=== PATIENT | female | born 1930 | race Caucasian/White ===

== ENCOUNTER 2021-01-17 09:01 | Inpatient (IN) | payer BC, OTHER ==
[2021-01-17] MEDS ORDERED: METHYLPREDNISOLONE 125 MG INJ ONE (09:34)
[2021-01-17] MEDS ORDERED: ALBUTEROL 2.5 MG/3 ML NEB SOL ONE ×3 (09:35→21:40)
[2021-01-17] MEDS ORDERED: IPRATROPIUM BROM 0.5MG/2.5ML ONE ×3 (09:35→21:40)
[2021-01-17] MEDS ORDERED: FUROSEMIDE 20 MG/ 2ML VIAL ONE ×2 (09:35→18:31)
[2021-01-17 09:49] LABS: Absolute Lymphocytes (CBC) 1.9 K/uL (0.7-4.9); Basophils % 2.6 % (0-1.3); Hematocrit 30.6 % (36.0-45.0); Lymphocytes % 24.7 % (15.3-44.8); MPV 8.8 fL (7.6-11.3); RBC Red Blood Cell Count 3.51 M/uL (3.86-4.86)
--- NOTE | 2021-01-17 10:07 | RAD REPORT ---
EXAM DESCRIPTION: RAD - Chest Single View - 01/17/2021 9:57 am CLINICAL HISTORY: CONGESTION Chest pain. COMPARISON: Chest Single View dated 08/20/2015; CHEST SINGLE VIEW dated 07/07/2012; CHEST SINGLE VIEW d ated 07/06/2012; CHEST SINGLE VIEW dated 10/19/2010 FINDINGS: Portable technique limits examination quality. Moderate bilateral pulmonary opacities are present which may represent pulmonary infection/viral infe ction or moderate pulmonary edema. The heart is moderately enlarged. Sternotomy wires are present. IMPRESSION: Moderate CHF versus viral infection pattern.
[2021-01-17 10:09] LABS: Albumin 3.5 g/dL (3.4-5.0); Bilirubin Direct 0.2 mg/dL (0-0.2); Bilirubin Total 0.6 mg/dL (0.2-1.0); CKMB Creatine Kinase MB 1.5 ng/mL (1.0-3.6); Magnesium 1.9 mg/dL (1.8-2.4); Potassium 4.2 mmol/L (3.5-5.1); Protein, Total 6.8 g/dL (6.4-8.2); Thyroid Stimulating Hormone 0.052 uIU/mL (0.360-3.740); Troponin (Emerg Dept Use Only) 0.16 ng/mL (0.0-0.045)
[2021-01-17] MEDS ORDERED: Levofloxacin 750mg IV 750 MG/150 ML BAG IV ONE (10:11)
--- NOTE | 2021-01-17 11:13 | ER ---
Nurse's Notes [facility] Name: Leelee Forrest Age: 89 yrs Sex: Female : 1930 Arrival Date: 01/17/2021 Time: 09:04 Bed 4 Private MD: Diagnosis: Hypoxemia;COPD/ Chronic obstructive pulmonary disease with acute lower respiratory infection;Other pneumonia, unspecified organism;Acute pulmonary edema;Acute on chronic systolic (congestive) heart failure;Subsequent non-ST elevation (NSTEMI) myocardial infarction Presentation: 01/17 09:06 Chief complaint: EMS states: SOB x 3 days. RA 95%, placed on O2 \T\ 2L per NC. Pt was sv hyperventilating on scene. Coronavirus screen: At this time, the client does not indicate any symptoms associated with coronavirus-19. Ebola Screen: No symptoms or risks identified at this time. Initial Sepsis Screen: Does the patient meet any 2 criteria? No. Patient's initial sepsis screen is negative. Does the patient have a suspected source of infection? No. Patient's initial sepsis screen is negative. Risk Assessment: Do you want to hurt yourself or someone else? Patient reports no desire to harm self or others. Onset of symptoms was January 15, 2021. 09:06 Method Of Arrival: EMS: [facility] sv 09:06 Acuity: BECKI 2 sv Triage Assessment: 09:08 General: Appears in no apparent distress. comfortable, well developed, Behavior is sv cooperative, anxious. Pain: Denies pain. Neuro: Level of Consciousness is awake, alert, obeys commands, Oriented to person, place, time, situation, Speech is normal. Respiratory: Airway is patent Respiratory effort is even, unlabored, Respiratory pattern is regular, symmetrical, Breath sounds with wheezes bilaterally. Derm: Skin is normal. Historical: - Allergies: 09:05 Axid; sv 09:05 Codeine; sv 09:05 Keflex; sv 09:05 PENICILLINS; sv 09:05 Talwin; sv 09:05 Vicodin; sv 09:05 Xanax; sv 09:05 Sulfa (Sulfonamide Antibiotics); sv 09:05 Bactrim; sv - PMHx: 09:05 Anxiety; Hypertension; Hypothyroidism; sv - Immunization history:: Adult Immunizations up to date. - Social history:: Smoking status: Patient denies any tobacco usage or history of. - Family history:: not pertinent. Screenin:08 Abuse screen: Denies threats or abuse. Denies injuries from another. Nutritional sv screening: No deficits noted. Tuberculosis screening: No symptoms or risk factors identified. Fall Risk None identified. Assessment: 09:41 Reassessment: Patient appears in no apparent distress at this time. Patient and/or sv family updated on plan of care and expected duration. Pain level reassessed. Patient is alert, oriented x 3, equal unlabored respirations, skin warm/dry/pink. 10:07 Reassessment: Patient appears in no apparent distress at this time. Patient and/or sv family updated on plan of care and expected duration. Pain level reassessed. Patient is alert, oriented x 3, equal unlabored respirations, skin warm/dry/pink. Respiratory: Respiratory pattern is hyperventilation Pt given verbal reassurance to slow her breathing and concentrate on breathing in through her nose and out her mouth. Pt able to perform. 10:38 Reassessment: Vito DC at the bedside. sv 11:33 Reassessment: Patient appears in no apparent distress at this time. Patient and/or sv family updated on plan of care and expected duration. Pain level reassessed. Patient is alert, oriented x 3, equal unlabored respirations, skin warm/dry/pink. 21:40 Reassessment: Patient and/or family updated on plan of care and expected duration. Pain ea level reassessed. Patient is alert, oriented x 3, equal unlabored respirations, skin warm/dry/pink. Pt admitted to second floor, report called to receiving nurse on second. Pt left ED via stretcher tolerating well. Vital Signs: 09:06 BP 144 / 77; Pulse 83; Resp 18; Temp 97; Pulse Ox 99% on R/A; Weight 65.77 kg; Height 5 sv ft. 0 in. (152.40 cm); Pain 0/10; 09:15 BP 127 / 88; Pulse 96; Resp 30; Pulse Ox 97% on 2 lpm NC; sv 11:00 BP 130 / 95; Pulse 89; Resp 25; Pulse Ox 95% on 2 lpm NC; sv 21:24 BP 100 / 60; Pulse 87; Resp 19; Pulse Ox 100% on 2 lpm NC; ea 09:06 Body Mass Index 28.32 (65.77 kg, 152.40 cm) sv ED Course: 08:30 Second set of blood cultures drawn by me. sv 09:04 Patient arrived in ED. iw 09:05 Jessica Salcedo, FAUSTINO is Primary Nurse. sv 09:06 Amarilis Brizuela MD is Attending Physician. ma2 09:06 Arm band placed on. sv 09:07 Triage completed. sv 09:08 Patient has correct armband on for positive identification. Bed in low position. Call sv light in reach. Side rails up X2. superintendent pipelines on. Pulse ox on. NIBP on. Door closed. Head of bed elevated. 09:12 EKG done, by ED staff, reviewed by Amarilis Brizuela MD. em1 09:20 First set of blood cultures drawn by me. sv 09:30 Inserted saline lock: 20 gauge in right forearm, using aseptic technique. Blood sv collected. Flushed right forearm with 5 ml normal saline. 09:38 CBC with Diff Sent. sv 09:38 BMP Sent. sv 09:38 Blood Culture Adult (2) Sent. sv 09:57 XRAY CXR (1 view) In Process Unspecified. EDMS 11:11 Jensen Alberto MD is Hospitalizing Provider. ma2 11:31 Arteaga cath inserted, using sterile technique, 16 Fr., by me, balloon inflated, to sv gravity drainage, returned clear yellow urine. Patient tolerated poorly. 11:54 No provider procedures requiring assistance completed. Patient admitted, IV remains in sv place. intact. Administered Medications: 09:38 Drug: SOLU-Medrol (methylPrednisoLONE) 125 mg Route: IVP; Site: right forearm; sv 10:06 Follow up: Response: No adverse reaction sv 09:39 Drug: Albuterol 2.5 mg Route: Inhalation; sv 09:39 Drug: Albuterol 2.5 mg Route: Inhalation; sv 09:39 Drug: Albuterol 2.5 mg Route: Inhalation; sv 09:39 CANCELLED (Physician Discretion): AtroVENT (ipratropium) Aerosol 0.5 mg Inhalation sv once; Every 20 min for a total of 3 treatments x3 09:39 Drug: Lasix (furosemide) 20 mg Route: IVP; Site: right forearm; sv 10:06 Follow up: Response: No adverse reaction sv 09:39 Drug: AtroVENT (ipratropium) Aerosol 0.5 mg Route: Inhalation; sv 10:06 Drug: LevaQUIN (levofloxacin) 750 mg Volume: 150 ml; Route: IVPB; Infused Over: 90 sv mins; Site: right forearm; 11:33 Follow up: Response: No adverse reaction; IV Status: Completed infusion; IV Intake: sv 150ml 11:32 Drug: Aspirin Chewable Tablet 324 mg Route: PO; sv 11:43 Follow up: Response: No adverse reaction sv 11:32 Drug: Lovenox (enoxaparin) 70 mg Route: Sub-Q; Site: right lower abdomen; sv 11:43 Follow up: Response: No adverse reaction sv 11:32 Drug: Lasix (furosemide) 40 mg Route: IVP; Site: right forearm; sv 11:43 Follow up: Response: No adverse reaction sv Intake: 11:33 IV: 150ml; Total: 150ml. sv Outcome: 11:12 Decision to Hospitalize by Provider. ma2 11:55 Admitted to ER Hold. Please see [facility] for further documentation. sv 11:55 Condition: stable 11:55 Instructed on the need for admit. 21:46 Patient left the ED. tt3 Signatures: Dispatcher [employer] Jessica Garcia RN RN sv Williams, Irene, RN RN iw Martinez, Eric em1 Leydi Griffin RN RN ea Alzahri, Mohammad, MD MD ma2 Trim, Tyler tt3 Corrections: (The following items were deleted from the chart) 10:08 09:47 CORONAVIRUS+MR.LAB.BRANDEE drawn and sent. em1 EDMS 21:25 21:24 BP 100 / 60; Pulse 87bpm; Resp 19bpm; Pulse Ox 100%; ea ea
--- NOTE | 2021-01-17 11:13 | EDPHYS ---
Physician Documentation [facility] Name: Leelee Forrest Age: 89 yrs Sex: Female : 1930 Arrival Date: 01/17/2021 Time: 09:04 Bed 4 Private MD: ED Physician Amarilis Brizuela HPI: 01/17 09:55 This 89 yrs old Female presents to ER via EMS with complaints of Shortness Of ma2 Breath. 09:55 The patient has shortness of breath at rest. Onset: The symptoms/episode began/occurred ma2 gradually, 2 day(s) ago. Associated signs and symptoms: Pertinent negatives: diaphoresis, loss of consciousness, nausea. Severity of symptoms: At their worst the symptoms were severe in the emergency department the symptoms are unchanged. The patient has experienced similar episodes in the past, and the symptoms today are exactly the same, copd. Historical: - Allergies: 09:05 Axid; sv 09:05 Codeine; sv 09:05 Keflex; sv 09:05 PENICILLINS; sv 09:05 Talwin; sv 09:05 Vicodin; sv 09:05 Xanax; sv 09:05 Sulfa (Sulfonamide Antibiotics); sv 09:05 Bactrim; sv - PMHx: 09:05 Anxiety; Hypertension; Hypothyroidism; sv - Immunization history:: Adult Immunizations up to date. - Social history:: Smoking status: Patient denies any tobacco usage or history of. - Family history:: not pertinent. ROS: 09:55 Constitutional: Negative for fever, chills, and weight loss. ma2 09:55 All other systems are negative. Exam: 09:55 Constitutional: This is a well developed, well nourished patient who is awake, alert, ma2 and in no acute distress. Head/Face: Normocephalic, atraumatic. Eyes: Pupils equal round and reactive to light, extra-ocular motions intact. Lids and lashes normal. Conjunctiva and sclera are non-icteric and not injected. Cornea within normal limits. Periorbital areas with no swelling, redness, or edema. ENT: Nares patent. No nasal discharge, no septal abnormalities noted. Tympanic membranes are normal and external auditory canals are clear. Oropharynx with no redness, swelling, or masses, exudates, or evidence of obstruction, uvula midline. Mucous membranes moist. Neck: Trachea midline, no thyromegaly or masses palpated, and no cervical lymphadenopathy. Supple, full range of motion without nuchal rigidity, or vertebral point tenderness. No Meningismus. Chest/axilla: Normal chest wall appearance and motion. Nontender with no deformity. No lesions are appreciated. Cardiovascular: Regular rate and rhythm with a normal S1 and S2. No gallops, murmurs, or rubs. Normal PMI, no JVD. No pulse deficits. Abdomen/GI: Soft, non-tender, with normal bowel sounds. No distension or tympany. No guarding or rebound. No evidence of tenderness throughout. 09:55 Back: No spinal tenderness. No costovertebral tenderness. Full range of motion. MS/ Extremity: Pulses equal, no cyanosis. Neurovascular intact. Full, normal range of motion. Neuro: Awake and alert, GCS 15, oriented to person, place, time, and situation. Cranial nerves II-XII grossly intact. Motor strength 5/5 in all extremities. Sensory grossly intact. Cerebellar exam normal. Normal gait. Psych: Awake, alert, with orientation to person, place and time. Behavior, mood, and affect are within normal limits. 09:55 Respiratory: moderate respiratory distress is noted, Respirations: labored breathing, Breath sounds: rales, that are mild, are heard diffusely, wheezing: Respiratory rate: 30 Vital Signs: 09:06 BP 144 / 77; Pulse 83; Resp 18; Temp 97; Pulse Ox 99% on R/A; Weight 65.77 kg; Height 5 sv ft. 0 in. (152.40 cm); Pain 0/10; 09:15 BP 127 / 88; Pulse 96; Resp 30; Pulse Ox 97% on 2 lpm NC; sv 11:00 BP 130 / 95; Pulse 89; Resp 25; Pulse Ox 95% on 2 lpm NC; sv 21:24 BP 100 / 60; Pulse 87; Resp 19; Pulse Ox 100% on 2 lpm NC; ea 09:06 Body Mass Index 28.32 (65.77 kg, 152.40 cm) sv MDM: 09:06 Patient medically screened. ma2 09:55 Differential diagnosis: asthma, Chronic Obstructive Pulmonary Disease pneumonia, ma2 Pneumothorax reactive airway disease. Data reviewed: vital signs, nurses notes. 11:10 Counseling: I had a detailed discussion with the patient and/or guardian regarding: the vt2 historical points, exam findings, and any diagnostic results supporting the discharge/admit diagnosis, the presence of at least one elevated blood pressure reading (>120/80) during this emergency department visit, the need for further work-up and treatment in the hospital. Response to treatment: the patient's symptoms have markedly improved after treatment. 01/17 09:08 Order name: BMP ma2 01/17 09:08 Order name: Blood Culture Adult (2) ma2 01/17 09:08 Order name: CBC with Diff vt2 01/17 09:08 Order name: CPK; Complete Time: 10:24 vt2 01/17 09:08 Order name: Ckmb; Complete Time: 10:24 vt2 01/17 09:08 Order name: Hepatic Function; Complete Time: 10:24 vt2 01/17 09:08 Order name: Lipase; Complete Time: 10:24 vt2 01/17 09:08 Order name: Magnesium; Complete Time: 10:24 vt2 01/17 09:08 Order name: NT PRO-BNP; Complete Time: 10:24 ma2 01/17 09:08 Order name: PT-INR; Complete Time: 09:57 ma2 01/17 09:08 Order name: Ptt, Activated; Complete Time: 09:57 ma2 01/17 09:08 Order name: Troponin (emerg Dept Use Only); Complete Time: 10:24 vt2 01/17 09:09 Order name: TSH; Complete Time: 10:24 vt2 01/17 09:08 Order name: XRAY CXR (1 view); Complete Time: 10:24 vt2 01/17 09:09 Order name: T4 Free; Complete Time: 10:24 ma2 01/17 09:09 Order name: Basic Metabolic Panel; Complete Time: 10:24 EDMS 01/17 09:09 Order name: Blood Culture EDKS 01/17 09:09 Order name: CBC with Automated Diff; Complete Time: 09:57 EDMS 01/17 11:06 Order name: SARS-COV-2 RT PCR EDMS 01/17 13:44 Order name: Troponin I EDKS 01/17 20:33 Order name: Troponin I EDKS 01/17 09:08 Order name: EKG; Complete Time: 09:09 ma2 01/17 09:08 Order name: Cardiac monitoring; Complete Time: 09:09 2 01/17 09:08 Order name: EKG - Nurse/Tech; Complete Time: 09:11 01/17 09:08 Order name: IV Saline Lock; Complete Time: 09:39 01/17 09:08 Order name: Labs collected and sent; Complete Time: 09:39 vt2 01/17 09:08 Order name: O2 Per Protocol; Complete Time: 09:01/17 09:08 Order name: O2 Sat Monitoring; Complete Time: 09: vt Administered Medications: 09:38 Drug: SOLU-Medrol (methylPrednisoLONE) 125 mg Route: IVP; Site: right forearm; sv 10:06 Follow up: Response: No adverse reaction sv 09:39 Drug: Albuterol 2.5 mg Route: Inhalation; sv 09:39 Drug: Albuterol 2.5 mg Route: Inhalation; sv 09:39 Drug: Albuterol 2.5 mg Route: Inhalation; sv 09:39 CANCELLED (Physician Discretion): AtroVENT (ipratropium) Aerosol 0.5 mg Inhalation sv once; Every 20 min for a total of 3 treatments x3 09:39 Drug: Lasix (furosemide) 20 mg Route: IVP; Site: right forearm; sv 10:06 Follow up: Response: No adverse reaction sv 09:39 Drug: AtroVENT (ipratropium) Aerosol 0.5 mg Route: Inhalation; sv 10:06 Drug: LevaQUIN (levofloxacin) 750 mg Volume: 150 ml; Route: IVPB; Infused Over: 90 sv mins; Site: right forearm; 11:33 Follow up: Response: No adverse reaction; IV Status: Completed infusion; IV Intake: sv 150ml 11:32 Drug: Aspirin Chewable Tablet 324 mg Route: PO; sv 11:43 Follow up: Response: No adverse reaction sv 11:32 Drug: Lovenox (enoxaparin) 70 mg Route: Sub-Q; Site: right lower abdomen; sv 11:43 Follow up: Response: No adverse reaction sv 11:32 Drug: Lasix (furosemide) 40 mg Route: IVP; Site: right forearm; sv 11:43 Follow up: Response: No adverse reaction sv Disposition: 09:56 Critical Care:. ma2 11:10 Critical Care:. ma2 Disposition Summary: 01/17/21 11:12 Hospitalization Ordered Hospitalization Status: Inpatient Admission ma2 Provider: Jensen Alberto Condition: Stable ma2 Problem: new ma2 Symptoms: are unchanged ma2 Bed/Room Type: Standard ma2 Location: Telemetry/MedSurg (Inpatient)(01/17/21 21:02) cg Room Assignment: [facility](01/17/21 21:02) cg Diagnosis - Hypoxemia ma2 - COPD/ Chronic obstructive pulmonary disease with acute lower respiratory infection ma2 - Other pneumonia, unspecified organism ma2 - Acute pulmonary edema ma2 - Acute on chronic systolic (congestive) heart failure ma2 - Subsequent non-ST elevation (NSTEMI) myocardial infarction ma2 Forms: - Medication Reconciliation Form ma2 - SBAR form ma2 Critical care time excluding procedures: 09:56 Critical care time: Bedside Care: 30 minutes, Consultation: 10 minutes, Family ma2 Intervention: 5 minutes. Total time: 45 minutes 11:10 Critical care time: Bedside Care: 30 minutes, Consultation: 10 minutes, Family ma2 Intervention: 5 minutes. Total time: 45 minutes Signatures: Dispatcher [employer] Jessica Garcia RN RN sv Garcia, Cindy, RN RN Amarilis Brizuela MD MD vt2 Corrections: (The following items were deleted from the chart) 09:39 09:08 AtroVENT (ipratropium) Aerosol 0.5 mg Inhalation once; Every 20 min for a total sv of 3 treatments x3 ordered. ma2 10:08 09:09 CORONAVIRUS+MR.LAB.BRZ ordered. EDKS EDMS 11:42 11:12 Telemetry/MedSurg (Inpatient) ma2 sv 11:42 11:12 ma2 sv 21:02 11:42 [facility] ER HOLD sv cg 21:02 11:42 ERHOLD- sv cg
[2021-01-17] MEDS ORDERED: ASPIRIN 81 MG CHEWABLE TABLET ONE (11:26)
[2021-01-17] MEDS ORDERED: ENOXAPARIN 80 MG/0.8 ML SQ ONE (11:27)
[2021-01-17] MEDS ORDERED: FUROSEMIDE 40 MG/4 ML VIAL ONE (11:27)
[2021-01-17] MEDS ORDERED: ONDANSETRON 4 MG/2 ML VIAL IV PRN (11:41)
[2021-01-17] MEDS ORDERED: ACETAMINOPHEN 500 MG TAB PO PRN (11:41)
[2021-01-17 11:52] VITALS: BMI 28.3
[2021-01-17] MEDS: ALBUTEROL 2.5 MG/3 ML NEB SOL NEB PRN ×2 (16:15→21:20)
[2021-01-17] MEDS: IPRATROPIUM BROM 0.5MG/2.5ML NEB PRN ×2 (16:15→21:20)
[2021-01-17] MEDS ORDERED: LORazepam 2 MG/ML VIAL IV ONE (16:57)
[2021-01-17] MEDS ORDERED: FUROSEMIDE 20 MG/ 2ML VIAL IV SCH (17:00)
--- NOTE | 2021-01-17 17:12 | P.HP ---
Certification for Inpatient Patient admitted to: Inpatient With expected LOS: >2 Midnights Patient will require the following post-hospital care: None Practitioner: I am a practitioner with admitting privileges, knowledge of patient current condition, hospital course, and medical plan of care. Services: Services provided to patient in accordance with Admission requirements found in Title 42 Section 412.3 of the Code of Federal Regulations Patient History Date of Service: 01/17/21 Primary Care Provider: Nicolasa Reason for admission: Acute CHF, Atrial fib, NSTEMI History of Present Illness: Is a 89-year-old female patient with a history of anxiety, hypertension, hypothyroidism, COPD that presented to the emergency room with shortness of breath for the past few days. Progressively gotten worse and was brought in by EMS today. Patient stated that her legs have become more swollen and she is getting not only short of breath with exertion but short of breath at rest and with lying supine. Patient was worked up in the emergency room and found to have a sodium of 133, potassium 4.2, chloride 103, bicarb 22, BUN of 22, cr eatinine 0.79, glucose 117. Patient had a white cell count of 7.5, hemoglobin 10.2, hematocrit 30.6, platelet 244. Patient's troponin elevated at 0.16, BNP 28,126. Patient's chest x-ray showed volume overload congestive heart failure. Medicine was consult at that time for further evaluation and admission Allergies famotidine [From Pepcid] Allergy (Mild, Verified 07/07/12 11:50) Itching/Hives/Rash acetaminophen [From Tylox] Allergy (Unknown, Verified 01/17/21 16:58) UNKNOWN cephalexin monohydrate [From Keflex] Allergy (Unknown, Verified 01/17/21 16:58) UNKNOWN codeine [Codeine] Allergy (Unknown, Verified 01/17/21 16:58) UNKNOWN hydrocodone bitartrate [From Vicodin] Allergy (Unknown, Verified 01/17/21 16:58) UNKNOWN oxycodone HCl [From Tylox] Allergy (Unknown, Verified 01/17/21 16:58) UNKNOWN Penicillins Allergy (Unknown, Verified 01/17/21 16:58) UNKNOWN pentazocine lactate [From Talwin] Allergy (Unknown, Verified 01/17/21 16:58) UNKNOWN ranitidine HCl [From Zantac] Allergy (Unknown, Verified 01/17/21 16:58) UNKNOWN Sulfa (Sulfonamide Antibiotics) Allergy (Unknown, Verified 01/17/21 16:58) UNKNOWN alprazolam [From Xanax] Allergy (Verified 01/17/21 16:58) Unknown nizatidine [From Axid] Allergy (Verified 01/17/21 16:58) Unknown Home medications list reviewed: Yes Home Medications: Aspirin [Aspirin EC 81 MG] 81 mg PO DAILY 07/07/12 Diphenox/Atropine [Lomotil*] 1 tab PO Q6H PRN #0 tab 07/07/12 Efanol-Efalex 1 tab PO DAILY 07/07/12 Iron,Carbonyl [Feosol] 65 mg PO DAILY 07/07/12 Levofloxacin [Levaquin] 500 mg PO DAILY #7 tablet 07/07/12 Levothyroxine [Synthroid*] 0.125 mg PO DAILY 07/07/12 Melatonin 5 mg PO BEDTIME 07/07/12 Metoprolol Succinate [Toprol Xl*] 50 mg PO BID 07/07/12 Niacinamide 500 mg PO DAILY 07/07/12 Probiotic BID 07/07/12 Promethazine HCl [Phenergan] 25 mg PO Q6H PRN #30 tablet 07/07/12 Raloxifene HCl [Evista*] 60 mg PO DAILY 07/07/12 Ramipril 10 mg PO DAILY 07/07/12 Rosuvastatin [Crestor*] 10 mg PO DAILY 07/07/12 Santil 200 mg PO 07/07/12 Tiotropium [place] [Spiriva] 18 mcg IH DAILY 07/07/12 Tolterodine Tartrate [Detrol] 2 mg PO BID 07/07/12 Ubidecarenone [Coenzyme Q10] 100 mg PO DAILY 07/07/12 Vit B Complex 100 Combo No.2 [B-100 Complex] 50 mg PO DAILY 07/07/12 Zeal Multivitamin BID 07/07/12 diphenhydrAMINE HCl [Benadryl] 50 mg PO BEDTIME 07/07/12 - Past Medical/Surgical History Diabetic: No -: Anxiety -: HTN -: Hypothyroidism -: CHF -: COPD -: NSTEMI -: Bypass - Family History Family History: Reviewed- Non-Contributory - Social History Smoking Status: Never smoker Smoking therapy provided: No Alcohol use: No CD- Drugs: No Caffeine use: Yes Place of Residence: Home Review of Systems General: As per HPI Eyes: Unremarkable Respiratory: As per HPI Cardiovascular: Orthopnea, Edema Gastrointestinal: Unremarkable Musculoskeletal: Unremarkable Integumentary: Unremarkable Neurological: Unremarkable Lymphatics: Unremarkable Physical Examination - Vital Signs Temperature: 97 F Blood Pressure: 143/49 Pulse: 80 Respirations: 19 Pulse Ox (%): 99 - Physical Exam General: Alert, In no apparent distress, Oriented x3, Cooperative HEENT: Normocephalic, PERRLA, Mucous membr. moist/pink, EOMI Neck: Supple, 2+ carotid pulse no bruit, JVD not distended, No Thyromegaly Respiratory: Crackles/rales (Bibasilar crackles present) Cardiovascular: Regular rate/rhythm, Normal S1 S2, Edema (2+ pitting edema lower extremities present), Systolic murmur (4-6 systolic murmur over the aortic region present) Capillary refill: <2 Seconds Gastrointestinal: Normal bowel sounds, Non-distended, No ascites, No tenderness, No masses, No rebound Musculoskeletal: No clubbing, No swelling, No contractures, No erythema, No tenderness, No warmth Integumentary: No rashes, No breakdown, No significant lesion, No tenderness/swelling, No erythema, No warmth, No cyanosis Neurological: Normal speech, Normal strength at 5/5 x4 extr, Normal tone, Sensation intact, Cranial nerves 3-12 intact Lymphatics: No axilla or inguinal lymphadenopathy - Studies Laboratory Data (last 24 hrs) 01/17/21 09:30: PT 11.5, INR 1.00, APTT 27.1 01/17/21 09:30: WBC 7.50, Hgb 10.2 L, Hct 30.6 L, Plt Count 244 01/17/21 09:30: Sodium 133 L, Potassium 4.2, BUN 22 H, Creatinine 0.79, Glucose 112 H, Magnesium 1.9, Total Bilirubin 0.6, AST 26, ALT 23, Alkaline Phosphatase 70, Lipase 109 Assessment and Plan - Problems (Diagnosis) (1) Acute congestive heart failure Current Visit: Yes Status: Acute Qualifiers: Heart failure type: unspecified Qualified Code(s): I50.9 - Heart failure, unspecified (2) Atrial fibrillation Current Visit: Yes Status: Acute Qualifiers: Atrial fibrillation type: persistent (not longstanding) Qualified Code(s): I48.19 - Other persistent atrial fibrillation; I48.1 - Persistent atrial fibrillation (3) NSTEMI (non-ST elevated myocardial infarction) Current Visit: Yes Status: Acute (4) Hypertension Current Visit: Yes Status: Chronic Qualifiers: Hypertension type: primary hypertension Qualified Code(s): I10 - Essential (primary) hypertension (5) COPD (chronic obstructive pulmonary disease) Current Visit: Yes Status: Chronic Qualifiers: COPD type: chronic bronchitis Chronic bronchitis type: simple Qualified Code(s): J41.0 - Simple chronic bronchitis (6) Hypothyroidism Current Visit: Yes Status: Chronic Qualifiers: Hypothyroidism type: unspecified Qualified Code(s): E03.9 - Hypothyroidism, unspecified - Plan 1. Patient will be admitted to the telemetry unit for further evaluation of her congestive heart failure, A. fib, NSTEMI 2. Cardiology has been consulted and patient will have an echo completed. Patient will be put on metoprolol twice daily, Lasix, Lovenox. Will adjust medications as needed 3. We will continue to rate control of her atrial fibrillation and put her on anticoagulation 4. We will trend her troponins and EKGs as necessary 5. We will continue to monitor other blood work daily including her chemistries and CBC 6. Breathing treatments as necessary for chronic obstructive pulmonary disease Discharge Plan: Home Plan to discharge in: Greater than 2 days - Advance Directives Does patient have a Living Will: Yes Does patient have a Durable POA for Healthcare: Yes - Code Status/Comfort Care Code Status Assessed: Yes Code Status: Full Code Critical Care: No Time Spent Managing Pts Care (In Minutes): 80
[2021-01-17] MEDS ORDERED: LORazepam 2 MG/ML VIAL ONE (17:14)
[2021-01-17] MEDS: ENOXAPARIN 80 MG/0.8 ML SQ SCH (21:00)
[2021-01-17] MEDS: METOPROLOL TAR 50 MG TAB PO SCH (22:23)
[2021-01-17] MEDS: BENZONATATE 100 MG CAP PO PRN (23:25)
[2021-01-17] MEDS: MELATONIN 5 MG TABLET PO PRN (23:25)
[2021-01-18 05:54] LABS: Basophils % 0.2 % (0-1.3); Hematocrit 26.9 % (36.0-45.0); Lymphocytes % 12.1 % (15.3-44.8); MPV 9.1 fL (7.6-11.3); RBC Red Blood Cell Count 3.14 M/uL (3.86-4.86)
--- NOTE | 2021-01-18 05:56 | P.PN ---
Subjective Date of Service: 01/18/21 Primary Care Provider: Nicolasa Chief Complaint: Acute CHF, Atrial fib, NSTEMI Subjective: Improving (feeling better, breathing more comfortably, still on 2L NC. legs improving) Review of Systems 10-point ROS is otherwise unremarkable Physical Examination - Vital Signs Temperature: 97.7 F Blood Pressure: 137/80 Pulse: 92 Respirations: 20 Pulse Ox (%): 98 - Studies Laboratory Data (last 24 hrs) 01/17/21 09:30: PT 11.5, INR 1.00, APTT 27.1 01/17/21 09:30: WBC 7.50, Hgb 10.2 L, Hct 30.6 L, Plt Count 244 01/17/21 09:30: Sodium 133 L, Potassium 4.2, BUN 22 H, Creatinine 0.79, Glucose 112 H, Magnesium 1.9, Total Bilirubin 0.6, AST 26, ALT 23, Alkaline Phosphatase 70, Lipase 109 Assessment & Plan Discharge Plan: (4:00 or any) Physician Review Additional Text: Physical exam GEN: Alert, oriented, NAD, +dementia HEENT: Normal conjunctiva, sclera anicteric CV: Irregular rhythm, 1+ edema Pulm: Nonlabored respiration on 2L NC ABD: Soft, nontender, nondistended Integumentary: No rashes Neuro: Normal speech, normal affect Problem list Acute hypoxemic respiratory failure secondary to acute on chronic congestive heart failure Paroxysmal atrial fibrillation NSTEMI Hypertension Chronic COPD Hypothyroidism Continue telemetry Continue IV Lasix for diuresis. Arteaga catheter placed in the ED for strict I's and O's Continue beta-edmundo for rate control for atrial fibrillation Discussed with cardiology, can transition from Lovenox to Plavix Troponin trending flat Continue monitoring blood work No evidence of infection at this time TSH low, hold Synthroid Code: full Dispo: anticipate dc home in ~1-2 days Time Spent Managing Pts Care (In Minutes): 35
[2021-01-18 06:34] LABS: Potassium 4.3 mmol/L (3.5-5.1)
[2021-01-18] MEDS ORDERED: LEVOTHYROXINE SOD 0.125 MG TAB PO SCH (07:30)
--- NOTE | 2021-01-18 07:54 | RAD REPORT ---
EXAM DESCRIPTION: Rebeca Single View01/18/2021 7:32 am CLINICAL HISTORY: Shortness breath COMPARISON: January 17, 2021 FINDINGS: Minimal improvement in the bilateral pulmonary opacities. Small pleural effusions suspected. Heart remains enlarged Postsurgical changes involve chest IMPRESSION: Minimal improvement in CHF
[2021-01-18] MEDS: hydroCHLOROthiazide 25 MG TAB PO SCH (08:30)
[2021-01-18] MEDS: METOPROLOL TAR 50 MG TAB PO SCH (08:30)
[2021-01-18] MEDS: ASPIRIN 81 MG CHEWABLE TABLET PO SCH (08:30)
[2021-01-18] MEDS: MONTELUKAST 10 MG TAB PO SCH (08:30)
[2021-01-18] MEDS: LOSARTAN POTASSIUM 50 MG TABLET PO SCH (08:30)
[2021-01-18] MEDS: BENZONATATE 100 MG CAP PO PRN ×2 (08:30→17:22)
[2021-01-18] MEDS: FUROSEMIDE 40 MG/4 ML VIAL IV SCH ×2 (08:31→17:13)
[2021-01-18] MEDS: ENOXAPARIN 80 MG/0.8 ML SQ SCH (08:37)
[2021-01-18] MEDS ORDERED: NEBIVOLOL HCL 5 MG TAB PO SCH (09:00)
[2021-01-18] MEDS ORDERED: HOME MED 1 EA UNK (Tolterodine Tartrate [Tolterodine Tartrate] 2 MG Tablet) PO SCH (09:00)
[2021-01-18] MEDS: ALBUTEROL 2.5 MG/3 ML NEB SOL NEB PRN ×2 (09:41→17:37)
[2021-01-18] MEDS: IPRATROPIUM BROM 0.5MG/2.5ML NEB PRN ×2 (09:41→17:37)
[2021-01-18] MEDS: TOLTERODINE LA 4 MG CAP PO SCH (13:03)
--- NOTE | 2021-01-18 15:15 | EKG ---
Test Date: 2021-01-17 Test Time: 09:09:15 Cytogenetics Technologist: MEASUREMENT RESULTS: Intervals: Rate: 83 MS: 204 QRSD: 156 QT: 438 QTc: 514 [place]: P: 0 MS: 204 QRS: 219 T: 90 INTERPRETIVE STATEMENTS: Sinus rhythm with marked sinus arrhythmia Nonspecific intraventricular block Possible Lateral infarct, age undetermined Inferior infarct, age undetermined Abnormal ECG Compared to ECG 08/20/2015 14:15:30 Ventricular premature complex(es) no longer present Right superior axis no longer present Myocardial infarct finding still present Electronically Signed On 01-18-21 15:11:06 CDT by Manuel Chavez
--- NOTE | 2021-01-18 17:22 | CON ---
Date of Consultation: 01/17/2021 Reason For Consultation: Congestive heart failure. History Of Present Illness: Ms. Alonzo is an 89-year-old woman. I have seen her in the office the l ast time in April 2019. She came in with pedal edema, PND, orthopnea, and shortness of breath. H er BNP was elevated at 44,836. Her TSH was 0.052. Her hemoglobin was 9.2. Her troponin was 0.16. She denied chest pain. Denied nausea, vomiting, diaphoresis. She denied any palpitation or syncope. Denied any fever or chills. Past Medical History: Extensive and she has a history of CAD, status post CABG. She has moderate-to -severe mitral stenosis and aortic stenosis. She has hypertension and asthma. Allergies: INCLUDE PEPCID, TYLENOL, CODEINE, PENICILLIN, AND HYDROCODONE. Medications: At home include hydrochlorothiazide, Singulair, Bystolic, Cozaar, and Synthroid. Of no te is that she was recently on Norvasc and was taken off because of edema and placed on Cozaar. Her primary care physician is Dr. Baldwin. Review of Systems: Negative. Social History: Negative. Family History: Noncontributory. Physical Examination: General: She was alert and oriented x3. Vital Signs: Stable, afebrile, sinus rhythm. HEENT: Negative. Neck: Supple with no bruit. Chest: Clear. Cardiac: Revealed aortic stenosis murmur, mitral stenosis murmur, and positive S4 gallops. No rubs. Abdomen: Obese. Extremities: Revealed 3+ edema to above the knees. Skin: Dry and intact. Neurologic: She was nonfocal. Pulses were present in the femoral artery, dorsalis pedis and posteri or tibial bilaterally. Diagnostic Data: As stated earlier. EKG showed left ventricular hypertrophy. Chest x-ray was negat francine. Impression And Plan: 1.Probable diastolic congestive heart failure that is acute secondary to aortic stenosis and mitral stenosis. I agree with Glenn. I think she needs to be on Lasix. Continue Cozaar. I will stop h er thyroid medicine since her TSH is so low. Continue Singulair for her asthma. 2.History of coronary artery disease, status post coronary artery bypass graft. 3.Hypertension, well controlled. 4.Asthma. 5.Anemia. 6.Elevated troponin secondary to demand ischemia. 7.Elevated BNP secondary to acute congestive heart failure. This is a long weekend and hoping to ge t an echocardiogram on her sometime today, but if that is not possible, we can probably do that as an outpatient. I will continue to follow her along. OLIVERIO Voice ID: [id number] Report ID: [id number]
--- NOTE | 2021-01-18 17:50 | PN ---
Date of Progress Note: 01/18/2021 Ms. Alonzo has acute diastolic congestive heart failure secondary to aortic stenosis, mitral stenosis . She has a history of CAD and CABG, came in with mild anemia, elevated troponin, low thyroid level. Her thyroid has been stopped. She is on Bystolic, Cozaar, Lasix and Singulair. She has improved a nd diuresed well and is having no complaint today. O2 saturation is adequate. She wants to stay in the hospital one more day and I agree with that. She has an appointment in my office next week in ab out 3 days. She did not have an echocardiogram because of the holiday. I will do that as an outpati ent and decide on further therapy such as mitral valve clipping or repair and also a TAVR. The famil y will discuss that among themselves to see how aggressive they want to be. IVANA/BENJY Voice ID: [id number] Report ID: [id number]
--- NOTE | 2021-01-18 20:20 | P.PN ---
Date of Service: 01/18/21 public health technologist: Nursing staff to inform them that patient had an episode of third-degree heart block with ventricular escape rhythm at 1937 this evening, persisted for a couple of minutes and then reverted back to sinus rhythm. Rhythm strip reviewed, sent to cardiology. Beta-edmundo has been stopped. At this time patient vital signs stable heart rate sinus rhythm around 90 blood pressure 113/78, patient was asymptomatic during this episode. Pacer pads have been placed on patient's chest and monitor is at bedside in case this happens again and patient requires further intervention. Also have reached out to cardiology and hospitalist attending for further input.
[2021-01-18] MEDS: MELATONIN 5 MG TABLET PO PRN (22:15)
[2021-01-19] MEDS: BENZONATATE 100 MG CAP PO PRN ×3 (01:08→15:38)
[2021-01-19] MEDS: GUAIFENESIN 600 MG SA TAB PO PRN ×2 (02:23→15:38)
[2021-01-19] MEDS: IPRATROPIUM BROM 0.5MG/2.5ML NEB PRN ×2 (04:59→16:44)
[2021-01-19 06:17] LABS: Hematocrit 29.9 % (36.0-45.0); MPV 8.9 fL (7.6-11.3); RBC Red Blood Cell Count 3.48 M/uL (3.86-4.86)
--- NOTE | 2021-01-19 06:27 | P.PN ---
Subjective Date of Service: 01/19/21 Primary Care Provider: Nicolasa Chief Complaint: Acute CHF, Atrial fib, NSTEMI Subjective: Improving (Patient reports slight improvement today, she had a rough night, had bradycardia at times, did not feel well. Feels better with oxygen. Feels very weak. Legs improved, Arteaga remains. Episodes of third-degree block overnight. Did not require pacing) Review of Systems 10-point ROS is otherwise unremarkable Physical Examination - Vital Signs Temperature: 97.4 F Blood Pressure: 158/85 Pulse: 84 Respirations: 18 Pulse Ox (%): 99 Assessment & Plan Physician Review Additional Text: Physical exam GEN: Alert, oriented, NAD, +dementia HEENT: Normal conjunctiva, sclera anicteric CV: Irregular rhythm, 1+ edema Pulm: Nonlabored respiration on 2L NC ABD: Soft, nontender, nondistended Integumentary: No rashes Neuro: Normal speech, normal affect Problem list Acute hypoxemic respiratory failure secondary to acute on chronic congestive heart failure Paroxysmal atrial fibrillation NSTEMI Hypertension Chronic COPD Hypothyroidism Continue telemetry Continue IV Lasix for diuresis. Arteaga catheter placed in the ED for strict I's and O's Discontinued beta-edmundo secondary to runs of third-degree block Cardiology consulted, echocardiogram ordered, dc HCTZ, continue Lasix Troponin trending flat No evidence of infection at this time TSH low, holding Synthroid Slight worsening renal function with some mild hyponatremia, patient remains net positivedrink a lot of tea and fluid yesterday. 2 L fluid restriction ordered. Nephrology consulted Physical therapy consulted Code: full Dispo: anticipate dc home in ~1-2 days Son is concerned about patient ability to go home. Time Spent Managing Pts Care (In Minutes): 35
[2021-01-19 06:51] LABS: Magnesium 1.6 mg/dL (1.8-2.4); Potassium 3.6 mmol/L (3.5-5.1)
[2021-01-19] MEDS: FUROSEMIDE 40 MG/4 ML VIAL IV SCH ×2 (08:37→17:47)
[2021-01-19] MEDS: TOLTERODINE LA 4 MG CAP PO SCH (08:37)
[2021-01-19] MEDS: LOSARTAN POTASSIUM 50 MG TABLET PO SCH (08:37)
[2021-01-19] MEDS: ASPIRIN 81 MG CHEWABLE TABLET PO SCH (08:37)
[2021-01-19] MEDS: hydroCHLOROthiazide 25 MG TAB PO SCH (08:38)
[2021-01-19] MEDS: MONTELUKAST 10 MG TAB PO SCH (08:38)
[2021-01-19] MEDS: CLOPIDOGREL 75 MG TABLET PO SCH (08:38)
[2021-01-19] MEDS ORDERED: ENOXAPARIN 80 MG/0.8 ML SQ SCH (09:00)
--- NOTE | 2021-01-19 11:22 | PN ---
Date of Progress Note: 01/19/2021 Ms. Alonzo has aortic stenosis, mitral stenosis, congestive heart failure, intolerant to beta-edmundo . Yesterday, she went into a third-degree AV block that has resolved. Beta-edmundo has been discont inued. She needs to be on her present regimen now including aspirin, Lasix, Plavix, and losartan. I would discontinue her hydrochlorothiazide in her home and I will see her in the office next week. S he has improved from a CHF standpoint. She is in normal rhythm today. IVANA/BENJY Voice ID: [id number] Report ID: [id number]
--- NOTE | 2021-01-19 16:17 | RAD REPORT ---
EXAM DESCRIPTION: RAD - Chest Single View - 01/19/2021 9:10 am CLINICAL HISTORY: f/u chf COMPARISON: <Comparisons> FINDINGS: Lines: None. Lungs: Diffuse prominence of the pulmonary interstitium. Pleural: Difficult to exclude small bilateral effusions. Cardiac: Cardiomegaly. Sternotomy. Bones: No acute fractures. Other: IMPRESSION: Congestive heart failure with mild improvement compared with 01/18/2021.
[2021-01-19] MEDS: ALBUTEROL 2.5 MG/3 ML NEB SOL NEB PRN (16:44)
[2021-01-20 05:56] LABS: MPV 8.4 fL (7.6-11.3); RBC Red Blood Cell Count 3.41 M/uL (3.86-4.86)
[2021-01-20] MEDS: GUAIFENESIN 600 MG SA TAB PO PRN (06:05)
--- NOTE | 2021-01-20 06:06 | P.PN ---
Subjective Date of Service: 01/20/21 Primary Care Provider: Nicolasa Chief Complaint: Acute CHF, Atrial fib, NSTEMI Subjective: Improving (Breathing more comfortably, swelling improved. Still with occasional cough. Dyspnea on exertion. Worked with physical therapy, very weak and unstable, requiring moderate assistance to stand) Review of Systems 10-point ROS is otherwise unremarkable Physical Examination - Vital Signs Temperature: 97.9 F Blood Pressure: 147/56 Pulse: 53 Respirations: 18 Pulse Ox (%): 97 Assessment & Plan Physician Review Additional Text: Physical exam GEN: Alert, oriented, NAD, +dementia HEENT: Normal conjunctiva, sclera anicteric CV: Irregular rhythm, 1+ edema Pulm: Nonlabored respiration on room air ABD: Soft, nontender, nondistended Integumentary: No rashes Neuro: Normal speech, normal affect, generalized weakness, nonfocal Problem list Acute hypoxemic respiratory failure secondary to acute on chronic congestive heart failure Paroxysmal atrial fibrillation NSTEMI Second-degree type II AV block, intermittent third-degree AV block Hypertension Chronic COPD Hypothyroidism Continue telemetry Continue IV Lasix for diuresis. Ar[place]aga catheter placed in the ED for strict I's and O's Throughout hospitalization, patient has had 23 episodes of short intermittent third-degree AV block, and episodes of second-degree type II AV block. Cardiology consulted Discontinued beta-edmundo secondary to runs of third-degree block on 01/18 echocardiogram ordered, dc'd HCTZ, continue Lasix Troponin trended flat No evidence of infection at this time TSH low, holding Synthroid Slight worsening renal function with some mild hyponatremia, patient remained net positive initially 2 L fluid restriction ordered. Nephrology consulted Physical therapy consulted - recommend SNF Code: full Dispo: anticipate dc to SNF in ~1-2 days Son is concerned about patient ability to go home as well Time Spent Managing Pts Care (In Minutes): 35
[2021-01-20 06:15] LABS: Magnesium 1.8 mg/dL (1.8-2.4); Potassium 3.1 mmol/L (3.5-5.1)
[2021-01-20] MEDS: ASPIRIN 81 MG CHEWABLE TABLET PO SCH (10:22)
[2021-01-20] MEDS: FUROSEMIDE 40 MG/4 ML VIAL IV SCH ×2 (10:22→16:00)
[2021-01-20] MEDS: LOSARTAN POTASSIUM 50 MG TABLET PO SCH (10:22)
[2021-01-20] MEDS: CLOPIDOGREL 75 MG TABLET PO SCH (10:22)
[2021-01-20] MEDS: TOLTERODINE LA 4 MG CAP PO SCH (10:22)
[2021-01-20] MEDS: MONTELUKAST 10 MG TAB PO SCH (10:22)
[2021-01-20] MEDS ORDERED: POTASSIUM 25 MEQ EFFERV TAB PO ONE (13:00)
[2021-01-20] MEDS: PANTOPRAZOLE 40MG TABLET PO SCH (14:54)
[2021-01-20 16:44] LABS: Urine Appearance CLEAR (Clear); Urine Bilirubin NEGATIVE (Negative); Urine Blood 3+ (Negative); Urine Color YELLOW (Yellow); Urine Glucose NEGATIVE (Negative); Urine Protein NEGATIVE (Negative); Urine Specific Gravity <=1.005 (1.005-1.030); Urine Urobilinogen 0.2 mg/dL (0.2-1.0); Urine pH 5.5 (5.0-7.0)
--- NOTE | 2021-01-20 16:58 | EKG ---
Test Date: 2021-01-18 Test Time: 21:12:52 Horticulture Supervisor: RT Booth MEASUREMENT RESULTS: Intervals: Rate: 100 UT: 184 QRSD: 156 QT: 404 QTc: 521 [place]: P: -27 UT: 184 QRS: 199 T: 72 INTERPRETIVE STATEMENTS: Sinus rhythm with premature atrial complexes Nonspecific intraventricular block Possible Lateral infarct, age undetermined Inferior infarct, age undetermined Abnormal ECG Compared to ECG 01/17/2021 09:09:15 Atrial premature complex(es) now present Sinus arrhythmia no longer present Myocardial infarct finding still present Electronically Signed On 01-20-21 16:56:07 CDT by Manuel Chavez
--- NOTE | 2021-01-20 17:02 | EKG ---
Test Date: 2021-01-18 Test Time: 05:55:06 Commercial Field Inspector: MARISSA MEASUREMENT RESULTS: Intervals: Rate: 83 AL: 168 QRSD: 168 QT: 454 QTc: 533 [place]: P: 50 AL: 168 QRS: 203 T: -18 INTERPRETIVE STATEMENTS: Sinus rhythm with 2nd degree AV block (Mobitz II) Right bundle branch block Anterolateral infarct, age undetermined Abnormal ECG Compared to ECG 01/17/2021 09:09:15 Right bundle-branch block now present Sinus arrhythmia no longer present Myocardial infarct finding still present Electronically Signed On 01-20-21 16:57:21 CDT by Manuel Chavez
[2021-01-20 17:15] LABS: Urine Bacteria 20-50 /HPF (<20); Urine RBC >50 /HPF (NONE SEEN)
[2021-01-21] MEDS: GUAIFENESIN 600 MG SA TAB PO PRN ×2 (06:07→21:13)
[2021-01-21 06:44] LABS: Hematocrit 31.2 % (36.0-45.0); MPV 8.7 fL (7.6-11.3); RBC Red Blood Cell Count 3.63 M/uL (3.86-4.86)
[2021-01-21 07:09] LABS: Magnesium 1.9 mg/dL (1.8-2.4); Potassium 3.1 mmol/L (3.5-5.1)
[2021-01-21] MEDS ORDERED: POTASSIUM 25 MEQ EFFERV TAB PO ONE (08:06)
[2021-01-21] MEDS: MAGNESIUM OXIDE 400 MG TAB PO SCH ×2 (09:00→21:00)
[2021-01-21] MEDS: FUROSEMIDE 40 MG/4 ML VIAL IV SCH ×3 (09:00→16:11)
[2021-01-21] MEDS: LOSARTAN POTASSIUM 50 MG TABLET PO SCH (09:31)
[2021-01-21] MEDS: ASPIRIN 81 MG CHEWABLE TABLET PO SCH (09:31)
[2021-01-21] MEDS: PANTOPRAZOLE 40MG TABLET PO SCH (09:31)
[2021-01-21] MEDS: TOLTERODINE LA 4 MG CAP PO SCH (09:31)
[2021-01-21] MEDS: CLOPIDOGREL 75 MG TABLET PO SCH (09:32)
[2021-01-21] MEDS: MONTELUKAST 10 MG TAB PO SCH (10:35)
--- NOTE | 2021-01-21 11:00 | EKG ---
Test Date: 2021-01-19 Test Time: 16:19:15 Instruments Sales Representative: MG MEASUREMENT RESULTS: Intervals: Rate: 42 ID: [id number] QRSD: 146 QT: 500 QTc: 417 [place]: P: 23 ID: [id number] QRS: 215 T: 141 INTERPRETIVE STATEMENTS: Sinus rhythm with 2nd degree AV block with 2:1 AV conduction Nonspecific intraventricular block Lateral infarct, age undetermined Inferior infarct, age undetermined Abnormal ECG Compared to ECG 01/19/2021 00:10:02 Atrial premature complex(es) no longer present Myocardial infarct finding still present Electronically Signed On 01-21-21 10:54:34 CDT by Manuel Chavez
--- NOTE | 2021-01-21 11:00 | EKG ---
Test Date: 2021-01-19 Test Time: 16:20:11 Tube Cleaner: MG MEASUREMENT RESULTS: Intervals: Rate: 59 ME: QRSD: 146 QT: 486 QTc: 481 [place]: P: 10 ME: QRS: 221 T: 132 INTERPRETIVE STATEMENTS: Sinus rhythm with 2nd degree AV block (Mobitz I) Nonspecific intraventricular block Lateral infarct, age undetermined Inferior infarct, age undetermined Abnormal ECG Compared to ECG 01/19/2021 16:19:15 No significant changes Electronically Signed On 01-21-21 10:54:33 CDT by Manuel Chavez
--- NOTE | 2021-01-21 11:02 | EKG ---
Test Date: 2021-01-19 Test Time: 00:10:02 Inspector Plug Seam: CHRISTOPHER MEASUREMENT RESULTS: Intervals: Rate: 82 AK: 204 QRSD: 168 QT: 458 QTc: 535 [place]: P: 31 AK: 204 QRS: 229 T: 92 INTERPRETIVE STATEMENTS: Sinus rhythm with premature atrial complexes Possible Left atrial enlargement Nonspecific intraventricular block Possible Lateral infarct, age undetermined Inferior infarct, age undetermined Abnormal ECG Compared to ECG 01/18/2021 21:12:52 No significant changes Electronically Signed On 01-21-21 10:54:42 CDT by Manuel Chavez
[2021-01-21] MEDS: Levofloxacin 750mg IV 750 MG/150 ML BAG IV SCH (11:51)
[2021-01-21] MEDS ORDERED: MAGNESIUM SULFATE 1 gm IVPB 1 GM/100 ML BAG IV ONE (12:55)
--- NOTE | 2021-01-21 14:10 | PN ---
Date of Progress Note: 01/21/2021 Subjective: The patient was admitted with acute kidney injury. The patient's on arrival to the hospital creatinine of 0.7, kidney function gradually deteriorated. The patient had over volume. The patient also has hyponatremia, sodium gradually declined. The patient started having increased leg swelling. The patient admits that she has coronary artery disease with CABG back in 2016. Physical Examination: Vital Signs: When I saw the patient; blood pressure 131/70, pulse of 77, T-max 100.7. Chest: Crackles bilateral. Heart: S1, S2. Systolic murmur. Abdomen: Soft, nontender. Extremities: +3 edema. Too sensitive to touch with any touch. The patient screaming from pain, erythema bilateral. Neuro: Alert. No focality. Laboratory Data: Sodium 129, potassium 3.1, bicarb 31, BUN 51, creatinine 1.3, GFR of 36, calcium 8.1, magnesium 1.9. WBC 11.5, H and H 10.7/31. Urinalysis; specific gravity of 1.005, WBC of 10, RBC more than 50. Chest x-ray; cardiomegaly with congestion. Echocardiogram not done yet. Assessment And Plan: 1. Acute kidney injury secondary to cardiorenal, over volume, superimposed with ARB. I agree with diuresis. Hold Lasix. We will follow up renal ultrasound. We will monitor the patient closely. 2. Hypertension with the presence of acute kidney injury. Continue diuresis. We will follow up blood pressure, discontinue losartan. 3. Anasarca with the presence of hematuria. I am going to go ahead and repeat UA. If continued to have hematuria, we will follow up serology. We will quantify the proteinuria. I am going to optimize the diuresis for the patient. Hypothyroidism has been ruled out. 4. Hyponatremia secondary to dilutional. We will optimize diuresis with Lasix. 5. Hypomagnesemia. We will supplement. 6. Congestive heart failure with exacerbation as above. We will optimize diuresing the patient. Time spent examining the patient [id number] placing order discussing with the patient reviewing data discussing the case with all of our subspecialty including hospitalist 45 minutes DEMETRIO Voice ID: [id number] Report ID: [id number] [facility]
--- NOTE | 2021-01-21 15:23 | P.PN ---
Subjective Date of Service: 01/21/21 Primary Care Provider: Nicolasa Chief Complaint: Acute CHF, Atrial fib, NSTEMI Patient is emotionally labile. Serum creatinine trending up slowly. UA suggest UTI. Physical Examination - Vital Signs Temperature: 99.0 F Blood Pressure: 131/70 Pulse: 79 Respirations: 19 Pulse Ox (%): 95 - Physical Exam General: In no apparent distress, Other (Awake) HEENT: Mucous membr. moist/pink Neck: JVD not distended Respiratory: Clear to auscultation bilaterally, Normal air movement Cardiovascular: Normal S1 S2, Edema (Bilateral lower extremities), Irregular heart rate/rhythm Gastrointestinal: Soft and benign, Non-distended, No tenderness Musculoskeletal: No swelling Integumentary: No rashes Neurological: Other (No focal motor deficit) Assessment And Plan Physician Review Additional Text: Problem list Acute hypoxemic respiratory failure secondary to acute on chronic congestive heart failure Paroxysmal atrial fibrillation NSTEMI Second-degree type II AV block, intermittent third-degree AV block Hypertension Chronic COPD Hypothyroidism Continue telemetry Continue IV Lasix for diuresis. Nephrology is assisting with fluid management. Patient has intermittent third-degree AV block and second-degree AV block Patient seen by Dr. Chavez. Beta-edmundo on hold. echocardiogram is pending. Troponin trended flat. No ACS. UA suggest UTI. Patient started on oral Levaquin TSH low, Synthroid on hold. 2 L fluid restriction Physical therapy recommend SNF Code: full Dispo: foundry worker apprentice assisting with arrangement for SNF placement.
[2021-01-21 18:29] LABS: Urine Appearance CLEAR (Clear); Urine Bilirubin NEGATIVE (Negative); Urine Blood NEGATIVE (Negative); Urine Color YELLOW (Yellow); Urine Glucose NEGATIVE (Negative); Urine Protein NEGATIVE (Negative); Urine Specific Gravity <=1.005 (1.005-1.030)
[2021-01-21 18:30] LABS: Urine Microscopic Reflex ORDER UMIC
--- NOTE | 2021-01-21 18:30 | EKG ---
Test Date: 2021-01-20 Test Time: 19:39:24 Theatre Manager: SREG MEASUREMENT RESULTS: Intervals: Rate: 47 AL: 222 QRSD: 140 QT: 534 QTc: 472 [place]: P: 29 AL: 222 QRS: 219 T: 144 INTERPRETIVE STATEMENTS: Marked sinus bradycardia with 1st degree AV block with fusion complexes with ventricular escape complexes Nonspecific intraventricular block Inferior infarct, age undetermined Anterolateral infarct, age undetermined Abnormal ECG Compared to ECG 01/19/2021 16:20:11 Fusion complex(es) now present Ventricular escape complex(es) now present First degree AV block now present Sinus rhythm no longer present Myocardial infarct finding still present Electronically Signed On 01-21-21 18:29:38 CDT by Manuel Chavez
[2021-01-21 18:37] LABS: Urine Bacteria <20 /HPF (<20); Urine Mucus 1+ /HPF (NONE SEEN); Urine RBC <5 /HPF (NONE SEEN)
[2021-01-21] MEDS: BENZONATATE 100 MG CAP PO PRN (23:42)
[2021-01-22] MEDS: MELATONIN 5 MG TABLET PO PRN (00:24)
[2021-01-22 04:27] LABS: UR PROTEIN 9.2 mg/dL (<11.9); Urine Protein/Creatinine Ratio 0.16 ratio (<0.15)
[2021-01-22 06:58] LABS: RBC Red Blood Cell Count 3.26 M/uL (3.86-4.86)
[2021-01-22 07:40] LABS: Albumin 2.7 g/dL (3.4-5.0); BUN Blood Urea Nitrogen 52 mg/dL (7-18); Bicarbonate 32 mmol/L (21-32); Creatine Phosphokinase 88 U/L (26-192); Ferritin 134.8 ng/mL (8-388); Folic Acid, (Folate) > 20.0 ng/mL (3.1-17.5); Glucose Level 105 mg/dL (74-106); Phosphorus 3.1 mg/dL (2.5-4.9); Potassium 3.5 mmol/L (3.5-5.1); Sodium Level 130 mmol/L (136-145); Transferrin 177 mg/dL (200-360)
[2021-01-22] MEDS ORDERED: POTASSIUM CL SA 10 MEQ TAB PO ONE (08:28)
[2021-01-22 08:32] LABS: Rheumatoid Factor NEG (NEG)
[2021-01-22] MEDS: MAGNESIUM OXIDE 400 MG TAB PO SCH ×2 (09:00→20:29)
[2021-01-22] MEDS: FUROSEMIDE 40 MG/4 ML VIAL IV SCH ×2 (09:00→16:18)
[2021-01-22] MEDS: ASPIRIN 81 MG CHEWABLE TABLET PO SCH (09:55)
[2021-01-22] MEDS: TOLTERODINE LA 4 MG CAP PO SCH (09:55)
[2021-01-22] MEDS: CLOPIDOGREL 75 MG TABLET PO SCH (09:55)
[2021-01-22] MEDS: MONTELUKAST 10 MG TAB PO SCH (09:55)
--- NOTE | 2021-01-22 09:55 | CON ---
Date of Consultation: 01/20/2021 Chief Complaint: Electrolytes abnormalities, acute kidney injury. Cardiorenal syndrome, acute on chronic kidney injury, acute congestive heart failure with atrial fibrillation and non-ST elevation myocardial infarction. The patient was found to have hyponatremia and prerenal azotemia. The patient has history of acute congestive heart failure, atrial fibrillation, and zer-KZ-htqvppljh myocardial infarction. She was admitted for shortness of breath and acute on chronic congestive heart failure with arrhythmia and mtj-XY-gffbuqjzj myocardial infarction. The patient is an 89-year-old woman with history of anxiety, hypertension, hypothyroidism, and COPD. She presented primarily to the hospital few days ago and subsequently when shortness of breath was worse, she was again brought to the hospital by EMS on January 17. On arrival to the hospital, BUN was 22, creatinine 0.79, glucose 117, sodium 133, potassium 4.2, bicarbonate 22. White count 7.5 and hemoglobin 10.2. Sodium level has declined over the last several days and the patient was found to have legs edema, worsening of the shortness of breath. She denies chest pain. Nephrology consultation was requested for hyponatremia, fluid overload, management of cardiorenal syndrome. The patient has prerenal azotemia. BUN was 22, creatinine 0.79, sodium 132-133 and BNP was severely elevated. The patient had chest x-ray done, which show volume overload, congestive heart failure. Cardiology consultation was also requested for management of coronary artery disease and non-ST elevation myocardial infarction. The patient has atrial fibrillation and this was treated as well. The patient has history of hypertension, she was taking ramipril and for hyperlipidemia she was taking rosuvastatin. Review of Systems: General: The patient has shortness of breath with activities as well as at rest. Eyes: The patient denies vision changes. Ears, Nose, Mouth, and Throat: Denies sore throat or earache. Respiratory: The patient has shortness of breath. Denies wheezing. GI: Denies nausea or vomiting. : Denies dysuria or hematuria. Musculoskeletal: Denies gout. All other systems reviewed and all are negative. Past Medical History: Anxiety, hypertension, hypothyroidism, congestive heart failure, coronary artery disease, jwe-QO-qyhflrnhe myocardial infarction, and COPD. Family History: Hypertension and coronary artery disease. Social History: Denies tobacco, alcohol, or illicit drugs. Physical Examination: General: The patient is alert, follows commands. Eyes: Anicteric sclerae. EOMI. Ears, Nose, Mouth, and Throat: Oral mucosa is moist. No pallor. Neck: Supple. No bruits. Lungs: Crackles bilaterally at bases. Heart: S1, S2. Abdomen: Soft, benign. Extremities: Edema present in both legs. Some bruises. Laboratory Data: Sodium 133, potassium 4.2, BUN 22, creatinine 0.79, glucose 112. lipase 109, total bilirubin 0.6. Blood work today show sodium 129, potassium 3.6, chloride 92, CO2 of 33, magnesium 1.6, calcium 8.7. Impression And Plan: 1. Acute kidney injury due to cardiorenal syndrome. The patient has severe fluid overload, decompensated congestive heart failure complicated by atrial fibrillation. Hyponatremia is due to congestive heart failure. Continue p.o. fluid restriction and diuretics. 2. Hypertension. Continue blood pressure medication. 3. Non-ST elevation myocardial infarction complicating congestive heart failure. Workup and management per filling layer up. The patient may need a cardiac catheterization and she will need Mucomyst to premedicate for IV contrast exposure. Cardiac echo was pending to assess ejection fraction. 4. Edema, fluid overload. Planning to check work-up for proteinuria, to evaluate for possible nephrotic syndrome. The patient will continue potassium supplementation when she is on diuretic. The patient has hypoalbuminemia and she needs to rule out of monoclonal gammopathy of unknown significance. 5. Plan is to check intact PTH to rule out hyperparathyroidism and to screen for vitamin D deficiency. 6. In view of hyponatremia planning to check TSH and a.m. cortisol level. Monitor electrolytes and urine output, fluid balance and daily weight to adjust diuretic therapy. 7. Reviewed lab work obtained to rule out any evidence of nephritis. Hyponatremia, prerenal azotemia, cardiorenal syndrome. Sodium level is declining. The patient has borderline hypokalemia and hypomagnesemia. The patient has fluid overload and she will continue Lasix. Plan is to monitor her electrolytes, magnesium and potassium replacement. Renal ultrasound was ordered and is pending. The patient has congestive heart failure, acute on chronic with accelerated dyspnea. The patient was taking hydrochlorothiazide at home. I recommend to hold HCTZ in this particular patient and loop diuretic will be advanced for cardiorenal syndrome, volume control and congestive heart failure management. The patient developed prerenal azotemia, remains nonoliguric, and the patient tolerates Lasix. Urinalysis showed red blood cells and white blood cells, protein is negative, blood is 3+. The patient may need evaluation for possible vasculitis. Patient was found to have microscopic hematuria and renal ultrasound will be done to evaluate. The patient although may require CT scan per stone protocol. SEDRICK/BENJY Voice ID: [id number] Report ID: [id number] ABELARDO
[2021-01-22] MEDS: PANTOPRAZOLE 40MG TABLET PO SCH (09:56)
[2021-01-22] MEDS ORDERED: FUROSEMIDE 40 MG/4 ML VIAL IV SCH (10:00)
[2021-01-22] MEDS: BENZONATATE 100 MG CAP PO PRN (10:03)
[2021-01-22] MEDS ORDERED: SOD FERRIC GLUC COMPLX/SUCROSE 250 MG in NA CHLORIDE 0.9% 250 ML IV SCH (13:00)
--- NOTE | 2021-01-22 14:08 | CON ---
Date of Consultation: 01/20/2021 Consult already dictated ( this was duplicate ) SEDRICK/BENJY Voice ID: [id number] Report ID: [id number] MTDD
--- NOTE | 2021-01-22 14:12 | RAD REPORT ---
EXAM DESCRIPTION: RAD - Chest Single View - 01/22/2021 1:45 pm CLINICAL HISTORY: COPD COMPARISON: Chest Single View dated 01/19/2021; Chest Single View dated 01/18/2021; Chest Single View da jerrell 01/17/2021; Chest Single View dated 08/20/2015 FINDINGS: Lines: None. Lungs: Continued improvement edema with only mild residual. Pleural: No significant pleural effusions or pneumothorax. Cardiac: Cardiomegaly. Sternotomy. Bones: No acute fractures. Other: IMPRESSION: Continued improvement in edema which is now mild.
--- NOTE | 2021-01-22 14:18 | P.PN ---
Subjective Date of Service: 01/22/21 Primary Care Provider: Nicolasa Chief Complaint: Acute CHF, Atrial fib, NSTEMI Patient states her shortness of breath is much better today. She is currently at baseline. Physical Examination - Vital Signs Temperature: 98.6 F Blood Pressure: 152/64 Pulse: 38 Respirations: 20 Pulse Ox (%): 94 - Physical Exam General: Oriented x2, Other (Awake) Neck: JVD not distended Respiratory: Clear to auscultation bilaterally, Normal air movement Cardiovascular: Regular rate/rhythm, Normal S1 S2, Systolic murmur Gastrointestinal: Normal bowel sounds, Soft and benign, Non-distended Musculoskeletal: No swelling, No erythema Integumentary: No rashes Neurological: Other (No focal motor deficit.) - Studies Microbiology Data (last 24 hrs): 01/17/21 09:30 Blood - Blood Aerobic Blood Culture - Final No growth in 5 days. 01/17/21 09:30 Blood - Blood Anaerobic Blood Culture - Final No growth in 5 days. 01/17/21 09:20 Blood - Blood Aerobic Blood Culture - Final No growth in 5 days. 01/17/21 09:20 Blood - Blood Anaerobic Blood Culture - Final No growth in 5 days. Assessment And Plan Physician Review Additional Text: Problem list Acute hypoxemic respiratory failure secondary to acute on chronic congestive heart failure Paroxysmal atrial fibrillation NSTEMI Second-degree type II AV block, intermittent third-degree AV block Hypertension Chronic COPD Hypothyroidism Continue telemetry Continue IV Lasix for diuresis per nephrology. Patient not needing oxygen Nephrology is assisting with fluid management. Patient has intermittent third-degree AV block and second-degree AV block Patient seen by Dr. Chavez. Beta-edmundo on hold. echocardiogram: Pending Troponin trended flat. No ACS. Urine culture no growth: Discontinue antibiotics TSH low, Synthroid on hold. 2 L fluid restriction Physical therapy recommending SNF. Patient overall has clinically improved. Code: full Dispo: Awaiting SNF placement.
--- NOTE | 2021-01-22 14:47 | PN ---
Date of Progress Note: 01/22/2021 Subjective: The patient was admitted with acute kidney injury, anasarca. Yesterday, we resumed her diuresis, sodium started trending up. The patient had good urine output. Physical Examination: Vital Signs: Blood pressure 136/67, pulse of 40, afebrile. The patient had good urine output of 145 0, negative of 500. Chest: Decreased entry bilateral base. Heart: S1, S2. Systolic murmur. Abdomen: Soft, nontender. Extremities: +2 edema. Neurologic: Alert. No focality. Laboratory Data: WBC 11.5, H and H 10.7/31.2. Chest x-ray; cardiomegaly with congestion. Sodium 13 0, potassium 3.5, bicarb 32, BUN 52, creatinine 1.4, GFR of 35, uric acid 12, calcium of 8, phosphoru s 3.1, iron saturation 7.7, ferritin 134, albumin 2.7. Corrected calcium is 8.8. PTH 138, cortisol of 21. Current Medications: The patient on include; 1.Aspirin. 2.Levaquin 750 every 48 hours. 3.Plavix. 4.Lasix 40 b.i.d. 5.Pantoprazole. 6.Magnesium oxide. 7.KCl. Assessment And Plan: 1.Acute kidney injury secondary to cardiorenal. The patient is still over volume. I am going to in crease her Lasix to 80 mg every 8 hours to establish better volume control and we will monitor the pa tient closely. 2.Hypertension. We will utilize blood pressure for more diuresis. 3.Iron deficiency anemia. We will start the patient on IV iron. 4.Anasarca secondary to renal failure. We will try to establish better volume control. 5.Hematuria. Repeated UA negative. No significant proteinuria. 6.Congestive heart failure with exacerbation. We will try to establish better volume control with t he diuresis. We will follow up. DEMETRIO Voice ID: [id number] Report ID: [id number]
[2021-01-23] MEDS: FUROSEMIDE 40 MG/4 ML VIAL IV SCH ×2 (00:52→08:57)
[2021-01-23 04:43] LABS: Albumin 2.6 g/dL (3.4-5.0); Phosphorus 3.4 mg/dL (2.5-4.9); Potassium 4.1 mmol/L (3.5-5.1)
[2021-01-23] MEDS: ASPIRIN 81 MG CHEWABLE TABLET PO SCH (08:56)
[2021-01-23] MEDS: TOLTERODINE LA 4 MG CAP PO SCH (08:56)
[2021-01-23] MEDS: PANTOPRAZOLE 40MG TABLET PO SCH (08:56)
[2021-01-23] MEDS: MONTELUKAST 10 MG TAB PO SCH (08:56)
[2021-01-23] MEDS: CLOPIDOGREL 75 MG TABLET PO SCH (08:57)
[2021-01-23] MEDS: MAGNESIUM OXIDE 400 MG TAB PO SCH ×2 (08:57→20:53)
[2021-01-23] MEDS: Levofloxacin 750mg IV 750 MG/150 ML BAG IV SCH (12:45)
--- NOTE | 2021-01-23 13:09 | PN ---
Date of Progress Note: 01/23/2021 Subjective: The patient was admitted with anasarca, over volume on chronic kidney disease. The odalys ent was diuresed aggressively. The patient is responding very well to current Lasix regimen. Physical Examination: Vital Signs: Blood pressure 130/58, pulse of 51, afebrile. The patient had good urine output of 145 0, negative of 500. As weight, there is no change in the weight, in fact on the weight that it is ba d weight, the patient gaining weight. Chest: Clear to auscultation. Heart: S1, S2. Systolic murmur. Abdomen: Soft, nontender. Extremities: +1 edema. Neurologic: Alert. No focality. The patient on room air. Laboratory Data: Chest x-ray; marginal cardiomegaly, no congestion. Hemoglobin 10.7. Sodium 131, p otassium 4.1, bicarb 31, BUN 56, creatinine 1.4, calcium 8.3, phosphorus 3.4, albumin 2.7. Iron satu ration 7.7, ferritin 134. Assessment And Plan: 1.Anasarca secondary to cardiorenal. Still the patient to me currently on the normal volume side. The patient on room air. Chest x-ray did not show significant infiltration or interstitial. I am go ing to go ahead and switch her Lasix to oral and we will monitor the patient. 2.Hyponatremia, dilutional. Continue diuresis. Has been improved significantly. 3.Hypertension, controlled, optimal. We will utilize blood pressure for more diuresis. I am going to add spironolactone to the patient's regimen. 4.Deconditioning. Continue PT/OT. 5.Hypokalemia, resolved, status post supplement. MA/MODL Voice ID: [id number] Report ID: [id number]
--- NOTE | 2021-01-23 14:46 | P.PN ---
Subjective Date of Service: 01/23/21 Primary Care Provider: Nicolasa Chief Complaint: Acute CHF, Atrial fib, NSTEMI Patient has no new complain. She denies shortness of breath. She is currently at baseline. Physical Examination - Vital Signs Temperature: 96.5 F Blood Pressure: 123/56 Pulse: 60 Respirations: 18 Pulse Ox (%): 95 - Physical Exam General: Alert, In no apparent distress HEENT: Mucous membr. moist/pink Neck: JVD not distended Respiratory: Clear to auscultation bilaterally, Normal air movement Cardiovascular: No edema, Regular rate/rhythm, Normal S1 S2 Gastrointestinal: Soft and benign, Non-distended Musculoskeletal: No swelling Integumentary: No rashes Neurological: Other (No focal motor deficit) Assessment And Plan Physician Review Additional Text: Problem list Acute hypoxemic respiratory failure secondary to acute on chronic congestive heart failure Paroxysmal atrial fibrillation NSTEMI Second-degree type II AV block, intermittent third-degree AV block Hypertension Chronic COPD Hypothyroidism Continue telemetry IV Lasix transition to oral Lasix. Nephrology is assisting with fluid management. Patient has intermittent third-degree AV block and second-degree AV block Patient seen by Dr. Chavez. Beta-edmundo on hold. Heart rate has been stable since stopping beta-edmundo. Echocardiogram: Pending Troponin trended flat. No ACS. Urine culture: no growth. Off antibiotic TSH low, Synthroid on hold. 2 L fluid restriction Physical therapy recommending SNF. Code: full Dispo: Awaiting SNF placement.
[2021-01-23] MEDS ORDERED: ALBUTEROL 2.5 MG/3 ML NEB SOL NEB PRN (16:00)
[2021-01-23] MEDS ORDERED: IPRATROPIUM BROM 0.5MG/2.5ML NEB PRN (16:00)
[2021-01-23] MEDS: FUROSEMIDE 40 MG TABLET PO SCH (18:51)
[2021-01-23] MEDS: GUAIFENESIN 600 MG SA TAB PO PRN (20:52)
[2021-01-24 06:09] LABS: Phosphorus 3.3 mg/dL (2.5-4.9); Potassium 3.7 mmol/L (3.5-5.1)
--- NOTE | 2021-01-24 08:35 | P.PN ---
Subjective Date of Service: 01/24/21 Primary Care Provider: Nicolasa Chief Complaint: Acute CHF, Atrial fib, NSTEMI Subjective: Other (She had episodes of bradycardia overnight.) Physical Examination - Vital Signs Temperature: 96.9 F Blood Pressure: 142/42 Pulse: 48 Respirations: 16 Pulse Ox (%): 97 - Physical Exam General: Other (appears as her stated age) HEENT: Atraumatic, Normocephalic Neck: Supple, JVD not distended Respiratory: Other (symmetric chest expansion) Cardiovascular: No rubs, No murmurs Gastrointestinal: Soft and benign Musculoskeletal: No clubbing Integumentary: Other (normal temperature) Neurological: Normal speech, Normal tone Urinary: Other (no bladder distention) External genitalia: Deferred Rectal: Deferred Assessment And Plan - Plan # GREGORY 2/2 CRS1 baseline SCr 0.8 (GFR 69) as of 01/17/2021 SCr increased to 1.6, has episodes of relative hypotension related to bradycardic episodes with heart rate as low as 37 bpm overnight no overt proteinuria, random UPCR 0.2 g Bradycardia mngt per Cardiology Do not restrict fluid intake Monitor renal panel, I/O # Bradycardia 2/2 AV block; Acute decompensated HF; PAfib; NSTEMI TTE in 2012 showed dilated left atrium, with moderate aortic stenosis, mild elevation in right-sided pressures with RVSP 35 mmHg HR as low as 37 bpm overnight, w/ telemonitor showing Wenckebach type 1 & some type 2 troponin 0 0.15, BNP significantly elevated at 45,000 Beta-edmundo on hold continue Lasix 120 mg by mouth twice a day Discussed w/ Cardiology May need to be transferred for pacemaker placement # Hyponatremia Mild, monitor # Secondary hyperparathyroidism Serum intact PTH 139, monitor
[2021-01-24] MEDS: MAGNESIUM OXIDE 400 MG TAB PO SCH ×2 (09:00→20:50)
[2021-01-24] MEDS ORDERED: POTASSIUM CL SA 10 MEQ TAB PO ONE (09:00)
[2021-01-24] MEDS: ASPIRIN 81 MG CHEWABLE TABLET PO SCH (09:28)
[2021-01-24] MEDS: FUROSEMIDE 40 MG TABLET PO SCH ×2 (09:28→16:35)
[2021-01-24] MEDS: TOLTERODINE LA 4 MG CAP PO SCH (09:28)
[2021-01-24] MEDS: PANTOPRAZOLE 40MG TABLET PO SCH (09:28)
[2021-01-24] MEDS: CLOPIDOGREL 75 MG TABLET PO SCH (09:29)
[2021-01-24] MEDS: MONTELUKAST 10 MG TAB PO SCH (09:29)
[2021-01-24 12:03] LABS: HIV AG/AB 4TH GEN Non-reactive (Non-reactive)
--- NOTE | 2021-01-24 15:28 | P.PN ---
Subjective Date of Service: 01/24/21 Primary Care Provider: Nicolasa Chief Complaint: Acute CHF, Atrial fib, NSTEMI Patient has no new complain. She denies shortness of breath. She has good oral intake. Physical Examination - Vital Signs Temperature: 98.4 F Blood Pressure: 115/56 Pulse: 62 Respirations: 18 Pulse Ox (%): 95 - Physical Exam General: Alert, In no apparent distress HEENT: Mucous membr. moist/pink Neck: JVD not distended Respiratory: Clear to auscultation bilaterally, Normal air movement Cardiovascular: Regular rate/rhythm, Normal S1 S2 Gastrointestinal: Soft and benign, Non-distended Musculoskeletal: No swelling Integumentary: No rashes, No erythema Neurological: Other (No focal motor deficit.) Assessment And Plan Physician Review Additional Text: Problem list Acute hypoxemic respiratory failure secondary to acute on chronic congestive heart failure Paroxysmal atrial fibrillation NSTEMI Second-degree type II AV block, intermittent third-degree AV block Hypertension Chronic COPD Hypothyroidism Continue telemetry Continue oral Lasix. Nephrology is assisting with fluid management. Patient has intermittent third-degree AV block and second-degree AV block. Dr. Earl is of the view that patient has intermittent Mobitz II and that is contributing to the cardiorenal syndrome and for that matter patient will need a pacemaker. Case discussed with Dr. Pitts. Patient may need to be transferred for a pacemaker. Beta-edmundo is on hold. Echocardiogram: Pending Troponin trended flat. No ACS. Urine culture: no growth. Off antibiotic TSH low, Synthroid on hold. 2 L fluid restriction Physical therapy recommending SNF. Code: full Dispo: Awaiting SNF placement.
[2021-01-24] MEDS: GUAIFENESIN 600 MG SA TAB PO PRN (20:55)
[2021-01-24] MEDS: MELATONIN 5 MG TABLET PO PRN (20:55)
[2021-01-25 02:57] LABS: Albumin, (SPE) 2.8 g/dL (3.8-4.8); Alpha-1-Globulins 0.5 g/dL (0.2-0.3); Alpha-2-Globulins 0.9 g/dL (0.5-0.9); Gamma Globulins 0.6 g/dL (0.8-1.7); INTERPRETATION REPORT
--- NOTE | 2021-01-25 04:22 | P.PN ---
Subjective Date of Service: 01/25/21 Primary Care Provider: Nicolasa Chief Complaint: Acute CHF, Atrial fib, NSTEMI Subjective: No new changes Physical Examination - Vital Signs Temperature: 97.6 F Blood Pressure: 119/57 Pulse: 75 Respirations: 18 Pulse Ox (%): 94 - Physical Exam General: Other (appears as her stated age) HEENT: Normocephalic Neck: Supple Respiratory: Other (symmetric chest expansion) Cardiovascular: No rubs, No murmurs Gastrointestinal: Non-distended Musculoskeletal: No clubbing Integumentary: No warmth Neurological: Normal speech, Normal tone Lymphatics: No axilla or inguinal lymphadenopathy Urinary: Other (no bladder distention) External genitalia: Deferred Rectal: Deferred Assessment And Plan - Plan # GREGORY 2/2 CRS1 Baseline SCr 0.8 (GFR 69) as of 01/17/2021 SCr plateaued at 1.6, has episodes of relative hypotension related to bradycardic episodes with heart rate as low as 37 bpm No overt proteinuria, random UPCR 0.2 g Bradycardia mngt per Cardiology Do not restrict fluid intake Monitor renal panel, I/O # Bradycardia 2/2 AV block; Acute decompensated HF; PAfib; NSTEMI TTE in 2012 showed dilated left atrium, with moderate aortic stenosis, mild elevation in right-sided pressures with RVSP 35 mmHg HR as low as 37 bpm overnight, w/ telemonitor showing Wenckebach type 1 & some type 2 Troponin 0 0.15, BNP significantly elevated at 45,000 Beta-edmundo on hold Continue Lasix IV Discussed w/ Cardiology Transferred to [facility] for possible pacemaker placement # Hyponatremia Mild, monitor # Secondary hyperparathyroidism Serum intact PTH 139, monitor
[2021-01-25 05:52] LABS: Potassium 3.9 mmol/L (3.5-5.1)
[2021-01-25] MEDS ORDERED: POTASSIUM CL SA 10 MEQ TAB PO ONE (09:00)
[2021-01-25] MEDS: MAGNESIUM OXIDE 400 MG TAB PO SCH (09:00)
[2021-01-25] MEDS: CLOPIDOGREL 75 MG TABLET PO SCH (09:34)
[2021-01-25] MEDS: TOLTERODINE LA 4 MG CAP PO SCH (09:34)
[2021-01-25] MEDS: PANTOPRAZOLE 40MG TABLET PO SCH (09:34)
[2021-01-25] MEDS: MONTELUKAST 10 MG TAB PO SCH (09:34)
[2021-01-25] MEDS: ASPIRIN 81 MG CHEWABLE TABLET PO SCH (09:34)
[2021-01-25] MEDS: FUROSEMIDE 40 MG TABLET PO SCH (09:35)
[2021-01-25 10:31] VITALS: O2SAT 96
--- NOTE | 2021-01-25 11:46 | P.DS ---
Admission Date: 01/17/21 Discharge Date: 01/25/21 Primary Care Provider: Nicolasa Disposition: TRANSFER TO [facility] Discharge Condition: FAIR Reason for Admission: Acute CHF, Atrial fib, NSTEMI Consultations: Cardiology Nephrology Brief History of Present Illness: 89-year-old female patient with a history of anxiety, hypertension, hypothyroidism, COPD that presented to the emergency room with shortness of breath. Other symptoms included increased lower extremity swelling. PIn the ED, sodium of 133, potassium 4.2, chloride 103, bicarb 22, BUN of 22, creatinine 0.79, glucose 117. Patient had a white cell count of 7.5, hemoglobin 10.2, hematocrit 30.6, platelet 244. Patient's troponin elevated at 0.16, BNP 28,126. Patient's chest x-ray showed volume overload congestive heart failure. She was admitted for further management. Hospital Course: Diagnosis Acute hypoxemic respiratory failure secondary to acute on chronic congestive heart failure Paroxysmal atrial fibrillation NSTEMI Second-degree type II AV block, intermittent third-degree AV block Hypertension Chronic COPD Hypothyroidism Patient started on IV Lasix for CHF exacerbation. Troponin trended flat. No ACS Patient seen by cardiology. Telemetry showed first-degree AV block, intermittent type 2 AVB-Mobitz type 2, trigeminies. Patient seen by nephrology. Dr. Earl is of the view that patient's intermittent Mobitz II is contributing to the cardiorenal syndrome and for that matter patient will need a pacemaker. Case discussed with Dr. Pitts who agreed with transfer for pacemaker placement. Patient is on Nebivolol which was held during the hospital stay. Troponin trended flat. No ACS. Urine culture: no growth. Treated briefly with antibiotics. TSH low, Synthroid was held She was placed on 2 L fluid restriction. Patient has been accepted for transfer for evaluation for pacemaker insertion. She is clinically stable for transfer. Vital Signs/Physical Exam: Temp Pulse Resp BP Pulse Ox 97.7 F 67 18 106/59 L 96 01/25/21 08:00 01/25/21 09:35 01/25/21 08:00 01/25/21 09:35 01/25/21 08:00 General: Alert, In no apparent distress HEENT: Mucous membr. moist/pink Neck: JVD not distended Respiratory: Clear to auscultation bilaterally, Normal air movement Cardiovascular: No edema, Normal S1 S2, Irregular heart rate/rhythm Gastrointestinal: Soft and benign, Non-distended Musculoskeletal: No swelling Integumentary: No rashes Neurological: Normal strength at 5/5 x4 extr Laboratory Data at Discharge: WBC 11.50 K/uL (4.3-10.9) H D 01/21/21 06:07 Hgb 10.7 g/dL (12.0-15.0) L 01/21/21 06:07 Hct 31.2 % (36.0-45.0) L 01/21/21 06:07 Plt Count 234 K/uL (152-406) 01/21/21 06:07 PT 11.5 SECONDS (9.5-12.5) 01/17/21 09:30 INR 1.00 01/17/21 09:30 APTT 27.1 SECONDS (24.3-36.9) 01/17/21 09:30 Sodium 134 mmol/L (136-145) L 01/25/21 05:14 Potassium 3.9 mmol/L (3.5-5.1) 01/25/21 05:14 BUN 60 mg/dL (7-18) H 01/25/21 05:14 Creatinine 1.64 mg/dL (0.55-1.3) H 01/25/21 05:14 Glucose 109 mg/dL (74-106) H 01/25/21 05:14 Uric Acid 12.0 mg/dL (2.6-6.0) H 01/22/21 06:23 Phosphorus 4.0 mg/dL (2.5-4.9) 01/25/21 05:14 Magnesium 1.9 mg/dL (1.8-2.4) 01/21/21 06:07 Total Bilirubin 0.6 mg/dL (0.2-1.0) 01/17/21 09:30 AST 26 U/L (15-37) 01/17/21 09:30 ALT 23 U/L (12-78) 01/17/21 09:30 Alkaline Phosphatase 70 U/L (45-117) 01/17/21 09:30 Troponin I 0.15 ng/mL (0.0-0.045) H 01/17/21 18:03 Lipase 109 U/L (73-393) 01/17/21 09:30 Home Medications: Montelukast [Singulair*] 1 tab PO DAILY 01/17/21 Tolterodine Tartrate 1 tab PO BID 01/17/21 Albuterol Neb [Proventil 0.083% Neb Soln] 2.5 mg NEB [id number] PRN amp 01/25/21 Benzonatate [Tessalon Perle*] 100 mg PO TID PRN cap 01/25/21 Clopidogrel Bisulfate [Plavix*] 75 mg PO DAILY tablet 01/25/21 Furosemide [Lasix*] 120 mg PO BIDL tab 01/25/21 Ipratropium Neb [Atrovent*] 0.5 mg NEB [id number] PRN amp 01/25/21 Levothyroxine Sodium [Levothyroxine] 75 mcg PO DAILY #30 capsule 01/25/21 Melatonin 10 mg PO BEDTIME PRN PRN tablet 01/25/21 Pantoprazole [Protonix Tab*] 40 mg PO ACB tab 01/25/21 New Medications: Levothyroxine Sodium [Levothyroxine] 75 mcg PO DAILY #30 capsule Followup: NONE,NONE [Primary Care Provider] - Time spent managing pt's care (in minutes): 38
[2021-01-25 12:47] LABS: Vitamin D 1,25-Dihydroxy Total 35 pg/mL (18-72); Vitamin D,1,25-OH2, D2 <8 pg/mL
[2021-01-25 16:11] LABS: Hepatitis C Virus RNA (PCR)log <1.18 log IU/mL
[2021-01-26 00:02] VITALS: BP 119/57; TEMP 97.6
[2021-01-26 18:26] LABS: HBsAG Nonreactive (Nonreactive)
== END 2021-01-25 14:01 | disposition short-term general hospital (02) | DRG 280 ==
LOC: ER 09:01 → ERHOLD 10:52 → 2ND 21:07
PROVIDERS: ADMIT Hospitalist; ATTEND Hospitalist
DX: I11.0 Hypertensive heart disease with heart failure (principal); I21.4 Non-ST elevation (NSTEMI) myocardial infarction; J96.01 Acute respiratory failure with hypoxia; I44.2 Atrioventricular block, complete; E87.1 Hypo-osmolality and hyponatremia; N17.9 Acute kidney failure, unspecified; N25.81 Secondary hyperparathyroidism of renal origin; I50.33 Acute on chronic diastolic (congestive) heart failure; I48.0 Paroxysmal atrial fibrillation; I44.1 Atrioventricular block, second degree; J44.9 Chronic obstructive pulmonary disease, unspecified; E03.9 Hypothyroidism, unspecified; E83.42 Hypomagnesemia; D50.9 Iron deficiency anemia, unspecified; R31.9 Hematuria, unspecified; E87.6 Hypokalemia; F41.9 Anxiety disorder, unspecified; Z95.1 Presence of aortocoronary bypass graft; Z20.822 Contact with and (suspected) exposure to COVID-19
CPT/HCPCS: 36415; 51702; 71045; 80048; 80069; 80076; 81001; 81003; 81015; 82533; 82550; 82553; 82570; 82607; 82652; 82728; 82746; 83520; 83540; 83690; 83735; 83880; 83930; 83935; 83970; 84132; 84156; 84165; 84300; 84439; 84443; 84466; 84484; 84550; 85025; 85027; 85044; 85302; 85610; 85730; 86021; 86038; 86160; 86225; 86317; 86430; 86704; 86706; 87040; 87086; 87088; 87340; 87389; 87522; 93005; 94640; 96365; 96372; 96375; 97110; 97116; 97161; 97530; 99285; J1940; J2916; J2930; J3475; J7050; U0003

== ENCOUNTER 2021-04-19 11:06 | Inpatient (IN) | payer BC, OTHER ==
--- OUTSIDE RECORDS SUMMARY | 2021-04-19 11:09 | XMS REPORT | Continuity of Care Document ---
:1930 Author Organization [facility] t Address [address] [place] [address] Care Team Providers Name Role Phone AIMEE Attending Clinician Unavailable AIMEE Admitting Clinician Unavailable FLORIDALMA Admitting Clinician Unavailable Payers Payer Name Policy Type Policy Number Effective Date Expiration Date Ines bradshaw MEDICARE PART A [id number] 1997 00:00:00 BCBS PPO POS EPO [id number] 2019 CHOICE 00:00:00 Problems Condition Condition Condition Status Onset Resolution Last Treating Co mments Source Name Details Category Date Date Treatment Clinician Date Amnesia Problem Active 2019-08-18 Miquel julisa (finding) 23:16:21 l Amnesia Jeyson (finding) Active Problem 08/18/2019 [facility] 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:16:21 l disorder, 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, systemic arterial (disorder) Active Problem 08/18/2019 [facility] Hypothyroi Problem Active 2019-08-18 M emoria dism 23:16:21 l (disorder) Fabian n Hypothyroi dism (disorder) Active Problem 08/18/2019 [facility] Simple Problem Active 2019-08-18 Memor ia obesity 23:16:21 l (disorder) Simple Herm lisette obesity (disorder) Active Problem 08/18/2019 [facility] Allergies, Adverse Reactions, Alerts Allergy Allergy Status Severity Reaction(s) Onset Inactive Treating Comm ents Source Name Type Date Date Clinician Vicodin Vicodin Active Memoria l Jeyson sulfa sulfa Active Memoria drugs drugs l [place] penicill penicill Active Memori a in in l [place] Keflex Keflex Active Memoria l Jeyson Xanax Xanax Active Memoria l Jyeson Zantac Zantac Active Memoria l Jeyson Talwin Talwin Active Memoria l Jeyson Axid Axid Active Memoria l Jeyson NO KNOWN Allergy Active [facility] ALLERGIE S Social History Social Habit Start Date Stop Date Quantity Comments Source Social History 2019-07-05 2019-07-05 [facility] 22:01:59 22:01:59 Medications Ordered Filled Start Stop Current Ordering Indication Dosage Frequency Signature Comments Components Source Medication Medication Date Date Medication? Clinician (SIG) Name Name Hydrochloro 2019-0 Yes 25 mg, PO, Memoria thiazide 2-19 Daily, 0 l 21:30: Refill(s) Amlodipine 2019-0 Yes 5 mg, PO, Me moria 2-19 Daily, 0 l 21:30: Refill(s) [place] 00 Thyroxine 2020-0 Yes Daily, 0 Miquel julisa 2-19 Refill(s) l 21:30: Jeyson Losartan 2019-0 Yes 50 mg, PO, Mem oria 2-19 Daily, 0 l 21:30: Refill(s) montelukast 2020-0 Yes 10 mg, PO, Memoria 2-19 Daily, 0 l 21:30: Refill(s) Vital Signs Vital Name Observation Time Observation Value Comments Source WEIGHT 2021-01-30 07:46:00 72.1 kg WEIGHT 2021-01-29 08:00:00 71.7 kg WEIGHT 2021-01-30 07:46:00 72.1 kg WEIGHT 2021-01-29 08:00:00 71.7 kg Systolic (mm Hg) 2019-07-05 21:09:00 Miquel rial Jeyson Diastolic (mm Hg) 2019-07-05 21:09:00 Mem ortizal Jeyson Heart Rate 2019-07-05 21:09:00 Stacey [place] Respitory Rate 2019-07-05 21:09:00 Get Sheldon Height 2019-07-05 21:09:00 144.78 cm [facility] Weight 2019-07-05 21:09:00 [facility] BMI Calculated 2019-07-05 21:09:00 Get Sheldon Procedures Procedure Date / Time Performed Performing Clinician Sour e [facility] Encounters Start End Encounter Admission Attending Care Care Encounter Source Date/Time Date/Time Type Type Clinicians Facility Department ID 2021-02-23 Inpatient UR AIMEE, [facility] Cardiology [id number] [facility] 12:06:27 DINORAH 2021-01-25 2021-01-25 Outpatient [place]CM [place] [id number] [facility] 00:00:00 23:59:00 Ubaldog kalyn of Medicin e 2019-08-16 2019-08-17 Outpatient nullFlavo MNA [id number] Memoria 20:15:00 04:59:59 r Neurology 02 l Meigsmakenna Benítez 2019-07-05 2019-07-06 Outpatient nullFlavo MNA [id number] Memoria 21:15:00 05:59:59 r Neurology 01 l Nina Benítez Results Test Description Test Time Test Comments Results Result Comments Source BASIC METABOLIC PANEL 2021-01-31 05:13:26 Test Item Value Reference Range Interpretation Comme nts SODIUM (BEAKER) (test code 134 meq/L 136-145 L = 381) POTASSIUM (BEAKER) (test 4.3 meq/L 3.5-5.1 code = 379) CHLORIDE (BEAKER) (test 96 meq/L 98-107 L code = 382) CO2 (BEAKER) (test code = 26 meq/L 22-29 355) BLOOD UREA NITROGEN 50 mg/dL 7-21 H (BEAKER) (test code = 354) CREATININE (BEAKER) (test 1.22 mg/dL 0.57-1.25 code = 358) GLUCOSE RANDOM (BEAKER) 90 mg/dL 70-105 (test code = 652) CALCIUM (BEAKER) (test code 9.3 mg/dL 8.4-10.2 = 697) EGFR (BEAKER) (test code = 42 mL/min/1.73 sq m ESTIMATED GFR IS NOT 1092) ACCURATE CRE ATININE CLEARANCE IN ND EDICTING GLOMERULAR FILT RATION RATE. ESTIMATED GFR IS NOT APPLICABLE FOR DIALYSIS PATIENTS. Groundhand ID - MILENA GSARS-COV2/RT-PCR ([facility])2021-01-30 23:26:53 Test Item Value Reference Range Interpretation Comments SARS-COV2/RT-PCR (test code = Negative Negative [id number]) Negative result for this test determines that SARS-CoV-2 RNA was not present in the specimen above the Limit of Detection (LOD). However, Negative results do not preclude SARS-CoV-2 infection and should not be used as the sole basis for treatment or patient management decisions. Negative results must be combined with clinical observations, patient history, and epidemiological information. A false negative result may occur if a specimen is improperly collected, transported, or handled. A false negative result should be considered if patient's recent exposures or clinical presentation indicate that COVID-19 (SARS-CoV-2) is likely and diagnostic tests for other causes of illness are negative. Re-testing should be considered in cases of suspected false negatives.The limit of detection for this assay is 100 copies/mL.This SARS-CoV-2 test is a real-time RT_PCR test intended for the qualitative detection of nucleic acid from SARS-CoV-2 in a nasopharyngeal swab specimen collected from individuals suspected of COVID-19 by their healthcare provider.This test has not been Food and Drug Administration (FDA) cleared or approved. This is a modified version of an approved Emergency Use Authorization (EUA) and is in the process of review by the FDA. Once authorized by the FDA, the issued EUA will be e ffective until the declaration that circumstances exist justifying the authorization of the emergency use of in vitro diagnostic tests for detection and/or diagnosis of COVID-19 is terminated under Section 564(b)(2) of the Act or the EUA is revoked under Section 564(g) of the Act.Testing was performedusing the Moss SARS-CoV-2 assay.Fact Sheet for Healthcare Providers:https://www.molecular.moss/desmond/RT SARS-CoV-2 HCP Fact Sheet 51- 634795.pdfFact Sheet for Healthcare Patients:https://www.molecular.moss/desmond/RT SARS-CoV-2 Patient Fact Sheet EN 51-310363L5.pdf(CELLAVISION MANUAL DIFF) 2021-01-30 13:10:24 Test Item Value Reference Range Interpretation Comments NEUTROPHILS - REL 34 % (CELLAVISION)(BEAKER) (test code = 2816) LYMPHOCYTES - REL 16 % (CELLAVISION)(BEAKER) (test code = 2817) MONOCYTES - REL 12 % (CELLAVISION)(BEAKER) (test code = 2818) EOSINOPHILS - REL 11 % (CELLAVISION)(BEAKER) (test code = 2819) BASOPHILS - REL 5 % (CELLAVISION)(BEAKER) (test code = 2820) METAMYELOCYTES - REL 3 % 0-0 H (CELLAVISION)(BEAKER) (test code = 2821) MYELOCYTES - REL 6 % 0-0 H (CELLAVISION)(BEAKER) (test code = 2822) BANDS - REL (CELLAVISION)(BEAKER) 13 % 0-10 H (test code = 2826) NEUTROPHILS - ABS 3.16 K/ul 1.56-6.13 (CELLAVISION)(BEAKER) (test code = 2830) LYMPHOCYTES - ABS 1.49 K/ul 1.18-3.74 (CELLAVISION)(BEAKER) (test code = 2831) MONOCYTES - ABS 1.12 K/uL 0.24-0.36 H (CELLAVISION)(BEAKER) (test code = 2832) EOSINOPHILS - ABS 1.02 K/uL 0.04-0.36 H (CELLAVISION)(BEAKER) (test code = 2834) BASOPHILS - ABS 0.47 K/uL 0.01-0.08 H (CELLAVISION)(BEAKER) (test code = 2835) METAMYELOCYTES - ABS 0.28 K/uL 0.00-0.00 H (CELLAVISION)(BEAKER) (test code = 2836) MYELOCYTES-ABS 0.56 K/uL 0.00-0.00 H (CELLAVISION)(BEAKER) (test code = 2837) BANDS - ABS (CELLAVISION)(BEAKER) 1.21 K/uL 0.00-0.80 H (test code = 2840) TOTAL COUNTED (BEAKER) (test code = 100 1351) PLT MORPHOLOGY (BEAKER) (test code Normal = 486) SMUDGE CELLS (BEAKER) (test code = Present 1371) POIKILOCYTES (BEAKER) (test code = 1+ few 966) SCHISTOCYTES (BEAKER) (test code = 1+ few 765) ELLIPTOCYTES (BEAKER) (test code = 1+ few 962) OVALOCYTES (BEAKER) (test code = 1+ few 477) HELMET CELLS (CELLAVISION)(BEAKER) 1+ few (test code = 3434) PLATELET CONCENTRATION Adequate (CELLAVISION)(BEAKER) (test code = 3434) CBC W/PLT COUNT & AUTO [id number] 13:10:23 Test Item Value Reference Range Interpretation Comments WHITE BLOOD CELL COUNT (BEAKER) 9.3 K/ L 3.5-10.5 (test code = 775) RED BLOOD CELL COUNT (BEAKER) 3.83 M/ L 3.93-5.22 L (test code = 761) HEMOGLOBIN (BEAKER) (test code = 11.0 GM/DL 11.2-15.7 L 410) HEMATOCRIT (BEAKER) (test code = 38.3 % 34.1-44.9 411) MEAN CORPUSCULAR VOLUME (BEAKER) 100.0 fL 79.4-94.8 H (test code = 753) MEAN CORPUSCULAR HEMOGLOBIN 28.7 pg 25.6-32.2 (BEAKER) (test code = 751) MEAN CORPUSCULAR HEMOGLOBIN CONC 28.7 GM/DL 32.2-35.5 L (BEAKER) (test code = 752) RED CELL DISTRIBUTION WIDTH 15.1 % 11.7-14.4 H (BEAKER) (test code = 412) PLATELET COUNT (BEAKER) (test 275 K/CU MM 150-450 code = 756) MEAN PLATELET VOLUME (BEAKER) 10.1 fL 9.4-12.3 (test code = 754) NUCLEATED RED BLOOD CELLS 0 /100 WBC 0-0 (BEAKER) (test code = 413) BASIC METABOLIC [id number] 07:09:48 Test Item Value Reference Range Interpretation Comments SODIUM (BEAKER) 131 meq/L 136-145 L (test code = 381) POTASSIUM (BEAKER) 3.7 meq/L 3.5-5.1 (test code = 379) CHLORIDE (BEAKER) 93 meq/L 98-107 L (test code = 382) CO2 (BEAKER) (test 27 meq/L 22-29 code = 355) BLOOD UREA NITROGEN 54 mg/dL 7-21 H (BEAKER) (test code = 354) CREATININE (BEAKER) 1.25 mg/dL 0.57-1.25 (test code = 358) GLUCOSE RANDOM 93 mg/dL 70-105 (BEAKER) (test code = 652) CALCIUM (BEAKER) 9.1 mg/dL 8.4-10.2 (test code = 697) EGFR (BEAKER) (test 40 mL/min/1.73 ESTIMA JUAN GFR IS code = 1092) sq m NOT ACCURATE CREATININE CLEARANCE IN PREDICTING GLOMERULAR FILTRATION RATE . ESTIMATED GFR I S NOT APPLICABLE FOR DIALYSIS PATIEN TS. Groundhand ID - GLADYS MCBC W/PLT COUNT & AUTO [id number] 06:45:31 Test Item Value Reference Range Interpretation Comments WHITE BLOOD CELL COUNT (BEAKER) 9.1 K/ L 3.5-10.5 (test code = 775) RED BLOOD CELL COUNT (BEAKER) 4.06 M/ L 3.93-5.22 (test code = 761) HEMOGLOBIN (BEAKER) (test code = 11.5 GM/DL 11.2-15.7 410) HEMATOCRIT (BEAKER) (test code = 35.7 % 34.1-44.9 411) MEAN CORPUSCULAR VOLUME (BEAKER) 87.9 fL 79.4-94.8 (test code = 753) MEAN CORPUSCULAR HEMOGLOBIN 28.3 pg 25.6-32.2 (BEAKER) (test code = 751) MEAN CORPUSCULAR HEMOGLOBIN CONC 32.2 GM/DL 32.2-35.5 (BEAKER) (test code = 752) RED CELL DISTRIBUTION WIDTH 14.0 % 11.7-14.4 (BEAKER) (test code = 412) PLATELET COUNT (BEAKER) (test 287 K/CU MM 150-450 code = 756) MEAN PLATELET VOLUME (BEAKER) 10.2 fL 9.4-12.3 (test code = 754) NUCLEATED RED BLOOD CELLS 0 /100 WBC 0-0 (BEAKER) (test code = 413) NEUTROPHILS RELATIVE PERCENT 46 % (BEAKER) (test code = 429) LYMPHOCYTES RELATIVE PERCENT 31 % (BEAKER) (test code = 430) MONOCYTES RELATIVE PERCENT 12 % (BEAKER) (test code = 431) EOSINOPHILS RELATIVE PERCENT 9 % (BEAKER) (test code = 432) BASOPHILS RELATIVE PERCENT 1 % (BEAKER) (test code = 437) NEUTROPHILS ABSOLUTE COUNT 4.23 K/ L 1.56-6.13 (BEAKER) (test code = 670) LYMPHOCYTES ABSOLUTE COUNT 2.82 K/ L 1.18-3.74 (BEAKER) (test code = 414) MONOCYTES ABSOLUTE COUNT (BEAKER) 1.11 K/ L 0.24-0.36 H (test code = 415) EOSINOPHILS ABSOLUTE COUNT 0.83 K/ L 0.04-0.36 H (BEAKER) (test code = 416) BASOPHILS ABSOLUTE COUNT (BEAKER) 0.10 K/ L 0.01-0.08 H (test code = 417) IMMATURE GRANULOCYTES-RELATIVE 0 % 0-1 PERCENT (BEAKER) (test code = 2801) BASIC METABOLIC [id number] 06:18:04 Test Item Value Reference Range Interpretation Comments SODIUM (BEAKER) 134 meq/L 136-145 L (test code = 381) POTASSIUM (BEAKER) 4.0 meq/L 3.5-5.1 (test code = 379) CHLORIDE (BEAKER) 96 meq/L 98-107 L (test code = 382) CO2 (BEAKER) (test 27 meq/L 22-29 code = 355) BLOOD UREA NITROGEN 54 mg/dL 7-21 H (BEAKER) (test code = 354) CREATININE (BEAKER) 1.32 mg/dL 0.57-1.25 H (test code = 358) GLUCOSE RANDOM 114 mg/dL 70-105 H (BEAKER) (test code = 652) CALCIUM (BEAKER) 8.3 mg/dL 8.4-10.2 L (test code = 697) EGFR (BEAKER) (test 38 mL/min/1.73 ESTIMA JUAN GFR IS code = 1092) sq m NOT ACCURATE CREATININE CLEARANCE IN PREDICTING GLOMERULAR FILTRATION RATE . ESTIMATED GFR I S NOT APPLICABLE FOR DIALYSIS PATIEN TS. Groundhand ID - PIAYA LCBC W/PLT COUNT & AUTO [id number] 05:03:03 Test Item Value Reference Range Interpretation Comments WHITE BLOOD CELL COUNT (BEAKER) 8.6 K/ L 3.5-10.5 (test code = 775) RED BLOOD CELL COUNT (BEAKER) 4.04 M/ L 3.93-5.22 (test code = 761) HEMOGLOBIN (BEAKER) (test code = 11.5 GM/DL 11.2-15.7 410) HEMATOCRIT (BEAKER) (test code = 35.1 % 34.1-44.9 411) MEAN CORPUSCULAR VOLUME (BEAKER) 86.9 fL 79.4-94.8 (test code = 753) MEAN CORPUSCULAR HEMOGLOBIN 28.5 pg 25.6-32.2 (BEAKER) (test code = 751) MEAN CORPUSCULAR HEMOGLOBIN CONC 32.8 GM/DL 32.2-35.5 (BEAKER) (test code = 752) RED CELL DISTRIBUTION WIDTH 14.1 % 11.7-14.4 (BEAKER) (test code = 412) PLATELET COUNT (BEAKER) (test 272 K/CU MM 150-450 code = 756) MEAN PLATELET VOLUME (BEAKER) 10.2 fL 9.4-12.3 (test code = 754) NUCLEATED RED BLOOD CELLS 0 /100 WBC 0-0 (BEAKER) (test code = 413) NEUTROPHILS RELATIVE PERCENT 66 % (BEAKER) (test code = 429) LYMPHOCYTES RELATIVE PERCENT 19 % (BEAKER) (test code = 430) MONOCYTES RELATIVE PERCENT 11 % (BEAKER) (test code = 431) EOSINOPHILS RELATIVE PERCENT 3 % (BEAKER) (test code = 432) BASOPHILS RELATIVE PERCENT 1 % (BEAKER) (test code = 437) NEUTROPHILS ABSOLUTE COUNT 5.71 K/ L 1.56-6.13 (BEAKER) (test code = 670) LYMPHOCYTES ABSOLUTE COUNT 1.61 K/ L 1.18-3.74 (BEAKER) (test code = 414) MONOCYTES ABSOLUTE COUNT (BEAKER) 0.90 K/ L 0.24-0.36 H (test code = 415) EOSINOPHILS ABSOLUTE COUNT 0.25 K/ L 0.04-0.36 (BEAKER) (test code = 416) BASOPHILS ABSOLUTE COUNT (BEAKER) 0.07 K/ L 0.01-0.08 (test code = 417) IMMATURE GRANULOCYTES-RELATIVE 1 % 0-1 PERCENT (BEAKER) (test code = 2801) HEMOGLOBIN [id number] 08:51:20 Test Item Value Reference Range Interpretation Comments HEMOGLOBIN A1C (BEAKER) (test code = 5.5 % 4.3-6.1 368) RAD, CHEST, 1 VIEW, NON [id number] 07:27:00Reason for exam:->chfShould this be performed at the bedside?->Yes [facility] 1930 Sex: FFINAL REPORT INDICATION: chf COMPARISON: None TECHNIQUE: Single frontal view of the chest. FINDINGS: Lungs and pleura: Mild left retrocardiac atelectasis. Small left effusionis suspected.Heart and mediastinum: Normal heart size. Unremarkable mediastinal contours.Osseous structures: No acute abnormality.Other: None. Signed: Zaid Martinez MDReport Verified Date/Time: 01/26/2021 07:27:42 [id number] 06:15:44 Test Item Value Reference Range Interpretation Comments PHOSPHORUS (BEAKER) (test code = 4.2 mg/dL 2.3-4.7 604) Groundhand ID - GLADYS EPATIC FUNCTION [id number] 06:15:44 Test Item Value Reference Range Interpretation Comments TOTAL PROTEIN (BEAKER) (test code = 6.9 gm/dL 6.0-8.3 770) ALBUMIN (BEAKER) (test code = 1145) 3.6 g/dL 3.5-5.0 BILIRUBIN TOTAL (BEAKER) (test code 0.7 mg/dL 0.2-1.2 = 377) BILIRUBIN DIRECT (BEAKER) (test 0.3 mg/dL 0.1-0.5 code = 706) ALKALINE PHOSPHATASE (BEAKER) (test 63 U/L 40-150 code = 346) AST (SGOT) (BEAKER) (test code = 18 U/L 5-34 353) ALT (SGPT) (BEAKER) (test code = 13 U/L 6-55 347) [employer]hand ID - GLADYS MBASIC METABOLIC [id number] 06:15:43 Test Item Value Reference Range Interpretation Comments SODIUM (BEAKER) 133 meq/L 136-145 L (test code = 381) POTASSIUM (BEAKER) 4.1 meq/L 3.5-5.1 (test code = 379) CHLORIDE (BEAKER) 91 meq/L 98-107 L (test code = 382) CO2 (BEAKER) (test 26 meq/L 22-29 code = 355) BLOOD UREA NITROGEN 59 mg/dL 7-21 H (BEAKER) (test code = 354) CREATININE (BEAKER) 1.56 mg/dL 0.57-1.25 H (test code = 358) GLUCOSE RANDOM 112 mg/dL 70-105 H (BEAKER) (test code = 652) CALCIUM (BEAKER) 9.1 mg/dL 8.4-10.2 (test code = 697) EGFR (BEAKER) (test 31 mL/min/1.73 ESTIMA JUAN GFR IS code = 1092) sq m NOT ACCURATE CREATININE CLEARANCE IN PREDICTING GLOMERULAR FILTRATION RATE . ESTIMATED GFR I S NOT APPLICABLE FOR DIALYSIS PATIEN TS. [employer] ID - GLADYS [id number] 06:15:43 Test Item Value Reference Range Interpretation Comments MAGNESIUM (BEAKER) (test code = 2.5 mg/dL 1.6-2.6 627) Ground[employer] ID - GLADYS MTSH/FREE T4 IF [id number] 06:06:15 Test Item Value Reference Range Interpretation Comments THYROID STIMULATING HORMONE 0.659 uIU/mL 0.350-4.940 (BEAKER) (test code = 772) Groundhand ID - GLADYS MB-TYPE NATRIURETIC FACTOR (BNP)2021-01-26 05:31:01 Test Item Value Reference Range Interpretation Comments B-TYPE NATRIURETIC PEPTIDE (BEAKER) 697 pg/mL 0-100 H (test code = 700) Groundhand ID - GLADYS MPROTHROMBIN [id number] 05:23:10 Test Item Value Reference Range Interpretation Comments PROTIME (BEAKER) 15.1 seconds 11.9-14.2 H (test code = 759) INR (BEAKER) (test 1.21 See_Comment [Automat ed message] code = 370) The system [email or web address] generated this result transmitted ref erence range: <=5.90. The reference range was not used to int erpret this result as normal/abnormal . RECOMMENDED COUMADIN/WARFARIN INR THERAPY RANGESSTANDARD DOSE: 2.0 - 3.0 Includes: PROPHYLAXIS forvenous thrombosis, systemic embolization; TREATMENT for venous thrombosis and/or pulmonary embolus.HIGH RISK: Target INR is 2.5-3.5 for patients with mechanical heart valves.CBC W/PLT COUNT & AUTO DIFFERENTIAL 2021-01-26 05:16:15 Test Item Value Reference Range Interpretation Comments WHITE BLOOD CELL COUNT (BEAKER) 9.7 K/ L 3.5-10.5 (test code = 775) RED BLOOD CELL COUNT (BEAKER) 4.06 M/ L 3.93-5.22 (test code = 761) HEMOGLOBIN (BEAKER) (test code = 11.7 GM/DL 11.2-15.7 410) HEMATOCRIT (BEAKER) (test code = 35.2 % 34.1-44.9 411) MEAN CORPUSCULAR VOLUME (BEAKER) 86.7 fL 79.4-94.8 (test code = 753) MEAN CORPUSCULAR HEMOGLOBIN 28.8 pg 25.6-32.2 (BEAKER) (test code = 751) MEAN CORPUSCULAR HEMOGLOBIN CONC 33.2 GM/DL 32.2-35.5 (BEAKER) (test code = 752) RED CELL DISTRIBUTION WIDTH 14.3 % 11.7-14.4 (BEAKER) (test code = 412) PLATELET COUNT (BEAKER) (test 299 K/CU MM 150-450 code = 756) MEAN PLATELET VOLUME (BEAKER) 10.2 fL 9.4-12.3 (test code = 754) NUCLEATED RED BLOOD CELLS 0 /100 WBC 0-0 (BEAKER) (test code = 413) NEUTROPHILS RELATIVE PERCENT 48 % (BEAKER) (test code = 429) LYMPHOCYTES RELATIVE PERCENT 26 % (BEAKER) (test code = 430) MONOCYTES RELATIVE PERCENT 13 % (BEAKER) (test code = 431) EOSINOPHILS RELATIVE PERCENT 11 % (BEAKER) (test code = 432) BASOPHILS RELATIVE PERCENT 1 % (BEAKER) (test code = 437) NEUTROPHILS ABSOLUTE COUNT 4.66 K/ L 1.56-6.13 (BEAKER) (test code = 670) LYMPHOCYTES ABSOLUTE COUNT 2.47 K/ L 1.18-3.74 (BEAKER) (test code = 414) MONOCYTES ABSOLUTE COUNT (BEAKER) 1.29 K/ L 0.24-0.36 H (test code = 415) EOSINOPHILS ABSOLUTE COUNT 1.10 K/ L 0.04-0.36 H (BEAKER) (test code = 416) BASOPHILS ABSOLUTE COUNT (BEAKER) 0.08 K/ L 0.01-0.08 (test code = 417) IMMATURE GRANULOCYTES-RELATIVE 1 % 0-1 PERCENT (BEAKER) (test code = 2801) U/S, RENAL, [id number] 01:22:00Reason for exam:->derrick [facility] : 1930 Sex: FFINAL REPORT Ultrasound of the Kidneys Clinical History: derrick Comparison:None. Discussion: Sonographic evaluation of the kidneys was performed. The study is limited due to patient's inability to tolerate the exam. Right kidney: 8.3 x 3.7 x 4.7 cm, with cortical thickness of 0.9 cm. Normal cortical echogenicity. No mass. No shadowing calculus. No hydronephrosis. Left kidney: 8.4 x 4.4 x 3.6 cm, with cortical thickness of 1.0 cm. Normal cortical echogenicity. No mass. No shadowing calculus. No hydronephrosis. Limited doppler evaluation of right main renal artery and vein demonstrate patency. The left main renal artery and vein was not visualized. Bladder: Mild distended despite Arteaga catheter placement. Impression:Limited examNo hydronephrosis.Mild distended urinary bladder despite Arteaga catheter placement. Correlate clinically. Signed: Juwan Pelaez MDReport Verified Date/Time: 01/26/2021 01:22:44 SODIUM, RANDOM [id number] 20:15:33 Test Item Value Reference Range Interpretation Comments SODIUM URINE (BEAKER) (test code = 59 meq/L 243) Reference Range: No NormalsOperator ID - DBCREATININE, RANDOM [id number] 20:15:32 Test Item Value Reference Range Interpretation Comments CREATININE URINE (BEAKER) (test 27.1 mg/dL code = 375) Reference Range: No NormalsOperator ID - DBPOTASSIUM, RANDOM [id number] 20:15:32 Test Item Value Reference Range Interpretation Comments POTASSIUM URINE (BEAKER) (test 43.4 meq/L code = 195) Reference Range: No NormalsOperator ID - DBCHLORIDE, RANDOM [id number] 20:15:31 Test Item Value Reference Range Interpretation Comments CHLORIDE URINE (BEAKER) (test code = 60 meq/L 682) Reference Range: No NormalsOperator ID - DBURINALYSIS W/ [id number] 20:01:17 Test Item Value Reference Range Interpretation Comments COLOR (BEAKER) (test code = 470) Light Yellow CLARITY (BEAKER) (test code = Clear 469) SPECIFIC GRAVITY UA (BEAKER) 1.010 1.001-1.035 (test code = 468) PH UA (BEAKER) (test code = 467) 8.5 5.0-8.0 H PROTEIN UA (BEAKER) (test code = Negative Negative 464) GLUCOSE UA (BEAKER) (test code = Negative Negative 365) KETONES UA (BEAKER) (test code = Negative Negative 371) BILIRUBIN UA (BEAKER) (test code Negative Negative = 462) BLOOD UA (BEAKER) (test code = Negative Negative 461) NITRITE UA (BEAKER) (test code = Negative Negative 465) LEUKOCYTE ESTERASE UA (BEAKER) Negative Negative (test code = 466) UROBILINOGEN UA (BEAKER) (test 0.2 mg/dL 0.2-1.0 code = 463) RBC UA (BEAKER) (test code = 0 /HPF 519) WBC UA (BEAKER) (test code = 0 /HPF 520) BACTERIA (BEAKER) (test code = Rare 517) CRYSTALS, URINE (BEAKER) (test None Seen code = 1521) TRIPLE PHOSPHATE CRYSTALS Few (BEAKER) (test code = 1582) SOURCE(BEAKER) (test code = 2795) Groundhand ID - [auto]Groundhand ID - tech
[2021-04-19] MEDS ORDERED: METHYLPREDNISOLONE 125 MG INJ ONE (11:44)
[2021-04-19] MEDS ORDERED: LEVALBUTEROL 1.25 MG/3 ML NEB ONE (11:44)
[2021-04-19 11:48] LABS: Absolute Lymphocytes (CBC) 1.2 K/uL (0.7-4.9); Basophils % 0.9 % (0-1.3); Hematocrit 33.4 % (36.0-45.0); Lymphocytes % 18.3 % (15.3-44.8); RBC Red Blood Cell Count 3.85 M/uL (3.86-4.86)
[2021-04-19 11:53] LABS: Protime INR 0.99
[2021-04-19 12:07] LABS: Potassium 3.7 mmol/L (3.5-5.1); Troponin (Emerg Dept Use Only) 0.38 ng/mL (0.0-0.045)
[2021-04-19] MEDS ORDERED: FUROSEMIDE 40 MG/4 ML VIAL ONE (12:30)
--- NOTE | 2021-04-19 12:41 | RAD REPORT ---
EXAM DESCRIPTION: Jesúst Single View04/19/2021 12:17 pm CLINICAL HISTORY: sob COMPARISON: January 2021 FINDINGS: Heart is mildly to moderately enlarged. Postsurgical changes involve the chest Mild bilateral pulmonary opacities IMPRESSION: These findings probably indicate mild CHF
--- NOTE | 2021-04-19 12:42 | ER ---
Nurse's Notes [facility] Name: Leelee Forrest Age: 89 yrs Sex: Female : 1930 Arrival Date: 04/19/2021 Time: 11:06 Bed 6 Private MD: Diagnosis: Unspecified combined systolic (congestive) and diastolic (congestive) heart failure;COPD/ Chronic obstructive pulmonary disease, unspecified;Dyspnea, unspecified Presentation: 04/19 11:23 Chief complaint: EMS states: "pt called 911 after feeling short of breath when walking al4 to her chair. she had a RR of 40 at 1000, lung sounds were clear, and pt was in sinus tachycardia.". Coronavirus screen: difficulty breathing, shortness of breath, Client presents with at least one sign or symptom that may indicate coronavirus-19. Standard/surgical mask placed on the client. Ebola Screen: No symptoms or risks identified at this time. Initial Sepsis Screen: Does the patient meet any 2 criteria? No. Patient's initial sepsis screen is negative. Does the patient have a suspected source of infection? No. Patient's initial sepsis screen is negative. Risk Assessment: Do you want to hurt yourself or someone else? Patient reports no desire to harm self or others. Onset of symptoms. Onset of symptoms was April 19, 2021. 11:23 Method Of Arrival: EMS: [facility] al4 11:23 Acuity: BECKI 3 al4 Triage Assessment: 11:23 General: Appears uncomfortable, Behavior is appropriate for age, agitated. Pain: Denies al4 pain. EENT: No signs and/or symptoms were reported regarding the EENT system. Neuro: Level of Consciousness is awake, alert, obeys commands, Oriented to person, place, time, situation, Appropriate for age. Cardiovascular: Heart tones present. Cardiovascular: Capillary refill < 3 seconds Clubbing of nail beds is absent Patient's skin is warm and dry. Respiratory: Reports shortness of breath at rest on exertion Airway is patent Respiratory effort is even, unlabored, Respiratory pattern is regular, symmetrical, Onset: The symptoms/episode began/occurred this morning, the patient has moderate shortness of breath. Respiratory: Breath sounds are clear bilaterally. GI: No signs and/or symptoms were reported involving the gastrointestinal system. : No signs and/or symptoms were reported regarding the genitourinary system. Derm: Skin is intact, Skin is dry, Skin is normal, Skin temperature is warm. Musculoskeletal: No signs and/or symptoms reported regarding the musculoskeletal system. Historical: - Allergies: 15:17 Axid; jd3 15:17 Bactrim; jd3 15:17 Codeine; jd3 15:17 Keflex; jd3 15:17 PENICILLINS; jd3 15:17 Sulfa (Sulfonamide Antibiotics); jd3 15:17 Talwin; jd3 15:17 Vicodin; jd3 15:17 Xanax; jd3 - PMHx: 15:17 Anxiety; Hypertension; Hypothyroidism; jd3 - Immunization history:: Adult Immunizations up to date, Client reports receiving the 2nd dose of the Covid vaccine, Flu vaccine is up to date. - Social history:: Smoking status: Patient denies any tobacco usage or history of. - Family history:: not pertinent. - Hospitalizations: : No recent hospitalization is reported. Screenin:57 Abuse screen: Denies threats or abuse. Nutritional screening: No deficits noted. jd3 Tuberculosis screening: No symptoms or risk factors identified. Fall Risk Ambulatory Aid- None/Bed Rest/Nurse Assist (0 pts). Gait- Normal/Bed Rest/Wheelchair (0 pts) Mental Status- Oriented to own ability (0 pts). Total Coello Fall Scale indicates No Risk (0-24 pts). Assessment: 14:19 General: Appears in no apparent distress. Behavior is calm, cooperative. Pain: Denies jd3 pain. Neuro: Level of Consciousness is awake, alert, obeys commands, Oriented to person, place, time, situation. Cardiovascular: Capillary refill < 3 seconds Patient's skin is warm and dry. Respiratory: Reports shortness of breath at rest Airway is patent Respiratory effort is even, unlabored, Respiratory pattern is regular, symmetrical, Breath sounds are clear bilaterally. 15:34 Reassessment: No changes from previously documented assessment. Patient and/or family al4 updated on plan of care and expected duration. Pain level reassessed. Vital Signs: 11:23 BP 154 / 115; Pulse 112; Temp 97.6; Pulse Ox 97% ; Weight 72.57 kg (R); Height 5 ft. 0 al4 in. (152.40 cm) (R); 12:27 BP 137 / 77; Pulse 105; Resp 25 S; Pulse Ox 96% on R/A; jd3 14:18 BP 125 / 80; Pulse 100; Resp 24 S; Pulse Ox 96% on R/A; jd3 15:31 BP 126 / 71; Pulse 103; Resp 25 S; Pulse Ox 96% on R/A; al4 11:23 Body Mass Index 31.25 (72.57 kg, 152.40 cm) al4 ED Course: 11:06 Patient arrived in ED. ds1 11:09 Elvis Alberto MD is Attending Physician. rn 11:21 Albaro Aden, FAUSTINO is Primary Nurse. jd3 11:38 Triage completed. al4 11:50 Inserted saline lock: 20 gauge in right antecubital area, using aseptic technique. jd3 Blood collected. 12:10 Arm band placed on. al4 12:16 XRAY CXR (1 view) In Process Unspecified. EDMS 12:41 Amarilis Richmond MD is Hospitalizing Provider. rn 12:51 SARS-COV-2 RT PCR (Document "Date of Onset" if Symptomatic) Sent. al4 12:56 IV is swollen, with fluids not infusing freely, without good blood return, IV jd3 discontinued, intact, bleeding controlled, No redness/swelling at site. Pressure dressing applied. 12:57 Patient has correct armband on for positive identification. Placed in gown. Bed in low jd3 position. Call light in reach. Side rails up X2. decontaminator on. Pulse ox on. NIBP on. 13:00 Inserted saline lock: 22 gauge in right forearm, using aseptic technique. ss 15:19 No provider procedures requiring assistance completed. Patient admitted, IV remains in jd3 place. 15:23 Assisted with bedpan. Cleaned of incontinence. pt refused linen change after being al4 notified of soiled linens. Administered Medications: 11:50 Drug: SOLU-Medrol (methylPrednisoLONE) 125 mg Route: IVP; Site: right antecubital; jd3 12:50 Follow up: Response: No adverse reaction al4 11:50 Drug: Xopenex (levalbuterol) (3) 1.25 mg Route: Inhalation; jd3 12:50 Follow up: Response: No adverse reaction al4 13:07 Drug: Lasix (furosemide) 40 mg Route: IVP; Site: right forearm; jd3 14:07 Follow up: Response: No adverse reaction al4 Outcome: 12:41 Decision to Hospitalize by Provider. rn 15:19 Admitted to Med/surg accompanied by tech, via stretcher, room 403, with chart, Report jd3 called to Rosendo HARMON 15:19 Condition: stable 15:19 Instructed on the need for admit, Demonstrated understanding of instructions. 15:35 Patient left the ED. al4 Signatures: Dispatcher [employer] EDNV Judith Flores ds1 Elvis Alberto MD MD rn Smirch, Shelby, RN RN ss Davies, Jonathon, RN RN Maicol Connell al4 Corrections: (The following items were deleted from the chart) 15:34 12:15 Response: No adverse reaction al4 al4
--- NOTE | 2021-04-19 12:43 | EDPHYS ---
Physician Documentation [facility] Name: Leelee Forrest Age: 89 yrs Sex: Female : 1930 Arrival Date: 04/19/2021 Time: 11:06 Bed 6 Private MD: ED Physician Elvis Alberto HPI: 04/19 12:38 This 89 yrs old Female presents to ER via EMS with complaints of Breathing rn Difficulty. 12:38 The patient has shortness of breath at rest, with light activity. Onset: The rn symptoms/episode began/occurred this morning. Duration: The symptoms are continuous. The patient's shortness of breath is aggravated by exertion, light activity, supine position, talking, walking, is alleviated by rest, application of supplemental oxygen. Associated signs and symptoms: Pertinent negatives: chest pain, non-productive cough, productive cough, fever, hemoptysis. Severity of symptoms: At their worst the symptoms were moderate in the emergency department the symptoms have improved. It is unknown whether or not the patient has had similar symptoms in the past. The patient has not recently seen a physician. Historical: - Allergies: 15:17 Axid; jd3 15:17 Bactrim; jd3 15:17 Codeine; jd3 15:17 Keflex; jd3 15:17 PENICILLINS; jd3 15:17 Sulfa (Sulfonamide Antibiotics); jd3 15:17 Talwin; jd3 15:17 Vicodin; jd3 15:17 Xanax; jd3 - PMHx: 15:17 Anxiety; Hypertension; Hypothyroidism; jd3 - Immunization history:: Adult Immunizations up to date, Client reports receiving the 2nd dose of the Covid vaccine, Flu vaccine is up to date. - Social history:: Smoking status: Patient denies any tobacco usage or history of. - Family history:: not pertinent. - Hospitalizations: : No recent hospitalization is reported. ROS: 12:38 Constitutional: Negative for fever, chills, and weight loss, Eyes: Negative for injury, rn pain, redness, and discharge, Neck: Negative for injury, pain, and swelling, Cardiovascular: Negative for chest pain, palpitations, and edema, Respiratory: Positive for shortness of breath Abdomen/GI: Negative for abdominal pain, nausea, vomiting, diarrhea, and constipation, Back: Negative for injury and pain, : Negative for injury, bleeding, discharge, and swelling, MS/Extremity: Negative for injury and deformity, Skin: Negative for injury, rash, and discoloration, Neuro: Negative for headache, weakness, numbness, tingling, and seizure. Exam: 12:38 Constitutional: This is a well developed, well nourished patient who is awake, alert, rn mild to moderate tachypnea Head/Face: Normocephalic, atraumatic. Eyes: Periorbital areas with no swelling, redness, or edema. Cardiovascular: Tachycardic, irregular. Respiratory: Moderate tachypnea, crackles at bases Abdomen/GI: Soft, non-tender Skin: Warm, dry MS/ Extremity: Pulses equal, no cyanosis, 2+ pitting edema bilateral lower extremities, equal circumference Neuro: Awake and alert, GCS 15 Vital Signs: 11:23 BP 154 / 115; Pulse 112; Temp 97.6; Pulse Ox 97% ; Weight 72.57 kg (R); Height 5 ft. 0 al4 in. (152.40 cm) (R); 12:27 BP 137 / 77; Pulse 105; Resp 25 S; Pulse Ox 96% on R/A; jd3 14:18 BP 125 / 80; Pulse 100; Resp 24 S; Pulse Ox 96% on R/A; jd3 15:31 BP 126 / 71; Pulse 103; Resp 25 S; Pulse Ox 96% on R/A; al4 11:23 Body Mass Index 31.25 (72.57 kg, 152.40 cm) al4 MDM: 11:09 Patient medically screened. rn 12:38 Differential diagnosis: CHF exacerbation, Chronic Obstructive Pulmonary Disease rn Myocardial Infarction Pneumothorax pulmonary edema. Data reviewed: vital signs, nurses notes, lab test result(s), EKG, radiologic studies, plain films, and as a result, I will admit patient. Counseling: I had a detailed discussion with the patient and/or guardian regarding: the historical points, exam findings, and any diagnostic results supporting the discharge/admit diagnosis, lab results, radiology results, the need for further work-up and treatment in the hospital. Response to treatment: the patient's symptoms have mildly improved after treatment, and as a result, I will admit patient. Admission orders: after a detailed discussion of the patient's condition and case, the admit orders are written by me. 04/19 11:15 Order name: BMP; Complete Time: 12:13 rn 04/19 11:15 Order name: Blood Culture Adult (2) rn 04/19 11:15 Order name: CBC with Diff; Complete Time: 12:13 rn 04 11:15 Order name: NT PRO-BNP; Complete Time: 12:13 rn 04 11:15 Order name: PT-INR; Complete Time: 12:13 rn 04/19 11:15 Order name: Ptt, Activated; Complete Time: 12:13 rn 04/19 11:15 Order name: Troponin (emerg Dept Use Only); Complete Time: 12:13 rn 04/19 11:15 Order name: XRAY CXR (1 view); Complete Time: 12:42 rn 04/19 12:14 Order name: SARS-COV-2 RT PCR (Document "Date of Onset" if Symptomatic) 04/19 13:42 Order name: Comprehensive Metabolic Panel EDOR 04/19 13:42 Order name: Echo with Doppler EDOR 04/19 11:15 Order name: EKG; Complete Time: 11:16 rn 04/19 11:15 Order name: Cardiac monitoring; Complete Time: 11:22 rn 04/19 11:15 Order name: EKG - Nurse/Tech; Complete Time: 11:22 rn 04/19 11:15 Order name: IV Saline Lock; Complete Time: 11:42 rn 04 11:15 Order name: Labs collected and sent; Complete Time: 11:42 rn 04/19 11:15 Order name: O2 Per Protocol; Complete Time: 11:22 rn 04/19 11:15 Order name: O2 Sat Monitoring; Complete Time: 11:22 rn 04 13:42 Order name: CONS Physician Consult EDOR 04/19 13:42 Order name: Heart Healthy EDOR Administered Medications: 11:50 Drug: SOLU-Medrol (methylPrednisoLONE) 125 mg Route: IVP; Site: right antecubital; jd3 12:50 Follow up: Response: No adverse reaction al4 11:50 Drug: Xopenex (levalbuterol) (3) 1.25 mg Route: Inhalation; jd3 12:50 Follow up: Response: No adverse reaction al4 13:07 Drug: Lasix (furosemide) 40 mg Route: IVP; Site: right forearm; jd3 14:07 Follow up: Response: No adverse reaction al4 Disposition Summary: 04/19/21 12:41 Hospitalization Ordered Hospitalization Status: Inpatient Admission rn Provider: Amarilis Richmond rn Location: Telemetry/MedSurg (Inpatient) rn Condition: Stable rn Problem: new rn Symptoms: have improved rn Bed/Room Type: Standard rn Room Assignment: 403(04/19/21 14:19) eb Diagnosis - Unspecified combined systolic (congestive) and diastolic (congestive) heart failure rn - COPD/ Chronic obstructive pulmonary disease, unspecified rn - Dyspnea, unspecified rn Forms: - Medication Reconciliation Form rn - SBAR form rn Signatures: Dispatcher [employer] EDElvis Douglass MD MD rn Davies, Jonathon, RN RN Heidy Delaney Alexis al4 Corrections: (The following items were deleted from the chart) 14:19 12:41 rn eb
[2021-04-19] MEDS ORDERED: ONDANSETRON 4 MG/2 ML VIAL IV PRN (13:36)
[2021-04-19] MEDS ORDERED: ACETAMINOPHEN 500 MG TAB PO PRN (13:36)
[2021-04-19 16:16] VITALS: BMI 31.2
[2021-04-19] MEDS: FUROSEMIDE 40 MG/4 ML VIAL IV SCH (19:03)
[2021-04-19 21:55] LABS: Urine Appearance CLEAR (Clear); Urine Bilirubin NEGATIVE (Negative); Urine Blood NEGATIVE (Negative); Urine Color YELLOW (Yellow); Urine Glucose NEGATIVE (Negative); Urine Protein NEGATIVE (Negative); Urine Urobilinogen 0.2 mg/dL (0.2-1.0)
[2021-04-19 21:58] LABS: Urine Microscopic Reflex NO UMIC
[2021-04-20 06:04] LABS: Absolute Lymphocytes (CBC) 0.9 K/uL (0.7-4.9); Basophils % 0.2 % (0-1.3); Hematocrit 30.5 % (36.0-45.0); Lymphocytes % 11.5 % (15.3-44.8); MPV 9.8 fL (7.6-11.3); RBC Red Blood Cell Count 3.54 M/uL (3.86-4.86)
[2021-04-20 06:45] LABS: Albumin 3.1 g/dL (3.4-5.0); Bilirubin Total 0.6 mg/dL (0.2-1.0); Magnesium 1.8 mg/dL (1.8-2.4); Phosphorus 3.1 mg/dL (2.5-4.9); Potassium 3.7 mmol/L (3.5-5.1); Protein, Total 6.6 g/dL (6.4-8.2)
[2021-04-20 06:53] LABS: Troponin I 1.21 ng/mL (0.0-0.045)
[2021-04-20] MEDS: ENOXAPARIN 30 MG/0.3 ML SQ SCH (09:00)
[2021-04-20] MEDS: FUROSEMIDE 40 MG/4 ML VIAL IV SCH ×2 (09:59→17:27)
[2021-04-20] MEDS: CLOPIDOGREL 75 MG TABLET PO SCH (09:59)
[2021-04-20] MEDS: lisinopriL 10 MG TAB PO SCH (09:59)
[2021-04-20] MEDS: ASPIRIN EC 81 MG TAB PO SCH (09:59)
[2021-04-20] MEDS ORDERED: INFLUENZA VACCINE (for 6+ mo) 0.5 ML DOSE IMVAC ONE (12:00)
--- NOTE | 2021-04-20 14:32 | P.HP ---
Certification for Inpatient Patient admitted to: Inpatient With expected LOS: >2 Midnights Patient will require the following post-hospital care: None Practitioner: I am a practitioner with admitting privileges, knowledge of patient current condition, hospital course, and medical plan of care. Services: Services provided to patient in accordance with Admission requirements found in Title 42 Section 412.3 of the Code of Federal Regulations Patient History Date of Service: 04/19/21 Reason for admission: Shortness of breath History of Present Illness: Patient is a 89 year old female who has history of heart failure who presents to the ER with shortness of breath. Patient had congestive heart failure. Chest x-ray shows pulmonary edema. Patient was started on diuretics. Patient has some chronic pain and neuropathy in her lower extremity as well. She screamed at the slightest touch. Patient will be admitted to the hospital for further evaluat ion. Allergies famotidine [From Pepcid] Allergy (Mild, Verified 07/07/12 11:50) Itching/Hives/Rash acetaminophen [From Tylox] Allergy (Unknown, Verified 01/17/21 16:58) UNKNOWN cephalexin monohydrate [From Keflex] Allergy (Unknown, Verified 01/17/21 16:58) UNKNOWN codeine [Codeine] Allergy (Unknown, Verified 01/17/21 16:58) UNKNOWN hydrocodone bitartrate [From Vicodin] Allergy (Unknown, Verified 01/17/21 16:58) UNKNOWN oxycodone HCl [From Tylox] Allergy (Unknown, Verified 01/17/21 16:58) UNKNOWN Penicillins Allergy (Unknown, Verified 01/17/21 16:58) UNKNOWN pentazocine lactate [From Talwin] Allergy (Unknown, Verified 01/17/21 16:58) UNKNOWN ranitidine HCl [From Zantac] Allergy (Unknown, Verified 01/17/21 16:58) UNKNOWN Sulfa (Sulfonamide Antibiotics) Allergy (Unknown, Verified 01/17/21 16:58) UNKNOWN alprazolam [From Xanax] Allergy (Verified 01/17/21 16:58) Unknown nizatidine [From Axid] Allergy (Verified 01/17/21 16:58) Unknown - Past Medical/Surgical History Has patient received pneumonia vaccine in the past: Yes Diabetic: No -: Anxiety -: HTN -: Hypothyroidism -: CHF -: COPD -: NSTEMI -: Coronary artery bypass grafting - Family History Father Family History: Reviewed- Non-Contributory - Social History Smoking Status: Never smoker Alcohol use: No CD- Drugs: No Caffeine use: Yes Place of Residence: Home Review of Systems 10-point ROS is otherwise unremarkable Physical Examination - Vital Signs Temperature: 98.1 F Blood Pressure: 118/87 Pulse: 85 Respirations: 20 Pulse Ox (%): 98 - Physical Exam General: Alert, In no apparent distress, Oriented x3 HEENT: Atraumatic, PERRLA, Mucous membr. moist/pink, EOMI, Sclerae nonicteric Neck: Supple, 2+ carotid pulse no bruit, No LAD, Without JVD or thyroid abnormality Respiratory: Diminished, Crackles/rales Cardiovascular: Regular rate/rhythm, Normal S1 S2, No murmurs Gastrointestinal: Normal bowel sounds, Soft and benign, Non-distended, No tenderness Musculoskeletal: No clubbing, No swelling, No tenderness Integumentary: No rashes Neurological: Normal speech, Normal tone, Sensation intact, Cranial nerves 3-12 intact, Normal affect, Abnormal gait, Abnormal strength Lymphatics: No axilla or inguinal lymphadenopathy Assessment & Plan - Problems (Diagnosis) (1) Acute congestive heart failure Current Visit: No Status: Acute Qualifiers: (2) Atrial fibrillation Current Visit: No Status: Acute Qualifiers: (3) NSTEMI (non-ST elevated myocardial infarction) Current Visit: No Status: Acute (4) COPD (chronic obstructive pulmonary disease) Current Visit: No Status: Chronic Qualifiers: (5) Hypertension Current Visit: No Status: Chronic Qualifiers: (6) Hypothyroidism Current Visit: No Status: Chronic Qualifiers: - Plan 1. Echocardiogram in a.m. 2. Continue with cardiac meds 3. Plan to place Arteaga catheter 4. Cardiology consultation 5. Aggressive diuresis 6. Strict I's and O's 7. Repeat CXR 8. Daily weights 9. Out of bed and ambulate 10. Education regarding diet and treatment of congestive heart failure Discharge Plan: Home Plan to discharge in: Greater than 2 days - Advance Directives Does patient have a Living Will: Yes Does patient have a Durable POA for Healthcare: Yes - Code Status/Comfort Care Code Status Assessed: Yes Code Status: Full Code Critical Care: No Time Spent Managing PTS Care (In Minutes): 45
--- NOTE | 2021-04-20 14:37 | P.PN ---
Subjective Date of Service: 04/20/21 Patient states she is breathing better. Feeling much better and may be able to go home in a.m.. Will Dc Arteaga catheter and ambulate and anticipate discharge tomorrow. Troponins are elevated. I spoke with Cardiology. Echocardiogram in the morning. Patient will continue with outpatient follow-up. Review of Systems 10-point ROS is otherwise unremarkable Physical Examination - Vital Signs Temperature: 98.1 F Blood Pressure: 118/87 Pulse: 85 Respirations: 20 Pulse Ox (%): 98 - Physical Exam General: Alert, In no apparent distress, Oriented x3 HEENT: Atraumatic, PERRLA, EOMI Neck: Supple, JVD not distended Respiratory: Diminished, Crackles/rales Cardiovascular: Regular rate/rhythm, Normal S1 S2, No murmurs Gastrointestinal: Normal bowel sounds, Soft and benign, Non-distended, No tenderness Musculoskeletal: No clubbing, No swelling, No tenderness Integumentary: No rashes Neurological: Normal tone, Cranial nerves 3-12 intact, Abnormal strength, Abnormal sensation - Studies Medications List Reviewed: Yes Assessment & Plan - Problems (Diagnosis) (1) Acute congestive heart failure Current Visit: No Status: Acute Qualifiers: (2) Atrial fibrillation Current Visit: No Status: Acute Qualifiers: (3) NSTEMI (non-ST elevated myocardial infarction) Current Visit: No Status: Acute (4) COPD (chronic obstructive pulmonary disease) Current Visit: No Status: Chronic Qualifiers: (5) Hypertension Current Visit: No Status: Chronic Qualifiers: (6) Hypothyroidism Current Visit: No Status: Chronic Qualifiers: - Plan 1. Plan to do Echocardiogram in a.m. 2. Continue with cardiac meds 3. Dc Arteaga catheter in a.m. 4. Cardiology consultation appreciated; further outpatient workup. No further cardiac intervention at this time 5. Aggressive diuresis; change to oral Lasix 6. Continue with strict I's and O's 7. Repeat CXR in the morning 8. Daily weights 9. Out of bed and ambulate; nurses advised to get patient out of bed into a chair in anticipation for discharge tomorrow 10. Education regarding diet and treatment of congestive heart failure Discharge Plan: Home Plan to discharge in: Greater than 2 days - Advance Directives Does patient have a Living Will: Yes Does patient have a Durable POA for Healthcare: Yes - Code Status/Comfort Care Code Status: Full Code Critical Care: No Time Spent Managing PTS Care (In Minutes): 35
[2021-04-21 04:02] LABS: Absolute Lymphocytes (CBC) 2.3 K/uL (0.7-4.9); Basophils % 1.1 % (0-1.3); Hematocrit 30.9 % (36.0-45.0); Lymphocytes % 23.5 % (15.3-44.8); MPV 9.5 fL (7.6-11.3); RBC Red Blood Cell Count 3.58 M/uL (3.86-4.86)
[2021-04-21 04:29] LABS: Magnesium 1.6 mg/dL (1.8-2.4); Phosphorus 2.5 mg/dL (2.5-4.9); Potassium 3.4 mmol/L (3.5-5.1)
[2021-04-21 05:23] VITALS: O2SAT 95
[2021-04-21] MEDS: FUROSEMIDE 40 MG/4 ML VIAL IV SCH ×3 (09:00→18:56)
[2021-04-21] MEDS: MAGNESIUM SULFATE 1 gm IVPB 1 GM/100 ML BAG IV ONE ×3 (09:00→18:59)
[2021-04-21] MEDS ORDERED: POTASSIUM CL SA 10 MEQ TAB PO ONE (09:00)
[2021-04-21] MEDS: ENOXAPARIN 30 MG/0.3 ML SQ SCH (09:00)
--- NOTE | 2021-04-21 09:10 | RAD REPORT ---
EXAM DESCRIPTION: RAD - Chest Single View - 04/21/2021 5:41 am CLINICAL HISTORY: pneumonia Chest pain. COMPARISON: Chest Single View dated 04/19/2021; Chest Single View dated 01/22/2021; Chest Single View d ated 01/19/2021; Chest Single View dated 01/18/2021 FINDINGS: Portable technique limits examination quality. Mild to moderate bilateral pulmonary opacities are present, unchanged. These may represent pulmonary edema or pneumonia. The heart is significantly enlarged. Sternotomy wires are present. IMPRESSION: Stable moderate CHF findings since comparative study.
--- NOTE | 2021-04-21 09:19 | P.DS ---
Admission Date: 04/19/21 Discharge Date: 04/21/21 Primary Care Provider: Dr. Baldwin; Cardiology-Dr. Chavez Disposition: ROUTINE DISCHARGE Discharge Condition: GOOD Reason for Admission: Shortness of breath Consultations: Cardiology-Dr. Chavez Procedures: COVID: Negative CXR: COMPARISON: January 2021 FINDINGS: Heart is mildly to moderately enlarged. Postsurgical changes involve the chest Mild bilateral pulmonary opacities IMPRESSION: These findings probably indicate mild CHF ECHO: History of CHF and aortic stenosis Obtained Medical problem list: Dyspnea secondary to acute on chronic diastolic CHF with history of aortic stenosis Elevated troponin likely ischemic demand with NSTEMI Hypertension Atrial fibrillation not on chronic anticoagulation therapy Urinary incontinence GERD Hypothyroidism Brief History of Present Illness: Old female with history of CHF, hypertension. Patient presented with increasing shortness of breath secondary to acute CHF. Patient was admitted for treatment. Hospital Course: Patient presented with shortness of breath secondary to acute on chronic diastolic CHF with history of aortic stenosis. Patient was admitted for treatment. Patient received IV diuretic therapy. Her condition has improved. Patient had elevated troponin likely ischemic demand with NSTEMI. Patient with history of atrial fibrillation not on chronic anticoagulation therapy. Patient remains in normal sinus rhythm. Cardiology was consulted. Echocardiogram was obtained. Patient has improved. Cardiology recommended no further intervention at this time. New medication includes carvedilol. At discharge patient will continue with a 1500 cc/day fluid restriction and low-salt diet. At discharge patient will continue with aspirin 81 mg daily, Plavix 25 mg daily, carvedilol 6.25 mg 1 pill twice daily, losartan 50 mg daily, Lasix 40 mg daily and potassium supplementation Klor-Con 20 mEq 1 pill daily. At discharge patient will follow up with cardiology 1 to 2 weeks to follow-up his hospitalization. Arrangements for home oxygen to be arranged prior to discharge. Patient currently on 2 L per nasal cannula. Recommend to maintain oxygen saturations above 93%. Recommend follow-up with PCP in 1 week to follow-up his hospitalization. Patient with hypertension. Blood pressures were elevated. Medications adjusted. At discharge patient will continue with losartan 50 mg daily and carvedilol 6.25 mg 1 pill twice daily. Recommend to maintain blood pressure less than 130/80. Further adjustment can be done by her PCP. Patient with hypothyroidism. At discharge patient will continue with levothyroxine 75 mcg daily. Patient with GERD. At discharge patient will continue with Protonix 40 mg daily. Patient with allergic rhinitis. At discharge she will continue with Singulair 10 mg at bedtime. Patient with urinary incontinence. At discharge patient will continue with tolterodine 2 mg 1 pill twice daily. Vital Signs/Physical Exam: Temp Pulse Resp BP Pulse Ox 97 F 81 18 141/68 H 95 04/21/21 04:00 04/21/21 04:00 04/21/21 04:00 04/21/21 04:00 04/21/21 04:00 General: Alert, In no apparent distress, Oriented x3, Cooperative HEENT: Atraumatic Neck: Supple Respiratory: Clear to auscultation bilaterally, Normal air movement Cardiovascular: Normal pulses, Regular rate/rhythm Gastrointestinal: Normal bowel sounds Musculoskeletal: No erythema, No tenderness, No warmth Neurological: Normal speech, Normal strength at 5/5 x4 extr, Normal tone Laboratory Data at Discharge: WBC 9.80 K/uL (4.3-10.9) D 04/21/21 03:26 Hgb 10.3 g/dL (12.0-15.0) L 04/21/21 03:26 Hct 30.9 % (36.0-45.0) L 04/21/21 03:26 Plt Count 190 K/uL (152-406) 04/21/21 03:26 PT 11.4 SECONDS (9.5-12.5) 04/19/21 11:38 INR 0.99 04/19/21 11:38 APTT 28.4 SECONDS (24.3-36.9) 04/19/21 11:38 Sodium 143 mmol/L (136-145) 04/21/21 03:26 Potassium 3.4 mmol/L (3.5-5.1) L 04/21/21 03:26 BUN 34 mg/dL (7-18) H 04/21/21 03:26 Creatinine 1.03 mg/dL (0.55-1.3) 04/21/21 03:26 Glucose 99 mg/dL (74-106) 04/21/21 03:26 Phosphorus 2.5 mg/dL (2.5-4.9) 04/21/21 03:26 Magnesium 1.6 mg/dL (1.8-2.4) L 04/21/21 03:26 Total Bilirubin 0.6 mg/dL (0.2-1.0) 04/20/21 05:20 AST 26 U/L (15-37) 04/20/21 05:20 ALT 12 U/L (12-78) 04/20/21 05:20 Alkaline Phosphatase 57 U/L (45-117) 04/20/21 05:20 Troponin I 1.55 ng/mL (0.0-0.045) H* 04/21/21 03:26 Home Medications: Furosemide 40 mg PO DAILY 04/20/21 Levothyroxine [Synthroid*] 75 mcg PO [id number] 04/20/21 Losartan Potassium 50 mg PO DAILY 04/20/21 Montelukast [Singulair*] 10 mg PO BEDTIME 04/20/21 Pantoprazole [Protonix Tab*] 40 mg PO DAILY 04/20/21 Potassium Chloride [Klor-Con] 20 meq PO DAILY 04/20/21 Tolterodine Tartrate 2 mg PO BID 04/20/21 Aspirin [Aspirin EC 81 MG] 81 mg PO DAILY #90 tablet. 04/21/21 Clopidogrel Bisulfate [Plavix*] 75 mg PO DAILY #30 tablet 04/21/21 carvediloL [Carvedilol] 6.25 mg PO BID #60 tablet 04/21/21 New Medications: Aspirin [Aspirin EC 81 MG] 81 mg PO DAILY #90 tablet. carvediloL [Carvedilol] 6.25 mg PO BID #60 tablet Clopidogrel Bisulfate [Plavix*] 75 mg PO DAILY #30 tablet Physician Discharge Instructions: OK TO DC IV AND DC HOME FOLLOW-UP WITH PRIMARY CARE PROVIDER IN 1-2 WEEKS FOLLOW-UP WITH CARDIOLOGY IN 1-2 WEEKS RETURN TO THE ER IF symptoms worsen CALL or TEXT DR. NAVA AT [phone] IF ANY QUESTIONS REGARDING HOSPITAL STAY. PLEASE CALL THE FLOOR AT [phone] IF ANY MEDICATION OR NURSING QUESTIONS. Patient presented with shortness of breath secondary to acute on chronic diastolic CHF with history of aortic stenosis. Patient was admitted for treatment. Patient received IV diuretic therapy. Her condition has improved. Patient had elevated troponin likely ischemic demand with NSTEMI. Patient with history of atrial fibrillation not on chronic anticoagulation therapy. Patient remains in normal sinus rhythm. Cardiology was consulted. Echocardiogram was obtained. Patient has improved. Cardiology recommended no further intervention at this time. New medication includes carvedilol. At discharge patient will continue with a 1500 cc/day fluid restriction and low-salt diet. At discharge patient will continue with aspirin 81 mg daily, Plavix 25 mg daily, carvedilol 6.25 mg 1 pill twice daily, losartan 50 mg daily, Lasix 40 mg daily and potassium supplementation Klor-Con 20 mEq 1 pill daily. At discharge patient will follow up with cardiology 1 to 2 weeks to follow-up his hospitalization. Arrangements for home oxygen to be arranged prior to discharge. Patient currently on 2 L per nasal cannula. Recommend to maintain oxygen saturations above 93%. Recommend follow-up with PCP in 1 week to follow-up his hospitalization. Patient with hypertension. Blood pressures were elevated. Medications adjusted. At discharge patient will continue with losartan 50 mg daily and carvedilol 6.25 mg 1 pill twice daily. Recommend to maintain blood pressure less than 130/80. Further adjustment can be done by her PCP. Patient with hypothyroidism. At discharge patient will continue with levothyroxine 75 mcg daily. Patient with GERD. At discharge patient will continue with Protonix 40 mg daily. Patient with allergic rhinitis. At discharge she will continue with Singulair 10 mg at bedtime. Patient with urinary incontinence. At discharge patient will continue with tolterodine 2 mg 1 pill twice daily. Diet: AHA Activity: Fall precautions Followup: LINN ESTEVES [Primary Care Provider] - Time spent managing pt's care (in minutes): 55
[2021-04-21] MEDS: CLOPIDOGREL 75 MG TABLET PO SCH (09:44)
[2021-04-21] MEDS: ASPIRIN EC 81 MG TAB PO SCH (09:44)
[2021-04-21] MEDS: lisinopriL 10 MG TAB PO SCH (09:44)
[2021-04-22 03:57] VITALS: TEMP 97.9
--- NOTE | 2021-04-22 06:17 | P.DS ---
Admission Date: 04/19/21 Discharge Date: 04/22/21 Primary Care Provider: Dr. Baldwin; Cardiology-Dr. Chavez Disposition: ROUTINE DISCHARGE Discharge Condition: GOOD Reason for Admission: Shortness of breath Consultations: Cardiology-Dr. Chavez Procedures: COVID: Negative CXR: COMPARISON: January 2021 FINDINGS: Heart is mildly to moderately enlarged. Postsurgical changes involve the chest Mild bilateral pulmonary opacities IMPRESSION: These findings probably indicate mild CHF ECHO: EF of 19% Medical problem list: Dyspnea secondary to acute on chronic systolic CHF with history of aortic stenosis Elevated troponin likely ischemic demand with NSTEMI Hypertension Atrial fibrillation not on chronic anticoagulation therapy Urinary incontinence GERD Hypothyroidism Brief History of Present Illness: Old female with history of CHF, hypertension. Patient presented with increasing shortness of breath secondary to acute CHF. Patient was admitted for treatment. Hospital Course: Patient presented with shortness of breath secondary to acute on chronic systolic CHF with history of aortic stenosis. Patient was admitted for treatment. Patient received IV diuretic therapy. Her condition has improved. Patient had elevated troponin likely ischemic demand with NSTEMI. Patient with history of atrial fibrillation not on chronic anticoagulation therapy. Patient remains in normal sinus rhythm. Cardiology was consulted. Echocardiogram was obtained and reviewed with cardiology. Ejection fraction around 19%. Patient improved with diuresis. Medications adjusted during the course of her stay. Patient did work with physical therapy. Cardiology recommended no further intervention at this time. Occasions have been adjusted. New medication includes carvedilol. Losartan was decreased. At discharge patient will continue with a 1500 cc/day fluid restriction and low-salt diet. Recommend to monitor her weight daily. If her weight increases by more than 5 pounds further adjustment in medication may be required. At discharge patient will continue with aspirin 81 mg daily, Plavix 25 mg daily, carvedilol 6.25 mg 1 pill twice daily, losartan 25 mg daily, Lasix 40 mg 1 pill twice daily and potassium supplementation Klor-Con 20 mEq 1 pill daily. Patient has follow-up with cardiology early next week. Patient to have carotid ultrasound done later this week with cardiology. Cardiology recommended to increase Lasix to 40 mg 1 pill twice daily. This may need to be decreased if her weight and shortness of breath is well controlled. At discharge patient will follow up with cardiology 1 to 2 weeks to follow-up his hospitalization. Recommend follow-up with PCP in 1 week to follow-up his hospitalization. Home health and physical therapy as an outpatient will be arranged prior to discharge. Patient with hypertension. Blood pressure medication was adjusted in the course of her stay. New medication includes carvedilol due to her CHF. At discharge patient will continue with losartan 25 mg daily and carvedilol 6.25 mg 1 pill twice daily. Recommend to maintain blood pressure less than 130/80. Hold medication if blood pressure systolic less than 110. Further adjustment can be done by her PCP or cardiology. Patient with hypothyroidism. At discharge patient will continue with levothyroxine 75 mcg daily. Patient with GERD. At discharge patient will continue with Protonix 40 mg daily. Patient with allergic rhinitis. At discharge she will continue with Singulair 10 mg at bedtime. Patient with urinary incontinence. At discharge patient will continue with tolterodine 2 mg 1 pill twice daily. Vital Signs/Physical Exam: Temp Pulse Resp BP Pulse Ox 97.9 F 60 19 140/63 94 04/22/21 03:55 04/22/21 03:55 04/22/21 03:55 04/22/21 03:55 04/22/21 03:55 General: Alert, In no apparent distress, Oriented x3, Cooperative HEENT: Atraumatic Neck: Supple Respiratory: Clear to auscultation bilaterally, Normal air movement Cardiovascular: Normal pulses, Regular rate/rhythm Gastrointestinal: Normal bowel sounds, No tenderness, No masses, No rebound, No guarding Musculoskeletal: No erythema, No tenderness, No warmth Integumentary: No tenderness/swelling Neurological: Normal speech, Normal strength at 5/5 x4 extr, Normal tone, Normal affect Laboratory Data at Discharge: WBC 9.80 K/uL (4.3-10.9) D 04/21/21 03:26 Hgb 10.3 g/dL (12.0-15.0) L 04/21/21 03:26 Hct 30.9 % (36.0-45.0) L 04/21/21 03:26 Plt Count 190 K/uL (152-406) 04/21/21 03:26 PT 11.4 SECONDS (9.5-12.5) 04/19/21 11:38 INR 0.99 04/19/21 11:38 APTT 28.4 SECONDS (24.3-36.9) 04/19/21 11:38 Sodium 143 mmol/L (136-145) 04/21/21 03:26 Potassium 3.4 mmol/L (3.5-5.1) L 04/21/21 03:26 BUN 34 mg/dL (7-18) H 04/21/21 03:26 Creatinine 1.03 mg/dL (0.55-1.3) 04/21/21 03:26 Glucose 99 mg/dL (74-106) 04/21/21 03:26 Phosphorus 2.5 mg/dL (2.5-4.9) 04/21/21 03:26 Magnesium 1.6 mg/dL (1.8-2.4) L 04/21/21 03:26 Total Bilirubin 0.6 mg/dL (0.2-1.0) 04/20/21 05:20 AST 26 U/L (15-37) 04/20/21 05:20 ALT 12 U/L (12-78) 04/20/21 05:20 Alkaline Phosphatase 57 U/L (45-117) 04/20/21 05:20 Troponin I 1.55 ng/mL (0.0-0.045) H* 04/21/21 03:26 Home Medications: Levothyroxine [Synthroid*] 75 mcg PO [id number] 04/20/21 Montelukast [Singulair*] 10 mg PO BEDTIME 04/20/21 Pantoprazole [Protonix Tab*] 40 mg PO DAILY 04/20/21 Potassium Chloride [Klor-Con] 20 meq PO DAILY 04/20/21 Tolterodine Tartrate 2 mg PO BID 04/20/21 Aspirin [Aspirin EC 81 MG] 81 mg PO DAILY #90 tablet. 04/21/21 Clopidogrel Bisulfate [Plavix*] 75 mg PO DAILY #30 tablet 04/21/21 carvediloL [Carvedilol] 6.25 mg PO BID #60 tablet 04/21/21 Furosemide 40 mg PO BID #60 04/22/21 Losartan Potassium [Cozaar*] 25 mg PO DAILY #30 tablet 04/22/21 New Medications: Aspirin [Aspirin EC 81 MG] 81 mg PO DAILY #90 tablet. carvediloL [Carvedilol] 6.25 mg PO BID #60 tablet Losartan Potassium [Cozaar*] 25 mg PO DAILY #30 tablet Furosemide 40 mg PO BID #60 Clopidogrel Bisulfate [Plavix*] 75 mg PO DAILY #30 tablet Physician Discharge Instructions: OK TO DC IV AND DC HOME FOLLOW-UP WITH PRIMARY CARE PROVIDER IN 1-2 WEEKS FOLLOW-UP WITH CARDIOLOGY IN 1-2 WEEKS RETURN TO THE ER IF symptoms worsen CALL or TEXT DR. NAVA AT [phone] IF ANY QUESTIONS REGARDING HOSPITAL STAY. PLEASE CALL THE FLOOR AT [phone] IF ANY MEDICATION OR NURSING QUESTIONS. Patient presented with shortness of breath secondary to acute on chronic systolic CHF with history of aortic stenosis. Patient was admitted for treatment. Patient received IV diuretic therapy. Her condition has improved. Patient had elevated troponin likely ischemic demand with NSTEMI. Patient with history of atrial fibrillation not on chronic anticoagulation therapy. Patient remains in normal sinus rhythm. Cardiology was consulted. Echocardiogram was obtained and reviewed with cardiology. Ejection fraction around 19%. Patient improved with diuresis. Medications adjusted during the course of her stay. Patient did work with physical therapy. Cardiology recommended no further intervention at this time. Occasions have been adjusted. New medication includes carvedilol. Losartan was decreased. At discharge patient will continue with a 1500 cc/day fluid restriction and low-salt diet. Recommend to monitor her weight daily. If her weight increases by more than 5 pounds further adjustment in medication may be required. At discharge patient will continue with aspirin 81 mg daily, Plavix 25 mg daily, carvedilol 6.25 mg 1 pill twice daily, losartan 25 mg daily, Lasix 40 mg 1 pill twice daily and potassium supplementation Klor-Con 20 mEq 1 pill daily. Patient has follow-up with cardiology early next week. Patient to have carotid ultrasound done later this week with cardiology. Cardiology recommended to increase Lasix to 40 mg 1 pill twice daily. This may need to be decreased if her weight and shortness of breath is well controlled in the next several weeks. At discharge patient will follow up with cardiology 1 to 2 weeks to follow-up his hospitalization. Recommend follow-up with PCP in 1 week to follow-up his hospitalization. Home health and physical therapy as an outpatient will be arranged prior to discharge. Patient with hypertension. Blood pressure medication was adjusted in the course of her stay. New medication includes carvedilol due to her CHF. At discharge patient will continue with losartan 25 mg daily and carvedilol 6.25 mg 1 pill twice daily. Recommend to maintain blood pressure less than 130/80. Hold medication if blood pressure systolic less than 110. Further adjustment can be done by her PCP or cardiology. Patient with hypothyroidism. At discharge patient will continue with levothyroxine 75 mcg daily. Patient with GERD. At discharge patient will continue with Protonix 40 mg daily. Patient with allergic rhinitis. At discharge she will continue with Singulair 10 mg at bedtime. Patient with urinary incontinence. At discharge patient will continue with tolterodine 2 mg 1 pill twice daily. Diet: AHA Activity: Fall precautions Followup: LINN ESTEVES [Primary Care Provider] - Time spent managing pt's care (in minutes): 55
[2021-04-22] MEDS: ASPIRIN EC 81 MG TAB PO SCH (08:41)
[2021-04-22] MEDS: CLOPIDOGREL 75 MG TABLET PO SCH (08:41)
[2021-04-22] MEDS: ENOXAPARIN 30 MG/0.3 ML SQ SCH (08:41)
[2021-04-22] MEDS: FUROSEMIDE 40 MG/4 ML VIAL IV SCH (09:00)
[2021-04-22] MEDS: lisinopriL 10 MG TAB PO SCH (09:00)
[2021-04-22] MEDS: NA CHLORIDE 0.9% 250 ML IV ONE ×2 (09:08→10:49)
--- NOTE | 2021-04-22 09:16 | P.PN ---
Subjective Date of Service: 04/22/21 Primary Care Provider: Dr. Baldwin; Cardiology-Dr. Chavez Chief Complaint: Shortness of breath Subjective: Other (Patient reports improvement. Blood pressure has been fluctuating.) Physical Examination - Vital Signs Temperature: 97.9 F Blood Pressure: 98/61 Pulse: 95 Respirations: 18 Pulse Ox (%): 94 - Studies Medications List Reviewed: Yes Assessment & Plan Discharge Plan: Home Plan to discharge in: 24 Hours Physician Review Additional Text: COVID: Negative CXR: COMPARISON: January 2021 FINDINGS: Heart is mildly to moderately enlarged. Postsurgical changes involve the chest Mild bilateral pulmonary opacities IMPRESSION: These findings probably indicate mild CHF ECHO: History of CHF and aortic stenosis Obtained Physical Exam: GENERAL: The patient is a well-developed, well-nourished, in no apparent distress. Alert and oriented x3. VITAL SIGNS: Reviewed HEENT: Neck supple blood pressure low this morning. LUNGS: Clear to auscultation. No crackles or wheezes are heard. HEART: Regular rate and rhythm, no appreciable gallops, rubs, murmurs or extra heart sounds ABDOMEN: Soft, nontender, and nondistended. Positive bowel sounds. No hepatosplenomegaly was noted. EXTREMITIES: Without any cyanosis, clubbing, rash, lesions or peripheral edema. NEUROLOGIC: The patient is oriented to person, place and time. Strength and sensation are grossly intact. Face is symmetric. SKIN: Normal color, turgor and temperature. No ulcerations or rashes noted. Impression: Dyspnea secondary to acute on chronic diastolic CHF with history of aortic stenosis Elevated troponin likely ischemic demand with NSTEMI Hypertension Atrial fibrillation not on chronic anticoagulation therapy Urinary incontinence GERD Hypothyroidism Plan: Dyspnea secondary to acute on chronic diastolic CHF with history of aortic stenosis: Patient appears to be over diuresed. We will hold Lasix today. Blood pressure was low. Will give IV fluid bolus. Recheck blood pressures and monitor closely. Blood pressure has been fluctuating. Will adjust medication currently. Hold blood pressure medication if systolic less than 110. Physical therapy assess ambulation. Patient desires to go home. She does not want to go to a skilled facility. This was addressed in detail with patient and son yesterday. We will continue monitor closely. Possible discharge as early as today if improved. Elevated troponin likely ischemic demand with NSTEMI: Cardiology does not recommend intervention at this time. Continue with medication. Continue aspirin, Plavix. Hypertension: Blood pressure has been fluctuating. Low blood pressure this morning. Hold blood pressure medication if blood pressure systolic less than 110. Patient to be given fluid bolus. Physical therapy assess ambulation. Patient previously on losartan. Patient on lisinopril at this time. Discontinue lisinopril and use lower dose of losartan. Atrial fibrillation not on chronic anticoagulation therapy: Continue aspirin and Plavix Urinary incontinence: Continue tolterodine GERD: Continue Protonix Hypothyroidism: Continue levothyroxine 75 mcg daily. Allergic rhinitis: Continue Singulair Code Status: Full Code DVT prophylaxis: Lovenox Advanced Care Planning-30 minutes: Home at discharge Time Spent Managing Pts Care (In Minutes): 55
[2021-04-22] MEDS ORDERED: LEVOTHYROXINE SOD 0.075 MG TAB PO SCH (10:00)
[2021-04-22] MEDS ORDERED: LOSARTAN POTASSIUM 50 MG TABLET PO SCH (10:00)
[2021-04-22] MEDS ORDERED: PANTOPRAZOLE 40MG TABLET PO SCH (10:00)
[2021-04-22 10:54] VITALS: BP 114/55
--- NOTE | 2021-04-22 13:51 | ECHO ---
HEIGHT: 5 ft 0 in WEIGHT: 159 lb 15.831 oz DATE OF STUDY: 04/22/[address]: Amarilis Richmond MD 2-DIMENSIONAL: YES M.MODE: YES DOPPLER: YES COLOR FLOW: YES TDS: NO PORTABLE: NO DEFINITY: NO BUBBLE STUDY: NO DIAGNOSIS: ACUTE CONGESTIVE HEART FAILURE EXACERBATION CARDIAC HISTORY: CATHERIZATION: NO SURGERY: YES PROSTHETIC VALVE: NO PACEMAKER: NO MEASUREMENTS (cm) DIASTOLIC (NORMALS) SYSTOLIC (NORMALS) IVSd 1.1 (0.6-1.2) LA Diam 3.0 (1.9-4.0) LVEF 19% LVIDd 5.1 (3.5-5.7) LVIDs 4.6 (2.0-3.5) %FS 9% LVPWd 1.1 (0.6-1.2) Ao Diam 2.8 (2.0-3.7) 2 DIMENSIONAL ASSESSMENT: RIGHT ATRIUM: NORMAL LEFT ATRIUM: NORMLA RIGHT VENTRICLE: NORMAL LEFT VENTRICLE: NORMAL SIZE TRICUSPID VALVE: NORMAL MITRAL VALVE: MILD AORTIC SCLEROSIS. MILD TRICUSPID REGURGITATION PULMONIC VALVE: NORMAL AORTIC VALVE: SCLEROSIS PERICARDIAL EFFUSION: NONE AORTIC ROOT: NORMAL LEFT VENTRICULAR WALL MOTION: SEVERE GLOBAL HYPOKINESIS. DOPPLER/COLOR FLOW: MILD AORTIC SCLEROSIS. MILD TRICUSPID REGURGITATION. COMMENTS: MILD AORTIC SCLEROSIS. MILD TRICUSPID REGURGITATION. MILD AORTIC SCLEROSIS. MILD TRICUSPID REGURGITATION. AORTIC SCLEROSIS WITH NO STENOSIS. SEVERE GLOBAL HYPOKINESIS. TECHNOLOGIST: Radha CAR
--- NOTE | 2021-04-22 19:49 | CON ---
Date of Consultation: 04/20/2021 Reason For Consultation: Congestive heart failure. History Of Present Illness: Ms. Alonzo is an 89-year-old woman with known congestive heart failure, anxiety, hypertension, hypothyroidism, came in with shortness of breath, PND, orthopnea, pedal edema. No palpitation. No syncope. She denied any fever or chills. Came in very hypertensive at 154/115 with a pulse of 112. Her O2 saturation was 97%. Past Medical History: As stated above. Allergies: INCLUDE EXJADE, BACTRIM, CODEINE, KEFLEX, PENICILLIN, SULFA, TOLVIN, VICODIN, AND XANAX. Review of Systems: Negative. Social History: Negative. Family History: Noncontributory. Medications: At home include aspirin, Plavix, Lasix, levothyroxine, losartan, Singulair, pantoprazol e, potassium, and carvedilol. Physical Examination: Vital Signs: Stable. Afebrile. Sinus rhythm. HEENT: Negative. Neck: Supple. No bruit. Chest: Revealed rales, both bases. Cardiac: Revealed a regular rhythm and rate with S3 gallops and aortic sclerosis murmur. Abdomen: Benign. Extremities: Revealed no clubbing, cyanosis, or edema. Her legs were very tender to touch, but ther e were no erythema or edema. Diagnostic Data: Her troponin is 1.55. BNP was 25,194. Hemoglobin was 10.3. Creatinine was 1.03. Chest x-ray shows congestive heart failure. EKG was nonspecific. Impression And Plan: 1.Acute on chronic systolic congestive heart failure. 2.History of coronary artery disease. 3.Hypothyroidism. 4.Hypertension. 5.Asthma. 6.Gastroesophageal reflux disease. I think we need to double her carvedilol up to 12.5 b.i.d. I think we need to continue IV Lasix for now. When she goes home, she should be on a higher Lasix dose than she wants. Continue her angioten sin receptor edmundo of losartan 25 mg daily. Obtain another 2D echocardiogram to see what her EF is now. IVANA/MODL Voice ID: [id number] Report ID: [id number]
[2021-04-22] MEDS ORDERED: TOLTERODINE TARTRATE 2 MG PO SCH (21:00)
[2021-04-22] MEDS ORDERED: MONTELUKAST 10 MG TAB PO SCH (21:00)
--- NOTE | 2021-04-22 22:18 | PN ---
Date of Progress Note: 04/21/2021 Subjective: Ms. Alonzo came in with acute on chronic systolic congestive heart failure, has a histor y of hypertension and hypothyroidism and coronary artery disease. She has been treated with IV Lasix and has diuresed very well. Echocardiogram that was done showed severe global hypokinesis with an e jection fraction of 19%. She had some aortic sclerosis but no stenosis. I think we need to continue her Lasix. Go up on the carvedilol dose of 12.5 b.i.d. When she goes home she should be on Lasix a t least 40 b.i.d. and take an extra one as needed. Continue losartan. She can go home whenever it i s okay with admitting physician and I will see her in the office in the very near future. No plan fo r intervention on Ms. Alonzo as she is years old. IVANA/BENJY Voice ID: [id number] Report ID: [id number]
== END 2021-04-22 17:28 | disposition home or self-care (01) | DRG 280 ==
LOC: ER 11:06 → ERHOLD 14:00 → 4TH 15:21
PROVIDERS: ADMIT Hospitalist; ATTEND Family Medicine
DX: I11.0 Hypertensive heart disease with heart failure (principal); I21.4 Non-ST elevation (NSTEMI) myocardial infarction; I50.23 Acute on chronic systolic (congestive) heart failure; E03.9 Hypothyroidism, unspecified; I48.91 Unspecified atrial fibrillation; J30.9 Allergic rhinitis, unspecified; K21.9 Gastro-esophageal reflux disease without esophagitis; J44.9 Chronic obstructive pulmonary disease, unspecified; R32 Unspecified urinary incontinence; Z88.5 Allergy status to narcotic agent; Z88.1 Allergy status to other antibiotic agents; Z88.8 Allergy status to other drugs, medicaments and biological substances; Z79.890 Hormone replacement therapy; Z79.82 Long term (current) use of aspirin; Z79.02 Long term (current) use of antithrombotics/antiplatelets; Z79.899 Other long term (current) drug therapy; Z20.822 Contact with and (suspected) exposure to COVID-19
CPT/HCPCS: 36415; 71045; 80048; 80053; 81003; 83735; 83880; 84100; 84484; 85025; 85610; 85730; 87040; 93005; 93306; 97116; 97161; 97530; 99285; J1650; J1940; J2930; J3475; J7050; U0003

== ENCOUNTER 2021-06-22 13:49 | Inpatient (IN) | payer OTHER ==
--- OUTSIDE RECORDS SUMMARY | 2021-06-22 13:53 | XMS REPORT | Continuity of Care Document ---
:1930 Author Organization [facility] t Address [address] [place] [address] Care Team Providers Name Role Phone AIMEE Attending Clinician Unavailable AIMEE Admitting Clinician Unavailable FLORIDALMA Admitting Clinician Unavailable Payers Payer Name Policy Type Policy Number Effective Date Expiration Date S leeann MEDICARE PART A [id number] 1997 00:00:00 BCBS PPO POS EPO [id number] 2019 CHOICE 00:00:00 Problems Condition Condition Condition [...] ents Source Name Type Date Date Clinician Zantnaya Zantac Active Memoria l Jeyson Pena Active Memoria l Jeyson Axid Axid Active Memoria l Jeyson NO KNOWN Allergy Active [facility]GIE S Vicodin Vicodin Active Memoria l [place] sulfa sulfa Active [facility] drugs drugs l [place] penicill penicill Active Memori a in in l Jeyson Keflex Keflex Active Memoria l Jeyson Xanax Xanax Active Memoria l Jeyson Social History Social Habit Start Date Stop Date Quantity Comments Source Social History 2019-07-05 2019-07-05 [facility] 22:01:59 22:01:59 Medications Ordered Filled Start Stop Current Ordering Indication Dosage Frequency Signature Comments Components Source Medication Medication Date Date Medication? Clinician (SIG) Name Name Hydrochloro 2019-0 Yes 25 mg, PO, Memoria thiazide 2-19 Daily, 0 l 21:30: Refill(s) Amlodipine 2019-0 Yes 5 mg, PO, Me moria 2-19 Daily, 0 l 21:30: Refill(s) Thyroxine 2020-0 Yes Daily, 0 Miquel julisa [...] Jeyson Diastolic (mm Hg) 2019-07-05 21:09:00 Mem orial Jeyson Heart Rate 2019-07-05 21:09:00 [facility] Respitory Rate 2019-07-05 21:09:00 [facility] Height 2019-07-05 21:09:00 144.78 cm [facility] Weight 2019-07-05 21:09:00 [facility] BMI Calculated 2019-07-05 21:09:00 [facility] Procedures Procedure Date / Time Performed Performing Clinician Sourc e Bypass [facility] Encounters Start End Encounter Admission Attending Care Care Encounter Source Date/Time Date/Time Type Type Clinicians Facility Department ID 2021-02-23 Inpatient UR AIMEE, [facility] Cardiology [id number] [facility] 12:06:27 DINORAH 2021-01-25 2021-01-25 Outpatient [place]CM [place] [id number] [facility] 00:00:00 23:59:00 Ubaldog kalyn of Medicin e 2019-08-16 2019-08-17 Outpatient nullFlavo MNA [id number] Memoria 20:15:00 04:59:59 r Neurology 02 l Tippahmakenna Benítez 2019-07-05 2019-07-06 Outpatient nullFlavo MNA [id number] Memoria 21:15:00 05:59:59 r Neurology 01 l [...] NOT 1092) ACCURATE CRE ATININE CLEARANCE IN WI EDICTING GLOMERULAR FILT RATION RATE. ESTIMATED GFR IS NOT APPLICABLE FOR DIALYSIS PATIENTS. Catheter Finisher And Inspector ID - MILENA GSARS-COV2/RT-PCR ([facility])2021-01-30 23:26:53 Test Item Value Reference Range Interpretation Comments SARS-COV2/RT-PCR (test code = Negative Negative [id number]) Negative result for this test determines that [...] Healthcare Providers:https://www.molecular.moss/desmond/RT SARS-CoV-2 HCP Fact Sheet 51- 924567.pdfFact Sheet for Healthcare Patients:https://www.molecular.moss/desmond/RT SARS-CoV-2 Patient Fact Sheet EN [id number].pdf(CELLAVISION MANUAL DIFF) 2021-01-30 13:10:24 Test Item Value [...] = 3434) CBC W/PLT COUNT & AUTO [id number] 13:10:23 Test Item Value Reference Range Interpretation [...] (BEAKER) (test code = 413) BASIC METABOLIC [id number] 07:09:48 Test Item Value Reference Range Interpretation [...] S NOT APPLICABLE FOR DIALYSIS PATIEN TS. Catheter Finisher And Inspector ID - GLADYS MCBC W/PLT COUNT & AUTO [id number] 06:45:31 Test Item Value Reference Range Interpretation [...] (BEAKER) (test code = 2801) BASIC METABOLIC [id number] 06:18:04 Test Item Value Reference Range Interpretation [...] S NOT APPLICABLE FOR DIALYSIS PATIEN TS. Catheter Finisher And Inspector ID - PIAYA LCBC W/PLT COUNT & AUTO [id number] 05:03:03 Test Item Value Reference Range Interpretation [...] PERCENT (BEAKER) (test code = 2801) HEMOGLOBIN [id number] 08:51:20 Test Item Value Reference Range Interpretation Comments HEMOGLOBIN A1C (BEAKER) (test code = 5.5 % 4.3-6.1 368) RAD, CHEST, 1 VIEW, NON [id number] 07:27:00Reason for exam:->chfShould this be performed at the bedside?->Yes [facility] : 1930 Sex: FFINAL REPORT INDICATION: chf COMPARISON: None TECHNIQUE: Single frontal view of the chest. FINDINGS: Lungs and pleura: Mild left retrocardiac atelectasis. Small left effusionis suspected.Heart and mediastinum: Normal heart size. Unremarkable mediastinal contours.Osseous structures: No acute abnormality.Other: None. Signed: Zaid Martinez MDReport Verified Date/Time: 01/26/2021 07:27:42 [id number] 06:15:44 Test Item Value Reference Range Interpretation Comments PHOSPHORUS (BEAKER) (test code = 4.2 mg/dL 2.3-4.7 604) Catheter Finisher And Inspector ID - GLADYS EPATIC FUNCTION [id number] 06:15:44 Test Item Value Reference Range Interpretation [...] (test code = 13 U/L 6-55 347) Catheter Finisher And Inspector ID - GLADYS MBASIC METABOLIC [id number] 06:15:43 Test Item Value Reference Range Interpretation [...] S NOT APPLICABLE FOR DIALYSIS PATIEN TS. Catheter Finisher And Inspector ID - GLADYS [id number] 06:15:43 Test Item Value Reference Range Interpretation Comments MAGNESIUM (BEAKER) (test code = 2.5 mg/dL 1.6-2.6 627) Catheter Finisher And Inspector ID - GLADYS MTSH/FREE T4 IF [id number] 06:06:15 Test Item Value Reference Range Interpretation Comments THYROID STIMULATING HORMONE 0.659 uIU/mL 0.350-4.940 (BEAKER) (test code = 772) Catheter Finisher And Inspector ID - GLADYS MB-TYPE NATRIURETIC FACTOR (BNP)2021-01-26 05:31:01 Test Item Value Reference Range Interpretation Comments B-TYPE NATRIURETIC PEPTIDE (BEAKER) 697 pg/mL 0-100 H (test code = 700) Catheter Finisher And Inspector ID - GLADYS MPROTHROMBIN [id number] 05:23:10 Test Item Value Reference Range Interpretation Comments PROTIME (BEAKER) 15.1 seconds 11.9-14.2 H (test code = 759) INR (BEAKER) (test 1.21 See_Comment [Automat ed message] code = 370) The system Ondango generated this result transmitted ref erence range: [...] (BEAKER) (test code = 2801) U/S, RENAL, [id number] 01:22:00Reason for exam:->der[facility] : 1930 Sex: FFINAL REPORT [...] MDReport Verified Date/Time: 01/26/2021 01:22:44 SODIUM, RANDOM [id number] 20:15:33 Test Item Value Reference Range Interpretation Comments SODIUM URINE (BEAKER) (test code = 59 meq/L 243) Reference Range: No NormalsOperator ID - DBCREATININE, RANDOM [id number] 20:15:32 Test Item Value Reference Range Interpretation Comments CREATININE URINE (BEAKER) (test 27.1 mg/dL code = 375) Reference Range: No NormalsOperator ID - DBPOTASSIUM, RANDOM [id number] 20:15:32 Test Item Value Reference Range Interpretation Comments POTASSIUM URINE (BEAKER) (test 43.4 meq/L code = 195) Reference Range: No NormalsOperator ID - DBCHLORIDE, RANDOM [id number] 20:15:31 Test Item Value Reference Range Interpretation Comments CHLORIDE URINE (BEAKER) (test code = 60 meq/L 682) Reference Range: No NormalsOperator ID - DBURINALYSIS W/ [id number] 20:01:17 Test Item Value Reference Range Interpretation [...] = 1582) SOURCE(BEAKER) (test code = 2795) Catheter Finisher And Inspector ID - [auto]Catheter Finisher And Inspector ID - tech
[2021-06-22] MEDS ORDERED: LEVALBUTEROL 1.25 MG/3 ML NEB ONE (14:16)
[2021-06-22] MEDS ORDERED: METHYLPREDNISOLONE 125 MG INJ ONE (14:16)
--- NOTE | 2021-06-22 15:05 | RAD REPORT ---
EXAM DESCRIPTION: RAD - Chest Single View - 06/22/2021 2:54 pm CLINICAL HISTORY: Cough;COPD;Dyspnea Chest pain. COMPARISON: Chest Single View dated 04/21/2021; Chest Single View dated 04/19/2021; Chest Single View dated 01/22/2021; Chest Single View dated 01/19/2021 FINDINGS: Portable technique limits examination quality. Mild pulmonary edema is seen. The heart is moderately enlarged in size. Sternotomy wires present. IMPRESSION: Mild CHF versus volume overload pattern.
[2021-06-22] MEDS ORDERED: FUROSEMIDE 40 MG/4 ML VIAL ONE (15:19)
[2021-06-22 15:21] LABS: Absolute Lymphocytes (CBC) 1.2 K/uL (0.7-4.9); Hematocrit 33.3 % (36.0-45.0); RBC Red Blood Cell Count 3.75 M/uL (3.86-4.86)
[2021-06-22 15:35] LABS: Albumin 3.2 g/dL (3.4-5.0); Bilirubin Direct 0.3 mg/dL (0-0.2); Bilirubin Total 0.8 mg/dL (0.2-1.0); Potassium 4.2 mmol/L (3.5-5.1); Protein, Total 6.6 g/dL (6.4-8.2)
[2021-06-22 15:43] LABS: Troponin High Sensitivity 1628.7 pg/mL (<58.9)
[2021-06-22 16:12] LABS: Protime INR 1.08
--- NOTE | 2021-06-22 16:15 | ER ---
Nurse's Notes [facility] Name: Leelee Forrest Age: 89 yrs Sex: Female : 1930 Arrival Date: 06/22/2021 Time: 13:53 Bed 6 Private MD: Diagnosis: Unspecified combined systolic (congestive) and diastolic (congestive) heart failure;Dyspnea, unspecified Presentation: 06/22 14:03 Chief complaint: EMS states: "pt called reporting shortness of breath. she was here jd3 recently here with the same thing. reported waking up and having a feeling of not being able to breath. she has a history of COPD and CHF.". Coronavirus screen: At this time, the client does not indicate any symptoms associated with coronavirus-19. Ebola Screen: No symptoms or risks identified at this time. Initial Sepsis Screen: Does the patient meet any 2 criteria? No. Patient's initial sepsis screen is negative. Does the patient have a suspected source of infection? No. Patient's initial sepsis screen is negative. Risk Assessment: Do you want to hurt yourself or someone else? Patient reports no desire to harm self or others. Onset of symptoms was June 22, 2021. 14:03 Method Of Arrival: EMS: [facility] jd3 14:03 Acuity: BECKI 3 jd3 Historical: - Allergies: 14:07 Axid; jd3 14:07 Bactrim; jd3 14:07 Codeine; jd3 14:07 Keflex; jd3 14:07 PENICILLINS; jd3 14:07 Sulfa (Sulfonamide Antibiotics); jd3 14:07 Talwin; jd3 14:07 Vicodin; jd3 14:07 Xanax; jd3 - PMHx: 14:07 Hypertension; Hypothyroidism; Hypertensive disorder; Congestive heart failure; jd3 - Immunization history:: Adult Immunizations up to date, Client reports receiving the 2nd dose of the Covid vaccine. - Social history:: Smoking status: Patient denies any tobacco usage or history of. - Family history:: not pertinent. - Hospitalizations: : No recent hospitalization is reported. Screenin:10 Abuse screen: Denies threats or abuse. Nutritional screening: No deficits noted. jd3 Tuberculosis screening: No symptoms or risk factors identified. Fall Risk Ambulatory Aid- None/Bed Rest/Nurse Assist (0 pts). Gait- Normal/Bed Rest/Wheelchair (0 pts) Mental Status- Oriented to own ability (0 pts). Total Coello Fall Scale indicates No Risk (0-24 pts). Assessment: 14:09 General: Appears in no apparent distress. comfortable, Behavior is calm, cooperative, jd3 appropriate for age. Pain: Denies pain. Neuro: Level of Consciousness is awake, alert, obeys commands, Oriented to person, place, time, situation. Cardiovascular: Denies chest pain, Capillary refill < 3 seconds Patient's skin is warm and dry. Rhythm is regular. Respiratory: Reports shortness of breath at rest Airway is patent Respiratory effort is even, unlabored, Respiratory pattern is regular, symmetrical. GI: No signs and/or symptoms were reported involving the gastrointestinal system. : No signs and/or symptoms were reported regarding the genitourinary system. EENT: No signs and/or symptoms were reported regarding the EENT system. Derm: Skin is intact, Skin is dry, Skin is normal, Skin temperature is warm. Musculoskeletal: Circulation, motion, and sensation intact. Range of motion: intact in all extremities. 14:58 Reassessment: Patient appears in no apparent distress at this time. Patient and/or jd3 family updated on plan of care and expected duration. Pain level reassessed. Patient is alert, oriented x 3, equal unlabored respirations, skin warm/dry/pink. Patient states feeling better. Patient states symptoms have improved. 15:58 Reassessment: Patient appears in no apparent distress at this time. Patient and/or jd3 family updated on plan of care and expected duration. Pain level reassessed. Patient is alert, oriented x 3, equal unlabored respirations, skin warm/dry/pink. Patient states feeling better. 17:57 Reassessment: Patient appears in no apparent distress at this time. Patient and/or jd3 family updated on plan of care and expected duration. Pain level reassessed. Patient is alert, oriented x 3, equal unlabored respirations, skin warm/dry/pink. Vital Signs: 14:08 BP 134 / 90; Pulse 81; Resp 15 S; Temp 98.1(TE); Pulse Ox 100% on R/A; Weight 63.5 kg jd3 (R); Height 5 ft. 2 in. (157.48 cm) (R); Pain 0/10; 14:58 Pulse 85; Resp 18 S; Pulse Ox 100% on R/A; jd3 15:59 BP 130 / 95; Pulse 98; Resp 18 S; Pulse Ox 96% on R/A; jd3 17:26 BP 110 / 61; Pulse 52; Resp 18 S; Pulse Ox 97% on R/A; jd3 14:08 Body Mass Index 25.61 (63.50 kg, 157.48 cm) jd3 ED Course: 13:53 Patient arrived in ED. ss 13:53 Elvis Alberto MD is Attending Physician. rn 14:01 Roshan Malhotra, RN is Primary Nurse. bp 14:07 Triage completed. jd3 14:09 Arm band placed on. jd3 14:10 Patient has correct armband on for positive identification. Placed in gown. Bed in low jd3 position. Call light in reach. Side rails up X2. Adult w/ patient. manager monitoring on. Pulse ox on. NIBP on. 14:30 Inserted saline lock: 22 gauge in right wrist, using aseptic technique. Blood collected.jd3 14:32 Primary Nurse role handed off by Roshan Malhotra, RN jd3 14:32 Albaro Aden, FAUSTINO is Primary Nurse. jd3 14:54 XRAY CXR (1 view) In Process Unspecified. EDMS 16:14 Prince Looney MD is Hospitalizing Provider. rn 17:57 No provider procedures requiring assistance completed. Patient admitted, IV remains in jd3 place. Administered Medications: 14:45 Drug: Xopenex (levalbuterol) (3) 1.25 mg Route: Inhalation; jd3 14:55 Drug: SOLU-Medrol (methylPrednisoLONE) 125 mg Route: IVP; Site: right wrist; jd3 15:50 Follow up: Response: No adverse reaction jd3 15:24 Drug: Lasix (furosemide) 40 mg Route: IVP; Site: right wrist; jd3 16:20 Follow up: Response: No adverse reaction jd3 Outcome: 16:15 Decision to Hospitalize by Provider. rn 17:58 Admitted to Med/surg accompanied by mariam, via stretcher, room 209, with chart, Report jd3 called to Dereck HARMON 17:58 Condition: stable 17:58 Instructed on the need for admit. 17:59 Patient left the ED. jd3 Signatures: Dispatcher [employer] EDMS Elvis Alberto MD MD rn Smirch, Shelby, RN RN ss Davies, Jonathon, RN RN jd3 Peltier, Brian, RN RN bp Corrections: (The following items were deleted from the chart) 14:08 14:07 PMHx: Anxiety; jd3 jsepideh 15:59 14:58 Pulse 55bpm; Resp 18bpm; Spontaneous; Pulse Ox 100% RA; jd3 jd3
--- NOTE | 2021-06-22 16:15 | EDPHYS ---
Physician Documentation [facility] Name: Leelee Forrest Age: 89 yrs Sex: Female : 1930 Arrival Date: 06/22/2021 Time: 13:53 Bed 6 Private MD: ED Physician Elvis Alberto HPI: 06/22 14:10 This 89 yrs old Female presents to ER via EMS with complaints of Shortness Of Breath. rn 14:10 The patient has shortness of breath at rest. Onset: The symptoms/episode began/occurred rn this morning. Duration: The symptoms are continuous. The patient's shortness of breath is aggravated by nothing, is alleviated by application of supplemental oxygen. Associated signs and symptoms: Pertinent negatives: chest pain, non-productive cough, productive cough, diaphoresis, dizziness, fever, hemoptysis, loss of consciousness. Severity of symptoms: At their worst the symptoms were moderate in the emergency department the symptoms have improved. The patient has experienced similar episodes in the past. The patient has not recently seen a physician. Reports woke up with trouble breathing, states tends to do this sometimes. Denies recent illness or trauma. Denies cough. Told EMS that she just felt like she was not getting enough oxygen. Historical: - Allergies: 14:07 Axid; jd3 14:07 Bactrim; jd3 14:07 Codeine; jd3 14:07 Keflex; jd3 14:07 PENICILLINS; jd3 14:07 Sulfa (Sulfonamide Antibiotics); jd3 14:07 Talwin; jd3 14:07 Vicodin; jd3 14:07 Xanax; jd3 - PMHx: 14:07 Hypertension; Hypothyroidism; Hypertensive disorder; Congestive heart failure; jd3 - Immunization history:: Adult Immunizations up to date, Client reports receiving the 2nd dose of the Covid vaccine. - Social history:: Smoking status: Patient denies any tobacco usage or history of. - Family history:: not pertinent. - Hospitalizations: : No recent hospitalization is reported. ROS: 14:10 Constitutional: Negative for fever, chills, and weight loss, Eyes: Negative for injury, rn pain, redness, and discharge, Neck: Negative for injury, pain, and swelling, Cardiovascular: Negative for chest pain, palpitations Respiratory: Positive for shortness of breath Abdomen/GI: Negative for abdominal pain, nausea, vomiting, diarrhea, and constipation, Back: Negative for injury and pain, : Negative for injury, bleeding, discharge, and swelling, MS/Extremity: Negative for injury and deformity, Skin: Negative for injury, rash, and discoloration, Neuro: Negative for headache, numbness, tingling, and seizure. Exam: 14:10 Constitutional: This is a well developed, well nourished patient who is awake, alert, rn appears anxious Head/Face: Normocephalic, atraumatic. Eyes: Periorbital areas with no swelling, redness, or edema. Cardiovascular: Regular rate, irregular rhythm Respiratory: No increased work of breathing, no retractions or nasal flaring. Abdomen/GI: Soft, non-tender Skin: Warm, dry MS/ Extremity: Pulses equal, no cyanosis. Neurovascular intact. + lower ext edema with tenderness to touch Neuro: Awake and alert, GCS 15 next Vital Signs: 14:08 BP 134 / 90; Pulse 81; Resp 15 S; Temp 98.1(TE); Pulse Ox 100% on R/A; Weight 63.5 kg jd3 (R); Height 5 ft. 2 in. (157.48 cm) (R); Pain 0/10; 14:58 Pulse 85; Resp 18 S; Pulse Ox 100% on R/A; jd3 15:59 BP 130 / 95; Pulse 98; Resp 18 S; Pulse Ox 96% on R/A; jd3 17:26 BP 110 / 61; Pulse 52; Resp 18 S; Pulse Ox 97% on R/A; jd3 14:08 Body Mass Index 25.61 (63.50 kg, 157.48 cm) jd3 MDM: 13:53 Patient medically screened. rn 16:13 Differential diagnosis: Anxiety Reaction CHF exacerbation, Chronic Obstructive rn Pulmonary Disease Myocardial Infarction pneumonia, pulmonary edema. Data reviewed: vital signs, nurses notes, lab test result(s), EKG, radiologic studies, plain films, and as a result, I will admit patient. Counseling: I had a detailed discussion with the patient and/or guardian regarding: the historical points, exam findings, and any diagnostic results supporting the discharge/admit diagnosis, lab results, radiology results, the need for further work-up and treatment in the hospital. Response to treatment: the patient's symptoms have mildly improved after treatment, and as a result, I will admit patient. Admission orders: after a detailed discussion of the patient's condition and case, the admit orders are written by me. 06/22 13:54 Order name: BMP rn 06/22 13:54 Order name: Blood Culture Adult (2) rn 06/22 13:54 Order name: CBC with Diff; Complete Time: 15:30 rn 06/22 13:54 Order name: Hepatic Function rn 06/22 13:54 Order name: NT PRO-BNP rn 06/22 13:54 Order name: PT-INR rn 06/22 13:54 Order name: Ptt, Activated rn 06/22 13:54 Order name: XRAY CXR (1 view); Complete Time: 15:07 rn 06/22 13:57 Order name: SARS-COV-2 RT PCR (Document "Date of Onset" if Symptomatic); Complete Time: rn 16:09 06/22 15:19 Order name: Troponin High Sensitivity EDMS 06/22 13:54 Order name: EKG; Complete Time: 13:55 rn 06/22 13:54 Order name: Cardiac monitoring; Complete Time: 14:10 rn 06/22 13:54 Order name: EKG - Nurse/Tech; Complete Time: 14:45 rn 06/22 13:54 Order name: IV Saline Lock; Complete Time: 14:45 rn 06/22 13:54 Order name: Labs collected and sent; Complete Time: 15:37 rn 06/22 13:54 Order name: O2 Per Protocol; Complete Time: 14:10 rn 06/22 13:54 Order name: O2 Sat Monitoring; Complete Time: 14:10 rn Administered Medications: 14:45 Drug: Xopenex (levalbuterol) (3) 1.25 mg Route: Inhalation; jd3 14:55 Drug: SOLU-Medrol (methylPrednisoLONE) 125 mg Route: IVP; Site: right wrist; jd3 15:50 Follow up: Response: No adverse reaction jd3 15:24 Drug: Lasix (furosemide) 40 mg Route: IVP; Site: right wrist; jd3 16:20 Follow up: Response: No adverse reaction jd3 Disposition Summary: 06/22/21 16:15 Hospitalization Ordered Hospitalization Status: Inpatient Admission rn Provider: Prince Aayush rn Location: Telemetry/MedSurg (Inpatient) rn Condition: Stable rn Problem: an acute exacerbation rn Symptoms: have improved rn Bed/Room Type: Standard rn Room Assignment: 209(06/22/21 17:57) jd3 Diagnosis - Unspecified combined systolic (congestive) and diastolic (congestive) heart failure rn - Dyspnea, unspecified rn Forms: - Medication Reconciliation Form rn - SBAR form rn Signatures: Dispatcher [employer] EDSD Elvis Alberto MD MD rn Smirch, Shelby, RN RN ss Davies, Jonathon, RN RN jd3 Corrections: (The following items were deleted from the chart) 14:08 14:07 PMHx: Anxiety; jd3 j 14:55 14:10 Constitutional: This is a well developed, well nourished patient who is awake, rn alert, appears anxious Head/Face: Normocephalic, atraumatic. Eyes: Periorbital areas with no swelling, redness, or edema. Cardiovascular: Regular rate, irregular rhythm Respiratory: No increased work of breathing, no retractions or nasal flaring. Abdomen/GI: Soft, non-tender Skin: Warm, dry MS/ Extremity: Pulses equal, no cyanosis. Neurovascular intact. Neuro: Awake and alert, GCS 15 next rn 15:19 14:17 Troponin High Sensitivity+C.LAB.BRZ ordered. EDSD EDSD 17:26 16:15 rn 17:57 17:26 216 j
--- NOTE | 2021-06-22 17:16 | P.HP ---
Certification for Inpatient Patient admitted to: Inpatient With expected LOS: <2 Midnights Patient will require the following post-hospital care: None Practitioner: I am a practitioner with admitting privileges, knowledge of patient current condition, hospital course, and medical plan of care. Services: Services provided to patient in accordance with Admission requirements found in Title 42 Section 412.3 of the Code of Federal Regulations Patient History Date of Service: 06/22/21 Reason for admission: CHF exacerbation History of Present Illness: Ms. Forrest is an 89 yo F with CHF (EF 19% in 04/2021), HTN, hypothyroidism, COPD, CAD who presents with 3 days of worsening shortness of breath and dyspnea on exertion. This morning at 10 am, she could not catch her breath after walking from her bedroom to the den. Her son says that he could hear the fluid in her lungs. She reports PND and orthopnea. Denies edema. Last CHF exacerbation requiring hospitalization in April 2021. Troponin 1628.7, BUN 27, GFR 41, EKG without acute changes. BNP pending. Received IV lasix and breathing treatments in the ED. CXR IMPRESSION: Mild CHF versus volume overload pattern. Allergies famotidine [From Pepcid] Allergy (Mild, Verified 07/07/12 11:50) Itching/Hives/Rash acetaminophen [From Tylox] Allergy (Unknown, Verified 01/17/21 16:58) UNKNOWN cephalexin monohydrate [From Keflex] Allergy (Unknown, Verified 01/17/21 16:58) UNKNOWN codeine [Codeine] Allergy (Unknown, Verified 01/17/21 16:58) UNKNOWN hydrocodone bitartrate [From Vicodin] Allergy (Unknown, Verified 01/17/21 16:58) UNKNOWN oxycodone HCl [From Tylox] Allergy (Unknown, Verified 01/17/21 16:58) UNKNOWN Penicillins Allergy (Unknown, Verified 01/17/21 16:58) UNKNOWN pentazocine lactate [From Talwin] Allergy (Unknown, Verified 01/17/21 16:58) UNKNOWN ranitidine HCl [From Zantac] Allergy (Unknown, Verified 01/17/21 16:58) UNKNOWN Sulfa (Sulfonamide Antibiotics) Allergy (Unknown, Verified 01/17/21 16:58) UNKNOWN alprazolam [From Xanax] Allergy (Verified 01/17/21 16:58) Unknown nizatidine [From Axid] Allergy (Verified 01/17/21 16:58) Unknown Home Medications: Levothyroxine [Synthroid*] 75 mcg PO [id number] 04/20/21 Montelukast [Singulair*] 10 mg PO BEDTIME 04/20/21 Pantoprazole [Protonix Tab*] 40 mg PO DAILY 04/20/21 Potassium Chloride [Klor-Con] 20 meq PO DAILY 04/20/21 Tolterodine Tartrate 2 mg PO BID 04/20/21 Aspirin [Aspirin EC 81 MG] 81 mg PO DAILY #90 tablet. 04/21/21 Clopidogrel Bisulfate [Plavix*] 75 mg PO DAILY #30 tablet 04/21/21 carvediloL [Carvedilol] 6.25 mg PO BID #60 tablet 04/21/21 Furosemide 40 mg PO BID #60 tablet 04/22/21 Losartan Potassium [Cozaar*] 25 mg PO DAILY #30 tablet 04/22/21 - Past Medical/Surgical History Diabetic: No -: Anxiety -: HTN -: Hypothyroidism -: CHF -: COPD -: NSTEMI -: Coronary artery bypass grafting - Family History Family History: Reviewed- Non-Contributory - Social History Smoking Status: Unknown if ever smoked Alcohol use: No CD- Drugs: No Caffeine use: Yes Place of Residence: Home Review of Systems 10-point ROS is otherwise unremarkable General: Unremarkable Eyes: Unremarkable ENT: Unremarkable Respiratory: Shortness of Breath, SOB with Excertion, Wheezing, As per HPI Cardiovascular: Orthopnea, Paroxysmal Noc. Dyspnea, Edema, As per HPI Gastrointestinal: Unremarkable Genitourinary: Unremarkable Musculoskeletal: Unremarkable Integumentary: Unremarkable Neurological: Unremarkable Lymphatics: Unremarkable Physical Examination - Physical Exam General: Alert, In no apparent distress HEENT: Atraumatic, PERRLA, Mucous membr. moist/pink, EOMI, Sclerae nonicteric Neck: Supple, 2+ carotid pulse no bruit, No LAD, Without JVD or thyroid abnormality Respiratory: Diminished, Crackles/rales Cardiovascular: Regular rate/rhythm, Normal S1 S2, Edema Gastrointestinal: Normal bowel sounds, No tenderness Musculoskeletal: No tenderness Integumentary: No rashes Neurological: Normal speech, Normal strength at 5/5 x4 extr, Normal tone, Normal affect Lymphatics: No axilla or inguinal lymphadenopathy - Studies Laboratory Data (last 24 hrs) 06/22/21 15:37: PT 12.4, INR 1.08, APTT 28.6 06/22/21 14:43: WBC 6.40, Hgb 10.8 L, Hct 33.3 L, Plt Count 192 06/22/21 14:43: Sodium 141, Potassium 4.2, BUN 27 H, Creatinine 1.23, Glucose 114 H, Total Bilirubin 0.8, AST 41 H, ALT 31, Alkaline Phosphatase 60 Assessment and Plan - Problems (Diagnosis) (1) CAD (coronary artery disease) Current Visit: Yes Status: Chronic Qualifiers: Coronary Disease-Associated Artery/Lesion type: unspecified vessel or lesion type [place] vs. transplanted heart: [place] heart Associated angina: without angina Qualified Code(s): I25.10 - Atherosclerotic heart disease of [place] coronary artery without angina pectoris (2) Acute congestive heart failure Current Visit: No Status: Acute Qualifiers: (3) COPD (chronic obstructive pulmonary disease) Current Visit: No Status: Chronic Qualifiers: (4) Hypertension Current Visit: No Status: Chronic Qualifiers: (5) Hypothyroidism Current Visit: No Status: Chronic Qualifiers: - Plan cardiology consulted trend troponins, repeat EKG, on telemetry continue IV lasix, fluid restriction, low sodium diet, daily weights O2 as needed, breathing treatments as needed reconcile and continue home medications hydralazine PRN for BP spikes DVT ppx Discharge Plan: Home Plan to discharge in: 24 Hours - Advance Directives Does patient have a Living Will: Yes Does patient have a Durable POA for Healthcare: Yes - Code Status/Comfort Care Code Status Assessed: Yes (full code ) Critical Care: No Time Spent Managing Pts Care (In Minutes): 70
[2021-06-22] MEDS ORDERED: ALBUTEROL 2.5 MG/3 ML NEB SOL NEB PRN (18:15)
[2021-06-22] MEDS ORDERED: IPRATROPIUM BROM 0.5MG/2.5ML NEB PRN (18:15)
[2021-06-22] MEDS ORDERED: HYDRALAZINE HCL 20 MG/ML VIAL IV PRN (18:15)
[2021-06-22] MEDS ORDERED: ONDANSETRON 4 MG/2 ML VIAL IV PRN (18:15)
[2021-06-22] MEDS ORDERED: ACETAMINOPHEN 500 MG TAB PO PRN (18:15)
[2021-06-22] MEDS ORDERED: MELATONIN 5 MG TABLET PO PRN (23:12)
[2021-06-22 23:53] VITALS: BMI 29.5
[2021-06-23] MEDS: HEPARIN 5000 UNIT/ML 1 ML VIAL SQ SCH ×4 (01:05→16:57)
[2021-06-23 01:23] LABS: Urine Appearance CLEAR (Clear); Urine Bilirubin NEGATIVE (Negative); Urine Blood NEGATIVE (Negative); Urine Color YELLOW (Yellow); Urine Glucose NEGATIVE (Negative); Urine Protein NEGATIVE (Negative); Urine Specific Gravity 1.015 (1.005-1.030); Urine Urobilinogen 0.2 mg/dL (0.2-1.0); Urine pH 5.5 (5.0-7.0)
[2021-06-23 02:02] LABS: Urine Microscopic Reflex NO UMIC
[2021-06-23] MEDS: BENZONATATE 100 MG CAP PO PRN ×2 (02:31→11:09)
[2021-06-23] MEDS ORDERED: GUAIFENESIN 600 MG SA TAB PO ONE (04:34)
[2021-06-23 06:00] LABS: Absolute Lymphocytes (CBC) 1.1 K/uL (0.7-4.9); Hematocrit 31.4 % (36.0-45.0); Lymphocytes % 23.2 % (15.3-44.8); MPV 9.3 fL (7.6-11.3); RBC Red Blood Cell Count 3.55 M/uL (3.86-4.86)
--- NOTE | 2021-06-23 06:12 | P.PN ---
Date of Service: 06/23/21 Subjective: slightly more dyspenic overnight, placed on 4L NC feels slightly better this morning compared to last night ROS: 10 point ROS as noted above, otherwise negative Physical exam GEN: Alert, oriented, NAD HEENT: Normal conjunctiva, sclera anicteric CV: Regular rate and rhythm, no edema Pulm: Nonlabored respiration on 4L NC, b/l crackles ABD: Soft, nontender, nondistended Neuro: Normal speech, normal affect Problem List Acute hypoxemic respiratory failure secondary to acute on chronic systolic congestive heart failure CAD COPD Hypertension Hypothyroidism diurese with IV lasix trend trop telemetry cardiology consulted last EF: ~19% 04/2021 confirm / restart home meds likely needs to increase coreg and lasix add aldactone Code: full Dispo: anticipate dc home in 24-48hrs Time Spent Managing Pts Care (In Minutes): 35
[2021-06-23 06:26] LABS: Bilirubin Total 0.6 mg/dL (0.2-1.0); Phosphorus 3.9 mg/dL (2.5-4.9); Potassium 4.6 mmol/L (3.5-5.1); Protein, Total 6.4 g/dL (6.4-8.2); Thyroid Stimulating Hormone 0.077 uIU/mL (0.360-3.740)
[2021-06-23] MEDS: FUROSEMIDE 40 MG/4 ML VIAL IV SCH ×2 (08:26→16:42)
--- NOTE | 2021-06-23 11:32 | EKG ---
Test Date: 2021-06-22 Test Time: 14:14:35 Herbarium Curator: AMANDA MEASUREMENT RESULTS: Intervals: Rate: 64 KS: QRSD: 166 QT: 520 QTc: 536 [place]: P: 5 KS: QRS: 244 T: 5 INTERPRETIVE STATEMENTS: Sinus rhythm with 2nd degree AV block (Mobitz I) Nonspecific intraventricular block Possible Lateral infarct, age undetermined Inferior infarct, age undetermined Abnormal ECG Compared to ECG 04/20/2021 00:55:30 Atrial premature complex(es) no longer present Myocardial infarct finding still present Electronically Signed On 06-23-21 11:30:31 BUSINESS DIVISION CHAIR by Manuel Chavez
--- NOTE | 2021-06-23 11:32 | EKG ---
Test Date: 2021-06-22 Test Time: 14:45:37 Water Treatment Plant Repairer: SB MEASUREMENT RESULTS: Intervals: Rate: 59 MS: QRSD: 166 QT: 522 QTc: 516 [place]: P: -7 MS: QRS: 256 T: 90 INTERPRETIVE STATEMENTS: Sinus rhythm with 2nd degree AV block (Mobitz I) Nonspecific intraventricular block Possible Lateral infarct, age undetermined Inferior infarct, age undetermined Abnormal ECG Compared to ECG 06/22/2021 14:14:35 No significant changes Electronically Signed On 06-23-21 11:30:30 INDUSTRIAL GAS SERVICER SUPERVISOR by Manuel Chavez
--- NOTE | 2021-06-23 13:16 | CON ---
Date of Consultation: 06/23/2021 Reason For Consultation: Congestive heart failure. History Of Present Illness: Ms. Alonzo is 89. She is a patient of mine in the clinic. Has a histor y of known chronic systolic congestive heart failure with an ejection fraction of 19%. Had a creatin ine of 1.38 with troponin 1602. Came in with shortness of breath, PND, orthopnea, pedal edema. No p alpitation. No syncope. No chest pain. Denied any fever or chills. She has already improved on di uresis. Past Medical History: Include congestive heart failure, hypothyroidism, hypertension, gastroesophage al reflux, and asthma. Allergies: INCLUDE PENICILLIN, HYDROCODONE, PEPCID. Medications: At home include Protonix, potassium, Coreg, aspirin, Plavix, Lasix, Thyroid, and Singul air. Physical Examination: General: She was in no acute distress. Vital Signs: Stable, sinus rhythm. HEENT: Negative. Neck: Supple with no bruit, adenopathy, JVD, or thyromegaly. Chest: Revealed crackles both bases. Cardiac: Revealed a regular rhythm and rate with S3 gallops. Abdomen: Benign. Extremities: Revealed no clubbing, cyanosis. She has 2+ edema to the knee. Skin: Dry and intact. Neurologic: She was nonfocal. Pulses were present distally bilaterally. Diagnostic Data: As stated earlier. Also include a TSH that was 0.077. Chest x-ray showed CHF. EK G with nonspecific changes. Impression And Plan: 1.Acute on chronic systolic congestive heart failure, ejection fraction 19%. She is on carvedilol a nd Lasix. We need to add Aldactone and EFRAIN inhibitor. 2.Hyperthyroidism. I am going to stop her thyroid medicine and watch her TSH level. 3.Renal insufficiency. 4.Elevated troponin secondary to demand ischemia. 5.Hypertension, well controlled. 6.Gastroesophageal reflux, well controlled. Again, she is on Coreg. She is on Lasix. We will add Aldactone, add an EFRAIN inhibitor. Consider biventricular pacemaker, defibrillator down the road. If her ejection fraction remains low, consider Entresto as well. She can go home probably tomorrow. IVANA/BENJY Voice ID: [id number] Report ID: [id number]
[2021-06-23 14:16] LABS: Magnesium 1.8
[2021-06-23] MEDS: MONTELUKAST 10 MG TAB PO SCH (21:00)
[2021-06-23] MEDS: MELATONIN 5 MG TABLET PO SCH (21:07)
[2021-06-23] MEDS: carvediloL 6.25 MG TAB PO SCH (21:08)
[2021-06-24] MEDS: HEPARIN 5000 UNIT/ML 1 ML VIAL SQ SCH ×4 (00:11→23:43)
[2021-06-24] MEDS ORDERED: DIPHENHYDRAMINE 25 MG TAB/CAP PO ONE (00:56)
[2021-06-24 07:21] LABS: Absolute Lymphocytes (CBC) 1.7 K/uL (0.7-4.9); Hematocrit 32.5 % (36.0-45.0); Lymphocytes % 12.4 % (15.3-44.8); MPV 9.6 fL (7.6-11.3); RBC Red Blood Cell Count 3.68 M/uL (3.86-4.86)
[2021-06-24 07:38] LABS: Albumin 3.3 g/dL (3.4-5.0); Bilirubin Total 0.7 mg/dL (0.2-1.0); Potassium 3.8 mmol/L (3.5-5.1); Protein, Total 6.8 g/dL (6.4-8.2)
[2021-06-24] MEDS: FUROSEMIDE 40 MG/4 ML VIAL IV SCH ×2 (08:12→17:45)
[2021-06-24] MEDS: ASPIRIN EC 81 MG TAB PO SCH (08:13)
[2021-06-24] MEDS: CLOPIDOGREL 75 MG TABLET PO SCH (08:13)
[2021-06-24] MEDS: carvediloL 6.25 MG TAB PO SCH ×2 (08:13→20:31)
[2021-06-24] MEDS: PANTOPRAZOLE 40MG TABLET PO SCH (08:14)
--- NOTE | 2021-06-24 11:40 | PN ---
The patient admitted for congestive heart failure. Ejection fraction is known to be very low at 19%. Overnight, sinus rhythm. No change in her blood pressure. Her vital signs are stable. She is afe brile. She has improved. As far as her symptoms are concerned, we need to add EFRAIN inhibitor and car vedilol to her regimen. She also should be on Aldactone and Lasix. She can go home. I will see her in the office in the very near future. OLIVERIO Voice ID: [id number] Report ID: [id number]
--- NOTE | 2021-06-24 16:12 | P.PN ---
Subjective Date of Service: 06/24/21 Chief Complaint: CHF exacerbation Patient reports feeling better. She is currently on 1 L oxygen by nasal cannula. Wean down from 3 L this morning. Physical Examination - Vital Signs Temperature: 96.8 F Blood Pressure: 117/76 Pulse: 75 Respirations: 20 Pulse Ox (%): 96 Assessment And Plan - Plan Physical Exam GEN: Alert, oriented, NAD HEENT: Normal conjunctiva, sclera anicteric CV: Regular rate and rhythm, no edema Pulm: b/l crackles, diminished breath sounds. ABD: Soft, nontender, nondistended Neuro: Normal speech, normal affect Problem List Acute hypoxemic respiratory failure secondary to acute on chronic systolic congestive heart failure CAD COPD Hypertension Hypothyroidism Plan Continue IV lasix Troponin elevated but trended flat Cardiology-Dr. Chavez's input appreciated. last EF: ~19% 04/2021 Continue Coreg and plavix Started Aldactone. Continue other home meds.
[2021-06-24] MEDS: MELATONIN 5 MG TABLET PO SCH (20:31)
[2021-06-24] MEDS: MONTELUKAST 10 MG TAB PO SCH (20:32)
[2021-06-24] MEDS: HOME MED 1 EA UNK (Tolterodine Tartrate [Tolterodine Tartrate] 2 MG Tablet) PO SCH (21:00)
[2021-06-24] MEDS ORDERED: HOME MED 1 EA UNK (Ubidecarenone/Vit E Acet [Co Q-10 100 Mg Softgel] Capsule) PO SCH (21:00)
[2021-06-24] MEDS ORDERED: COENZYME Q10- 200 MG CAP PO SCH (21:00)
[2021-06-25 06:20] LABS: Albumin 2.7 g/dL (3.4-5.0); Bilirubin Total 0.6 mg/dL (0.2-1.0); Potassium 3.2 mmol/L (3.5-5.1); Protein, Total 5.8 g/dL (6.4-8.2)
[2021-06-25] MEDS ORDERED: POTASSIUM 25 MEQ EFFERV TAB PO ONE (07:30)
--- NOTE | 2021-06-25 08:58 | P.DS ---
Admission Date: 06/22/21 Discharge Date: 06/25/21 Disposition: DC HOME/HOME HEALTH CARE Discharge Condition: FAIR Reason for Admission: CHF exacerbation Brief History of Present Illness: Ms. Forrest is an 89 yo F with CHF (EF 19% in 04/2021), HTN, hypothyroidism, COPD, CAD who presents with 3 days of worsening shortness of breath and dyspnea on exertion. This morning at 10 am, she could not catch her breath after walking from her bedroom to the den. Her son says that he could hear the fluid in her lungs. She reports PND and orthopnea. Denies edema. Last CHF exacerbation requiring hospitalization in April 2021. Troponin 1628.7, BUN 27, GFR 41, EKG without acute changes. BNP pending. Received IV lasix and breathing treatments in the ED. CXR IMPRESSION: Mild CHF versus volume overload pattern. Hospital Course: Problem List Acute hypoxemic respiratory failure secondary to acute on chronic systolic congestive heart failure CAD COPD Hypertension Hypothyroidism Hospital course Patient admitted to the medical floor and treated for CHF exacerbation with IV Lasix Her troponin was elevated but trended flat. Patient seen in consultation by cardiology-Dr. Chavez, elevated troponin deemed secondary to demand ischemia. last echocardiogram with EF: ~19% 04/2021 Continued Coreg and plavix. Added Aldactone per cardiology recommendation. Continued other home meds. She was initially requiring oxygen. Patient was weaned off oxygen to room air. She has clinically improved to baseline and deemed stable for discharge. Home health resumed on discharge. Vital Signs/Physical Exam: Temp Pulse Resp BP Pulse Ox 97.3 F 54 16 113/62 96 06/25/21 08:00 06/25/21 08:00 06/25/21 08:00 06/25/21 08:00 06/25/21 08:00 General: Alert, In no apparent distress, Oriented x3 HEENT: Mucous membr. moist/pink Neck: Supple, JVD not distended Respiratory: Clear to auscultation bilaterally, Normal air movement Cardiovascular: No edema, Regular rate/rhythm, Normal S1 S2 Gastrointestinal: Soft and benign, Non-distended Musculoskeletal: Tenderness (Bilateral legs, worse on the right-this is chronic) Integumentary: No rashes, No cyanosis Neurological: Normal speech, Normal strength at 5/5 x4 extr Laboratory Data at Discharge: WBC 14.10 K/uL (4.3-10.9) H D 06/24/21 07:15 Hgb 10.7 g/dL (12.0-15.0) L 06/24/21 07:15 Hct 32.5 % (36.0-45.0) L 06/24/21 07:15 Plt Count 222 K/uL (152-406) D 06/24/21 07:15 PT 12.4 SECONDS (9.5-12.5) 06/22/21 15:37 INR 1.08 06/22/21 15:37 APTT 28.6 SECONDS (24.3-36.9) 06/22/21 15:37 Sodium 140 mmol/L (136-145) 06/25/21 05:20 Potassium 3.2 mmol/L (3.5-5.1) L 06/25/21 05:20 BUN 43 mg/dL (7-18) H 06/25/21 05:20 Creatinine 1.31 mg/dL (0.55-1.3) H 06/25/21 05:20 Glucose 112 mg/dL (74-106) H 06/25/21 05:20 Phosphorus 3.9 mg/dL (2.5-4.9) 06/23/21 05:35 Magnesium 1.8 06/23/21 05:35 Total Bilirubin 0.6 mg/dL (0.2-1.0) 06/25/21 05:20 AST 40 U/L (15-37) H 06/25/21 05:20 ALT 59 U/L (12-78) 06/25/21 05:20 Alkaline Phosphatase 59 U/L (45-117) 06/25/21 05:20 Triglycerides 64 mg/dL (<150) 06/23/21 05:35 Cholesterol 198 mg/dL (<200) 06/23/21 05:35 HDL Cholesterol 66 mg/dL (40-60) H 06/23/21 05:35 Cholesterol/HDL Ratio 3.00 06/23/21 05:35 Home Medications: Levothyroxine [Synthroid*] 125 mcg PO [id number] 04/20/21 Montelukast [Singulair*] 10 mg PO BEDTIME 04/20/21 Pantoprazole [Protonix Tab*] 40 mg PO DAILY 04/20/21 Tolterodine Tartrate 2 mg PO BID 04/20/21 Aspirin [Aspirin EC 81 MG] 81 mg PO DAILY #90 tablet. 04/21/21 Clopidogrel Bisulfate [Plavix*] 75 mg PO DAILY #30 tablet 04/21/21 carvediloL [Carvedilol] 6.25 mg PO BID #60 tablet 04/21/21 Furosemide 40 mg PO DAILY 06/23/21 Melatonin 10 mg PO BEDTIME 06/23/21 Multivit with Calcium,Iron,Min [One Daily Women's] 1 tab PO DAILY 06/23/21 Ubidecarenone/Vit E Acet [Co Q-10 100 mg Softgel] 200 mg PO BEDTIME 06/23/21 Spironolactone [Aldactone*] 25 mg PO DAILY #30 tab 06/25/21 New Medications: Spironolactone [Aldactone*] 25 mg PO DAILY #30 tab Diet: AHA Activity: Fall precautions Followup: Manuel Chavez MD [ACTIVE - CAN ADMIT] - 1-2 Weeks (Call to schedule appointment) NONE,NONE [Primary Care Provider] - 1 Week Time spent managing pt's care (in minutes): 36
[2021-06-25] MEDS: HOME MED 1 EA UNK (Tolterodine Tartrate [Tolterodine Tartrate] 2 MG Tablet) PO SCH (09:00)
[2021-06-25] MEDS ORDERED: POTASSIUM CL SA 10 MEQ TAB PO SCH (09:00)
[2021-06-25] MEDS ORDERED: HOME MED 1 EA UNK (Potassium Chloride [Klor-Con] 20 MEQ Packet) PO SCH (09:00)
[2021-06-25] MEDS ORDERED: SPIRONOLACTONE 25 MG TABLET PO SCH (09:00)
[2021-06-25 09:10] LABS: Absolute Lymphocytes (CBC) 1.9 K/uL (0.7-4.9); Hematocrit 29.5 % (36.0-45.0); Lymphocytes % 27.4 % (15.3-44.8); MPV 10.6 fL (7.6-11.3); RBC Red Blood Cell Count 3.37 M/uL (3.86-4.86)
[2021-06-25 09:13] VITALS: O2SAT 95
[2021-06-25] MEDS: ASPIRIN EC 81 MG TAB PO SCH (09:48)
[2021-06-25] MEDS: carvediloL 6.25 MG TAB PO SCH (09:51)
[2021-06-25] MEDS: PANTOPRAZOLE 40MG TABLET PO SCH (09:51)
[2021-06-25] MEDS: CLOPIDOGREL 75 MG TABLET PO SCH (09:52)
[2021-06-25] MEDS: FUROSEMIDE 40 MG/4 ML VIAL IV SCH (09:52)
[2021-06-25] MEDS: HEPARIN 5000 UNIT/ML 1 ML VIAL SQ SCH (09:53)
[2021-06-25 12:27] VITALS: BP 98/72; TEMP 98.1
== END 2021-06-25 14:31 | disposition home or self-care (01) | DRG 291 ==
LOC: ER 13:49 → ERHOLD 16:22 → 2ND 17:52
PROVIDERS: ADMIT Hospitalist; ATTEND Internal Medicine
DX: I11.0 Hypertensive heart disease with heart failure (principal); I50.23 Acute on chronic systolic (congestive) heart failure; J96.01 Acute respiratory failure with hypoxia; I24.8 Other forms of acute ischemic heart disease; J44.9 Chronic obstructive pulmonary disease, unspecified; E03.9 Hypothyroidism, unspecified; K21.9 Gastro-esophageal reflux disease without esophagitis; N28.9 Disorder of kidney and ureter, unspecified; I25.10 Atherosclerotic heart disease of native coronary artery without angina pectoris; I25.2 Old myocardial infarction; R77.8 Other specified abnormalities of plasma proteins; Z88.5 Allergy status to narcotic agent; Z88.1 Allergy status to other antibiotic agents; Z88.0 Allergy status to penicillin; Z88.8 Allergy status to other drugs, medicaments and biological substances; Z79.890 Hormone replacement therapy; Z79.82 Long term (current) use of aspirin; Z79.02 Long term (current) use of antithrombotics/antiplatelets; Z79.899 Other long term (current) drug therapy; Z95.1 Presence of aortocoronary bypass graft; Z20.822 Contact with and (suspected) exposure to COVID-19
CPT/HCPCS: 36415; 71045; 80048; 80053; 80061; 80076; 81003; 83735; 83880; 84100; 84439; 84443; 84484; 85025; 85610; 85730; 87040; 93005; 94640; 94760; 96374; 96375; 97161; 97530; 99285; J1644; J1940; J2930; U0003

== ENCOUNTER 2021-07-28 17:26 | Inpatient (IN) | payer OTHER ==
--- OUTSIDE RECORDS SUMMARY | 2021-07-28 17:32 | XMS REPORT | Continuity of Care Document ---
:1930 Author Organization [facility] t Address [address] [place] [address] Care Team Providers Name Role Phone AIMEE Attending Clinician Unavailable AIMEE Admitting Clinician Unavailable FLORIDALMA Admitting Clinician Unavailable Payers Payer Name Policy Type Policy Number Effective Date Expiration Date S leeann MEDICARE PART A [id number] 1997 00:00:00 BCBS PPO POS EPO [id number] 2019 CHOICE 00:00:00 Problems Condition Condition Condition Status Onset Resolution Last Treating Co mments Source Name Details Category Date Date Treatment Clinician Date Amnesia Problem Active 2019-08-18 Miquel julisa (finding) 23:16:21 l Amnesia [place] (finding) Active Problem 08/18/2019 [facility] Neuro 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:16:21 l disorder, [place] systemic Hypertensi arterial ve (disorder) disorder, systemic [...] sulfa sulfa Active Memoria drugs drugs l [place] penicill penicill Active Memori a in in l [place] Keflex Keflex Active Memoria l [place] Xanax Xanax Active Memoria l [place] Zantac Zantac Active Memoria l [place] Talwin Talwin Active Memoria l [place] Axid Axid Active Memoria l Jeyson NO KNOWN Allergy Active [facility] ALLERGIE S Social History Social Habit Start Date Stop Date Quantity Comments Source Social History 2019-07-05 2019-07-05 [facility] 22:01:59 22:01:59 Medications Ordered Filled Start Stop Current Ordering Indication Dosage Frequency Signature Comments Components Source Medication Medication Date Date Medication? Clinician (SIG) Name Name Hydrochloro 2019-0 Yes 25 mg, PO, Memoria thiazide 2-19 Daily, 0 l 21:30: Refill(s) Amlodipine 2019-0 Yes 5 mg, PO, Me moria 2-19 Daily, 0 l 21:30: Refill(s) [place] 00 Thyroxine 2020-0 Yes Daily, 0 Miquel [...] Systolic (mm Hg) 2019-07-05 21:09:00 Miquel rial [place] Diastolic (mm Hg) 2019-07-05 21:09:00 Mem ortizal [place] Heart Rate 2019-07-05 21:09:00 Stacey [place] Respitory Rate 2019-07-05 21:09:00 Get [facility] Height 2019-07-05 21:09:00 144.78 cm [facility] Weight 2019-07-05 21:09:00 [facility] BMI Calculated 2019-07-05 21:09:00 Get [place]on Procedures Procedure Date / Time Performed Performing Clinician Sour e [facility] Encounters Start End Encounter Admission Attending Care Care Encounter Source Date/Time Date/Time Type Type Clinicians Facility Department ID 2021-02-23 Inpatient UR AIMEE, [facility] Cardiology [id number] [facility] 12:06:27 DINORAH 2021-01-25 2021-01-25 Outpatient [facility] BC [id number] [facility] [place] 00:00:00 23:59:00 Ubaldog kalyn of Medicin e 2019-08-16 2019-08-17 Outpatient nullFlavo MNA [id number] Memoria 20:15:00 04:59:59 r [place]rology 02 [place] 2019-07-05 2019-07-06 Outpatient nullFlavo MNA [id number] Memoria 21:15:00 05:59:59 r Neurology 01 l [...] NOT 1092) ACCURATE CRE ATININE CLEARANCE IN MI EDICTING GLOMERULAR FILT RATION RATE. ESTIMATED GFR IS NOT APPLICABLE FOR DIALYSIS PATIENTS. Crimping Machine Operator ID - MILENA GSARS-COV2/RT-PCR ([facility])2021-01-30 23:26:53 Test Item Value Reference Range Interpretation Comments SARS-COV2/RT-PCR (test code = Negative Negative [id number]) Negative result for this test determines that [...] Healthcare Providers:https://www.molecular.moss/[place]mond/RT SARS-CoV-2 HCP Fact Sheet 51- [id number].pdfFact Sheet for Healthcare Patients:[email or web address]://www.molecular.moss/[place]/RT SARS-CoV-2 Patient Fact Sheet EN [id number].pdf(CELLAVISION MANUAL DIFF) 2021-01-30 13:10:24 Test Item Value [...] = 3434) CBC W/PLT COUNT & AUTO [id number] 13:10:23 Test Item Value Reference Range Interpretation [...] (BEAKER) (test code = 413) BASIC METABOLIC [id number] 07:09:48 Test Item Value Reference Range Interpretation [...] S NOT APPLICABLE FOR DIALYSIS PATIEN TS. Crimping Machine Operator ID - GLADYS MCBC W/PLT COUNT & AUTO [id number] 06:45:31 Test Item Value Reference Range Interpretation [...] (BEAKER) (test code = 2801) BASIC METABOLIC [id number] 06:18:04 Test Item Value Reference Range Interpretation [...] S NOT APPLICABLE FOR DIALYSIS PATIEN TS. Crimping Machine Operator ID - PIAYA LCBC W/PLT COUNT & AUTO [id number] 05:03:03 Test Item Value Reference Range Interpretation [...] PERCENT (BEAKER) (test code = 2801) HEMOGLOBIN [id number] 08:51:20 Test Item Value Reference Range Interpretation Comments HEMOGLOBIN A1C (BEAKER) (test code = 5.5 % 4.3-6.1 368) RAD, CHEST, 1 VIEW, NON [id number] 07:27:00Reason for exam:->chfShould this be performed at the bedside?->Yes [facility] : 1930 Sex: FFINAL REPORT INDICATION: chf COMPARISON: None TECHNIQUE: Single frontal view of the chest. FINDINGS: Lungs and pleura: Mild left retrocardiac atelectasis. Small left effusionis suspected.Heart and mediastinum: Normal heart size. Unremarkable mediastinal contours.Osseous structures: No acute abnormality.Other: None. Signed: Zaid Martinez MDReport Verified Date/Time: 01/26/2021 07:27:42 [id number] 06:15:44 Test Item Value Reference Range Interpretation Comments PHOSPHORUS (BEAKER) (test code = 4.2 mg/dL 2.3-4.7 604) Crimping Machine Operator ID - GLADYS EPATIC FUNCTION [id number] 06:15:44 Test Item Value Reference Range Interpretation [...] (test code = 13 U/L 6-55 347) Crimping Machine Operator ID - GLADYS MBASIC METABOLIC [id number] 06:15:43 Test Item Value Reference Range Interpretation [...] S NOT APPLICABLE FOR DIALYSIS PATIEN TS. Crimping Machine Operator ID - GLADYS [id number] 06:15:43 Test Item Value Reference Range Interpretation Comments MAGNESIUM (BEAKER) (test code = 2.5 mg/dL 1.6-2.6 627) Crimping Machine Operator ID - GLADYS MTSH/FREE T4 IF [id number] 06:06:15 Test Item Value Reference Range Interpretation Comments THYROID STIMULATING HORMONE 0.659 uIU/mL 0.350-4.940 (BEAKER) (test code = 772) Crimping Machine Operator ID - GLADYS MB-TYPE NATRIURETIC FACTOR (BNP)2021-01-26 05:31:01 Test Item Value Reference Range Interpretation Comments B-TYPE NATRIURETIC PEPTIDE (BEAKER) 697 pg/mL 0-100 H (test code = 700) Crimping Machine Operator ID - GLADYS MPROTHROMBIN [id number] 05:23:10 Test Item Value Reference Range Interpretation Comments PROTIME (BEAKER) 15.1 seconds 11.9-14.2 H (test code = 759) INR (BEAKER) (test 1.21 See_Comment [Automat ed message] code = 370) The system [employer] generated this result transmitted ref erence range: [...] (BEAKER) (test code = 2801) U/S, RENAL, [id number] 01:22:00Reason for exam:->derrick [facility] : 1930 Sex: [...] MDReport Verified Date/Time: 01/26/2021 01:22:44 SODIUM, RANDOM [id number] 20:15:33 Test Item Value Reference Range Interpretation Comments SODIUM URINE (BEAKER) (test code = 59 meq/L 243) Reference Range: No NormalsOperator ID - DBCREATININE, RANDOM [id number] 20:15:32 Test Item Value Reference Range Interpretation Comments CREATININE URINE (BEAKER) (test 27.1 mg/dL code = 375) Reference Range: No NormalsOperator ID - DBPOTASSIUM, RANDOM [id number] 20:15:32 Test Item Value Reference Range Interpretation Comments POTASSIUM URINE (BEAKER) (test 43.4 meq/L code = 195) Reference Range: No NormalsOperator ID - DBCHLORIDE, RANDOM [id number] 20:15:31 Test Item Value Reference Range Interpretation Comments CHLORIDE URINE (BEAKER) (test code = 60 meq/L 682) Reference Range: No NormalsOperator ID - DBURINALYSIS W/ [id number] 20:01:17 Test Item Value Reference Range Interpretation [...] = 1582) SOURCE(BEAKER) (test code = 2795) Crimping Machine Operator ID - [auto]Crimping Machine Operator ID - tech
[2021-07-28] MEDS ORDERED: NA CHLORIDE 0.9% 2,000 ML ONE (18:05)
[2021-07-28 18:24] LABS: Hematocrit 39.7 % (36.0-45.0); MPV 9.5 fL (7.6-11.3); RBC Red Blood Cell Count 4.54 M/uL (3.86-4.86)
[2021-07-28 18:28] LABS: Protime INR 0.99
[2021-07-28 18:39] LABS: Albumin 3.8 g/dL (3.4-5.0); Bilirubin Total 0.6 mg/dL (0.2-1.0); Potassium 3.9 mmol/L (3.5-5.1); Protein, Total 7.6 g/dL (6.4-8.2)
--- NOTE | 2021-07-28 18:50 | RAD REPORT ---
EXAM DESCRIPTION: CT - Head C Spine Mpr Wo Con - 07/28/2021 6:34 pm CLINICAL HISTORY: Head and neck injury status post fall. Head and neck pain COMPARISON: None. TECHNIQUE: Computed axial tomography of the head and cervical spine was obtained. Sagittal and coronal reconstruction was performed. All CT scans are performed using dose optimization technique as appropriate and may include automated exposure control or mA/KV adjustment according to patient size. FINDINGS: An intracranial bleed is not seen. Mild to moderate low-density areas within periventricular, deep and subcortical white matter probably ischemic changes secondary to small vessel disease The ventricles are normal in caliber. An extra-axial fluid collection is not noted.Fluid within the v isualized sinuses and mastoids is not seen A cervical fracture is not visualized. No dislocation is noted. Spondylosis involves the cervical spine IMPRESSION: No acute intracranial abnormality is seen. A cervical fracture is not visualized. If the patient continues to have symptoms to suggest intracra nial /spinal cord pathology then MRI would be recommended
--- NOTE | 2021-07-28 18:53 | RAD REPORT ---
EXAM DESCRIPTION: Rebeca Single View07/28/2021 6:31 pm CLINICAL HISTORY: Chest pain COMPARISON: June 2021 FINDINGS: The lungs appear clear of acute infiltrate. The heart is moderately enlarged. Postsurgical changes involve the chest. The aorta is tortuous/ectatic IMPRESSION: No acute abnormalities displayed
[2021-07-28 18:54] LABS: Urine Blood Negative (Negative); Urine Glucose Negative (Negative); Urine Protein Negative (Negative); Urine Specific Gravity 1.025 (1.005-1.030); Urine pH 5.5 (5.0-7.0)
[2021-07-28 19:13] LABS: Urine Bacteria >50 /HPF (<20); Urine RBC <5 /HPF (NONE SEEN)
[2021-07-28 19:14] LABS: Urine Mucus 2+ /HPF (NONE SEEN)
[2021-07-28] MEDS ORDERED: Levofloxacin500mg IV 500 MG/100 ML BAG IV ONE (19:39)
--- NOTE | 2021-07-28 19:48 | ER ---
Nurse's Notes [facility] Name: Leelee Forrest Age: 89 yrs Sex: Female : 1930 Arrival Date: 07/28/2021 Time: 17:31 Bed 6 Private MD: Diagnosis: Altered mental status, unspecified;UTI/ Urinary tract infection, site not specified;Acute Kidney Injury;Bradycardia, unspecified Presentation: 07/28 17:31 Chief complaint: EMS states: Toned out for altered mental status from Maicol Antunez who jl7 reported pt had an unwitnessed fall yesterday and since has been more forgetful forgetting to eat forgot how to use the recliner chair. Pt's son thinks she might have a UTI. Coronavirus screen: At this time, the client does not indicate any symptoms associated with coronavirus-19. Ebola Screen: No symptoms or risks identified at this time. Initial Sepsis Screen: Does the patient meet any 2 criteria? No. Patient's initial sepsis screen is negative. Does the patient have a suspected source of infection? No. Patient's initial sepsis screen is negative. Risk Assessment: Do you want to hurt yourself or someone else? Patient reports no desire to harm self or others. Onset of symptoms was July 27, 2021. Care prior to arrival: Glucose check: 222. 17:31 Method Of Arrival: EMS: [facility] 7 17:31 Acuity: BECKI 3 jl7 Triage Assessment: 18:00 General: Appears in no apparent distress. Behavior is fussy, Smells of. jg9 Historical: - Allergies: 17:37 Axid; jl7 17:37 Bactrim; jl7 17:37 Codeine; jl7 17:37 Keflex; jl7 17:37 PENICILLINS; jl7 17:37 Sulfa (Sulfonamide Antibiotics); jl7 17:37 Talwin; jl7 17:37 Vicodin; jl7 17:37 Xanax; jl7 - Home Meds: 17:37 carvedilol 12.5 mg oral tab [Active]; Spironolactone Oral [Active]; montelukast 10 mg jl7 oral tab [Active]; aspirin 81 mg oral tab [Active]; Lasix 40 mg Oral tab [Active]; 23:09 clopidogrel 75 mg oral tab once daily [Active]; 5 - PMHx: 17:37 Congestive heart failure; Hypertension; Hypertensive disorder; Hypothyroidism; jl7 - Immunization history:: Adult Immunizations unknown. - Social history:: Smoking status: unknown. Screenin:07 Abuse screen: Denies threats or abuse. Denies injuries from another. Nutritional jg9 screening: No deficits noted. Tuberculosis screening: No symptoms or risk factors identified. Fall Risk Fall in past 12 months (25 points). IV access (20 points). Mental Status- Overestimates/Forgets Limitations (15 pts.). Assessment: 19:08 Reassessment: No changes from previously documented assessment. Pain: Complains of pain jg9 in right leg and left leg. Neuro: Level of Consciousness is awake, Oriented to person. 23:19 Reassessment: attempted to call report to the floor, nurse unavailable. [facility] Vital Signs: 17:31 BP 105 / 60; Pulse 46; Resp 17; Temp 97.5; Pulse Ox 96% ; Weight 65.77 kg; Height 5 ft. 7 2 in. (157.48 cm); 17:45 BP 126 / 90; Pulse 74; Resp 20 S; Pulse Ox 99% on R/A; jg9 18:00 BP 102 / 88; Pulse 47; Resp 14 S; Pulse Ox 96% on R/A; jg9 18:15 BP 111 / 90; Pulse 47; Resp 15 S; Pulse Ox 97% on R/A; jg9 20:00 BP 105 / 79; Pulse 85; Resp 17; Pulse Ox 98% on R/A; 5 21:00 BP 91 / 78; Pulse 89; Resp 18; Pulse Ox 96% on R/A; sm5 22:00 BP 96 / 61; Pulse 70; Resp 18; Pulse Ox 97% on R/A; 5 17:31 Body Mass Index 26.52 (65.77 kg, 157.48 cm) [facility] ED Course: 17:31 Patient arrived in ED. jl7 17:37 Triage completed. jl7 17:37 Arm band placed on right wrist. jl7 17:53 González Joseph MD is Attending Physician. kdr 17:58 Melissa Jones RN is Primary Nurse. jg9 18:10 Inserted saline lock: 20 gauge in left antecubital area, using aseptic technique. Blood ab2 collected. 18:20 Blood Culture Adult (2) Sent. ab2 18:20 CBC with Diff Sent. ab2 18:20 CMP Sent. ab2 18:20 Lactate Sent. ab2 18:20 Protime (+inr) Sent. ab2 18:20 Ptt, Activated Sent. ab2 18:30 Chest Single View XRAY In Process Unspecified. EDMS 18:34 CT Head C Spine In Process Unspecified. EDMS 19:08 Patient has correct armband on for positive identification. Bed in low position. Call jg9 light in reach. 19:08 Urine Culture Sent. sm5 19:08 Urine Culture Sent. [facility] 19:10 Attending Physician role handed off by González Joseph MD [facility] 19:10 Haja Moore MD is Attending Physician. [facility] 19:46 Prince Looney MD is Hospitalizing Provider. [facility] 20:02 Troponin High Sensitivity Sent. [facility] 20:13 Notified ED physician of a critical lab result(s). troponin 82.0. [facility] 07/29 00:34 No provider procedures requiring assistance completed. Patient admitted, IV remains in [facility] place. Administered Medications: 07/28 18:20 Drug: NS 0.9% (30 ml/kg) 30 ml/kg Route: IV; Rate: bolus; Site: right antecubital; ab2 19:44 Drug: LevaQUIN (levofloxacin) 500 mg Volume: 100 ml; Route: IVPB; Infused Over: 60 ke1 mins; Site: right antecubital; Outcome: 19:47 Decision to Hospitalize by Provider. [facility] 07/29 00:34 Admitted to Med/surg accompanied by tech, via stretcher, with chart. [facility] Condition: stable Instructed on the need for admit. 00:35 Patient left the ED. [facility] Signatures: Dispatcher [employer] EDMS González Joseph MD MD kdr Leal, Jahala RN RN 7 Haja Moore MD MD Danielle English 5 Niru Agustin RN RN 5 Melissa Jones RN RN jg9 Maicol Cardoza ab2 Champ Rolon RN RN ke1 Corrections: (The following items were deleted from the chart) 07/28 18:21 18:20 UA MICROSCOPIC+U.LAB.BRZ drawn and sent. ab2 EDMS
--- NOTE | 2021-07-28 19:48 | EDPHYS ---
Physician Documentation [facility] Name: Leelee Forrest Age: 89 yrs Sex: Female : 1930 Arrival Date: 07/28/2021 Time: 17:31 Bed 6 Private MD: ED Physician Haja Moore HPI: 07/28 18:23 This 89 yrs old Female presents to ER via EMS with complaints of Altered Mental Status. kdr 18:23 The patient presents with agitation, confusion. Onset: The symptoms/episode kdr began/occurred today. Possible causes: CVA or TIA, seizure, sepsis, unknown. Associated signs and symptoms: The patient has no apparent associated signs or symptoms. Current symptoms: In the emergency department the patient's symptoms have improved, mildly. Patient's baseline: Neuro: alert but confused, Motor: Lateral lower extremity edema chronic. It is unknown whether or not the patient has had similar symptoms in the past. It is unknown whether or not the patient has recently seen a physician. Patient was [facility] for possible [facility]. The son states that she is baseline altered but today seems to be worse. Patient herself has no focal complaint is able to identify where she is out and how she got here and is nontoxic-appearing. Historical: - Allergies: 17:37 Axid; jl7 17:37 Bactrim; jl7 17:37 Codeine; jl7 17:37 Keflex; jl7 17:37 PENICILLINS; jl7 17:37 Sulfa (Sulfonamide Antibiotics); jl7 17:37 Talwin; jl7 17:37 Vicodin; jl7 17:37 Xanax; jl7 - Home Meds: 17:37 carvedilol 12.5 mg oral tab [Active]; Spironolactone Oral [Active]; montelukast 10 mg jl7 oral tab [Active]; aspirin 81 mg oral tab [Active]; Lasix 40 mg Oral tab [Active]; 23:09 clopidogrel 75 mg oral tab once daily [Active]; sm5 - PMHx: 17:37 Congestive heart failure; Hypertension; Hypertensive disorder; Hypothyroidism; jl7 - Immunization history:: Adult Immunizations unknown. - Social history:: Smoking status: unknown. ROS: 18:23 Constitutional: Negative for fever, chills, and weight loss, Eyes: Negative for injury, kdr pain, redness, and discharge, ENT: Negative for injury, pain, and discharge, Neck: Negative for injury, pain, and swelling, Cardiovascular: Negative for chest pain, palpitations, and edema, Respiratory: Negative for shortness of breath, cough, wheezing, and pleuritic chest pain, Abdomen/GI: Negative for abdominal pain, nausea, vomiting, diarrhea, and constipation, Back: Negative for injury and pain, : Negative for injury, bleeding, discharge, and swelling, MS/Extremity: Negative for injury and deformity, Skin: Negative for injury, rash, and discoloration, Psych: Negative for depression, anxiety, suicide ideation, homicidal ideation, and hallucinations, Allergy/Immunology: Negative for hives, rash, and allergies, Endocrine: Negative for neck swelling, polydipsia, polyuria, polyphagia, and marked weight changes, Hematologic/Lymphatic: Negative for swollen nodes, abnormal bleeding, and unusual bruising. 18:23 Neuro: Positive for altered mental status, weakness, Negative for loss of consciousness, numbness, seizure activity, speech changes, syncope, near syncope, tingling, tremor, visual changes. Exam: 18:23 Constitutional: This is a well developed, well nourished patient who is awake, alert, kdr and in no acute distress. Head/Face: Normocephalic, atraumatic. Eyes: Pupils equal round and reactive to light, extra-ocular motions intact. Lids and lashes normal. Conjunctiva and sclera are non-icteric and not injected. Cornea within normal limits. Periorbital areas with no swelling, redness, or edema. ENT: Nares patent. No nasal discharge, no septal abnormalities noted. Tympanic membranes are normal and external auditory canals are clear. Oropharynx with no redness, swelling, or masses, exudates, or evidence of obstruction, uvula midline. Mucous membranes moist. Neck: Trachea midline, no thyromegaly or masses palpated, and no cervical lymphadenopathy. Supple, full range of motion without nuchal rigidity, or vertebral point tenderness. No Meningismus. Chest/axilla: Normal chest wall appearance and motion. Nontender with no deformity. No lesions are appreciated. Cardiovascular: Regular rate and rhythm with a normal S1 and S2. No gallops, murmurs, or rubs. Normal PMI, no JVD. No pulse deficits. Respiratory: Lungs have equal breath sounds bilaterally, clear to auscultation and percussion. No rales, rhonchi or wheezes noted. No increased work of breathing, no retractions or nasal flaring. Abdomen/GI: Soft, non-tender, with normal bowel sounds. No distension or tympany. No guarding or rebound. No evidence of tenderness throughout. Back: No spinal tenderness. No costovertebral tenderness. Full range of motion. Skin: Warm, dry with normal turgor. Normal color with no rashes, no lesions, and no evidence of cellulitis. Psych: Awake, alert, with orientation to person, place and time. Behavior, mood, and affect are within normal limits. 18:23 Musculoskeletal/extremity: Patient has a large ecchymotic area significant for a bruise to her left elbow.. Vital Signs: 17:31 BP 105 / 60; Pulse 46; Resp 17; Temp 97.5; Pulse Ox 96% ; Weight 65.77 kg; Height 5 ft. jl7 2 in. (157.48 cm); 17:45 BP 126 / 90; Pulse 74; Resp 20 S; Pulse Ox 99% on R/A; jg9 18:00 BP 102 / 88; Pulse 47; Resp 14 S; Pulse Ox 96% on R/A; jg9 18:15 BP 111 / 90; Pulse 47; Resp 15 S; Pulse Ox 97% on R/A; jg9 20:00 BP 105 / 79; Pulse 85; Resp 17; Pulse Ox 98% on R/A; sm5 21:00 BP 91 / 78; Pulse 89; Resp 18; Pulse Ox 96% on R/A; sm5 22:00 BP 96 / 61; Pulse 70; Resp 18; Pulse Ox 97% on R/A; sm5 17:31 Body Mass Index 26.52 (65.77 kg, 157.48 cm) jl7 MDM: 18:23 Data reviewed: vital signs, nurses notes, lab test result(s), radiologic studies. kdr Counseling: I had a detailed discussion with the patient and/or guardian regarding: the historical points, exam findings, and any diagnostic results supporting the discharge/admit diagnosis, lab results, radiology results. 19:46 Differential Diagnosis: CVA, electrolyte abnormality, hypoglycemia, intracranial bleed, mh7 pneumonia, UTI, volume depletion. Data interpreted: Pulse oximetry: on room air is 97 %. Interpretation: normal. Response to treatment: the patient's symptoms have mildly improved after treatment. 19:47 Patient medically screened. [facility] 07/28 17:55 Order name: Blood Culture Adult (2) [facility] 07/28 17:55 Order name: CBC with Diff; Complete Time: 19:05 [facility] 07/28 17:55 Order name: CMP; Complete Time: 19:13 [facility] 07/28 17:55 Order name: Lactate; Complete Time: 19:13 [facility] 07/28 17:55 Order name: Protime (+inr); Complete Time: 19:13 [facility] 07/28 17:55 Order name: Ptt, Activated; Complete Time: 19:13 [facility] 07/28 17:55 Order name: Urine Microscopic Only; Complete Time: 19:16 [facility] 07/28 17:55 Order name: Chest Single View XRAY; Complete Time: 19:13 [facility] 07/28 18:13 Order name: Urine Culture [facility] 07/28 18:14 Order name: Urine Culture [facility] 07/28 18:53 Order name: Urine Dipstick-Ancillary; Complete Time: 19:13 [facility] 07/28 19:32 Order name: Troponin High Sensitivity; Complete Time: 20:21 [facility] 07/28 19:53 Order name: COVID-19 SARS RT PCR (Document "Date of Onset" if Symptomatic); Complete la1 Time: 23:34 07/28 21:37 Order name: Lactate Sepsis 2 HR Follow-up; Complete Time: 23:34 [facility] 07/28 17:55 Order name: Accucheck; Complete Time: 19:07 [facility] 07/28 17:55 Order name: Cardiac monitoring; Complete Time: 18:19 [facility] 07/28 17:55 Order name: EKG - Nurse/Tech; Complete Time: 18:19 [facility] 07/28 17:55 Order name: IV Saline Lock - Large Bore; Complete Time: 18:19 [facility] 07/28 17:55 Order name: Labs collected and sent; Complete Time: 18:19 [facility] 07/28 17:55 Order name: O2 Per Protocol; Complete Time: 18:19 [facility] 07/28 17:55 Order name: O2 Sat Monitoring; Complete Time: 18:19 [facility] 07/28 17:55 Order name: Urine Dipstick-Ancillary (obtain specimen); Complete Time: 19:08 [facility] 07/28 18:13 Order name: CT Head C Spine; Complete Time: 19:13 kdr Administered Medications: 18:20 Drug: NS 0.9% (30 ml/kg) 30 ml/kg Route: IV; Rate: bolus; Site: right antecubital; ab2 19:44 Drug: LevaQUIN (levofloxacin) 500 mg Volume: 100 ml; Route: IVPB; Infused Over: 60 ke1 mins; Site: right antecubital; Disposition Summary: 07/28/21 19:47 Hospitalization Ordered Hospitalization Status: Inpatient Admission [facility] Provider: Prince julio Looney Location: Telemetry/MedSurg (Inpatient) [facility] Condition: Stable [facility] Problem: new [facility] Symptoms: have improved [facility] Bed/Room Type: Standard [facility] Room Assignment: 206(07/28/21 22:54) Diagnosis - Altered mental status, unspecified [facility] - UTI/ Urinary tract infection, site not specified [facility] - Acute Kidney Injury mh - Bradycardia, unspecified [facility] Forms: - Medication Reconciliation Form [facility] - SBAR form [facility] Signatures: Dispatcher [employer] EDMS Cherelle Butts RN RN mw Rittger, Kevin, MD MD kdr Handy Tariq, OIL FURNACE INSTALLER-C OIL FURNACE INSTALLER-Cla1 Holland Adam RN RN jl7 Haja Moore MD MD 7 Niru Agustin RN RN sm5 Maicol Cardoza ab2 Champ Rolon RN RN ke1 Corrections: (The following items were deleted from the chart) 18:21 17:56 UA MICROSCOPIC+U.LAB.BRZ ordered. EDMS EDMS 22:54 19:47 [facility]
--- NOTE | 2021-07-28 20:32 | P.HP ---
Certification for Inpatient Patient admitted to: Inpatient With expected LOS: >2 Midnights Patient will require the following post-hospital care: None Practitioner: I am a practitioner with admitting privileges, knowledge of patient current condition, hospital course, and medical plan of care. Services: Services provided to patient in accordance with Admission requirements found in Title 42 Section 412.3 of the Code of Federal Regulations Patient History Date of Service: 07/28/21 Reason for admission: UTI, ARF History of Present Illness: 89-year-old female with history of chronic systolic congestive heart failure, A. fib, hypertension, GERD, hypothyroidism presented to the emergency department for altered mental status. Patient currently is resident of a care home who was reported by staff and her son that she was more altered than normal and has been like this in the past whenever she had urinary tract infections. Patient was evaluated in the emergency department she was noted to be in acute renal failure creatinine 2.6 GFR 17 BUN 42 potassium 3.9 sodium 132 lactic acid 3.4 greater than 50 bacteria on urine rhinoscopic 1+ leuk esterase on urine dip initial troponin high-sensitivity 82.0 chest x-ray unremarkable EKG with marked sinus bradycardia with rate of around 45 patient has had bradycardia during previous admissions as well. Patient afebrile white blood cell count normal does not appear to be septic at this time did receive fluid bolus in the emergency department. ED provider wishes to admit for further evaluation and management of ARF, UTI. Patient also with history of aortic stenosis. Patient currently resides at [facility] Allergies famotidine [From Pepcid] Allergy (Mild, Verified 07/07/12 11:50) Itching/Hives/Rash acetaminophen [From Tylox] Allergy (Unknown, Verified 01/17/21 16:58) UNKNOWN cephalexin monohydrate [From Keflex] Allergy (Unknown, Verified 01/17/21 16:58) UNKNOWN codeine [Codeine] Allergy (Unknown, Verified 01/17/21 16:58) UNKNOWN hydrocodone bitartrate [From Vicodin] Allergy (Unknown, Verified 01/17/21 16:58) UNKNOWN oxycodone HCl [From Tylox] Allergy (Unknown, Verified 01/17/21 16:58) UNKNOWN Penicillins Allergy (Unknown, Verified 01/17/21 16:58) UNKNOWN pentazocine lactate [From Talwin] Allergy (Unknown, Verified 01/17/21 16:58) UNKNOWN ranitidine HCl [From Zantac] Allergy (Unknown, Verified 01/17/21 16:58) UNKNOWN Sulfa (Sulfonamide Antibiotics) Allergy (Unknown, Verified 01/17/21 16:58) UNKNOWN alprazolam [From Xanax] Allergy (Verified 01/17/21 16:58) Unknown nizatidine [From Axid] Allergy (Verified 01/17/21 16:58) Unknown Home Medications: Levothyroxine [Synthroid*] 125 mcg PO [id number] 04/20/21 Montelukast [Singulair*] 10 mg PO BEDTIME 04/20/21 Pantoprazole [Protonix Tab*] 40 mg PO DAILY 04/20/21 Tolterodine Tartrate 2 mg PO BID 04/20/21 Aspirin [Aspirin EC 81 MG] 81 mg PO DAILY #90 tablet. 04/21/21 Clopidogrel Bisulfate [Plavix*] 75 mg PO DAILY #30 tablet 04/21/21 carvediloL [Carvedilol] 6.25 mg PO BID #60 tablet 04/21/21 Furosemide 40 mg PO DAILY 06/23/21 Melatonin 10 mg PO BEDTIME 06/23/21 Multivit with Calcium,Iron,Min [One Daily Women's] 1 tab PO DAILY 06/23/21 Ubidecarenone/Vit E Acet [Co Q-10 100 mg Softgel] 200 mg PO BEDTIME 06/23/21 Spironolactone [Aldactone*] 25 mg PO DAILY #30 tab 06/25/21 - Past Medical/Surgical History Diabetic: No -: Anxiety -: HTN -: Hypothyroidism -: Chronic systolic CHF, aortic stenosis -: COPD -: NSTEMI -: CKD -: Coronary artery bypass grafting Psychosocial/ Personal History: Patient currently resides at [facility] - Family History Father History Unknown: Yes - Social History Smoking Status: Never smoker Alcohol use: No CD- Drugs: No Caffeine use: Yes Place of Residence: Home Review of Systems 10-point ROS is otherwise unremarkable General: Weakness, Other (Confusion) Physical Examination - Physical Exam General: Alert, Oriented x2 HEENT: Atraumatic, Mucous membr. moist/pink Neck: Supple Respiratory: Clear to auscultation bilaterally Cardiovascular: No edema, Irregular heart rate/rhythm (Marked sinus bradycardia rate 48) Capillary refill: <2 Seconds Gastrointestinal: Normal bowel sounds, Soft and benign Musculoskeletal: No contractures, No erythema, No tenderness Integumentary: No significant lesion, No tenderness/swelling, No erythema Neurological: Normal strength at 5/5 x4 extr, Normal tone, Sensation intact - Studies Laboratory Data (last 24 hrs) 07/28/21 18:10: PT 10.9, INR 0.99, APTT 29.1 07/28/21 18:10: Sodium 132 L, Potassium 3.9, BUN 42 H, Creatinine 2.60 H, Glucose 143 H, Total Bilirubin 0.6, AST 24, ALT 15, Alkaline Phosphatase 56 07/28/21 18:10: WBC 8.80, Hgb 13.0, Hct 39.7, Plt Count 255 Assessment and Plan - Plan Assessment: Metabolic encephalopathy secondary to urine tract infection Acute renal failure superimposed on CKD 3 Chronic systolic congestive heart failure with history of aortic stenosis Hypothyroidism Hypertension Plan: Metabolic encephalopathy secondary to urine tract infection: Patient with multiple antibiotic drug allergies, continue Levaquin urine and blood cultures obtained. Patient mental status has improved is currently similar to baseline. Acute renal failure superimposed on CKD 3: Patient received 2 L IV fluid bolus in the emergency department, continue gentle hydration overnight obtain renal ultrasound, nephrology consulted. Chronic systolic congestive heart failure with history of aortic stenosis: Appears stable from a cardiac standpoint does have marked sinus bradycardia with rate of around 47-50. Patient does take carvedilol at home, will hold beta- edmundo at this time obtain and continue/verify other home medication. Hypothyroidism: Thyroid panel with morning labs, restart home medications. Hypertension: Obtain and continue home medication, hold beta-blockers given bradycardia. DVT PPX: Heparin Code status: Full Discharge Plan: Home Plan to discharge in: 72 Hours - Advance Directives Does patient have a Living Will: Yes Does patient have a Durable POA for Healthcare: Yes - Code Status/Comfort Care Code Status Assessed: Yes (Full) Critical Care: No Time Spent Managing Pts Care (In Minutes): 55
[2021-07-29] MEDS ORDERED: ONDANSETRON 4 MG/2 ML VIAL IV PRN (00:49)
[2021-07-29 00:50] VITALS: BMI 31.4
[2021-07-29] MEDS: HEPARIN 5000 UNIT/ML 1 ML VIAL SQ SCH ×3 (01:46→20:11)
[2021-07-29] MEDS: NA CHLORIDE 0.9% 1,000 ML IV SCH ×2 (01:50→12:57)
[2021-07-29 06:05] LABS: Absolute Lymphocytes (CBC) 1.9 K/uL (0.7-4.9); Hematocrit 32.3 % (36.0-45.0); Lymphocytes % 23.2 % (15.3-44.8)
[2021-07-29 06:24] LABS: Albumin 2.9 g/dL (3.4-5.0); Bilirubin Total 0.6 mg/dL (0.2-1.0); CKMB Creatine Kinase MB 1.9 ng/mL (1.0-3.6); Potassium 3.6 mmol/L (3.5-5.1); Protein, Total 5.9 g/dL (6.4-8.2); Uric Acid 13.7 mg/dL (2.6-6.0)
[2021-07-29 06:25] LABS: Thyroid Stimulating Hormone 89.1 uIU/mL (0.360-3.740)
--- NOTE | 2021-07-29 10:57 | P.PN ---
Subjective Date of Service: 07/29/21 Chief Complaint: UTI, ARF Subjective: Improving Physical Examination - Vital Signs Temperature: 98.2 F Blood Pressure: 98/53 Pulse: 68 Respirations: 23 Pulse Ox (%): 97 - Physical Exam General: In no apparent distress, Cooperative HEENT: Atraumatic, Normocephalic Neck: Supple Respiratory: Clear to auscultation bilaterally, Normal air movement Cardiovascular: Regular rate/rhythm, Normal S1 S2, Edema, Systolic murmur Musculoskeletal: Swelling Neurological: Normal speech, Normal affect - Studies Laboratory Data (last 24 hrs) 07/28/21 18:10: PT 10.9, INR 0.99, APTT 29.1 07/28/21 18:10: Sodium 132 L, Potassium 3.9, BUN 42 H, Creatinine 2.60 H, Glucose 143 H, Total Bilirubin 0.6, AST 24, ALT 15, Alkaline Phosphatase 56 07/28/21 18:10: WBC 8.80, Hgb 13.0, Hct 39.7, Plt Count 255 Assessment And Plan - Current Problems (Diagnosis) (1) UTI (urinary tract infection) Current Visit: Yes Status: Acute (2) Acute metabolic encephalopathy Current Visit: Yes Status: Acute (3) Acute congestive heart failure Current Visit: No Status: Acute Qualifiers: (4) Atrial fibrillation Current Visit: No Status: Acute Qualifiers: (5) CAD (coronary artery disease) Current Visit: No Status: Chronic Qualifiers: Coronary Disease-Associated Artery/Lesion type: unspecified vessel or lesion type [place] vs. transplanted heart: [place] heart Associated angina: without angina Qualified Code(s): I25.10 - Atherosclerotic heart disease of [place] coronary artery without angina pectoris (6) COPD (chronic obstructive pulmonary disease) Current Visit: No Status: Chronic Qualifiers: (7) Hypertension Current Visit: No Status: Chronic Qualifiers: (8) Hypothyroidism Current Visit: No Status: Chronic Qualifiers: Physician Review Additional Text: 07/29/21 10:56 Assessment Patient is a 89-year-old female with a past medical history of chronic systolic CHF, atrial fibrillation, hypertension and GERD. She was admitted overnight her work-up so far here is suggestive of urinary tract infection. She had a lactic acid of 3.4 on admission. after she was found to be confused at the senior living. Metabolic encephalopathy UTI Acute on chronic CKD stage III Lactic acidosis Elevated troponin-most likely demand ischemia Hypotension PLAN: Continue levofloxacin Follow up urine cultures Her mental status is improving, nearly at baseline Will give a dose of IV levothyroxine due to hypothyroid state NS bolus Start midodrine for borderline BP Will discharge once Ucx become available. Otherwise, she'll need 1-2 more days of hospital stay 07/29/21 11:58 07/29/21 11:59
[2021-07-29] MEDS ORDERED: NA CHLORIDE 0.9% 500 ML IV ONE (11:59)
[2021-07-29] MEDS ORDERED: LEVOTHYROXINE SODIUM 100 MCG VIAL IV ONE (12:15)
[2021-07-29] MEDS: MIDODRINE HCL 5 MG TABLET PO SCH ×3 (12:57→20:11)
[2021-07-29] MEDS ORDERED: FAMOTIDINE 20 MG/2 ML VIAL IV SCH (20:45)
--- NOTE | 2021-07-30 03:19 | CON ---
Date of Consultation: 07/29/2021 Chief Complaint: Acute kidney injury, urinary tract infection. History Of Present Illness: Patient is an 89-year-old woman with history of chronic systolic congestive heart failure, atrial fibrillation, hypertension, GERD, hypothyroidism. Patient presented to emergency department because of confusion and altered mental status. The patient is currently custodial resident and, according to the staff, the patient became more confused and was complaining of some difficulty with urination. She has history of urinary tract infection in the past. She went the following day to the. Emergency room, was found to have acute kidney injury. Creatinine was 2.6 and GFR was declining to 17, BUN was 49, potassium 3.9, sodium 132, lactic acid was 3.4, and there was an elevated troponin. Urinalysis showed positive for leukocyte esterase and positive for proteinuria. Urine culture is pending. X-ray of the chest did not show pneumonia and EKG was consistent with bradycardia. Patient appears to be septic and she received IV fluids for volume resuscitation. Patient is admitted to the hospital for urinary tract infection and acute kidney injury. Patient remains nonoliguric. She denies kidney colic. Past Medical History: Anxiety, hypertension, hypothyroidism, chronic systolic congestive heart failure, aortic stenosis, COPD, [id number] myocardial infarction, chronic kidney disease stage 3, coronary artery bypass grafting. Family History: No kidney disease in the family. Social History: Denies tobacco, alcohol, or illicit drugs. Review of Systems: Denies fever or chill. The patient cannot provide review of systems as she presented with altered mental status. Physical Examination: General: The patient is alert to person and place. HEENT: Atraumatic, normocephalic. Anicteric sclerae. Neck: Supple. No bruits. CV: s1 , s2 Abdomen: Soft, benign. Neurological: Moving extremities. Cranial nerves intact. Laboratory Data: BUN 42, creatinine 2.2, glucose 143, sodium 132, potassium 3.9, total bilirubin 0.6. Hemoglobin 13, WBC 8.8, platelet count [id number]. Impression And Plan: 1. Acute on chronic kidney injury. The patient has chronic kidney disease stage 3 due to benign nephrosclerosis. Renal ultrasound was done to rule out obstructive uropathy. Acute kidney injury is due to sepsis and the patient has also history of systolic congestive heart failure with history of aortic stenosis. The patient also has history of cardiorenal syndrome, patient was found to have mild bradycardia which may be contributory to prerenal azotemia and cardiorenal syndrome. 2. Hypothyroidism. Check TSH level. 3. Hyponatremia is consistent with cardiorenal syndrome. Plan is to rule out hypothyroidism. 4. History of urinary tract infection. Continue to monitor UA and urine counts. Adjust treatment accordingly. 5. Metabolic encephalopathy secondary to ongoing urinary tract infection. Continue broad-spectrum antibiotic coverage. SEDRICK/BENJY Voice ID: [id number] Report ID: [id number] MTDLeobardo
[2021-07-30 06:30] LABS: Absolute Lymphocytes (CBC) 2.4 K/uL (0.7-4.9); Hematocrit 33.2 % (36.0-45.0); Lymphocytes % 32.1 % (15.3-44.8); MPV 9.6 fL (7.6-11.3); RBC Red Blood Cell Count 3.82 M/uL (3.86-4.86)
[2021-07-30 06:47] LABS: ALT/SGPT < 10 U/L (12-78); AST/SGOT 22 U/L (15-37); Albumin 2.9 g/dL (3.4-5.0); Alkaline Phosphatase 43 U/L (45-117); BUN Blood Urea Nitrogen 27 mg/dL (7-18); Bicarbonate 23 mmol/L (21-32); Bilirubin Total 0.6 mg/dL (0.2-1.0); Glucose Level 82 mg/dL (74-106); Potassium 3.5 mmol/L (3.5-5.1); Protein, Total 5.9 g/dL (6.4-8.2); Sodium Level 139 mmol/L (136-145)
--- NOTE | 2021-07-30 07:27 | EKG ---
Test Date: 2021-07-28 Test Time: 18:12:40 Career Development Engineer: ABBEY MEASUREMENT RESULTS: Intervals: Rate: 45 FL: 206 QRSD: 172 QT: 552 QTc: 477 [place]: P: 22 FL: 206 QRS: 232 T: 23 INTERPRETIVE STATEMENTS: Marked sinus bradycardia Nonspecific intraventricular block Possible Lateral infarct, age undetermined Inferior infarct, age undetermined Abnormal ECG Compared to ECG 06/22/2021 14:45:37 Sinus rhythm no longer present Myocardial infarct finding still present Electronically Signed On 07-30-21 07:22:25 CDT by Manuel Chavez
--- NOTE | 2021-07-30 09:07 | P.PN ---
Subjective Date of Service: 07/30/21 Chief Complaint: UTI, ARF Subjective: Improving (No acute events overnight.) Physical Examination - Vital Signs Temperature: 97.9 F Blood Pressure: 121/54 Pulse: 81 Respirations: 18 Pulse Ox (%): 97 - Physical Exam General: Alert, Cooperative HEENT: Atraumatic, Normocephalic Respiratory: Normal air movement Cardiovascular: Regular rate/rhythm, Normal S1 S2, Systolic murmur Neurological: Normal speech, Normal affect - Studies Microbiology Data (last 24 hrs): 07/28/21 18:00 Blood - Blood Gram Stain - Final Assessment And Plan - Current Problems (Diagnosis) (1) UTI (urinary tract infection) Current Visit: Yes Status: Acute (2) Acute metabolic encephalopathy Current Visit: Yes Status: Acute (3) Acute congestive heart failure Current Visit: No Status: Acute Qualifiers: (4) Atrial fibrillation Current Visit: No Status: Acute Qualifiers: (5) CAD (coronary artery disease) Current Visit: No Status: Chronic Qualifiers: Coronary Disease-Associated Artery/Lesion type: unspecified vessel or lesion type [place] vs. transplanted heart: [place] heart Associated angina: without angina Qualified Code(s): I25.10 - Atherosclerotic heart disease of [place] coronary artery without angina pectoris (6) COPD (chronic obstructive pulmonary disease) Current Visit: No Status: Chronic Qualifiers: (7) Hypertension Current Visit: No Status: Chronic Qualifiers: (8) Hypothyroidism Current Visit: No Status: Chronic Qualifiers: Physician Review Additional Text: 07/29/21 10:56 Assessment Patient is a 89-year-old female with a past medical history of chronic systolic CHF, atrial fibrillation, hypertension and GERD. She was admitted overnight her work-up so far here is suggestive of urinary tract infection. She had a lactic acid of 3.4 on admission. after she was found to be confused at the correction. Metabolic encephalopathy UTI Acute on chronic CKD stage III Bacteremia Lactic acidosis Elevated troponin-most likely demand ischemia Hypotension Hypothyroidism PLAN: Continue levofloxacin until urine cx are finalized Blood cx with gram positive cocci. Repeat blood cx pending Received IV levothyroxine yesterday for hypothyroid state/hypotension Start PO levothyroidism at 100 mcg daily Continue midodrine for borderline BP Resumed home dose of DAPT Continue holding coreg and spironolactone until BP permits Heparin subc for DVT ppx
[2021-07-30] MEDS: HEPARIN 5000 UNIT/ML 1 ML VIAL SQ SCH ×2 (09:22→20:52)
[2021-07-30] MEDS: MIDODRINE HCL 5 MG TABLET PO SCH ×3 (09:22→20:51)
[2021-07-30] MEDS: LEVOTHYROXINE SOD 0.1 MG TAB PO SCH (09:34)
[2021-07-30] MEDS ORDERED: Levofloxacin500mg IV 500 MG/100 ML BAG IV SCH (20:00)
[2021-07-30] MEDS: MELATONIN 5 MG TABLET PO SCH (20:51)
[2021-07-31] MEDS: NA CHLORIDE 0.9% 1,000 ML IV SCH ×2 (00:26→17:28)
--- NOTE | 2021-07-31 03:02 | PN ---
Date of Progress Note: 07/30/2021 Chief Complaint: Acute kidney injury, urinary tract infection. Subjective: The patient is an 89-year-old woman with history of chronic systolic congestive heart failure, atrial fibrillation, hypertension, GERD, hypothyroidism. She presented to the hospital because of confusion and altered mental status. [facility] is a jail [facility]. She became more confused and was complaining of difficulty with urination. Urinary tract infection was treated with antibiotics in the past. On arrival to the hospital, she had a lab work obtained and her creatinine was 2.6, GFR was declining to 17, BUN 49, potassium 3.9, sodium 132, lactic acid was 3.4, which was elevated. The patient also had elevated troponin level. Urinalysis showed positive leukocyte esterase and positive proteinuria screen. Review of Systems: The patient is feeling better today. Objective: Lungs: Clear to auscultation bilaterally. Heart: S1 and S2. Abdomen: Soft, benign. Extremities: Slight edema. Impression And Plan: 1. Acute on chronic kidney injury, nonoliguric. Continue IV fluids for hydration to prevent prerenal azotemia. Avoid nephrotoxic medication. 2. Rhabdomyolysis. The patient has congestive heart failure with history of aortic stenosis. The patient also may require diuretic for cardiorenal syndrome. Monitor fluid balance and evaluate chest x-ray to rule out interstitial pulmonary edema. 3. Hypothyroidism. Check TSH level. 4. Hyponatremia, consistent with cardiorenal syndrome. Plan is to check for hypothyroidism. 5. History of urinary tract infection. Continue on broad-spectrum antibiotics. Adjust antibiotic treatment according to culture results. 6. Metabolic encephalopathy, secondary to ongoing urinary tract infection. Continue antibiotic coverage. SEDRICK/BENJY Voice ID: [id number] Report ID: [id number] MTDD
[2021-07-31] MEDS: LEVOTHYROXINE SOD 0.1 MG TAB PO SCH (05:53)
[2021-07-31 06:17] LABS: Absolute Lymphocytes (CBC) 2.1 K/uL (0.7-4.9); Hematocrit 34.2 % (36.0-45.0); Lymphocytes % 28.9 % (15.3-44.8); MPV 9.6 fL (7.6-11.3); RBC Red Blood Cell Count 3.88 M/uL (3.86-4.86)
[2021-07-31 08:03] LABS: Albumin 2.7 g/dL (3.4-5.0); Bilirubin Total 0.4 mg/dL (0.2-1.0); Potassium 3.8 mmol/L (3.5-5.1); Protein, Total 5.5 g/dL (6.4-8.2)
[2021-07-31] MEDS: PANTOPRAZOLE 40MG TABLET PO SCH (09:47)
[2021-07-31] MEDS: CLOPIDOGREL 75 MG TABLET PO SCH (09:47)
[2021-07-31] MEDS: MIDODRINE HCL 5 MG TABLET PO SCH ×3 (09:47→20:39)
[2021-07-31] MEDS: ASPIRIN EC 81 MG TAB PO SCH (09:47)
[2021-07-31] MEDS: HEPARIN 5000 UNIT/ML 1 ML VIAL SQ SCH ×2 (09:48→20:31)
[2021-07-31] MEDS: NITROFURAN MACRO 100 MG CAP PO SCH ×2 (14:55→20:30)
--- NOTE | 2021-07-31 15:21 | P.PN ---
Subjective Date of Service: 07/31/21 Chief Complaint: UTI, ARF Subjective: Other (14 runs of V tach overnight. She was asymptomatic) Physical Examination - Vital Signs Temperature: 97.1 F Blood Pressure: 119/61 Pulse: 72 Respirations: 17 Pulse Ox (%): 97 - Physical Exam General: Alert, In no apparent distress, Cooperative HEENT: Atraumatic, Normocephalic Respiratory: Normal air movement Cardiovascular: Regular rate/rhythm, Normal S1 S2, Systolic murmur Musculoskeletal: No clubbing, No swelling, Tenderness Neurological: Normal speech, Normal affect - Studies Microbiology Data (last 24 hrs): 07/28/21 18:45 Catheterized Urine [place] Count - Final >100,000 CFU/ML. 07/28/21 18:45 Catheterized Urine - Final Escherichia Coli Gram Neg Jamil 07/28/21 18:00 Blood - Blood Gram Stain - Final Assessment And Plan - Current Problems (Diagnosis) (1) UTI (urinary tract infection) Current Visit: Yes Status: Acute (2) Acute metabolic encephalopathy Current Visit: Yes Status: Acute (3) Acute congestive heart failure Current Visit: No Status: Acute Qualifiers: (4) Atrial fibrillation Current Visit: No Status: Acute Qualifiers: (5) CAD (coronary artery disease) Current Visit: No Status: Chronic Qualifiers: Coronary Disease-Associated Artery/Lesion type: unspecified vessel or lesion type [place] vs. transplanted heart: [place] heart Associated angina: without angina Qualified Code(s): I25.10 - Atherosclerotic heart disease of [place] coronary artery without angina pectoris (6) COPD (chronic obstructive pulmonary disease) Current Visit: No Status: Chronic Qualifiers: (7) Hypertension Current Visit: No Status: Chronic Qualifiers: (8) Hypothyroidism Current Visit: No Status: Chronic Qualifiers: Physician Review Additional Text: 07/29/21 10:56 Assessment Patient is a 89-year-old female with a past medical history of chronic systolic CHF, atrial fibrillation, hypertension and GERD. She was admitted overnight her work-up so far here is suggestive of urinary tract infection. She had a lactic acid of 3.4 on admission. after she [facility]. She has done well. Unfortunately developed an episode of non- sustained V tach on 07/31. V tach Metabolic encephalopathy UTI Acute on chronic CKD stage III Bacteremia Lactic acidosis Elevated troponin-most likely demand ischemia Hypotension Hypothyroidism PLAN: Cardiology consulted for V tach developed overnight Will keep overnight Will discontinue levofloxacin for now. Start nitrofurantoin for green-sensitive E. coli UTI Continue levothyroidism at 100 mcg daily Continue midodrine for borderline BP Continue DAPT Continue holding coreg and spironolactone until BP permits Heparin subc for DVT ppx 07/31/21 15:18 07/31/21 15:20
--- NOTE | 2021-07-31 19:52 | CON ---
Date of Consultation: 07/31/2021 Reason For Consultation: Borderline elevated troponin and V-tach episodes. History Of Present Illness: This is an 89-year-old female who presented to the emergency room with a ltered mental status and found to have acute urinary tract infection, was dehydrated and in acute frizt al failure. The patient is known to have history of congestive heart failure, atrial fibrillation, h ypertension, acid reflux, hypothyroidism. She was evaluated by bedside. She appears to be confused, unable to get history. However, she was very dehydrated on arrival and with acute kidney failure th at has improved, and she had a few episodes of nonsustained V-tach overnight that were asymptomatic. Past Medical History: History of hypertension; hypothyroidism; coronary artery disease, status post 3-vessel CABG in 2010; systolic heart failure; COPD; chronic kidney disease. Medications: Refer reconciliation sheet for detailed list. Allergies: LONG LIST OF ALLERGIES WAS REVIEWED. Family History: No premature coronary artery disease or cancer. Social History: Does not smoke or drink. Does not use any drugs. Past Surgical History: Coronary artery bypass surgery 3 vessels in 2010. Review of Systems: All systems reviewed and they were negative except for those mentioned in HPI. Physical Examination: Vital Signs: Reviewed. Head and Neck: Pupils are equal and reactive to light. Intact eye movements. No JVD. No cervical lymphadenopathy. Neck is supple. Thyroid is not enlarged. Lungs: Clear to auscultation bilaterally. No rhonchi, rales, or crackles. No accessory muscle use. Heart: Irregular. No extra sounds. Abdomen: Soft, nontender. Bowel sounds positive. No organomegaly. No masses or hernia. No rigidi ty or rebound. Extremities: No clubbing or cyanosis. Intact pulses. Skin: No rash. Neurologic: Alert and awake with confusion. No focal deficits appreciated. Lymph Nodes: No cervical or axillary lymphadenopathy. Investigations: Labs were reviewed. Assessment And Recommendations: 1.Elevated troponin with reported episodes of ventricular tachycardia, which I will evaluate the [facility] strips, and in the mean time, please make sure her potassium is above 4 and magnesium is above 2. Troponin is borderline elevated with known history of coronary artery disease. Please obtain an ec hocardiogram and a Lexiscan nuclear stress test. Further Recommendation based on the above results. 2.Acute kidney failure with dehydration. This has resolved. Thank you for the consult. SR/MODL Voice ID: [id number] Report ID: [id number]
[2021-07-31] MEDS: MELATONIN 5 MG TABLET PO SCH (20:30)
--- NOTE | 2021-08-01 02:55 | PN ---
Date of Progress Note: 07/31/2021 Chief Complaint: Acute on chronic kidney injury, urinary tract infection. Subjective: The patient is an 89-year-old woman with history of chronic systolic congestive heart fa ilure, atrial fibrillation, hypertension, GERD, and hypothyroidism. She presented to the hospital be cause of confusion. She is a custodial resident and the patient was complaining of some difficult y with urination. Urinary tract infection was treated with antibiotics in the past. On arrival to [facility], creatinine level was up to 2.6 and GFR declined to 17, BUN was 49. The patient had lact ic acidosis. The patient was found to have elevated troponin. Urinalysis showed positive leukocyte esterase and positive proteinuria. Review of Systems: The patient is feeling better. Denies complaints. Objective: Lungs: Clear to auscultation bilaterally. Heart: S1 and S2. Abdomen: Soft, benign. Extremities: Slight edema. Assessment And Plan: 1.Acute on chronic kidney injury, nonoliguric. Renal function has improved. The patient will shima nue p.o. hydration. Plan is to discontinue IV fluids. 2.Rhabdomyolysis. The patient has congestive heart failure with history of aortic stenosis. Rhabdo myolysis was not identified in the particular setting. The patient may require diuretics for cardior enal syndrome. Continue to monitor fluid balance. 3.Hypothyroidism. Monitor TSH level. 4.Hyponatremia consistent with fluid overload and cardiorenal syndrome. Monitor TSH. 5.History of urinary tract infection. Continue broad-spectrum antibiotics. EB/MODL Voice ID: [id number] Report ID: [id number]
[2021-08-01] MEDS: LEVOTHYROXINE SOD 0.1 MG TAB PO SCH (06:12)
[2021-08-01] MEDS ORDERED: REGADENOSON 0.4 MG/5 ML SYR IV ONE (07:11)
[2021-08-01] MEDS: ASPIRIN EC 81 MG TAB PO SCH (08:45)
[2021-08-01] MEDS: PANTOPRAZOLE 40MG TABLET PO SCH (08:45)
[2021-08-01] MEDS: NITROFURAN MACRO 100 MG CAP PO SCH ×2 (08:46→21:42)
[2021-08-01] MEDS: CLOPIDOGREL 75 MG TABLET PO SCH (08:46)
[2021-08-01] MEDS: HEPARIN 5000 UNIT/ML 1 ML VIAL SQ SCH ×2 (08:46→21:43)
[2021-08-01] MEDS: MIDODRINE HCL 5 MG TABLET PO SCH ×3 (08:47→21:42)
[2021-08-01] MEDS ORDERED: ONDANSETRON 4 MG/2 ML VIAL ONE (13:35)
--- NOTE | 2021-08-01 14:15 | RAD REPORT ---
EXAM DESCRIPTION: NM - Rest Stress Cardiac Imaging - 08/01/2021 2:07 pm CLINICAL HISTORY: CP Chest pain. COMPARISON: ECHOCARDIOGRAM dated 07/07/2012 TECHNIQUE: The patient was administered approximately 10mCi of Tc 99m Sestamibi prior to resting SPE CT imaging of the heart. The patient was then administered approximately 30 mCi of Tc 99m Sestamibi f ollowing exercise or pharmacologic stress. Multiplanar SPECT images were reviewed. FINDINGS: There is moderate diminishment in radiopharmaceutical accumulation seen involving a modera te sized area of the anterior wall extending to the apex. Ventricular dilatation with stress is also seen. The end diastolic volume is 177 ml, the end systolic volume is 146 ml, and the ejection fraction is 1 8 %. IMPRESSION: Moderately severe stress-induced ischemia involving the anterior wall extending to the a pex.
--- NOTE | 2021-08-01 16:52 | P.PN ---
Subjective Date of Service: 08/01/21 Chief Complaint: UTI, ARF Subjective: Other (Positive stress test) Physical Examination - Vital Signs Temperature: 97.2 F Blood Pressure: 136/79 Pulse: 76 Respirations: 20 Pulse Ox (%): 97 - Physical Exam General: In no apparent distress, Cooperative HEENT: Atraumatic, Normocephalic Respiratory: Normal air movement Cardiovascular: Regular rate/rhythm, Normal S1 S2, Systolic murmur Neurological: Normal speech, Normal affect - Studies Microbiology Data (last 24 hrs): 07/28/21 18:00 Blood - Blood Aerobic Blood Culture - Final No growth in 5 days. 07/28/21 18:00 Blood - Blood Anaerobic Blood Culture - Final 07/28/21 18:00 Blood - Blood Gram Stain - Final Assessment And Plan - Current Problems (Diagnosis) (1) UTI (urinary tract infection) Current Visit: Yes Status: Acute (2) Acute metabolic encephalopathy Current Visit: Yes Status: Acute (3) Acute congestive heart failure Current Visit: No Status: Acute Qualifiers: (4) Atrial fibrillation Current Visit: No Status: Acute Qualifiers: (5) CAD (coronary artery disease) Current Visit: No Status: Chronic Qualifiers: Coronary Disease-Associated Artery/Lesion type: unspecified vessel or lesion type [place] vs. transplanted heart: [place] heart Associated angina: without angina Qualified Code(s): I25.10 - Atherosclerotic heart disease of [place] coronary artery without angina pectoris (6) COPD (chronic obstructive pulmonary disease) Current Visit: No Status: Chronic Qualifiers: (7) Hypertension Current Visit: No Status: Chronic Qualifiers: (8) Hypothyroidism Current Visit: No Status: Chronic Qualifiers: Physician Review Additional Text: 07/29/21 10:56 Assessment Patient is a 89-year-old female with a past medical history of chronic systolic CHF, atrial fibrillation, hypertension and GERD. She was admitted overnight her work-up so far here is suggestive of urinary tract infection. She had a lactic acid of 3.4 on admission. after she was found to be confused at the correction. She has done well overall. Unfortunately, she developed an episode of non-sustained V tach on 07/31 and had a positive nuclear stress test the following day V tach Metabolic encephalopathy UTI Acute on chronic CKD stage III Bacteremia Lactic acidosis Elevated troponin-most likely demand ischemia Hypotension Hypothyroidism PLAN: Positive stress test. Heart cath possibly Wednesday Continue medical management Continue nitrofurantoin for green-sensitive E. coli UTI Continue levothyroidism at 100 mcg daily Continue midodrine for borderline BP Continue DAPT Continue holding coreg and spironolactone until BP permits Heparin subc for DVT ppx 08/01/21 17:01
[2021-08-01] MEDS: MELATONIN 5 MG TABLET PO SCH (21:42)
--- NOTE | 2021-08-01 22:01 | PN ---
Date of Progress Note: 08/01/2021 Subjective: Seen by bedside. No new changes. Review of Systems: No chest pain, shortness of breath, orthopnea, cough, nausea, vomiting, diarrhea. No abdominal pain. All other systems that are reviewed are negative. Physical Examination: Vital Signs: Reviewed. Head and Neck: Pupils are equal, reactive to light. Intact eye movements. No JVD. No cervical lym phadenopathy. Neck: Supple. Thyroid is not enlarged. Lungs: Decreased breathing sounds bilaterally. No crackles or wheezing. Heart: Irregular. No extra sounds. Abdomen: Soft, nontender. Bowel sounds positive. No organomegaly. No masses or hernia. No rigidi ty or rebound. Extremities: 2+ pitting edema bilaterally. No clubbing or cyanosis. Intact pulses. Skin: No rash or nodules. Neurological: Alert, awake. No acute focal deficits appreciated. Investigations: Labs were reviewed. Assessment And Recommendation: 1.Systolic congestive heart failure with fluid retention signs. She will benefit from low-dose diur etics like Lasix 20 mg daily and workup for ischemia is warranted. She will need a coronary angiogra m which we will schedule for her at the later time for next week. 2.Elevated troponin. Mild troponin leak. The stress test was done. It was positive for anterolate ral ischemia and low ejection fraction. Recommend coronary angiogram which we will do sometimes early next week. SR/MODL Voice ID: [id number] Report ID: [id number]
--- NOTE | 2021-08-02 02:55 | PN ---
Date of Progress Note: 08/01/2021 Chief Complaint: Acute on chronic kidney injury. History Of Present Illness: Patient is an 89-year-old woman with history of systolic dysfunction, co ngestive heart failure exacerbation, atrial fibrillation, GERD, hypothyroidism. She came [facility] the hosp ital because of altered mental status. She became confused. She is a [facility] resident and rece ntly she was complaining of difficulty with urination and dysuria. Urinary tract infection was treat ed with antibiotics in the past. On arrival to the hospital, creatinine level was up to 2.6 and GFR declined to 17, BUN was 49. Patient had lactic acidosis. The patient had a urinalysis done and it s howed positive leukocyte esterase and positive proteinuria. Review of Systems: Denies fever, chills. Physical Examination: Lungs: Clear to auscultation bilaterally. Heart: S1, S2. Abdomen: Soft, benign. Extremities: Slight edema. Impression And Plan: 1.Acute on chronic kidney injury. Renal function has improved. Patient will continue p.o. hydratio n. Plan is to discontinue IV fluids. 2.Rhabdomyolysis. Screen was done to rule out rhabdomyolysis and it was not identified in this part icular patient. Patient may require diuretic for cardiorenal syndrome. Continue to adjust hydration according to volume status. 3.Hypothyroid. Monitor TSH. 4.Hyponatremia consistent with fluid overload and cardiorenal syndrome. Monitor TSH level. Patient may need to resume diuretic. 5.History of urinary tract infection. Continue broad-spectrum antibiotics. EB/MODL Voice ID: [id number] Report ID: [id number]
[2021-08-02] MEDS: LEVOTHYROXINE SOD 0.1 MG TAB PO SCH (05:36)
--- NOTE | 2021-08-02 08:30 | P.PN ---
Subjective Date of Service: 08/02/21 Chief Complaint: UTI, ARF Subjective: Other (Code stroke called late afternoon. CT Brain with a small R parietal stroke) Physical Examination - Vital Signs Temperature: 97.2 F Blood Pressure: 106/64 Pulse: 80 Respirations: 16 Pulse Ox (%): 97 - Physical Exam General: Alert, In no apparent distress, Cooperative HEENT: Atraumatic, Normocephalic Cardiovascular: Systolic murmur Neurological: Normal speech, Normal affect - Studies Microbiology Data (last 24 hrs): 07/28/21 18:00 Blood - Blood Aerobic Blood Culture - Final No growth in 5 days. 07/28/21 18:00 Blood - Blood Anaerobic Blood Culture - Final 07/28/21 18:00 Blood - Blood Gram Stain - Final Assessment And Plan - Current Problems (Diagnosis) (1) UTI (urinary tract infection) Current Visit: Yes Status: Acute (2) Acute metabolic encephalopathy Current Visit: Yes Status: Acute (3) Acute congestive heart failure Current Visit: No Status: Acute Qualifiers: (4) Atrial fibrillation Current Visit: No Status: Acute Qualifiers: (5) CAD (coronary artery disease) Current Visit: No Status: Chronic Qualifiers: Coronary Disease-Associated Artery/Lesion type: unspecified vessel or lesion type [place] vs. transplanted heart: [place] heart Associated angina: without angina Qualified Code(s): I25.10 - Atherosclerotic heart disease of [place] coronary artery without angina pectoris (6) COPD (chronic obstructive pulmonary disease) Current Visit: No Status: Chronic Qualifiers: (7) Hypertension Current Visit: No Status: Chronic Qualifiers: (8) Hypothyroidism Current Visit: No Status: Chronic Qualifiers: Physician Review Additional Text: 07/29/21 10:56 Assessment Patient is a 89-year-old female with a past medical history of chronic systolic CHF, atrial fibrillation, hypertension and GERD. She was admitted overnight her work-up so far here is suggestive of urinary tract infection after she was found to be confused at the half-way. She had a lactic acid of 3.4 on admission. She has done well overall. Unfortunately, she developed an episode of non-sustained V tach on 07/31 and had a positive nuclear stress test the following day. Code stroke called late afternoon of 08/01. LSN at 13:00 as per patient care note. MD was not notified until heard code stroke a few hours. Patient has drooping. No other focal deficits. Mental status intact. BP and BG. Acute stroke V tach Metabolic encephalopathy UTI Acute on chronic CKD stage III Bacteremia Lactic acidosis Elevated troponin-most likely demand ischemia Hypotension Hypothyroidism PLAN: She doesn't qualify for tPA due presence of stroke on CT Brain, and possibly outside window for tPA CTA head to evaluate for potential [place] tPA Follow up Brain MRI Appreciate assistance from Dr. Walden Positive stress test. Heart cath possibly Wednesday Continue medical management Continue nitrofurantoin for green-sensitive E. coli UTI Continue levothyroidism at 100 mcg daily Continue midodrine for borderline BP Continue DAPT Continue holding coreg and spironolactone until BP permits Heparin subc for DVT ppx 08/02/21 17:53
[2021-08-02] MEDS: HEPARIN 5000 UNIT/ML 1 ML VIAL SQ SCH ×2 (09:19→23:00)
[2021-08-02] MEDS: CLOPIDOGREL 75 MG TABLET PO SCH (09:19)
[2021-08-02] MEDS: MIDODRINE HCL 5 MG TABLET PO SCH ×3 (09:19→22:56)
[2021-08-02] MEDS: NITROFURAN MACRO 100 MG CAP PO SCH ×2 (09:20→22:59)
[2021-08-02] MEDS: PANTOPRAZOLE 40MG TABLET PO SCH (09:20)
[2021-08-02] MEDS: ASPIRIN EC 81 MG TAB PO SCH (09:20)
--- NOTE | 2021-08-02 17:22 | RAD REPORT ---
EXAM DESCRIPTION: CT - Ct Stroke Brain Wo Cont - 08/02/2021 5:12 pm CLINICAL HISTORY: facial drooping, change in orientation COMPARISON: Head Brain Wo Cont dated 08/20/2015 TECHNIQUE: All CT scans are performed using dose optimization technique as appropriate and may inclu de automated exposure control or mA/KV adjustment according to patient size. FINDINGS: No intracranial hemorrhage, hydrocephalus or extra-axial fluid collection.White matter hyp oattenuation in the right parietal lobe involving the cortex. . Chronic small vessel ischemic changes . The paranasal sinuses and mastoids are clear. The calvarium is intact. IMPRESSION: Findings suspicious for small acute right parietal cortical infarct.
[2021-08-02] MEDS: FOLIC ACID 1 MG TABLET PO SCH (18:29)
--- NOTE | 2021-08-02 19:03 | RAD REPORT ---
EXAM DESCRIPTION: CT - Head angio - 08/02/2021 6:53 pm CLINICAL HISTORY: CVA COMPARISON: Ct Stroke Brain Wo Cont dated 08/02/2021; Head Brain Wo Cont dated 08/20/2015 TECHNIQUE: CT angiography of the head was performed with MIPs. All CT scans are performed using dose optimization technique as appropriate and may include automated exposure control or mA/KV adjustment according to patient size. FINDINGS: Anterior circulation: No aneurysm or large vessel occlusion. No hemodynamically significant stenosis. No arteriovenous malf ormation identified. Calcified bilateral ICA plaque. Posterior circulation: No aneurysm or large vessel occlusion. No hemodynamically significant stenosis. No arteriovenous malf ormation identified. 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 IMPRESSION: No significant flow abnormality is detected.
--- NOTE | 2021-08-02 21:52 | PN ---
Date of Progress Note: 08/02/2021 Chief Complaint: Acute on chronic kidney injury. History Of Present Illness: The patient is an 89-year-old woman with history of systolic dysfunction , congestive heart failure exacerbation, atrial fibrillation, GERD, hypothyroidism. She came to the hospital because of altered mental status. She was found to have urinary tract infection, was treate d with antibiotics. On arrival to the hospital, creatinine level was 2.6. GFR declined to 17. The patient had lactic acidosis and the patient was found to have leukocyte esterase positive as well as presence of proteinuria. Review of Systems: Patient denies new complaints. Physical Examination: Lungs: Clear to auscultation bilaterally. Heart: S1, S2. Abdomen: Soft, benign. Extremities: Slight edema. Impression And Plan: 1.Acute on chronic kidney injury. Renal function has improved in response to IV fluids. 2.Urinary tract infection. Continue antibiotics. 3.Hypothyroidism. Monitor TSH level. 4.Hyponatremia, due to fluid overload and cardiorenal syndrome. Continue diuretics as needed. Curr ently, the patient is on p.o. intake. 5.Altered mental status. The patient had workup for stroke today. Further recommendations by [facility] team. SEDRICK/MODL Voice ID: [id number] Report ID: [id number]
[2021-08-02] MEDS: MELATONIN 5 MG TABLET PO SCH (22:56)
[2021-08-02] MEDS: ATORVASTATIN 40 MG TAB PO SCH (22:56)
[2021-08-03] MEDS: LEVOTHYROXINE SOD 0.1 MG TAB PO SCH (05:36)
[2021-08-03 08:36] LABS: Absolute Lymphocytes (CBC) 0.8 K/uL (0.7-4.9); Lymphocytes % 13.9 % (15.3-44.8); MPV 8.8 fL (7.6-11.3); RBC Red Blood Cell Count 4.35 M/uL (3.86-4.86)
--- NOTE | 2021-08-03 09:24 | P.PN ---
Subjective Date of Service: 08/03/21 Chief Complaint: UTI, ARF Subjective: Improving (No acute events overnight.) Physical Examination - Vital Signs Temperature: 98.2 F Blood Pressure: 138/84 Pulse: 78 Respirations: 18 Pulse Ox (%): 96 - Physical Exam General: Alert, In no apparent distress, Cooperative HEENT: Atraumatic, Normocephalic Respiratory: Normal air movement Cardiovascular: Regular rate/rhythm, Normal S1 S2, Systolic murmur Neurological: Normal speech, Normal affect, Other (mild facial drop) - Studies Microbiology Data (last 24 hrs): 07/28/21 18:10 Blood - Blood Aerobic Blood Culture - Final No growth in 5 days. 07/28/21 18:10 Blood - Blood Anaerobic Blood Culture - Final No growth in 5 days. Assessment And Plan - Current Problems (Diagnosis) (1) UTI (urinary tract infection) Current Visit: Yes Status: Acute (2) Acute metabolic encephalopathy Current Visit: Yes Status: Acute (3) Acute congestive heart failure Current Visit: No Status: Acute Qualifiers: (4) Atrial fibrillation Current Visit: No Status: Acute Qualifiers: (5) CAD (coronary artery disease) Current Visit: No Status: Chronic Qualifiers: Coronary Disease-Associated Artery/Lesion type: unspecified vessel or lesion type [place] vs. transplanted heart: [place] heart Associated angina: without angina Qualified Code(s): I25.10 - Atherosclerotic heart disease of [place] cor onary artery without angina pectoris (6) COPD (chronic obstructive pulmonary disease) Current Visit: No Status: Chronic Qualifiers: (7) Hypertension Current Visit: No Status: Chronic Qualifiers: (8) Hypothyroidism Current Visit: No Status: Chronic Qualifiers: Physician Review Additional Text: 07/29/21 10:56 Assessment Patient is a 89-year-old female with a past medical history of chronic systolic CHF, atrial fibrillation, hypertension and GERD. She was admitted overnight her work-up so far here is suggestive of urinary tract infection after she was found to be confused at the snf. She had a lactic acid of 3.4 on admission. She has done well overall. Unfortunately, she developed an episode of non-sustained V tach on 07/31 and had a positive nuclear stress test the following day. Code stroke called late afternoon of 08/01. LSN at 13:00 as per patient care note. MD was not notified until heard code stroke a few hours. Patient has drooping. No other focal deficits. Mental status intact. BP and BG WNL. Acute stroke V tach Metabolic encephalopathy UTI Acute on chronic CKD stage III Bacteremia Lactic acidosis Elevated troponin-most likely demand ischemia Hypotension Hypothyroidism PLAN: She didn't qualify for tPA due presence of stroke on CT Brain, and possibly outside window for tPA CTA head negative, follow up Brain MRI Dr. Walden has been consulted Positive stress test. Heart cath possibly Wednesday Continue medical management Continue nitrofurantoin for green-sensitive E. coli UTI Continue levothyroidism at 100 mcg daily Continue midodrine for borderline BP Continue DAPT Continue holding coreg and spironolactone until BP permits Heparin subc for DVT ppx 08/02/21 17:53 08/03/21 09:23
[2021-08-03] MEDS: FOLIC ACID 1 MG TABLET PO SCH (09:29)
[2021-08-03] MEDS: NITROFURAN MACRO 100 MG CAP PO SCH ×2 (09:30→21:23)
[2021-08-03] MEDS: CLOPIDOGREL 75 MG TABLET PO SCH (09:30)
[2021-08-03] MEDS: MIDODRINE HCL 5 MG TABLET PO SCH ×3 (09:30→21:23)
[2021-08-03] MEDS: PANTOPRAZOLE 40MG TABLET PO SCH (09:30)
[2021-08-03] MEDS: ASPIRIN EC 81 MG TAB PO SCH (09:30)
[2021-08-03] MEDS: HEPARIN 5000 UNIT/ML 1 ML VIAL SQ SCH ×2 (09:30→21:23)
--- NOTE | 2021-08-03 19:46 | PN ---
Date of Progress Note: 08/03/2021 Subjective: Seen by bedside. No new complaints. Review of Systems: No chest pain. No shortness of breath, orthopnea. No nausea, vomiting, diarrhea. All other systems reviewed are negative. Physical Examination: Vital Signs: Reviewed. Head and Neck: Pupils reactive to light. No JVD. No cervical lymphadenopathy. Neck is supple. Th yroid is not enlarged. Lungs: Clear auscultation bilaterally. No rhonchi, rales, or crackles. Heart: Irregular with aortic systolic murmur. Abdomen: Soft, nondistended, nontender. Bowel sounds positive. No organomegaly. No masses or favian ia. No rigidity or rebound. Extremities: No clubbing, cyanosis. Positive edema. Skin: No rashes. Neuro: Alert, awake with no focal acute focal deficits appreciated. Investigations: Her hemoglobin is 12.7. Creatinine is 1.08. Assessment And Recommendations: 1.Congestive heart failure with significant systolic dysfunction and known to have coronary artery d isease. She appears to be euvolemic. We will monitor. 2.Elevated troponin with known coronary artery disease and low ejection fraction. I recommend coron uvaldo angiogram with bypass graft study. We will do tomorrow morning, keep n.p.o. past midnight. 3.Aortic valve stenosis, appears to be severe; however, echo windows were limited. Was to do the co ronary angiogram to cross the aortic valve and get invasive gradient to evaluate the need for valve replacement. SR/MODL Voice ID: [id number] Report ID: [id number]
[2021-08-03] MEDS: MELATONIN 5 MG TABLET PO SCH (21:23)
[2021-08-03] MEDS: ATORVASTATIN 40 MG TAB PO SCH (21:23)
--- NOTE | 2021-08-04 01:34 | PN ---
Date of Progress Note: 08/03/2021 Chief Complaint: Acute on chronic kidney injury. Subjective: The patient is an 89-year-old woman with history of systolic dysfunction, congestive heart failure, atrial fibrillation, GERD, hypothyroidism. She developed acute kidney injury. On arrival to the hospital, creatinine level was 2.6 and GFR declined to 1.7. The patient has chronic kidney disease associated with proteinuria. The patient has stage III chronic kidney disease due to benign nephrosclerosis. Review of Systems: The patient denies complaints. Objective: Lungs: Clear to auscultation bilaterally. Heart: S1 and S2. Abdomen: Soft, benign. Extremities: Slight edema. Impression And Plan: 1. Acute on chronic kidney injury. Renal function has improved in response to IV diuretic. Avoid nephrotoxic medications. Monitor fluid balance and urine output. 2. Urinary tract infection. Continue antibiotics. 3. Hypothyroidism. Monitor electrolytes and TSH level. 4. Hyponatremia due to fluid overload and cardiorenal syndrome. resume diuretic. 5. Altered mental status. The patient had a workup for stroke. She was found to have subacute stroke. Further recommendation from primary team and Neurology. SEDRICK/MODL Voice ID: [id number] Report ID: [id number] ABELARDO
[2021-08-04] MEDS: LEVOTHYROXINE SOD 0.1 MG TAB PO SCH (06:56)
[2021-08-04] MEDS: CLOPIDOGREL 75 MG TABLET PO SCH (06:56)
[2021-08-04] MEDS: ASPIRIN EC 81 MG TAB PO SCH (06:56)
--- NOTE | 2021-08-04 08:01 | TREADPHA ---
DX: VENTRICULAR TACHYCARDIA Date of Study: 08/01/21 Ht: 5' 0 " Wt: 161 lb 0 oz Consulting Physician: FLORINDA MEDICATIONS: ASPIRIN, PLAVIX, SNYTHROID, PROTONIX, ZOFRAN, HEPARIN, HISTORY: 89 YEAR OLD FEMALE WITH COMPLAINTS OF VENTRICULAR TACHYCARDIA, HISTORY OF CORONARY ARTERY BYPASS GRAFT, HYPOTHYROIDISM, HYPERTENSION, COPD, DYSLIPIDEMIA, NO SMOKING OR DRUG USE, OR ALCOHOL PHYSICIAL EXAMINATION: RESTING B.P.: 100/66 RESTING H.R.: 90 RESTING EKG: SINUS WITH LEFT BUNDLE BRANCH BLOCK PROTOCOL: LEXISCAN EXERCISE TIME: 3:30 B.P. AT PEAK STRESS: 69/50 IMPRESSION: LEXISCAN INJECTED FOLLOWED BY CARDIOILITE INJECTION. SEE NUCLEAR MEDICINE REPORT. NO CHEST PAIN, PREMATURE VENTRICULAR COMLEXES UPON INJECTION OF CARDIOLITE. NO VENTRICULAR TACHYCARDIA, NO SUPRA VENTRICULAR TACHYCARDIA NO PREMATURE ATRIAL COMLEXES. PATIENT NAUSEATED, GAVE MEDICATIONS ORDERED. NO EKG CHANGES WITH LEXISCAN. 0131 4MG ZOFRAN
--- NOTE | 2021-08-04 08:21 | ECHO ---
HEIGHT: 5 ft 0 in WEIGHT: 161 lb 0 oz DATE OF STUDY: 08/01/[address]: Handy Tariq NP 2-DIMENSIONAL: YES M.MODE: YES DOPPLER: YES COLOR FLOW: YES TDS: NO PORTABLE: NO DEFINITY: NO BUBBLE STUDY: NO DIAGNOSIS: ELEVATED TROPONIN CARDIAC HISTORY: CATHERIZATION: NO SURGERY: YES PROSTHETIC VALVE: NO PACEMAKER: NO MEASUREMENTS (cm) DIASTOLIC (NORMALS) SYSTOLIC (NORMALS) IVSd 1.1 (0.6-1.2) LA Diam 3.5 (1.9-4.0) LVEF 32% LVIDd 4.7 (3.5-5.7) LVIDs 4.0 (2.0-3.5) %FS 15% LVPWd 1.4 (0.6-1.2) Ao Diam 3.2 (2.0-3.7) 2 DIMENSIONAL ASSESSMENT: RIGHT ATRIUM: NORMAL LEFT ATRIUM: NORMAL RIGHT VENTRICLE: NORMAL LEFT VENTRICLE: DEPRESSED TRICUSPID VALVE: MILD TRICUSPID REGURGITATION MITRAL VALVE: AT LEAST MODERATE MITRAL REGURGITATION PULMONIC VALVE: MILD TRICUSPID REGURGITATION AORTIC VALVE: CALCIFIED WITH MILD AORTIC INSUFFICIENCY PERICARDIAL EFFUSION: NONE AORTIC ROOT: NORMAL LEFT VENTRICULAR WALL MOTION: SEVERE GARFIELD-SEPTAL AND ANTERIOR WALL HYPOKINESIS. DOPPLER/COLOR FLOW: SEE BELOW. COMMENTS: MODERATELY DEPRESSED LEFT VENTRICULAR EJECTION FRACTION 30-35%. ANTERIOR/ ANTEROSEPTAL SEVERE HYPOKINESIS. AT LEAST MODERATE MITRAL REGURGITATION. AORTIC STENOSIS WITH UNCERTAIN SEVERITY DUE TO POOR WINDOWS. MILD TRICUSPID REGURGITATION TECHNOLOGIST: ILA PARK
--- NOTE | 2021-08-04 09:03 | RAD REPORT ---
EXAM DESCRIPTION: MRI - Brain W/Wo Cont - 08/04/2021 8:37 am CLINICAL HISTORY: Facial droop/CVA COMPARISON: head CT August 02, 2021 TECHNIQUE: Axial, sagittal, and coronal magnetic images of the brain were obtained. 20 cc MultiHance administered intravenously FINDINGS: A 2.5 centimeter area of abnormal signal right parietal lobes compatible with acute infarc tion. Enhancement is demonstrated. 0.8 centimeter area of abnormal signal right mamadou iinsular region consistent with acute infarction. Moderate signal within periventricular, deep and subcortical white matter probably ischemic changes s econdary to small vessel disease The ventricles are normal in caliber. No abnormal enhancement within the brain is seen. An extra-axial fluid collection is not noted. Fluid within the sinuses/mastoids is not seen IMPRESSION: Acute right parietal lobe infarction Small acute right mamadou insular infarction
--- NOTE | 2021-08-04 09:17 | RAD REPORT ---
EXAM DESCRIPTION: MRI - MRA Neck W/Wo Cont - 08/04/2021 8:37 am CLINICAL HISTORY: CVA COMPARISON: None. TECHNIQUE: Magnetic resonance angiogram of the neck was performed. 16 cc MultiHance was administered intravenously. 3D MIPS reconstruction performed FINDINGS: Mild plaque within the common carotid and internal carotid arteries bilaterally. Marked plaque right external carotid artery. Moderate plaque left external carotid artery. Vertebral arteries are codominant without significant stenosis. No dissection seen. The vertebral arteries are codominant without visualization of an abnormality. IMPRESSION: Mild plaque common and internal carotid arteries High-grade stenosis right external carotid artery NASCET criteria used. Mild 0-49% stenosis Moderate 50-69% stenosis Severe 70-99% stenosis
--- NOTE | 2021-08-04 09:21 | RAD REPORT ---
EXAM DESCRIPTION: MRI - MRA Head Wo Cont - 08/04/2021 8:36 am CLINICAL HISTORY: CVA COMPARISON: None. TECHNIQUE: Magnetic resonance angiogram was performed. 3D MIPS reconstruction performed FINDINGS: High-grade short-segment stenosis distal M1 segment right middle cerebral artery. High-grade short-segment stenosis right anterior A1 segment cerebral artery origin right posterior cerebral artery. Remainder of the anterior cerebral, middle cerebral, posterior cerebral, basilar and distal internal carotid arteries do not demonstrate a significant abnormality. An aneurysm is not displayed. 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 High-grade stenosis right anterior A1 segment cerebral artery
[2021-08-04] MEDS: MIDODRINE HCL 5 MG TABLET PO SCH ×3 (09:37→21:00)
[2021-08-04] MEDS: FOLIC ACID 1 MG TABLET PO SCH ×2 (15:10→15:12)
[2021-08-04] MEDS: HEPARIN 5000 UNIT/ML 1 ML VIAL SQ SCH ×2 (15:11→21:00)
[2021-08-04] MEDS: PANTOPRAZOLE 40MG TABLET PO SCH (15:12)
--- NOTE | 2021-08-04 19:10 | P.PN ---
Date of Service: 08/04/21 Subjective Subjective: Patient doing well with no new complaints Physical Examination - Vital Signs reviewed - Physical Exam General: Alert, In no apparent distress, Cooperative HEENT: Atraumatic, Normocephalic Respiratory: Normal air movement Cardiovascular: Regular rate/rhythm, Normal S1 S2, Systolic murmur Neurological: Normal speech, Normal affect, Other (mild facial drop) Assessment And Plan - Current Problems (Diagnosis) (1) UTI (urinary tract infection) Current Visit: Yes Status: Acute (2) Acute metabolic encephalopathy Current Visit: Yes Status: Acute (3) Acute congestive heart failure Current Visit: No Status: Acute (4) Atrial fibrillation Current Visit: No Status: Acute (5) CAD (coronary artery disease) Current Visit: No Status: Chronic Coronary Disease-Associated Artery/Lesion type: unspecified vessel or lesion type [place] vs. transplanted heart: [place] heart Associated angina: without angina Qualified Code(s): I25.10 - Atherosclerotic heart disease of [place] coronary artery without angina pectoris (6) COPD (chronic obstructive pulmonary disease) Current Visit: No Status: Chronic (7) Hypertension Current Visit: No Status: Chronic (8) Hypothyroidism Current Visit: No Status: Chronic Assessment: 1. Acute stroke 2. V. tach 3. Metabolic encephalopathy 4. UTI 5. Acute on chronic CKD stage III 6. Bacteremia 7. Lactic acidosis 8. Elevated troponin-most likely demand ischemia 9. Hypotension 10. Hypothyroidism PLAN: -Pt doing better; clinically stable; however, with CVA family is contemplating not doing cardiac cath; will d/w cardiology -CTA head negative, follow-up MRI brain -Dr. Walden has been consulted -Positive stress test. Cardiac cath ? -Continue medical management -Continue nitrofurantoin for green-sensitive E. coli UTI -Continue levothyroidism at 100 mcg daily -Continue midodrine for borderline BP -Continue DAPT -Continue holding coreg and spironolactone until BP permits -Heparin subc for DVT ppx
[2021-08-04] MEDS: ATORVASTATIN 40 MG TAB PO SCH (21:00)
[2021-08-04] MEDS: MELATONIN 5 MG TABLET PO SCH (21:00)
[2021-08-05] MEDS: LEVOTHYROXINE SOD 0.1 MG TAB PO SCH (06:06)
--- NOTE | 2021-08-05 07:54 | P.PN ---
Subjective Date of Service: 08/05/21 Chief Complaint: UTI, ARF Subjective: No new changes Physical Examination - Vital Signs Temperature: 98.5 F Blood Pressure: 134/73 Pulse: 85 Respirations: 16 Pulse Ox (%): 96 - Physical Exam General: Other (appears as her stated age) HEENT: Atraumatic, Normocephalic Neck: Supple, JVD not distended Respiratory: Other (symmetric chest expansion) Cardiovascular: No rubs, No murmurs Gastrointestinal: Soft and benign, No guarding Musculoskeletal: No clubbing Integumentary: No warmth Neurological: Normal tone Urinary: Other (no bladder distention) External genitalia: Deferred Rectal: Deferred Assessment And Plan - Plan 1. Acute on chronic kidney injury. Renal function has improved to SCr 1.1. liberal by mouth fluid intake. Monitor fluid balance and urine output. 2. Urinary tract infection. Antibiotics. 3. Hypothyroidism. Monitor electrolytes and TSH level. 4. Altered mental status w/ acute stroke. Per other services. 5. Hyponatremia. Improved to serum Na 137. liberal by mouth fluid intake. 6. Dispo. Will sign off. Thank you for this referral.
[2021-08-05] MEDS: HEPARIN 5000 UNIT/ML 1 ML VIAL SQ SCH ×2 (09:58→21:28)
[2021-08-05] MEDS: ASPIRIN EC 81 MG TAB PO SCH (09:59)
[2021-08-05] MEDS: CLOPIDOGREL 75 MG TABLET PO SCH (09:59)
[2021-08-05] MEDS: PANTOPRAZOLE 40MG TABLET PO SCH (09:59)
[2021-08-05] MEDS: MIDODRINE HCL 5 MG TABLET PO SCH ×3 (09:59→21:28)
--- NOTE | 2021-08-05 12:49 | PN ---
Date of Progress Note: 08/04/2021 Chief Complaint: [id number]-[id number]-[id number] kidney injury. Subjective: The patient is an 89-year-old woman with history of systolic dysfunction, congestive hea rt failure, atrial fibrillation, GERD, hypothyroidism. She developed acute kidney injury. On arriva l to the hospital, creatinine level was 2.6 and GFR declined to 17. The patient had lactic acidosis. During this admission, the patient developed CVA. She has undergone workup for acute CVA. The pat ient denies complaints. She is conversant and denies chest pain or palpitation. Objective: Lungs: Clear to auscultation bilaterally. Heart: S1 and S2. Abdomen: Soft, benign. Extremities: Minimal edema. Impression And Plan: 1.[id number]-[id number] kidney injury. Renal function has improved. The patient responded to IV fluids. She did not require dialysis. Continue to avoid nephrotoxic medication. Monitor fluid balance and urine output. 2.Urinary tract infection. Continue antibiotics. 3.Hypothyroidism. Monitor TSH level. Adjust treatment accordingly. 4.Hyponatremia due to fluid overload and cardiorenal syndrome. Continue diuretics. Furosemide will be used in this particular patient. 5.Altered mental status. The patient had a workup done for stroke. Further recommendation from Tato ramirez and primary team. SEDRICK/BENJY Voice ID: [id number] Report ID: [id number]
[2021-08-05] MEDS: MELATONIN 5 MG TABLET PO SCH (21:28)
[2021-08-05] MEDS: ATORVASTATIN 40 MG TAB PO SCH (21:28)
[2021-08-06] MEDS: LEVOTHYROXINE SOD 0.1 MG TAB PO SCH (05:38)
--- NOTE | 2021-08-06 08:25 | P.PN ---
Date of Service: 08/05/21 Subjective Patient continues to improve with no new complaints; d/w Cardiology and plan to do medical management Physical Examination - Vital Signs reviewed - Physical Exam General: Alert, In no apparent distress, Cooperative HEENT: WNL Respiratory: Normal air movement Cardiovascular: Regular rate/rhythm, Normal S1 S2, Systolic murmur Neurological: Normal speech, Normal affect, Other (mild facial drop) Assessment And Plan - Current Problems (Diagnosis) (1) UTI (urinary tract infection) Current Visit: Yes Status: Acute (2) Acute metabolic encephalopathy Current Visit: Yes Status: Acute (3) Acute congestive heart failure Current Visit: No Status: Acute (4) Atrial fibrillation Current Visit: No Status: Acute (5) CAD (coronary artery disease) Current Visit: No Status: Chronic Coronary Disease-Associated Artery/Lesion type: unspecified vessel or lesion type [place] vs. transplanted heart: [place] heart Associated angina: without angina Qualified Code(s): I25.10 - Atherosclerotic heart disease of [place] coronary artery without angina pectoris (6) COPD (chronic obstructive pulmonary disease) Current Visit: No Status: Chronic (7) Hypertension Current Visit: No Status: Chronic (8) Hypothyroidism Current Visit: No Status: Chronic Assessment: 1. Acute stroke 2. V. tach 3. Metabolic encephalopathy 4. UTI 5. Acute on chronic CKD stage III 6. Bacteremia 7. Lactic acidosis 8. Elevated troponin-most likely demand ischemia 9. Hypotension 10. Hypothyroidism PLAN: -MRI confirmed CVA; multiple stenotic lesions; medical management -CTA head negative, follow-up MRI brain -Dr. Walden has been consulted -Positive stress test. B/c of CVA just medical management -Continue nitrofurantoin for green-sensitive E. coli UTI -Continue levothyroidism at 100 mcg daily -Continue midodrine for borderline BP -Continue DAPT -Continue holding coreg and spironolactone until BP permits -Heparin subc for DVT ppx
[2021-08-06 08:44] VITALS: O2SAT 97
[2021-08-06] MEDS: HEPARIN 5000 UNIT/ML 1 ML VIAL SQ SCH (10:10)
[2021-08-06] MEDS: PANTOPRAZOLE 40MG TABLET PO SCH (10:11)
[2021-08-06] MEDS: ASPIRIN EC 81 MG TAB PO SCH (10:11)
[2021-08-06] MEDS: FOLIC ACID 1 MG TABLET PO SCH (10:11)
[2021-08-06] MEDS: CLOPIDOGREL 75 MG TABLET PO SCH (10:11)
[2021-08-06] MEDS: MIDODRINE HCL 5 MG TABLET PO SCH (10:11)
[2021-08-06] MEDS ORDERED: MIDODRINE HCL 5 MG TABLET PO PRN (11:43)
[2021-08-06 11:48] LABS: Absolute Lymphocytes (CBC) 1.5 K/uL (0.7-4.9); Hematocrit 34.5 % (36.0-45.0); Lymphocytes % 27.3 % (15.3-44.8); MPV 9.5 fL (7.6-11.3); RBC Red Blood Cell Count 3.94 M/uL (3.86-4.86)
[2021-08-06 12:03] LABS: Albumin 2.8 g/dL (3.4-5.0); Bilirubin Total 0.4 mg/dL (0.2-1.0); Magnesium 1.8 mg/dL (1.8-2.4); Potassium 4.1 mmol/L (3.5-5.1); Protein, Total 5.9 g/dL (6.4-8.2)
--- NOTE | 2021-08-06 12:20 | PN ---
Date of Progress Note: 08/06/2021 Subjective: The patient was admitted with acute kidney injury. The patient with hyponatremia, depletional. The patient was started on IV fluid. Kidney function has been normalized. Hyponatremia resolved. Physical Examination: Vital Signs: When I saw the patient; blood pressure of 136/82, pulse of 86, afebrile. The patient had good urine output of voiding. Chest: Clear to auscultation. Heart: S1, S2. Systolic murmur. Abdomen: Soft, nontender. Extremity: Trace edema. Neuro: Alert. Pleasantly confused. Laboratory Data: WBC 6, H and H 10.7/38. Sodium 137, potassium 4, bicarb 24, BUN 14, creatinine 1, GFR of 48, calcium 8.8. TSH 89. Current Medications: The patient on include; 1. Aspirin. 2. Midodrine 5 mg t.i.d. 3. Plavix. 4. Heparin. 5. Atorvastatin. 6. Levothyroxine 100 mcg. 7. Melatonin. Assessment And Plan: 1. Acute kidney injury secondary to prerenal, recovered, resolved. I am going to discontinue IV fluid. 2. Hypertension, currently blood pressure well controlled. I am going to go ahead and change the midodrine to be as needed depending on the blood pressure and we will follow up. 3. Edema possible secondary to midodrine. We will start decreasing the midodrine. I am going to go ahead and repeat a chest x-ray for better evaluation of the fluid status for the patient. 4. Hyponatremia secondary to depletional, resolved. 5. Altered mental status secondary to stroke. We will follow up. time spent exam the patient face to face, reviewing the date radiology and lab , placing order , discussing the case with nursing staff and with hospitalist 45 min DEMETRIO Voice ID: [id number] Report ID: [id number] ABELARDO
[2021-08-06 14:50] LABS: Blood Morphology Comment NOT SEEN (NOT SEEN); Platelet Estimate ADEQ; White Blood Cell Scan OK (OK)
--- NOTE | 2021-08-06 16:10 | RAD REPORT ---
EXAM DESCRIPTION: RAD - Chest Single View - 08/06/2021 3:50 pm CLINICAL HISTORY: COPD COMPARISON: Portable chest 07/28/2021, CT study 07/06/2012 TECHNIQUE: AP portable chest image was obtained 08/06/2021 3:50 pm . FINDINGS: Increased opacification is seen retrocardiac left base which could be atelectasis or infil trate. This area is difficult to accurately assess on portable imaging. Upper left lung field and the right lung field are clear of any focal finding. Interstitial pattern matches comparison. Sternotomy wires are in place. Trachea is midline. Midline lung base masses known hiatal hernia. Hear t and vasculature are normal. No measurable pleural effusion and no pneumothorax. No acute bony abnor mality seen. No acute aortic findings suspected. IMPRESSION: Small focus of retrocardiac left base opacification could be atelectasis or pneumonia. No failure or volume overload.
[2021-08-06 16:46] VITALS: BP 111/61; TEMP 97.2
[2021-08-07] MEDS ORDERED: LEVOTHYROXINE SOD 0.125 MG TAB PO SCH (06:30)
--- NOTE | 2021-08-07 13:02 | PN ---
Date of Progress Note: 08/04/2021 Ms. Alonzo had come in with acute renal failure and UTI and was found to have elevated troponin. The re were some altered mental status changes. She had a positive stress consistent with anterior ische familia. The patient has an ejection fraction of 19%. She is hesitant to have intervention with cardiac catheterization and biventricular pacemaker and ICD. We have decided medical therapy in her case. 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 MRI, however, showed this re cent stroke, so she is not a candidate at this point for a catheterization or intervention because we may have to give her significant blood thinners, which may cause her to bleed on her head. I will c ontinue her present regimen, send her home whenever it is okay with Dr. Looney, and I will see her i n the office soon. OLIVERIO Voice ID: [id number] Report ID: [id number]
== END 2021-08-06 18:59 | disposition home or self-care (01) | DRG 871 ==
LOC: ER 17:26 → ERHOLD 20:20 → 2ND 23:39
PROVIDERS: ADMIT Internal Medicine; ATTEND Internal Medicine
DX: A41.9 Sepsis, unspecified organism (principal); G93.41 Metabolic encephalopathy; I63.9 Cerebral infarction, unspecified; N17.9 Acute kidney failure, unspecified; I13.0 Hypertensive heart and chronic kidney disease with heart failure and stage 1 through stage 4 chronic kidney disease, or unspecified chronic kidney disease; I50.22 Chronic systolic (congestive) heart failure; I47.2 Ventricular tachycardia; N39.0 Urinary tract infection, site not specified; E87.2 Acidosis; E87.1 Hypo-osmolality and hyponatremia; M62.82 Rhabdomyolysis; I24.8 Other forms of acute ischemic heart disease; R65.20 Severe sepsis without septic shock; E03.9 Hypothyroidism, unspecified; N18.30 Chronic kidney disease, stage 3 unspecified; R01.1 Cardiac murmur, unspecified; I25.10 Atherosclerotic heart disease of native coronary artery without angina pectoris; J44.9 Chronic obstructive pulmonary disease, unspecified; I95.9 Hypotension, unspecified; I48.91 Unspecified atrial fibrillation; I35.0 Nonrheumatic aortic (valve) stenosis; K21.9 Gastro-esophageal reflux disease without esophagitis; B96.20 Unspecified Escherichia coli [E. coli] as the cause of diseases classified elsewhere; E86.0 Dehydration; R29.810 Facial weakness; Z95.1 Presence of aortocoronary bypass graft; Z20.822 Contact with and (suspected) exposure to COVID-19
CPT/HCPCS: 36415; 70450; 70496; 70544; 70549; 70553; 71045; 72125; 78452; 80048; 80053; 81003; 81015; 82553; 82947; 83605; 83735; 84439; 84443; 84484; 84550; 85025; 85610; 85730; 87040; 87077; 87086; 87088; 87186; 87205; 93005; 93017; 93306; 96374; 96375; 99285; A9500; A9577; J1644; J2405; J2785; J7030; J7040; Q9967; U0003

== ENCOUNTER 2021-09-14 21:27 | Inpatient (IN) | payer OTHER ==
--- OUTSIDE RECORDS SUMMARY | 2021-09-14 21:29 | XMS REPORT | Continuity of Care Document ---
:1930 Author Organization [facility] t Address [address] [place] [address] Care Team Providers Name Role Phone AIMEE Attending Clinician Unavailable AIMEE Admitting Clinician Unavailable FLORIDALMA Admitting Clinician Unavailable Payers Payer Name Policy Type Policy Number Effective Date Expiration Date S leeann MEDICARE PART A [id number] 1997 00:00:00 BCBS PPO POS EPO [id number] 2019 CHOICE 00:00:00 Problems Condition Condition Condition [...] ents Source Name Type Date Date Clinician sulfa sulfa Active Memoria drugs drugs l [place] penicill penicill Active Memori a in in l [place] Keflex Keflex Active Memoria l [place] Xanax Xanax Active Memoria l [place] Zantac Zantac Active Memoria l [place] Talwin Talwin Active Memoria l [place] Axid Axid Active Memoria l [place] NO KNOWN Allergy Active [facility] ALLERGIE S Vicodin Vicodin Active Memoria l [place] Social History Social Habit Start Date Stop Date Quantity Comments Source Social History 2019-07-05 2019-07-05 [facility] 22:01:59 22:01:59 Medications Ordered Filled Start Stop [...] 0 Miquel julisa 2-19 Refill(s) l 21:30: [place] Losartan 2019-0 Yes 50 mg, PO, Mem oria 2-19 Daily, 0 l 21:30: Refill(s) montelukast 2019-0 Yes 10 mg, PO, Memoria 2-19 Daily, 0 l 21:30: Refill(s) Vital Signs Vital Name Observation Time Observation Value Comments Source WEIGHT 2021-01-30 07:46:00 72.1 kg WEIGHT 2021-01-29 08:00:00 71.7 kg WEIGHT 2021-01-30 07:46:00 72.1 kg WEIGHT 2021-01-29 08:00:00 71.7 kg Systolic (mm Hg) 2019-07-05 21:09:00 Miquel rial [place] Diastolic (mm Hg) 2019-07-05 21:09:00 Desmond alcantaral [place] Heart Rate 2019-07-05 21:09:00 Stacey [place] Respitory Rate 2019-07-05 21:09:00 [facility] Height 2019-07-05 21:09:00 144.78 cm [facility] Weight 2019-07-05 21:09:00 [facility] BMI Calculated 2019-07-05 21:09:00 Get [place] Procedures Procedure Date / Time Performed Performing Clinician Sourc e Bypass [facility] Encounters Start End Encounter Admission Attending Care Care Encounter Source Date/Time Date/Time Type Type Clinicians Facility Department ID 2021-02-23 Inpatient UR AIMEE, [facility] Cardiology [id number] [facility] 12:06:27 DINORAH 2021-01-25 2021-01-25 Outpatient BCM [id number] [facility] 00:00:00 23:59:00 [facility] 2019-08-16 2019-08-17 Outpatient nullFlavo MNA [id number] Memoria 20:15:00 04:59:59 r Neurology 02 l Nina Benítez 2019-07-05 2019-07-06 Outpatient nullFlavo MNA [id number] Memoria 21:15:00 05:59:59 r Neurology 01 l [...] NOT 1092) ACCURATE CRE ATININE CLEARANCE IN MS EDICTING GLOMERULAR FILT RATION RATE. ESTIMATED GFR IS NOT APPLICABLE FOR DIALYSIS PATIENTS. Marketing Administrative Assistant ID - MILENA GSARS-COV2/RT-PCR ([facility])2021-01-30 23:26:53 Test Item Value Reference Range Interpretation Comments SARS-COV2/RT-PCR (test code = Negative Negative [id number]) Negative result for this test determines that [...] Healthcare Providers:[email or web address]://[email or web address].moss/[email or web address]/RT SARS-CoV-2 HCP Fact Sheet 51- 411323.pdfFact Sheet for Healthcare Patients:[email or web address]://[email or web address].moss/[email or web address]/RT SARS-CoV-2 Patient Fact Sheet EN [id number].pdf(CELLAVISION MANUAL DIFF) 2021-01-30 13:10:24 Test Item Value [...] PLATELET CONCENTRATION Adequate (CELLAVISION)(BEAKER) (test code = 3438) CBC W/PLT COUNT & AUTO [id number] 13:10:23 Test Item Value Reference Range Interpretation [...] (BEAKER) (test code = 413) BASIC METABOLIC [id number] 07:09:48 Test Item Value Reference Range Interpretation [...] S NOT APPLICABLE FOR DIALYSIS PATIEN TS. Marketing Administrative Assistant ID - GLADYS MCBC W/PLT COUNT & AUTO [id number] 06:45:31 Test Item Value Reference Range Interpretation [...] (BEAKER) (test code = 2801) BASIC METABOLIC [id number] 06:18:04 Test Item Value Reference Range Interpretation [...] S NOT APPLICABLE FOR DIALYSIS PATIEN TS. Marketing Administrative Assistant ID - PIAYA LCBC W/PLT COUNT & AUTO [id number] 05:03:03 Test Item Value Reference Range Interpretation [...] PERCENT (BEAKER) (test code = 2801) HEMOGLOBIN [id number] 08:51:20 Test Item Value Reference Range Interpretation Comments HEMOGLOBIN A1C (BEAKER) (test code = 5.5 % 4.3-6.1 368) RAD, CHEST, 1 VIEW, NON [id number] 07:27:00Reason for exam:->chfShould this be performed at the bedside?->Yes [facility] 1930 Sex: FFINAL REPORT INDICATION: chf COMPARISON: None TECHNIQUE: Single frontal view of the chest. FINDINGS: Lungs and pleura: Mild left retrocardiac atelectasis. Small left effusionis suspected.Heart and mediastinum: Normal heart size. Unremarkable mediastinal contours.Osseous structures: No acute abnormality.Other: None. Signed: Zaid Martinez Verified Date/Time: 01/26/2021 07:27:42 [id number] 06:15:44 Test Item Value Reference Range Interpretation Comments PHOSPHORUS (BEAKER) (test code = 4.2 mg/dL 2.3-4.7 604) Marketing Administrative Assistant ID - GLADYS EPATIC FUNCTION [id number] 06:15:44 Test Item Value Reference Range Interpretation [...] (test code = 13 U/L 6-55 347) Marketing Administrative Assistant ID - GLADYS MBASIC METABOLIC [id number] 06:15:43 Test Item Value Reference Range Interpretation [...] S NOT APPLICABLE FOR DIALYSIS PATIEN TS. Marketing Administrative Assistant ID - GLADYS [id number] 06:15:43 Test Item Value Reference Range Interpretation Comments MAGNESIUM (BEAKER) (test code = 2.5 mg/dL 1.6-2.6 627) Marketing Administrative Assistant ID - GLADYS MTSH/FREE T4 IF [id number] 06:06:15 Test Item Value Reference Range Interpretation Comments THYROID STIMULATING HORMONE 0.659 uIU/mL 0.350-4.940 (BEAKER) (test code = 772) Marketing Administrative Assistant ID - GLADYS MB-TYPE NATRIURETIC FACTOR (BNP)2021-01-26 05:31:01 Test Item Value Reference Range Interpretation Comments B-TYPE NATRIURETIC PEPTIDE (BEAKER) 697 pg/mL 0-100 H (test code = 700) Marketing Administrative Assistant ID - GLADYS MPROTHROMBIN [id number] 05:23:10 Test Item Value Reference Range Interpretation Comments PROTIME (BEAKER) 15.1 seconds 11.9-14.2 H (test code = 759) INR (BEAKER) (test 1.21 See_Comment [Automat ed message] code = 370) The system [employer] generated this result transmitted ref erence range: [...] (BEAKER) (test code = 2801) U/S, RENAL, [id number] 01:22:00Reason for exam:->derrick [facility] : 1930 Sex: FFINAL [...] was not visualized. Bladder: Mild distended despite Arteaag catheter placement. Impression:Limited examNo hydronephrosis.Mild distended urinary bladder despite Arteaga catheter placement. Correlate clinically. Signed: Juwan Pelaez MDReport Verified Date/Time: 01/26/2021 01:22:44 SODIUM, RANDOM [id number] 20:15:33 Test Item Value Reference Range Interpretation Comments SODIUM URINE (BEAKER) (test code = 59 meq/L 243) Reference Range: No NormalsOperator ID - DBCREATININE, RANDOM [id number] 20:15:32 Test Item Value Reference Range Interpretation Comments CREATININE URINE (BEAKER) (test 27.1 mg/dL code = 375) Reference Range: No NormalsOperator ID - DBPOTASSIUM, RANDOM [id number] 20:15:32 Test Item Value Reference Range Interpretation Comments POTASSIUM URINE (BEAKER) (test 43.4 meq/L code = 195) Reference Range: No NormalsOperator ID - DBCHLORIDE, RANDOM [id number] 20:15:31 Test Item Value Reference Range Interpretation Comments CHLORIDE URINE (BEAKER) (test code = 60 meq/L 682) Reference Range: No NormalsOperator ID - DBURINALYSIS W/ [id number] 20:01:17 Test Item Value Reference Range Interpretation [...] = 1582) SOURCE(BEAKER) (test code = 2795) Marketing Administrative Assistant ID - [auto]Marketing Administrative Assistant ID - tech
[2021-09-14 23:14] LABS: Absolute Lymphocytes (CBC) 1.6 K/uL (0.7-4.9); Hematocrit 33.4 % (36.0-45.0); Lymphocytes % 21.9 % (15.3-44.8); MPV 8.7 fL (7.6-11.3); Protime INR 1.04; RBC Red Blood Cell Count 3.96 M/uL (3.86-4.86)
[2021-09-14] MEDS ORDERED: NA CHLORIDE 0.9% 1,000 ML ONE (23:20)
[2021-09-14] MEDS ORDERED: ONDANSETRON 4 MG/2 ML VIAL ONE (23:20)
[2021-09-14] MEDS ORDERED: NA CHLORIDE 0.9% 500 ML ONE (23:21)
[2021-09-14 23:27] LABS: Albumin 3.5 g/dL (3.4-5.0); Bilirubin Direct 0.3 mg/dL (0-0.2); Bilirubin Total 0.8 mg/dL (0.2-1.0); Magnesium 1.9 mg/dL (1.8-2.4); Potassium 3.4 mmol/L (3.5-5.1); Protein, Total 7.3 g/dL (6.4-8.2)
[2021-09-14 23:30] LABS: Troponin High Sensitivity 87.3 pg/mL (<58.9)
[2021-09-15 01:51] LABS: Urine Blood 3+ (Negative); Urine Glucose Negative (Negative); Urine Protein Negative (Negative); Urine pH 5.5 (5.0-7.0)
--- NOTE | 2021-09-15 02:56 | EDPHYS ---
Physician Documentation [facility] Name: Leelee Forrest Age: 89 yrs Sex: Female : 1930 Arrival Date: 09/14/2021 Time: 21:44 Bed 17 Private MD: RUTHY Physician Manolo Kearney HPI: 09/15 02:49 This 89 yrs old Female presents to ER via EMS with complaints of nausea, edita vomiting and diarrhea. 02:49 The patient presents to the emergency department with nausea, vomiting, diarrhea, that edita is intermittent. Onset: The symptoms/episode began/occurred 2 day(s) ago. Possible causes: unknown. The symptoms are aggravated by nothing. The symptoms are alleviated by nothing. Associated signs and symptoms: The patient has no apparent associated signs or symptoms. Severity of symptoms: At their worst the symptoms were mild in the emergency department the symptoms are unchanged. The patient has not experienced similar symptoms in the past. Historical: - Allergies: 09/14 21:47 Axid; ab2 21:47 Bactrim; ab2 21:47 Codeine; ab2 21:47 Keflex; ab2 21:47 PENICILLINS; ab2 21:47 Sulfa (Sulfonamide Antibiotics); ab2 21:47 Talwin; ab2 21:47 Vicodin; ab2 21:47 Xanax; ab2 - Home Meds: 22:15 aspirin 81 mg Oral tab [Active]; carvedilol 12.5 mg Oral tab [Active]; clopidogrel 75 kd3 mg Oral tab once daily [Active]; Lasix 40 mg Oral tab [Active]; montelukast 10 mg Oral tab [Active]; Spironolactone Oral [Active]; - PMHx: 21:47 Congestive heart failure; Hypertension; Hypertensive disorder; Hypothyroidism; ab2 - Immunization history:: Adult Immunizations up to date. - Social history:: Smoking status: Patient denies any tobacco usage or history of. ROS: 09/15 02:50 Constitutional: Negative for fever, chills, and weight loss, Eyes: Negative for injury, edita pain, redness, and discharge, ENT: Negative for injury, pain, and discharge, Neck: Negative for injury, pain, and swelling, Cardiovascular: Negative for chest pain, palpitations, and edema, Respiratory: Negative for shortness of breath, cough, wheezing, and pleuritic chest pain, Back: Negative for injury and pain, : Negative for injury, bleeding, discharge, and swelling, MS/Extremity: Negative for injury and deformity, Skin: Negative for injury, rash, and discoloration, Neuro: Negative for headache, weakness, numbness, tingling, and seizure, Psych: Negative for depression, anxiety, suicide ideation, homicidal ideation, and hallucinations, Allergy/Immunology: Negative for hives, rash, and allergies, Endocrine: Negative for neck swelling, polydipsia, polyuria, polyphagia, and marked weight changes, Hematologic/Lymphatic: Negative for swollen nodes, abnormal bleeding, and unusual bruising. Abdomen/GI: Positive for abdominal pain, nausea and vomiting, diarrhea. Exam: 02:50 Constitutional: This is a well developed, well nourished patient who is awake, alert, edita and in no acute distress. Head/Face: Normocephalic, atraumatic. Eyes: Pupils equal round and reactive to light, extra-ocular motions intact. Lids and lashes normal. Conjunctiva and sclera are non-icteric and not injected. Cornea within normal limits. Periorbital areas with no swelling, redness, or edema. ENT: Nares patent. No nasal discharge, no septal abnormalities noted. Tympanic membranes are normal and external auditory canals are clear. Oropharynx with no redness, swelling, or masses, exudates, or evidence of obstruction, uvula midline. Mucous membranes moist. Neck: Trachea midline, no thyromegaly or masses palpated, and no cervical lymphadenopathy. Supple, full range of motion without nuchal rigidity, or vertebral point tenderness. No Meningismus. Chest/axilla: Normal chest wall appearance and motion. Nontender with no deformity. No lesions are appreciated. Respiratory: Lungs have equal breath sounds bilaterally, clear to auscultation and percussion. No rales, rhonchi or wheezes noted. No increased work of breathing, no retractions or nasal flaring. Abdomen/GI: Soft, non-tender, with normal bowel sounds. No distension or tympany. No guarding or rebound. No evidence of tenderness throughout. Back: No spinal tenderness. No costovertebral tenderness. Full range of motion. Female : Normal external genitalia. Skin: Warm, dry with normal turgor. Normal color with no rashes, no lesions, and no evidence of cellulitis. MS/ Extremity: Pulses equal, no cyanosis. Neurovascular intact. Full, normal range of motion. Neuro: Awake and alert, GCS 15, oriented to person, place, time, and situation. Cranial nerves II-XII grossly intact. Motor strength 5/5 in all extremities. Sensory grossly intact. Cerebellar exam normal. Normal gait. Psych: Awake, alert, with orientation to person, place and time. Behavior, mood, and affect are within normal limits. 02:50 Cardiovascular: Rate: bradycardic, Rhythm: regular, Pulses: Pulses are 4+ in bilateral radial, brachial, femoral, popliteal, posterior tibial and and dorsalis pedis arteries.. Heart sounds: murmur, not appreciated, rub, not appreciated, gallop, not appreciated, S1, normal, Edema: is not appreciated, JVD: is not appreciated. 02:50 ECG was reviewed by the Attending Physician. 02:53 ECG was reviewed by the Attending Physician. [facility] Vital Signs: 09/14 21:44 BP 93 / 46; Pulse 48; Resp 19; Temp 97.8; Pulse Ox 97% on R/A; Weight 70.31 kg; Height ab2 5 ft. 6 in. (167.64 cm); Pain 0/10; 22:14 BP 91 / 59; Pulse 52; Resp 16; Pulse Ox 97% on R/A; kd3 09/15 02:21 BP 100 / 61; Pulse 50; Resp 16; Temp 98.1(O); Pulse Ox 98% on R/A; kd3 03:30 BP 102 / 66; Pulse 41; Resp 17; Pulse Ox 99% on R/A; kd3 05:56 BP 93 / 50; Pulse 42; Resp 18; Pulse Ox 98% on R/A; kd3 09/14 21:44 Body Mass Index 25.02 (70.31 kg, 167.64 cm) ab2 MDM: 09/14 22:22 Patient medically screened. [facility] 09/15 02:56 Differential diagnosis: Nonspecific abd pain, gastritis, pancreatitis, diverticulitis. [facility] Data reviewed: vital signs, nurses notes, EMS record, lab test result(s), EKG, radiologic studies, CT scan, plain films. Data interpreted: clinical research monitor: rate is 50 beats/min, Pulse oximetry: on room air. Test interpretation: by ED physician or midlevel provider: ECG, plain radiologic studies. Counseling: I had a detailed discussion with the patient and/or guardian regarding: the historical points, exam findings, and any diagnostic results supporting the discharge/admit diagnosis, lab results. 09/14 22:26 Order name: Basic Metabolic Panel; Complete Time: 23:43 [facility] 09/14 22:26 Order name: CBC with Diff; Complete Time: 23:29 [facility] 09/14 22:26 Order name: LFT's; Complete Time: 23:43 [facility] 09/14 22:26 Order name: Magnesium; Complete Time: 23:43 [facility] 09/14 22:26 Order name: NT PRO-BNP; Complete Time: 23:43 [facility] 09/14 22:26 Order name: PT-INR; Complete Time: 23:29 [facility] 09/14 22:26 Order name: Troponin HS; Complete Time: 23:43 [facility] 09/14 22:26 Order name: Lipase; Complete Time: 23:43 [facility] 09/14 22:26 Order name: Fecal Leukocyte Stain; Complete Time: 04:01 [facility] 09/14 22:26 Order name: Occult Blood; Complete Time: 02:45 [facility] 09/14 22:26 Order name: Stool Culture [facility] 09/14 22:26 Order name: Urine Culture [facility] 09/14 22:26 Order name: Lactate; Complete Time: 23:29 [facility] 09/15 00:33 Order name: COVID-19 SARS RT PCR (Document "Date of Onset" if Symptomatic); Complete la1 Time: 02:58 09/14 22:26 Order name: XRAY Chest (1 view) [facility] 09/14 22:26 Order name: EKG; Complete Time: 22:27 [facility] 09/14 22:26 Order name: Cardiac monitoring; Complete Time: 22:31 [facility] 09/14 22:26 Order name: EKG - Nurse/Tech; Complete Time: 23:03 [facility] 09/14 22:26 Order name: IV Saline Lock; Complete Time: 22:48 [facility] 09/14 22:26 Order name: Labs collected and sent; Complete Time: 22:48 [facility] 09/14 22:26 Order name: O2 Per Protocol; Complete Time: 23:03 [facility] 09/14 22:26 Order name: CT Abd/Pelvis - Without Contrast [facility] 09/15 01:52 Order name: Urine Dipstick-Ancillary; Complete Time: 02:06 [facility] 09/14 22:26 Order name: O2 Sat Monitoring; Complete Time: 23:03 [facility] 09/14 22:26 Order name: Urine Dipstick-Ancillary (obtain specimen); Complete Time: 01:53 [facility] 09/15 01:15 Order name: EKG - Nurse/Tech: Please repeat; Complete Time: 02:21 la1 EC:50 Rate is 43 beats/min. Rhythm is regular. QRS [place] is Normal. QT interval is normal. No edita Q waves. T waves are Normal. No ST changes noted. Clinical impression: Sinus bradycardia. Interpreted by me. Reviewed by me. 02:53 Rate is 46 beats/min. Rhythm is regular. QRS [place] is Normal. MS interval is normal. QRS edita interval is normal. QT interval is normal. No Q waves. T waves are Normal. No ST changes noted. Clinical impression: Abnormal EKG without significant change and Sinus bradycardia. Interpreted by me. Reviewed by me. Administered Medications: 02:47 Discontinued: NS 0.9% 1000 ml IV at 75 ml/hr continuous [facility] 09/14 22:26 CANCELLED (Duplicate Order): NS 0.9% 1000 ml IV at 1 bolus Per protocol; 1000 mL bolus [facility] 23:59 Drug: Zofran (Ondansetron) 4 mg Route: IVP; Site: right antecubital; 3 09/15 05:57 Follow up: Response: No adverse reaction 3 09/14 23:59 Drug: NS 0.9% 500 ml Route: IV; Rate: bolus; Site: left antecubital; kd3 09/15 04:54 Follow up: Response: No adverse reaction; IV Status: Completed infusion kd3 05:57 Follow up: Response: No adverse reaction; IV Status: Completed infusion 3 09/14 23:59 Drug: NS 0.9% 1000 ml Route: IV; Rate: 75 ml/hr; Site: left antecubital; kd3 09/15 05:57 Follow up: Response: No adverse reaction kd3 03:43 Drug: Flagyl (metroNIDAZOLE) 500 mg Volume: 100 ml; Route: IVPB; Rate: 200 ml/hr; kd3 Infused Over: 30 mins; Site: right antecubital; 04:37 Follow up: Response: No adverse reaction; IV Status: Completed infusion kd3 04:53 Follow up: IV Status: Completed infusion kd3 05:57 Follow up: Response: No adverse reaction kd3 04:53 Drug: Cipro (ciprofloxacin) 200 mg Volume: 100 ml; Route: IVPB; Infused Over: 60 mins; kd3 Site: right upper arm; 04:53 Drug: NS 0.9% with KCl 20 mEq/L 1000 ml Route: IV; Rate: 75 ml/hr; Site: right upper kd3 arm; Disposition Summary: 09/15/21 02:56 Hospitalization Ordered Hospitalization Status: Inpatient Admission edita Provider: Amarilis Richmond cha Condition: Fair edita Problem: new edita Symptoms: have improved edita Bed/Room Type: Standard [facility] Location: Intensive Care Unit(09/15/21 03:14) cg Room Assignment: -(09/15/21 03:14) Diagnosis - Vomiting edita - Diarrhea, unspecified edita - Left sided colitis with rectal bleeding - proctitis edita - Hypokalemia edita - Acute kidney failure, unspecified - on chronic edita - Unspecified combined systolic (congestive) and diastolic (congestive) heart failure edita - Bradycardia, unspecified edita - UTI/ Urinary tract infection, site not specified edita Forms: - Medication Reconciliation Form edita - SBAR form edita Signatures: Dispatcher [employer] EDManolo Elliott MD MD cha Attema, Lee, SHIPSMITH-C [id number] Radha Rizzo, FAUSTINO RN Beth Johnson RN RN kd3 Maicol Cardoza2 Corrections: (The following items were deleted from the chart) 09/14 22:26 22:26 NS 0.9% 1000 ml IV at 1 bolus Per protocol; 1000 mL bolus ordered. [facility] 09/15 03:14 02:56 Telemetry/MedSurg (Inpatient) [facility] 03:14 02:56 edita
--- NOTE | 2021-09-15 02:56 | ER ---
Nurse's Notes [facility] Name: Leelee Forrest Age: 89 yrs Sex: Female : 1930 Arrival Date: 09/14/2021 Time: 21:44 Bed 17 Private MD: Diagnosis: Vomiting;Diarrhea, unspecified;Left sided colitis with rectal bleeding-proctitis;Hypokalemia;Acute kidney failure, unspecified-on chronic;Unspecified combined systolic (congestive) and diastolic (congestive) heart failure;Bradycardia, unspecified;UTI/ Urinary tract infection, site not specified Presentation: 09/14 21:44 Chief complaint: EMS states: EMS called to [facility] for c/o ab2 diarrhea for 2 days and vomiting that started today. Coronavirus screen: Client denies travel out of the [place] in the last 14 days. At this time, the client does not indicate any symptoms associated with coronavirus-19. Ebola Screen: Patient negative for fever greater than or equal to 101.5 degrees Fahrenheit, and additional compatible Ebola Virus Disease symptoms Patient denies exposure to infectious person. Patient denies travel to an Ebola-affected area in the 21 days before illness onset. No symptoms or risks identified at this time. Initial Sepsis Screen: Does the patient meet any 2 criteria? No. Patient's initial sepsis screen is negative. Does the patient have a suspected source of infection? No. Patient's initial sepsis screen is negative. Risk Assessment: Do you want to hurt yourself or someone else? Patient reports no desire to harm self or others. Onset of symptoms is unknown. 21:44 Method Of Arrival: EMS: [facility] ab2 21:44 Acuity: BECKI 3 ab2 Triage Assessment: 21:52 General: Appears in no apparent distress. comfortable, Behavior is appropriate for age. ab2 Pain: Denies pain. Neuro: Level of Consciousness is awake, alert, Oriented to person. Respiratory: Airway is patent Respiratory effort is even, unlabored, Respiratory pattern is regular, symmetrical. GI: Parent/caregiver reports the patient having diarrhea, vomiting. Historical: - Allergies: 21:47 Axid; ab2 21:47 Bactrim; ab2 21:47 Codeine; ab2 21:47 Keflex; ab2 21:47 PENICILLINS; ab2 21:47 Sulfa (Sulfonamide Antibiotics); ab2 21:47 Talwin; ab2 21:47 Vicodin; ab2 21:47 Xanax; ab2 - Home Meds: 22:15 aspirin 81 mg Oral tab [Active]; carvedilol 12.5 mg Oral tab [Active]; clopidogrel 75 kd3 mg Oral tab once daily [Active]; Lasix 40 mg Oral tab [Active]; montelukast 10 mg Oral tab [Active]; Spironolactone Oral [Active]; - PMHx: 21:47 Congestive heart failure; Hypertension; Hypertensive disorder; Hypothyroidism; ab2 - Immunization history:: Adult Immunizations up to date. - Social history:: Smoking status: Patient denies any tobacco usage or history of. Screenin:15 Abuse screen: Denies threats or abuse. Denies injuries from another. Nutritional kd3 screening: No deficits noted. Tuberculosis screening: No symptoms or risk factors identified. Fall Risk None identified. Assessment: 22:14 General: Appears in no apparent distress. Behavior is agitated. Neuro: Level of kd3 Consciousness is awake, alert, Oriented to person. 23:20 Reassessment: Patient and/or family updated on plan of care and expected duration. Pain kd3 level reassessed. Patient is alert, oriented x 3, equal unlabored respirations, skin warm/dry/pink. pt is confused and agitated but easily redirected. 02 00:21 Reassessment: No changes from previously documented assessment. kd3 01:15 Reassessment: Patient and/or family updated on plan of care and expected duration. Pain kd3 level reassessed. Patient is alert, oriented x 3, equal unlabored respirations, skin warm/dry/pink. pt IV infiltrated. 22 g R AC discontinued. 02:45 General: Appears in no apparent distress. Behavior is agitated, uncooperative. Neuro:. kd3 Respiratory: Airway is patent Trachea midline Respiratory effort is even, unlabored, Respiratory pattern is regular, symmetrical. 03:20 Reassessment: No changes from previously documented assessment. Patient and/or family kd3 updated on plan of care and expected duration. Pain level reassessed. Patient is alert, oriented x 3, equal unlabored respirations, skin warm/dry/pink. Respiratory:. 05:11 Reassessment: Patient and/or family updated on plan of care and expected duration. Pain kd3 level reassessed. Patient is alert, oriented x 3, equal unlabored respirations, skin warm/dry/pink. Vital Signs: 09/14 21:44 BP 93 / 46; Pulse 48; Resp 19; Temp 97.8; Pulse Ox 97% on R/A; Weight 70.31 kg; Height ab2 5 ft. 6 in. (167.64 cm); Pain 0/10; 22:14 BP 91 / 59; Pulse 52; Resp 16; Pulse Ox 97% on R/A; kd3 09/15 02:21 BP 100 / 61; Pulse 50; Resp 16; Temp 98.1(O); Pulse Ox 98% on R/A; kd3 03:30 BP 102 / 66; Pulse 41; Resp 17; Pulse Ox 99% on R/A; kd3 05:56 BP 93 / 50; Pulse 42; Resp 18; Pulse Ox 98% on R/A; kd3 09/14 21:44 Body Mass Index 25.02 (70.31 kg, 167.64 cm) ab2 ED Course: 09/14 21:44 Patient arrived in ED. ab2 21:47 Triage completed. ab2 21:53 Arm band placed on right wrist. ab2 22:10 Beth Macias, FAUSTINO is Primary Nurse. kd3 22:15 Patient has correct armband on for positive identification. kd3 22:22 Manolo Kearney MD is Attending Physician. edita 22:53 XRAY Chest (1 view) In Process Unspecified. EDMS 23:35 CT Abd/Pelvis - Without Contrast In Process Unspecified. EDMS 09/15 02:54 Amarilis Richmond MD is Hospitalizing Provider. edita 03:55 Inserted saline lock: 20 gauge in left antecubital area, using aseptic technique. kd3 03:56 Inserted saline lock: 22 gauge in right antecubital area, using aseptic technique. kd3 04:20 Accessed peripheral vein via ultrasound, utilizing dynamic ultrasound technique bb Powerglide midline 20 g 8 cm inserted with good blood return and flushes easily using hospital protocol pt tolerated well. 05:42 No provider procedures requiring assistance completed. Patient admitted, IV remains in kd3 place. Administered Medications: 02:47 Discontinued: NS 0.9% 1000 ml IV at 75 ml/hr continuous [facility] 09/14 22:26 CANCELLED (Duplicate Order): NS 0.9% 1000 ml IV at 1 bolus Per protocol; 1000 mL bolus [facility] 23:59 Drug: Zofran (Ondansetron) 4 mg Route: IVP; Site: right antecubital; 3 09/15 05:57 Follow up: Response: No adverse reaction kd3 09/14 23:59 Drug: NS 0.9% 500 ml Route: IV; Rate: bolus; Site: left antecubital; kd3 09/15 04:54 Follow up: Response: No adverse reaction; IV Status: Completed infusion kd3 05:57 Follow up: Response: No adverse reaction; IV Status: Completed infusion kd3 09/14 23:59 Drug: NS 0.9% 1000 ml Route: IV; Rate: 75 ml/hr; Site: left antecubital; kd3 09/15 05:57 Follow up: Response: No adverse reaction kd3 03:43 Drug: Flagyl (metroNIDAZOLE) 500 mg Volume: 100 ml; Route: IVPB; Rate: 200 ml/hr; kd3 Infused Over: 30 mins; Site: right antecubital; 04:37 Follow up: Response: No adverse reaction; IV Status: Completed infusion kd3 04:53 Follow up: IV Status: Completed infusion kd3 05:57 Follow up: Response: No adverse reaction kd3 04:53 Drug: Cipro (ciprofloxacin) 200 mg Volume: 100 ml; Route: IVPB; Infused Over: 60 mins; kd3 Site: right upper arm; 04:53 Drug: NS 0.9% with KCl 20 mEq/L 1000 ml Route: IV; Rate: 75 ml/hr; Site: right upper kd3 arm; Outcome: 02:56 Decision to Hospitalize by Provider. [facility] 05:43 Admitted to ICU room 7. kd3 05:43 Condition: stable 05:43 Discharge instructions given to patient, Instructed on the need for admit, Demonstrated understanding of instructions, follow-up care. 05:57 Patient left the ED. kd3 Signatures: Dispatcher [employer] EDManolo Elliott MD MD cha Ballard, Brenda, RN RN Beth Brewer RN RN kd3 Maicol Cardoza
[2021-09-15] MEDS ORDERED: METRONIDAZOLE 500mg IVPB 500 MG/100 ML BAG IV ONE (03:07)
--- NOTE | 2021-09-15 03:21 | P.HP ---
Certification for Inpatient Patient admitted to: Inpatient With expected LOS: >2 Midnights Patient will require the following post-hospital care: None Practitioner: I am a practitioner with admitting privileges, knowledge of patient current condition, hospital course, and medical plan of care. Services: Services provided to patient in accordance with Admission requirements found in Title 42 Section 412.3 of the Code of Federal Regulations <Handy Tariq - Last Filed: 09/15/21 03:07> Patient History Date of Service: 09/15/21 Reason for admission: UTI, AMS, bradycardia, acute renal failure History of Present Illness: 89-year-old female patient with history of chronic systolic congestive heart failure with ejection fraction of 19%, CKD 3, CVA, hypertension, atrial fibrillation not on chronic anticoagulation, GERD, hypothyroidism presents emergency department for nausea/vomiting/diarrhea. Patient is a resident of [facility], has been reported to have diarrhea, vomiting for the last 2 days. Son reports that her mental status has never been the same since she was previously admitted for urinary tract infection, has concerned that she did not complete the course of antibiotics that were supposed to be completed at discharge previously. Patient was evaluated here in the emergency department h er labs were significant for acute renal failure, mildly elevated high- sensitivity troponin/BNP potassium of 3.4 urinalysis nitrite positive leukoesterase positive COVID-negative CT abdomen pelvis without contrast demonstrated mild proctitis and likely diarrhea without bowel obstruction or perforation. Patient was started on IV antibiotics Cipro/Flagyl. Patient also noted to be in sinus bradycardia with first-degree block with rate between 40 and 50, upon medication review from assisted living facility she is currently taking both metoprolol 25 mg daily and carvedilol 12.5 mg p.o. twice daily. During previous admission patient had stress test with stress-induced ischemia, following stress test had CVA therefore was not a candidate for catheterization or intervention, she has been hesitant to have heart catheterization or pacemaker/ICD placed. Suspect bradycardia is related to combination of metoprolol/carvedilol will admit for further evaluation and management of acute renal failure, UTI, altered mental status and bradycardia. - Past Medical/Surgical History Diabetic: No -: Anxiety -: HTN -: Hypothyroidism -: Chronic systolic CHF, aortic stenosis -: COPD -: NSTEMI -: CKD 3 -: CVA -: Coronary artery bypass grafting Psychosocial/ Personal History: Patient currently resides at [facility] - Family History Father History Unknown: Yes - Social History Smoking Status: Unknown if ever smoked Alcohol use: No CD- Drugs: No Caffeine use: Yes Place of Residence: Home <Handy Tariq - Last Filed: 09/15/21 03:07> Date of Service: 09/15/21 <Amarilis Richmond - Last Filed: 10/09/21 23:43> Allergies cephalexin monohydrate [From Keflex] Allergy (Mild, Verified 07/31/21 12:18) UNKNOWN famotidine [From Pepcid] Allergy (Mild, Verified 07/07/12 11:50) Itching/Hives/Rash Penicillins Allergy (Mild, Verified 07/31/21 12:17) Itching Sulfa (Sulfonamide Antibiotics) Allergy (Mild, Verified 07/31/21 12:17) Itching acetaminophen [From Tylox] Allergy (Unknown, Verified 01/17/21 16:58) UNKNOWN codeine [Codeine] Allergy (Unknown, Verified 01/17/21 16:58) UNKNOWN hydrocodone bitartrate [From Vicodin] Allergy (Unknown, Verified 01/17/21 16:58) UNKNOWN oxycodone HCl [From Tylox] Allergy (Unknown, Verified 01/17/21 16:58) UNKNOWN pentazocine lactate [From Talwin] Allergy (Unknown, Verified 01/17/21 16:58) UNKNOWN ranitidine HCl [From Zantac] Allergy (Unknown, Verified 01/17/21 16:58) UNKNOWN alprazolam [From Xanax] Allergy (Verified 01/17/21 16:58) Unknown nizatidine [From Axid] Allergy (Verified 01/17/21 16:58) Unknown Home Medications: Montelukast [Singulair*] 10 mg PO DAILY 04/20/21 Pantoprazole [Protonix Tab*] 40 mg PO DAILY 04/20/21 Aspirin [Aspirin EC 81 MG] 81 mg PO DAILY #90 tablet. 04/21/21 Clopidogrel Bisulfate [Plavix*] 75 mg PO DAILY #30 tablet 04/21/21 Furosemide 40 mg PO BID 06/23/21 Melatonin 10 mg PO BEDTIME 06/23/21 Isosorbide Mononitrate [Ismo] 20 mg PO DAILY #30 tablet 08/06/21 Midodrine HCl [Proamatine*] 5 mg PO BID PRN #60 tab 08/06/21 Atorvastatin Calcium [Lipitor] 40 mg PO DAILY 09/15/21 Spironolactone [Aldactone*] 25 mg PO BID 09/15/21 Cefdinir [Omnicef] 300 mg PO BID #14 capsule 09/17/21 Levothyroxine Sodium [Levothyroxine] 200 mcg PO DAILY #30 capsule 09/17/21 Pantoprazole [Protonix Tab*] 40 mg PO DAILYAC #30 tab 09/17/21 predniSONE [Prednisone*] 20 mg PO BID #11 tab 09/17/21 Review of Systems is unable to be obtained <Handy Tariq - Last Filed: 09/15/21 03:07> Physical Examination - Physical Exam General: Alert, In no apparent distress, Oriented x2 HEENT: Atraumatic, PERRLA, Other (Mucous membranes dry), EOMI, Sclerae nonicteric Neck: Supple, 2+ carotid pulse no bruit, No LAD, Without JVD or thyroid abnormality Respiratory: Diminished Cardiovascular: Irregular heart rate/rhythm (Marked sinus bradycardia), Systolic murmur Capillary refill: <2 Seconds Gastrointestinal: Soft and benign, No tenderness Musculoskeletal: No tenderness Integumentary: No rashes Neurological: Normal speech, Normal tone, Normal affect, Abnormal strength (Left-sided facial droop/weakness from previous CVA) - Studies Laboratory Data (last 24 hrs) 09/14/21 22:45: PT 11.5, INR 1.04 09/14/21 22:45: WBC 7.2, Hgb 11.7 L, Hct 33.4 L, Plt Count 188 09/14/21 22:45: Sodium 136, Potassium 3.4 L, BUN 66 H, Creatinine 2.42 H, Glucose 112 H, Magnesium 1.9, Total Bilirubin 0.8, AST 22, ALT 12, Alkaline Phosphatase 65, Lipase 156 Microbiology Data (last 24 hrs): 09/15/21 01:20 Stool Occult Blood - Final <Handy Tariq - Last Filed: 09/15/21 03:07> Assessment and Plan - Plan Assessment: Metabolic encephalopathy secondary to urinary tract infection Diarrheal Illness/proctitis GREGORY superimposed on CKD 3 Bradycardia Acute on Chronic systolic congestive heart failure CVA A. fib not on chronic anticoagulation Hypertension Hypothyroid Plan: Metabolic encephalopathy secondary to urinary tract infection: Urine culture obtained, previous culture green-sensitive. Follow culture report. AMS also likely related to previous CVA. Diarrheal Illness/proctitis: Stool studies ordered including C.diff, CT without out acute findings. Continue cipro/flagyl for the time being. GREGORY superimposed on CKD 3: Nephrology consulted. Gentle IV fluids given recent N/V/D. Appreciate further input from nephrology. Bradycardia: Pt previously bradycardic on admission, it is noted that patient is on both metoprolol and carvedilol, BP is stable, pt mentation with confusion but not lethagic/drowsy. Will hold both metoprolol and carvedilol, monitor on tele, consult cardiology. Pt has been hesitant to have Biventricular pacemaker/ICD previously. Acute on chronic systolic congestive heart failure: Recent stress test with 19% EF and + stress induced ischemia. Pt had CVA then next day and was not a candidate for further intervention. Will need gentle hydration. Monitor volume status closely, appreciate further input from cardiology CVA: Continue home meds. A. fib not on chronic anticoagulation: Currently with marked sinus bradycaria, monitor on tele, hold metoprolol/carvedilol. Hypertension: Restart home meds adjust for bradycardia/ARF Hypothyroid: continue home meds, check TSH/T4 DVT PPX: Lovenox Code status: Full: Discharge Plan: Shelter Plan to discharge in: Greater than 2 days - Advance Directives Does patient have a Living Will: No Does patient have a Durable POA for Healthcare: Yes - Code Status/Comfort Care Code Status Assessed: Yes (Full code) Critical Care: No Time Spent Managing Pts Care (In Minutes): 55 <Handy Tariq - Last Filed: 09/15/21 03:07> Date of Service: 09/15/21 Subjective: HPI as mentioned above Physical Examination: Vitals: Afebrile vital signs are stable Physical exam: Cardiovascular: Within normal limits. Lungs: Within normal limits Abdomen: Within normal limits Neuro: Awake, alert, oriented to person place and time Assessment: 1. UTI 2. Altered mental status 3. GREGORY Plan: 1. Continue with current plan of care as mentioned above <Amarilis Richmond - Last Filed: 10/09/21 23:43>
[2021-09-15] MEDS ORDERED: Ciprofloxacin 200mg IV 200 MG/100 ML IV.SOLN. IV ONE (04:45)
[2021-09-15] MEDS ORDERED: MELATONIN 5 MG TABLET PO PRN (05:11)
[2021-09-15] MEDS ORDERED: ONDANSETRON 4 MG/2 ML VIAL IV PRN (05:11)
[2021-09-15] MEDS: NA CHLORIDE 0.9% 1,000 ML IV SCH ×2 (06:12→20:43)
[2021-09-15] MEDS: PANTOPRAZOLE 40MG TABLET PO SCH (06:12)
[2021-09-15 06:43] VITALS: BMI 23.6
[2021-09-15 07:23] LABS: C.diff Antigen/Toxin Ag neg : Tox neg (NEG : NEG)
[2021-09-15] MEDS: METRONIDAZOLE 250mg IVPB 250 MG/50 ML BAG IV SCH ×2 (09:00→16:53)
[2021-09-15] MEDS: ENOXAPARIN 30 MG/0.3 ML SQ SCH (09:00)
[2021-09-15] MEDS: SPIRONOLACTONE 25 MG TABLET PO SCH ×2 (13:19→20:41)
[2021-09-15] MEDS: ASPIRIN EC 81 MG TAB PO SCH (13:19)
[2021-09-15] MEDS: CLOPIDOGREL 75 MG TABLET PO SCH (13:19)
[2021-09-15 16:28] LABS: Absolute Lymphocytes (CBC) 2.7 K/uL (0.7-4.9); Hematocrit 33.7 % (36.0-45.0); Lymphocytes % 26.6 % (15.3-44.8); MPV 9.5 fL (7.6-11.3); RBC Red Blood Cell Count 3.97 M/uL (3.86-4.86)
[2021-09-15 16:39] LABS: Albumin 3.1 g/dL (3.4-5.0); Bilirubin Total 0.6 mg/dL (0.2-1.0); Potassium 3.8 mmol/L (3.5-5.1); Protein, Total 6.5 g/dL (6.4-8.2)
[2021-09-15 16:43] LABS: Troponin High Sensitivity 107.4 pg/mL (<58.9)
--- NOTE | 2021-09-15 17:43 | RAD REPORT ---
EXAM DESCRIPTION: US - Renal Ultrasound-Complete - 09/15/2021 5:17 pm CLINICAL HISTORY: Poor kidney function COMPARISON: Abdomen Pelvis Wo Contrast dated 09/14/2021 FINDINGS: Exam was difficult. Patient was unable to fully cooperate with the examination. The right kidney measures 8.2 x 4.0 x 4.1 cm. The left kidney measures 8.0 x 4.2 x 3.0 cm. Cortical thickness is normal. Cortical echogenicity does appear to be increased in each kidney which could be affects of body habitus or medical renal disease. No hydronephrosis or suspicious renal mass. Bladder was too contracted to allow assessment. IMPRESSION: Increased cortical echogenicity seen and small bilateral kidneys. This can be body habit us artifact or medical renal disease. No hydronephrosis or suspicious mass.
--- NOTE | 2021-09-15 20:40 | RAD REPORT ---
EXAM DESCRIPTION: RAD - Chest Single View - 09/14/2021 10:51 pm CLINICAL HISTORY: 89 years, Female, COUGH COMPARISON: None. FINDINGS: Single view of the chest was obtained portable. No prior films are available for compariso n. The heart is enlarged. Sternotomy wires and pericardiac clips correspond to appears CABG. Thorac ic aorta demonstrate intimal calcification. Pulmonary vasculature is normal normal distribution. No p leural effusions. Minimal degenerative changes bilateral shoulders. The rest of the soft tissue and bony structures demonstrate to be unremarkable. IMPRESSION: Cardiomegaly. Electronically signed by: Tae Conrad MD 09/14/2021 11:26 PM CDT Due to temporary technical issues with the PACS/Fluency reporting system, reports are being signed by the in house radiologists without review as a courtesy to insure prompt reporting. The interpreting radiologist is fully responsible for the content of the report.
[2021-09-15] MEDS: Ciprofloxacin 200mg IV 200 MG/100 ML IV.SOLN. IV SCH (20:42)
--- NOTE | 2021-09-15 21:02 | RAD REPORT ---
EXAM DESCRIPTION: CT - Abdomen Pelvis Wo Contrast - 09/15/2021 5:19 am CLINICAL HISTORY: 89 years Female Abdominal pain, acute, nonlocalized TECHNIQUE: Contiguous axial images obtained through the abdomen and pelvis without intravenous contr ast administration. Coronal and sagittal reformatted images provided. This CT exam was performed according to our departmental dose-optimization program, which includes on e or more of the following dose reduction techniques: automated exposure control, adjustment of the m A and/or kV according to patient size, and/or use of iterative reconstruction technique. COMPARISON: No prior exams provided for comparison. FINDINGS: Mild bibasilar atelectasis. Moderate hiatal hernia containing the gastric fundus. The bowel is fluid-filled and there appears to be mild thickening of the rectosigmoid. No bowel obstr uction, pneumatosis, free intraperitoneal air, abscess, or ascites. The unenhanced liver, biliary tree, gallbladder, pancreas, spleen, adrenal glands, kidneys, and urina ry bladder are normal. Atherosclerosis without abdominal aortic aneurysm or acute retroperitoneal hemorrhage. Moderate to severe chronic degenerative changes in the spine with lumbar scoliosis. IMPRESSION: Mild proctitis and likely diarrhea without bowel obstruction or perforation. Electronically signed by: Jamee Puckett MD 09/15/2021 12:01 AM CDT Due to temporary technical issues with the PACS/Fluency reporting system, reports are being signed by the in house radiologists without review as a courtesy to insure prompt reporting. The interpreting radiologist is fully responsible for the content of the report.
[2021-09-16] MEDS: METRONIDAZOLE 250mg IVPB 250 MG/50 ML BAG IV SCH ×2 (00:51→07:46)
--- NOTE | 2021-09-16 01:40 | CON ---
Date of Consultation: 09/15/2021 Reason For Consultation: Bradycardia. History Of Present Illness: Ms. Alonzo is 89, has rather extensive past medical history, came in wit h bradycardia, nausea, vomiting, and diaphoresis, was found to have a heart rate in the 40s, blood pr essure 93/50. She is known to have an ejection fraction of 32% recently. Her BNP was 2192. She was hypotensive at 93/50, was found to have UTI. Denied any syncope. Denied any palpitation. Denies a ny chest pain. Allergies: INCLUDE PENICILLIN, SULFA, PEPCID, XANAX, AND CODEINE. Review of Systems: Negative. Social History: Negative. Family History: Negative. Past Medical History: Includes chronic systolic congestive heart failure, hypertension, hypothyroidi sm, coronary artery disease, dyslipidemia, gastroesophageal reflux disease, asthma, and orthostatic h ypotension. Physical Examination: Vital Signs: Blood pressure was 93/50, heart rate was 42. General: The patient was rather somnolent and lethargic, no acute distress, however. O2 saturation was adequate on room air. Her rhythm was sinus bradycardia. HEENT: Negative. Neck: Supple with no bruit. Chest: Clear to auscultation and percussion. Cardiac: Revealed regular rhythm and rate. No murmurs, gallops, or rubs. Abdomen: Benign. Extremities: Revealed no clubbing, cyanosis, or edema. Diagnostic Data: As stated earlier. Impression And Plan: 1.Bradycardia secondary to combination of Coreg and metoprolol, both of those should be held. 2.Chronic systolic congestive heart failure, stable. 3.Hypertension. She is orthostatic hypotensive. Hold Coreg and hold her metoprolol for now. Jhony Lomax. 4.Her other problems include hypothyroidism, on Synthroid; dyslipidemia, on Lipitor; coronary artery disease that is stable; gastroesophageal reflux disease that is stable. Again, we will treat her ur inary tract infection. Hold the medications listed above. No further cardiac workup. We will jhony ross to follow. IVANA/BENJY Voice ID: [id number] Report ID: [id number]
--- NOTE | 2021-09-16 04:22 | CON ---
Date of Consultation: 09/15/2021 Chief Complaint: Acute kidney injury, UTI. History Of Present Illness: The patient was admitted to ICU for sepsis, congestive heart failure associated with bradycardia. The patient was found to have acute kidney injury. The patient has underlying chronic kidney disease stage 3, CVA, hypertension, atrial fibrillation. She has been on chronic anticoagulation. She has history of GERD and hypothyroidism. She presented to emergency room because of nausea, vomiting, and diarrhea. The patient is [facility] resident. She has been having the vomiting and diarrhea for at least today. According to her son, the patient's mental status has not improved since previous admission when she was found to have urinary tract infection and received IV antibiotics in the hospital for urosepsis. When the patient was evaluated in the emergency room, she was found to have significantly elevated BUN and creatinine. The patient had mildly elevated troponin level. Potassium level was 3.4. CT scan of the abdomen and pelvis without contrast demonstrated mild proctitis. The patient did not have a bowel obstruction. There was no perforation. The patient was started on Cipro and Flagyl. She remains nonoliguric and blood pressure is stable, although the patient has bradycardia. Review of Systems: Unobtainable. The patient is lethargic, arousable. Past Medical History: Hypertension, hypothyroidism, chronic systolic congestive heart failure, aortic stenosis, COPD, [id number] myocardial infarction, CKD, improved; CVA, coronary artery bypass grafting, anxiety. Family History: No kidney disease in the family. Social History: No tobacco. No alcohol. No illicit drugs. Physical Examination: General: The patient is arousable and she remains somewhat confused. Lungs: Normal respiratory effort. Heart: S1, S2. No pericardial friction rub. Abdomen: Soft, benign, nontender. Extremities: Slight edema. Laboratory Data: Sodium 136, potassium 3.4, creatinine 2.4, glucose 112, magnesium 1.9. ALT 12, AST 22, AP 65, lipase 156. Impression And Plan: 1. Acute kidney injury superimposed on chronic kidney disease stage 3. Continue IV fluids. The patient has hypovolemia due to recent nausea, vomiting, and diarrhea. She will require volume resuscitation. Continue gentle hydration. The patient has history of severe systolic dysfunction. Monitor for any evidence of decompensated congestive heart failure. 2. Atrial fibrillation, on chronic anticoagulation and monitor hemoglobin level. 3. Acute on chronic systolic congestive heart failure. Plan is to switch IV fluids to by mouth hydration and some diuretic when renal function improve. 4. Bradycardia. The patient is lethargic, somewhat confused, symptomatic. Metoprolol and carvedilol are on hold. 5. Hypothyroidism. Continue to monitor TSH and continue medication. SEDRICK/BENJY Voice ID: [id number] Report ID: [id number] [facility] CENTERLeobardo
[2021-09-16] MEDS: PANTOPRAZOLE 40MG TABLET PO SCH (05:33)
[2021-09-16 05:39] LABS: Absolute Lymphocytes (CBC) 1.4 K/uL (0.7-4.9); Hematocrit 30.1 % (36.0-45.0); Lymphocytes % 26.5 % (15.3-44.8); MPV 8.7 fL (7.6-11.3); RBC Red Blood Cell Count 3.55 M/uL (3.86-4.86)
[2021-09-16 05:55] LABS: Bilirubin Total 0.6 mg/dL (0.2-1.0); Potassium 3.3 mmol/L (3.5-5.1)
[2021-09-16] MEDS ORDERED: LEVOTHYROXINE SOD 0.125 MG TAB PO ONE (08:00)
[2021-09-16] MEDS: ENOXAPARIN 30 MG/0.3 ML SQ SCH ×2 (09:00→09:38)
[2021-09-16] MEDS: CLOPIDOGREL 75 MG TABLET PO SCH (09:38)
[2021-09-16] MEDS: ASPIRIN EC 81 MG TAB PO SCH (09:38)
[2021-09-16] MEDS: Ciprofloxacin 200mg IV 200 MG/100 ML IV.SOLN. IV SCH ×2 (09:38→20:07)
[2021-09-16] MEDS ORDERED: KCL 20 MEQ/100 mL IVPB 20 MEQ/100 ML BAG IV SCH (12:00)
--- NOTE | 2021-09-16 12:01 | PN ---
Date of Progress Note: 09/16/2021 Ms. Alonzo was seen by me yesterday because of bradycardia that was thought secondary to a combinatio n of Coreg and metoprolol. Both of those were held. Today, her heart rate is 45, normal blood press ure. She has chronic systolic heart failure that is stable. Her blood pressure is adequate without the Coreg and metoprolol. Lasix has been continued. Her other issues including hypothyroidism, dysl ipidemia, and coronary artery disease as well as gastroesophageal reflux disease are stable. She did have a renal ultrasound consistent with medical renal disease. Her UTI has been adequately treated. I will sign off her case. I will be available for questions if the need arises. IVANA/BENJY Voice ID: [id number] Report ID: [id number]
--- NOTE | 2021-09-16 12:22 | PN ---
Date of Progress Note: 09/16/2021 Subjective: The patient was admitted to the hospital for acute kidney injury secondary to cardiorena l, secondary to poor perfusion, ATN secondary to AFib with RVR. The patient had altered mental statu s. Reviewing the record for the patient, the patient's baseline creatinine 1 with GFR of 49 back in July. Physical Examination: Vital Signs: Blood pressure 131/52, pulse of 45, afebrile. Chest: Clear to auscultation. Heart: S1, S2. Systolic murmur. Abdomen: Soft, nontender. Extremity: Trace edema. Neuro: Alert. No focality. Laboratory Data: Sodium 141, potassium 3.3, bicarb 25, BUN 48, creatinine 1.6, GFR 29, calcium 8.4, albumin of 3. Corrected calcium 8.8. Current Medications: The patient on include ciprofloxacin, metronidazole, aspirin, Plavix, Lovenox, pantoprazole, levothyroxine, IV fluid at 75 per hour. Assessment And Plan: 1.Acute kidney injury secondary to prerenal. Obstructive uropathy has been ruled out. Small sized kidney bilateral. I am going to continue to monitor the patient. Continue IV hydration. 2.Hypertension, controlled, optimal. Continue current treatment. 3.Atrial fibrillation with rapid ventricular response as by primary. 4.Congestive heart failure, currently looked to me normal volume to the dry side. Continue IV hydra tion. 5.Hypokalemia. We will supplement. I will check for her potassium and magnesium and we will follow up. 6.Gastroenteritis as by primary. FLO/BENJY Voice ID: [id number] Report ID: [id number]
[2021-09-16] MEDS: NA CHLORIDE 0.9% 1,000 ML IV SCH ×2 (16:04→21:11)
[2021-09-16] MEDS: METRONIDAZOLE 500mg IVPB 500 MG/100 ML BAG IV SCH (16:04)
[2021-09-17] MEDS: METRONIDAZOLE 500mg IVPB 500 MG/100 ML BAG IV SCH (00:21)
[2021-09-17 04:16] VITALS: TEMP 97.9
[2021-09-17 05:05] LABS: Absolute Lymphocytes (CBC) 1.5 K/uL (0.7-4.9); Hematocrit 31.1 % (36.0-45.0); Lymphocytes % 26.1 % (15.3-44.8); RBC Red Blood Cell Count 3.58 M/uL (3.86-4.86)
[2021-09-17 05:14] LABS: AST/SGOT 24 U/L (15-37); Albumin 2.8 g/dL (3.4-5.0); Alkaline Phosphatase 55 U/L (45-117); BUN Blood Urea Nitrogen 35 mg/dL (7-18); Bicarbonate 22 mmol/L (21-32); Bilirubin Total 0.6 mg/dL (0.2-1.0); Glomerular Filtration Rate 38 mL/min (=/>90); Glucose Level 84 mg/dL (74-106); Magnesium 1.6 mg/dL (1.8-2.4); Phosphorus 1.3 mg/dL (2.5-4.9); Potassium 3.5 mmol/L (3.5-5.1); Sodium Level 140 mmol/L (136-145)
[2021-09-17 05:25] LABS: ALT/SGPT < 10 U/L (12-78)
[2021-09-17] MEDS: PANTOPRAZOLE 40MG TABLET PO SCH (05:42)
[2021-09-17] MEDS ORDERED: LEVOTHYROXINE SOD 0.075 MG TAB PO SCH (06:30)
[2021-09-17] MEDS ORDERED: LEVOTHYROXINE SOD 0.112 MG TAB PO SCH (06:30)
[2021-09-17] MEDS ORDERED: CEFTRIAXONE 1,000 MG in NA CHLORIDE 0.9% 50 ML IVPB ONE (08:29)
[2021-09-17] MEDS ORDERED: HYDROCORTISONE SUC 100 MG INJ IV ONE (08:31)
[2021-09-17] MEDS: ENOXAPARIN 30 MG/0.3 ML SQ SCH (09:00)
[2021-09-17] MEDS: CLOPIDOGREL 75 MG TABLET PO SCH (09:00)
[2021-09-17] MEDS: ASPIRIN EC 81 MG TAB PO SCH (09:00)
[2021-09-17 09:06] VITALS: BP 197/81
[2021-09-17 09:22] VITALS: O2SAT 97
[2021-09-17] MEDS ORDERED: Magnesium Sulfate 2gm IVPB 2 G/50 ML BAG IV ONE (10:54)
[2021-09-17] MEDS ORDERED: POTASSIUM PHOS 20 MM in NA CHLORIDE 0.9% 500 ML IV ONE (11:30)
--- NOTE | 2021-09-17 15:49 | PN ---
Date of Progress Note: 09/17/2021 Subjective: The patient was admitted with acute kidney injury, creatinine 2.4, secondary to prerenal. Kidney function started improving. Her acute kidney injury in the recover side Physical Examination: Vital Signs: When I saw the patient; blood pressure 113/56, pulse of 47, afebrile. Chest: Clear to auscultation. Heart: S1, S2. Regular. Abdomen: Soft, nontender. Extremity: Trace edema. Neurologic: Alert. No focality. Laboratory Data: Sodium 140, potassium 3.5, bicarb 22, BUN 35, creatinine 1.3, calcium 8.3, Assessment And Plan: 1. Acute kidney injury secondary to prerenal, recovered, back to baseline. 2. Hypertension, controlled, optimal. Continue current medications. 3. Hypokalemia, hypomagnesemia, hypophosphatemia. We will supplement. 4. Coronary artery disease as by Cardiology. time spend exam the patient face to face , reviewing the juve lab and radiology , discussing the case with the patient , placing order , discussing the case with other steam tender including hospitalist 35 min DEMETRIO Voice ID: [id number] Report ID: [id number] MTDLeobardo
--- NOTE | 2021-09-18 13:11 | PN ---
Date of Progress Note: 09/17/2021 Ms. Alonzo was admitted with severe bradycardia, heart rate in the 30s. We held her Coreg and metopr olol and now her heart rate is in the 40s to the 50s without any hemodynamic compromise. Ms. Alonzo has an ejection fraction of 36%. She should be on EFRAIN inhibitors and diuretics. Not a candidate for any pacemaker at this point. We hope her heart rate will improve even farther as she continues to b e off beta blockade. From our standpoint, she can go home. She had a UTI that was treated adequatel y. I will see her in the office in the near future. IVANA/BENJY Voice ID: [id number] Report ID: [id number]
--- NOTE | 2021-10-10 04:04 | P.PN ---
Date of Service: 09/16/21 Subjective Patient's mentation is improved. Continue with antibiotics and steroids. Renal function is stable. CHF is compensated. Physical Examination - Physical Exam General: Alert, In no apparent distress, Oriented x2 Respiratory: Diminished Cardiovascular: Irregular heart rate/rhythm (Marked sinus bradycardia), Systolic murmur Capillary refill: <2 Seconds Gastrointestinal: Soft and benign, No tenderness Neurological: No focal deficits except for left-sided facial weakness Assessment and Plan - Plan Assessment: Metabolic encephalopathy secondary to urinary tract infection Diarrheal Illness/proctitis GREGORY superimposed on CKD 3 Bradycardia Acute on Chronic systolic congestive heart failure CVA A. fib not on chronic anticoagulation Hypertension Hypothyroid Plan: Metabolic encephalopathy secondary to urinary tract infection: Continue antibiotic therapy Diarrheal Illness/proctitis: Stool studies pending; antibiotic therapy will continue GREGORY superimposed on CKD 3: Gentle hydration and renal function is improved Bradycardia: Beta-edmundo therapy on hold. Patient does not want pacemaker. Acute on chronic systolic congestive heart failure: CHF is compensated CVA: Continue home meds. A. fib not on chronic anticoagulation: Currently with marked sinus bradycaria, monitor on tele, hold metoprolol/carvedilol. Hypertension: Restart home meds adjust for bradycardia/ARF Hypothyroid: continue home meds, check TSH/T4 GI/DVT prophylaxis
--- NOTE | 2021-10-10 04:05 | P.DS ---
Discharge Date: 09/17/21 Disposition: ROUTINE DISCHARGE Discharge Condition: GOOD Reason for Admission: UTI, AMS, bradycardia, acute renal failure Brief History of Present Illness: 89-year-old female patient with history of chronic systolic congestive heart fa ilure with ejection fraction of 19%, CKD 3, CVA, hypertension, atrial fibrillation not on chronic anticoagulation, GERD, hypothyroidism presents emergency department for nausea/vomiting/diarrhea. Patient is a resident of [facility], has been reported to have diarrhea, vomiting for the last 2 days. Son reports that her mental status has never been the same since she was previously admitted for urinary tract infection, has concerned that she did not complete the course of antibiotics that were supposed to be completed at discharge previously. Patient was evaluated here in the emergency department her labs were significant for acute renal failure, mildly elevated high- sensitivity troponin/BNP potassium of 3.4 urinalysis nitrite positive leukoesterase positive COVID-negative CT abdomen pelvis without contrast demonstrated mild proctitis and likely diarrhea without bowel obstruction or perforation. Patient was started on IV antibiotics Cipro/Flagyl. Patient also noted to be in sinus bradycardia with first-degree block with rate between 40 and 50, upon medication review from assisted living facility she is currently taking both metoprolol 25 mg daily and carvedilol 12.5 mg p.o. twice daily. During previous admission patient had stress test with stress-induced ischemia, following stress test had CVA therefore was not a candidate for catheterization or intervention, she has been hesitant to have heart catheterization or pacemaker/ICD placed. Suspect bradycardia is related to combination of metoprolol/carvedilol will admit for further evaluation and management of acute renal failure, UTI, altered mental status and bradycardia. Hospital Course: Patient was started on antibiotic therapy. Patient's mentation has improved. Patient's heart rate is stable as well. Beta-edmundo DC'd. Patient is clinically doing much better and at this time patient is stable for discharge home. Vital Signs/Physical Exam: Temp Pulse Resp BP Pulse Ox 97.9 F 43 L 16 197/81 H 96 09/17/21 12:00 09/17/21 12:00 09/17/21 12:00 09/17/21 12:00 09/17/21 12:00 General: Alert, In no apparent distress, Oriented x2, Confused Laboratory Data at Discharge: WBC 5.6 K/uL (4.3-10.9) 09/17/21 04:40 Hgb 10.6 g/dL (12.0-15.0) L 09/17/21 04:40 Hct 31.1 % (36.0-45.0) L 09/17/21 04:40 Plt Count 167 K/uL (152-406) 09/17/21 04:40 PT 11.5 SECONDS (9.5-12.5) 09/14/21 22:45 INR 1.04 09/14/21 22:45 Sodium 140 mmol/L (136-145) 09/17/21 04:40 Potassium 3.5 mmol/L (3.5-5.1) 09/17/21 04:40 BUN 35 mg/dL (7-18) H 09/17/21 04:40 Creatinine 1.32 mg/dL (0.55-1.3) H 09/17/21 04:40 Glucose 84 mg/dL (74-106) 09/17/21 04:40 Phosphorus 1.3 mg/dL (2.5-4.9) L 09/17/21 04:40 Magnesium 1.6 mg/dL (1.8-2.4) L 09/17/21 04:40 Total Bilirubin 0.6 mg/dL (0.2-1.0) 09/17/21 04:40 AST 24 U/L (15-37) 09/17/21 04:40 ALT < 10 U/L (12-78) L 09/17/21 04:40 Alkaline Phosphatase 55 U/L (45-117) 09/17/21 04:40 Lipase 156 U/L (73-393) 09/14/21 22:45 Home Medications: Montelukast [Singulair*] 10 mg PO DAILY 04/20/21 Pantoprazole [Protonix Tab*] 40 mg PO DAILY 04/20/21 Aspirin [Aspirin EC 81 MG] 81 mg PO DAILY #90 tablet. 04/21/21 Clopidogrel Bisulfate [Plavix*] 75 mg PO DAILY #30 tablet 04/21/21 Furosemide 40 mg PO BID 06/23/21 Melatonin 10 mg PO BEDTIME 06/23/21 Isosorbide Mononitrate [Ismo] 20 mg PO DAILY #30 tablet 08/06/21 Midodrine HCl [Proamatine*] 5 mg PO BID PRN #60 tab 08/06/21 Atorvastatin Calcium [Lipitor] 40 mg PO DAILY 09/15/21 Spironolactone [Aldactone*] 25 mg PO BID 09/15/21 Cefdinir [Omnicef] 300 mg PO BID #14 capsule 09/17/21 Levothyroxine Sodium [Levothyroxine] 200 mcg PO DAILY #30 capsule 09/17/21 Pantoprazole [Protonix Tab*] 40 mg PO DAILYAC #30 tab 09/17/21 predniSONE [Prednisone*] 20 mg PO BID #11 tab 09/17/21 New Medications: Levothyroxine Sodium [Levothyroxine] 200 mcg PO DAILY #30 capsule Cefdinir [Omnicef] 300 mg PO BID #14 capsule predniSONE [Prednisone*] 20 mg PO BID #11 tab Pantoprazole [Protonix Tab*] 40 mg PO DAILYAC #30 tab Physician Discharge Instructions: -DC IV and DC home -Follow-up with PCP in 1 to 2 weeks -Please call Dr. Richmond at [phone] if any questions regarding hospital stay -Please call nursing station at [phone] if any nursing or medication questions -Return to the emergency room if symptoms worsen Followup: Unknown,U [Primary Care Provider] - Time spent managing pt's care (in minutes): 35
== END 2021-09-17 12:01 | disposition home or self-care (01) | DRG 689 ==
LOC: ER 21:27 → ERHOLD 09-15 02:58 → 3RD-ICU 09-15 05:21 → 2ND 09-15 18:20
PROVIDERS: ADMIT Hospitalist; ATTEND Hospitalist
DX: N39.0 Urinary tract infection, site not specified (principal); I50.23 Acute on chronic systolic (congestive) heart failure; N17.0 Acute kidney failure with tubular necrosis; G93.41 Metabolic encephalopathy; I13.0 Hypertensive heart and chronic kidney disease with heart failure and stage 1 through stage 4 chronic kidney disease, or unspecified chronic kidney disease; E03.9 Hypothyroidism, unspecified; N18.30 Chronic kidney disease, stage 3 unspecified; I69.392 Facial weakness following cerebral infarction; K62.89 Other specified diseases of anus and rectum; I48.91 Unspecified atrial fibrillation; R00.1 Bradycardia, unspecified; K21.9 Gastro-esophageal reflux disease without esophagitis; E87.6 Hypokalemia; E83.42 Hypomagnesemia; E83.39 Other disorders of phosphorus metabolism; I44.0 Atrioventricular block, first degree; I25.2 Old myocardial infarction; Z95.1 Presence of aortocoronary bypass graft; Z88.0 Allergy status to penicillin; Z88.2 Allergy status to sulfonamides; Z20.822 Contact with and (suspected) exposure to COVID-19
CPT/HCPCS: 36415; 71045; 74176; 76770; 80048; 80053; 80069; 80076; 81003; 82274; 83605; 83690; 83735; 83880; 84484; 85025; 85610; 87045; 87046; 87077; 87086; 87088; 87186; 87324; 87449; 89055; 93005; 99285; J0744; J1650; J2405; J3480; J3490; J7030; J7040; U0003

== ENCOUNTER 2021-10-16 18:22 | Inpatient (IN) | payer OTHER ==
--- OUTSIDE RECORDS SUMMARY | 2021-10-16 18:25 | XMS REPORT | Continuity of Care Document ---
:[address] [facility] t Address [address] [place] [address] Care Team Providers Name Role Phone AIMEE Attending Clinician Unavailable AIMEE Admitting Clinician Unavailable FLORIDALMA Admitting Clinician Unavailable Payers Payer Name Policy Type Policy Number Effective Date Expiration Date Ines bradshaw MEDICARE PART A [id number] 1997 00:00:00 BCBS PPO POS EPO [id number] 2019 CHOICE 00:00:00 Problems Condition Condition Condition Status Onset Resolution Last Treating Co mments Source Name Details Category Date Date Treatment Clinician Date Amnesia Problem Active 2019-08-18 Miquel julisa (finding) 23:16:21 l Amnesia Ogden (finding) Active Problem 08/18/2019 [facility] Hypertensi [...] Date Clinician Vicodin Vicodin Active Memoria l [place] sulfa sulfa Active Memoria drugs drugs l Jeyson penicill penicill Active Memori a in in l Jeyson Keflex Keflex Active Memoria l Jeyson Xanax Xanax Active Memoria l Jeyson Zantac Zantac Active Memoria l Jeyson Talwin Talwin Active Memoria l Jeyson Axid Axid Active Memoria l Jeyson NO KNOWN Allergy Active [facility] ALLERGIE S Social History Social Habit Start Date Stop Date Quantity Comments Source Social History 2019-07-05 2019-07-05 [facility] 22:01:59 22:01:59 Medications Ordered Filled Start Stop Current Ordering Indication Dosage Frequency Signature Comments Components Source Medication Medication Date Date Medication? Clinician (SIG) Name Name Hydrochloro 2019-0 Yes 25 mg, PO, Memoria thiazide 2-19 Daily, 0 l 21:30: Refill(s) Amlodipine 2019-0 Yes 5 mg, PO, Me moria 2-19 Daily, 0 l 21:30: Refill(s) Jeyson 00 Thyroxine 2020-0 Yes Daily, 0 Miquel julisa 2-19 Refill(s) l 21:30: [place] Losartan 2019-0 Yes 50 mg, PO, Mem [...] Systolic (mm Hg) 2019-07-05 21:09:00 Miquel rial [place] Diastolic (mm Hg) 2019-07-05 21:09:00 Mem ortizal Jeyson Heart Rate 2019-07-05 21:09:00 Stacey [place] Respitory Rate 2019-07-05 21:09:00 Get Sheldon Height 2019-07-05 21:09:00 144.78 cm [facility] Weight 2019-07-05 21:09:00 [facility] BMI Calculated 2019-07-05 21:09:00 Get Sheldon Procedures Procedure Date / Time Performed Performing Clinician Sour e [facility] Encounters Start End Encounter Admission Attending Care Care Encounter Source Date/Time Date/Time Type Type Clinicians Facility Department ID 2021-02-23 Inpatient UR AIMEE, [facility] Cardiology [id number] [facility] 12:06:27 DINORAH 2021-01-25 2021-01-25 Outpatient BCM BC [id number] [facility] 00:00:00 23:59:00 Ubaldog kalyn of Medicin e 2019-08-16 2019-08-17 Outpatient nullFlavo MNA [id number] Memoria 20:15:00 04:59:59 r Neurology 02 l Oceanmakenna Benítez 2019-07-05 2019-07-06 Outpatient nullFlavo MNA [id number] Memoria 21:15:00 05:59:59 r Neurology 01 l [...] NOT 1092) ACCURATE CRE ATININE CLEARANCE IN [place] EDICTING GLOMERULAR FILT RATION RATE. ESTIMATED GFR IS NOT APPLICABLE FOR DIALYSIS PATIENTS. Musical Therapist ID - MILENA GSARS-COV2/RT-PCR ([facility])2021-01-30 23:26:53 Test Item Value Reference Range Interpretation Comments SARS-COV2/RT-PCR (test code = Negative Negative [id number]) Negative result for this test determines that [...] Healthcare Providers:https://www.molecular.moss/desmond/RT SARS-CoV-2 HCP Fact Sheet 51- 176360.pdfFact Sheet for Healthcare Patients:https://www.molecular.moss/desmond/RT SARS-CoV-2 Patient Fact Sheet EN [id number].pdf(CELLAVISION MANUAL DIFF) 2021-01-30 13:10:24 Test Item Value [...] PLATELET CONCENTRATION Adequate (CELLAVISION)(BEAKER) (test code = 3430) CBC W/PLT COUNT & AUTO [id number] 13:10:23 Test Item Value Reference Range Interpretation [...] (BEAKER) (test code = 413) BASIC METABOLIC [id number] 07:09:48 Test Item Value Reference Range Interpretation [...] S NOT APPLICABLE FOR DIALYSIS PATIEN TS. Musical Therapist ID - GLADYS MCBC W/PLT COUNT & AUTO [id number] 06:45:31 Test Item Value Reference Range Interpretation [...] (BEAKER) (test code = 2801) BASIC METABOLIC [id number] 06:18:04 Test Item Value Reference Range Interpretation [...] S NOT APPLICABLE FOR DIALYSIS PATIEN TS. Musical Therapist ID - PIAYA LCBC W/PLT COUNT & AUTO [id number] 05:03:03 Test Item Value Reference Range Interpretation [...] PERCENT (BEAKER) (test code = 2801) HEMOGLOBIN [id number] 08:51:20 Test Item Value Reference Range Interpretation Comments HEMOGLOBIN A1C (BEAKER) (test code = 5.5 % 4.3-6.1 368) RAD, CHEST, 1 VIEW, NON [id number] 07:27:00Reason for exam:->chfShould this be performed at the bedside?->Yes [facility] : 1930 Sex: FFINAL REPORT INDICATION: chf COMPARISON: None TECHNIQUE: Single frontal view of the chest. FINDINGS: Lungs and pleura: Mild left retrocardiac atelectasis. Small left effusionis suspected.Heart and mediastinum: Normal heart size. Unremarkable mediastinal contours.Osseous structures: No acute abnormality.Other: None. Signed: Zaid Martinez MDReport Verified Date/Time: 01/26/2021 07:27:42 [id number] 06:15:44 Test Item Value Reference Range Interpretation Comments PHOSPHORUS (BEAKER) (test code = 4.2 mg/dL 2.3-4.7 604) Musical Therapist ID - GLADYS EPATIC FUNCTION [id number] 06:15:44 Test Item Value Reference Range Interpretation [...] (test code = 13 U/L 6-55 347) Musical Therapist ID - GLADYS MBASIC METABOLIC [id number] 06:15:43 Test Item Value Reference Range Interpretation [...] S NOT APPLICABLE FOR DIALYSIS PATIEN TS. Musical Therapist ID - GLADYS [id number] 06:15:43 Test Item Value Reference Range Interpretation Comments MAGNESIUM (BEAKER) (test code = 2.5 mg/dL 1.6-2.6 627) Musical Therapist ID - GLADYS MTSH/FREE T4 IF [id number] 06:06:15 Test Item Value Reference Range Interpretation Comments THYROID STIMULATING HORMONE 0.659 uIU/mL 0.350-4.940 (BEAKER) (test code = 772) Musical Therapist ID - GLADYS MB-TYPE NATRIURETIC FACTOR (BNP)2021-01-26 05:31:01 Test Item Value Reference Range Interpretation Comments B-TYPE NATRIURETIC PEPTIDE (BEAKER) 697 pg/mL 0-100 H (test code = 700) Musical Therapist ID - GLADYS MPROTHROMBIN [id number] 05:23:10 Test Item Value Reference Range Interpretation Comments PROTIME (BEAKER) 15.1 seconds 11.9-14.2 H (test code = 759) INR (BEAKER) (test 1.21 See_Comment [Automat ed message] code = 370) The system [employer] generated this result transmitted ref erence range: [...] (BEAKER) (test code = 2801) U/S, RENAL, [id number] 01:22:00Reason for exam:->[facility] : 1930 Sex: [...] MDReport Verified Date/Time: 01/26/2021 01:22:44 SODIUM, RANDOM [id number] 20:15:33 Test Item Value Reference Range Interpretation Comments SODIUM URINE (BEAKER) (test code = 59 meq/L 243) Reference Range: No NormalsOperator ID - DBCREATININE, RANDOM [id number] 20:15:32 Test Item Value Reference Range Interpretation Comments CREATININE URINE (BEAKER) (test 27.1 mg/dL code = 375) Reference Range: No NormalsOperator ID - DBPOTASSIUM, RANDOM [id number] 20:15:32 Test Item Value Reference Range Interpretation Comments POTASSIUM URINE (BEAKER) (test 43.4 meq/L code = 195) Reference Range: No NormalsOperator ID - DBCHLORIDE, RANDOM [id number] 20:15:31 Test Item Value Reference Range Interpretation Comments CHLORIDE URINE (BEAKER) (test code = 60 meq/L 682) Reference Range: No NormalsOperator ID - DBURINALYSIS W/ [id number] 20:01:17 Test Item Value Reference Range Interpretation [...] = 1582) SOURCE(BEAKER) (test code = 2795) Musical Therapist ID - [auto]Musical Therapist ID - tech
[2021-10-16 18:59] LABS: Absolute Lymphocytes (CBC) 1.6 K/uL (0.7-4.9); Hematocrit 30.4 % (36.0-45.0); Lymphocytes % 27.2 % (15.3-44.8); MPV 8.3 fL (7.6-11.3); RBC Red Blood Cell Count 3.47 M/uL (3.86-4.86)
[2021-10-16 19:00] LABS: Protime INR 1.14
[2021-10-16] MEDS ORDERED: NA CHLORIDE 0.9% 1,000 ML ONE (19:03)
[2021-10-16] MEDS ORDERED: NA CHLORIDE 0.9% 500 ML ONE (19:03)
[2021-10-16 19:04] LABS: Urine Blood Negative (Negative); Urine Glucose Negative (Negative); Urine Protein Negative (Negative)
[2021-10-16 19:23] LABS: Urine Bacteria >50 /HPF (<20); Urine RBC <5 /HPF (NONE SEEN)
[2021-10-16 19:28] LABS: Albumin 3.1 g/dL (3.4-5.0); Bilirubin Direct 0.3 mg/dL (0-0.2); Magnesium 1.8 mg/dL (1.8-2.4); Potassium 3.3 mmol/L (3.5-5.1); Protein, Total 6.7 g/dL (6.4-8.2)
[2021-10-16 19:41] LABS: Troponin High Sensitivity 194.4 pg/mL (<58.9)
--- NOTE | 2021-10-16 20:19 | ER ---
Nurse's Notes [facility] Name: Leelee Forrest Age: 89 yrs Sex: Female : 1930 Arrival Date: 10/16/2021 Time: 18:30 Bed 6 Private MD: Diagnosis: Anemia, unspecified;Hypokalemia;Elevated troponin;Congestive heart failure;Hypothyroidism, unspecified;Asymptomatic Bacteruria Presentation: 10/16 18:32 Chief complaint: EMS states: pt presented to ED EMS reports pt has not been eating for vasquez the least 5 days and son wants pt to get checked out. Coronavirus screen: Vaccine status: At this time, unable to obtain information related to travel outside the [place] Ebola Screen: Patient denies travel to an Ebola-affected area in the 21 days before illness onset. Initial Sepsis Screen: Does the patient meet any 2 criteria? No. Patient's initial sepsis screen is negative. Does the patient have a suspected source of infection? No. Patient's initial sepsis screen is negative. Risk Assessment: Do you want to hurt yourself or someone else? Patient reports no desire to harm self or others. Onset of symptoms was October 11, 2021. 18:32 Method Of Arrival: EMS: [facility] vasquez 18:32 Acuity: BECKI 3 vasquez Triage Assessment: 18:33 General: Appears in no apparent distress. Behavior is agitated, uncooperative. Pain: vasquez Denies pain. Historical: - Allergies: 18:33 Axid; vasquez 18:33 Bactrim; vasquez 18:33 Codeine; vasquez 18:33 Keflex; vasquez 18:33 PENICILLINS; vasquez 18:33 Sulfa (Sulfonamide Antibiotics); vasquez 18:33 Talwin; vasquez 18:33 Vicodin; vasquez 18:33 Xanax; vasquez - Home Meds: 18:33 aspirin 81 mg Oral tab [Active]; carvedilol 12.5 mg Oral tab [Active]; clopidogrel 75 vasquez mg Oral tab once daily [Active]; Lasix 40 mg Oral tab [Active]; montelukast 10 mg Oral tab [Active]; Spironolactone Oral [Active]; - PMHx: 18:33 Congestive heart failure; Hypertension; Hypertensive disorder; Hypothyroidism; vasquez - Immunization history:: Adult Immunizations up to date. - Social history:: Smoking status: Patient denies any tobacco usage or history of. - Family history:: not pertinent. Screenin:34 Abuse screen: Denies threats or abuse. Denies injuries from another. Nutritional vasquez screening: No deficits noted. Tuberculosis screening: No symptoms or risk factors identified. Fall Risk Mental Status- Overestimates/Forgets Limitations (15 pts.). Assessment: 18:34 General: Appears in no apparent distress. Behavior is agitated, uncooperative. Pain: vasquez Denies pain. Neuro:. GI: Parent/caregiver reports the patient having intolerance of food, intolerance of fluids. 19:19 General: Appears in no apparent distress. comfortable, Behavior is calm. Respiratory: as6 Respiratory effort is even, unlabored, Respiratory pattern is regular, symmetrical. 19:50 General: IV to right AC infiltrated . as6 Vital Signs: 18:32 BP 132 / 51; Pulse 48; Resp 17; Temp 97.8(T); Pulse Ox 97% ; Weight 61.23 kg; Height 5 vasquez ft. (152.40 cm); 19:19 BP 139 / 43; Pulse 33; Resp 12 S; Pulse Ox 96% on R/A; as6 22:26 BP 134 / 42; Pulse 35; kd3 18:32 Body Mass Index 26.37 (61.23 kg, 152.40 cm) vasquez ED Course: 18:30 Patient arrived in ED. bd 18:30 Manolo Kearney MD is Attending Physician. edita 18:32 Annie Wheat, RN is Primary Nurse. vasquez 18:33 Triage completed. vasquez 18:33 Arm band placed on right wrist. vasquez 18:35 No provider procedures requiring assistance completed. vasquez 18:36 Patient has correct armband on for positive identification. Bed in low position. Side vasquez rails up X2. 19:26 Attending Physician role handed off by Manolo Kearney MD ms3 19:26 Sheldon Barahona DO is Attending Physician. ms3 19:50 IV discontinued, intact, bleeding controlled, Pressure dressing applied. as6 20:14 Mark Anthony Rosen is Hospitalizing Provider. ms3 20:26 XRAY Chest (1 view) In Process Unspecified. EDMS 22:01 Inserted saline lock: 22 gauge in right forearm, using aseptic technique. Blood as6 collected. Administered Medications: 19:02 Drug: NS 0.9% 500 ml Route: IV; Rate: bolus; Site: right antecubital; vasquez 22:27 Follow up: IV Status: Completed infusion kd3 19:02 Drug: NS 0.9% 1000 ml Route: IV; Rate: 125 ml/hr; Site: right antecubital; vasquez 22:26 Follow up: IV Status: Completed infusion kd3 Medication: 18:34 VIS not applicable for this client. vasquez Outcome: 20:18 Decision to Hospitalize by Provider. ms3 22:26 Admitted to Med/surg room 2nd floor 222. kd3 22:26 Condition: stable 22:26 Discharge instructions given to patient, family, Instructed on the need for admit, Demonstrated understanding of instructions. 22:27 Patient left the ED. kd3 Signatures: Dispatcher [employer] EDMS Leigh Carlos Corey, MD MD cha Sims, Marcus, DO DO ms3 Prashant Antonio RN RN as6 Beth Macias RN RN kd3 Ebony-Annie Buckner RN RN
--- NOTE | 2021-10-16 20:19 | EDPHYS ---
Physician Documentation [facility] Name: Leelee Forrest Age: 89 yrs Sex: Female : 1930 Arrival Date: 10/16/2021 Time: 18:30 Bed 6 Private MD: ED Physician Sheldon Barahona HPI: 10/16 19:03 This 89 yrs old Female presents to ER via EMS with complaints of weakness and edita anorexia. 19:03 weakness, not eating, low heart rate. The patient has experienced near-syncope, felt edita generally weak. Onset: The symptoms/episode began/occurred 1 week(s) ago. Duration: The patient has had multiple episodes. Context: the episode(s) was witnessed, by no one. Associated signs and symptoms: Pertinent positives: combativeness, confusion, weakness. Current symptoms: confusion. Severity of symptoms: At their worst the symptoms were mild moderate in the emergency department the symptoms are unchanged. Historical: - Allergies: 18:33 Axid; vasquez 18:33 Bactrim; vasquez 18:33 Codeine; vasquez 18:33 Keflex; vasquez 18:33 PENICILLINS; vasquez 18:33 Sulfa (Sulfonamide Antibiotics); vasquez 18:33 Talwin; vasquez 18:33 Vicodin; vasquez 18:33 Xanax; vasquez - Home Meds: 18:33 aspirin 81 mg Oral tab [Active]; carvedilol 12.5 mg Oral tab [Active]; clopidogrel 75 vasquez mg Oral tab once daily [Active]; Lasix 40 mg Oral tab [Active]; montelukast 10 mg Oral tab [Active]; Spironolactone Oral [Active]; - PMHx: 18:33 Congestive heart failure; Hypertension; Hypertensive disorder; Hypothyroidism; vasquez - Immunization history:: Adult Immunizations up to date. - Social history:: Smoking status: Patient denies any tobacco usage or history of. - Family history:: not pertinent. ROS: 19:03 Constitutional: Negative for fever, chills, and weight loss, Eyes: Negative for injury, edita pain, redness, and discharge, ENT: Negative for injury, pain, and discharge, Neck: Negative for injury, pain, and swelling, Respiratory: Negative for shortness of breath, cough, wheezing, and pleuritic chest pain, Back: Negative for injury and pain, : Negative for injury, bleeding, discharge, and swelling, MS/Extremity: Negative for injury and deformity, Skin: Negative for injury, rash, and discoloration, Neuro: Negative for headache, weakness, numbness, tingling, and seizure, Psych: Negative for depression, anxiety, suicide ideation, homicidal ideation, and hallucinations, Allergy/Immunology: Negative for hives, rash, and allergies, Endocrine: Negative for neck swelling, polydipsia, polyuria, polyphagia, and marked weight changes, Hematologic/Lymphatic: Negative for swollen nodes, abnormal bleeding, and unusual bruising. 19:03 Cardiovascular: Positive for palpitations, extreme bradycardia. 19:03 Abdomen/GI: Positive for anorexia. Exam: 19:03 Constitutional: This is a well developed, well nourished patient who is awake, alert, edita and in no acute distress. Head/Face: Normocephalic, atraumatic. Eyes: Pupils equal round and reactive to light, extra-ocular motions intact. Lids and lashes normal. Conjunctiva and sclera are non-icteric and not injected. Cornea within normal limits. Periorbital areas with no swelling, redness, or edema. ENT: Nares patent. No nasal discharge, no septal abnormalities noted. Tympanic membranes are normal and external auditory canals are clear. Oropharynx with no redness, swelling, or masses, exudates, or evidence of obstruction, uvula midline. Mucous membranes moist. Neck: Trachea midline, no thyromegaly or masses palpated, and no cervical lymphadenopathy. Supple, full range of motion without nuchal rigidity, or vertebral point tenderness. No Meningismus. Chest/axilla: Normal chest wall appearance and motion. Nontender with no deformity. No lesions are appreciated. Respiratory: Lungs have equal breath sounds bilaterally, clear to auscultation and percussion. No rales, rhonchi or wheezes noted. No increased work of breathing, no retractions or nasal flaring. Abdomen/GI: Soft, non-tender, with normal bowel sounds. No distension or tympany. No guarding or rebound. No evidence of tenderness throughout. Back: No spinal tenderness. No costovertebral tenderness. Full range of motion. Female : Normal external genitalia. Skin: Warm, dry with normal turgor. Normal color with no rashes, no lesions, and no evidence of cellulitis. MS/ Extremity: Pulses equal, no cyanosis. Neurovascular intact. Full, normal range of motion. Psych: Awake, alert, with orientation to person, place and time. Behavior, mood, and affect are within normal limits. 19:03 Cardiovascular: Rate: bradycardic, actual rate is 48 bpm, Rhythm: irregularly irregular, Pulses: Pulses are 3+ in bilateral radial, brachial, femoral, popliteal, posterior tibial and and dorsalis pedis arteries.. Heart sounds: normal, Edema: is not appreciated, JVD: is not appreciated. 19:03 ECG was reviewed by the Attending Physician. Vital Signs: 18:32 BP 132 / 51; Pulse 48; Resp 17; Temp 97.8(T); Pulse Ox 97% ; Weight 61.23 kg; Height 5 vasquez ft. (152.40 cm); 19:19 BP 139 / 43; Pulse 33; Resp 12 S; Pulse Ox 96% on R/A; as6 22:26 BP 134 / 42; Pulse 35; kd3 18:32 Body Mass Index 26.37 (61.23 kg, 152.40 cm) vasquez MDM: 18:31 Patient medically screened. edita 19:14 Differential Diagnosis altered mental status, sepsis. Differential Diagnosis: cardiac edita arrhythmia, drug effect, emotional response, sepsis, vasovagal episode. Data reviewed: vital signs, nurses notes, lab test result(s), EKG, radiologic studies, plain films. Data interpreted: radiation monitor: rate is 48 beats/min, rhythm is regular, Pulse oximetry: on room air is 97 %. Test interpretation: by ED physician or midlevel provider: ECG, plain radiologic studies. Counseling: I had a detailed discussion with the patient and/or guardian regarding: the historical points, exam findings, and any diagnostic results supporting the discharge/admit diagnosis, lab results, radiology results, the need for further work-up and treatment in the hospital. 19:26 Transition of care: Care assumed from Manolo Kearney MD. ms3 20:18 ED course: Discussed case with DAO Stone and she accepts patient as inpatient ms3 admission for Dr Rosen. Patient remains in stable condition.. 10/16 18:37 Order name: COVID-19 SARS RT PCR (Document "Date of Onset" if Symptomatic); Complete bd Time: 20:13 10/16 18:44 Order name: Basic Metabolic Panel; Complete Time: 20:13 [facility] 06 18:44 Order name: CBC with Diff; Complete Time: 19:07 [facility] 10/16 18:44 Order name: LFT's; Complete Time: 20:13 [facility] 10/16 18:44 Order name: Magnesium; Complete Time: 20:13 [facility] 10/16 18:44 Order name: NT PRO-BNP; Complete Time: 20:13 [facility] 10/16 18:44 Order name: PT-INR; Complete Time: 19:07 [facility] 10/16 18:44 Order name: Troponin HS; Complete Time: 20:13 [facility] 10/16 18:44 Order name: Lactate; Complete Time: 20:13 [facility] 10/16 18:44 Order name: Procalcitonin; Complete Time: 20:13 [facility] 10/16 18:44 Order name: TSH; Complete Time: 20:13 [facility] 10/16 18:57 Order name: Blood Culture Adult (2) 10/16 18:58 Order name: Urine Culture 10/16 18:58 Order name: Urine Microscopic Only; Complete Time: 20:13 10/16 18:44 Order name: XRAY Chest (1 view); Complete Time: 21:29 [facility] 10/16 18:44 Order name: EKG; Complete Time: 18:45 [facility] 10/16 18:44 Order name: Cardiac monitoring; Complete Time: 19:02 [facility] 10/16 18:44 Order name: EKG - Nurse/Tech; Complete Time: 19:02 [facility] 10/16 18:44 Order name: IV Saline Lock; Complete Time: 19:02 [facility] 10/16 18:44 Order name: Labs collected and sent; Complete Time: 19:02 [facility] 10/16 18:44 Order name: O2 Per Protocol; Complete Time: 19:03 [facility] 10/16 18:44 Order name: O2 Sat Monitoring; Complete Time: 19:03 [facility] 10/16 18:44 Order name: Urine Dipstick-Ancillary (obtain specimen); Complete Time: 19:09 [facility] 10/16 18:44 Order name: Arteaga; Complete Time: 19:03 [facility] 10/16 19:04 Order name: Urine Dipstick-Ancillary; Complete Time: 19:07 EDMS 10/16 19:47 Order name: T4 Free; Complete Time: 20:13 EDMS EC:03 Rate is 35 beats/min. Rhythm is regular. QRS [place] is Normal. NM interval is prolonged edita at 272 msec. QRS interval is prolonged at 174 msec. QT interval is normal. No Q waves. T waves are Normal. No ST changes noted. Clinical impression: Abnormal EKG without significant change and No evidence of ischemia. Interpreted by me. Reviewed by me. Administered Medications: 19:02 Drug: NS 0.9% 500 ml Route: IV; Rate: bolus; Site: right antecubital; 22:27 Follow up: IV Status: Completed infusion kd3 19:02 Drug: NS 0.9% 1000 ml Route: IV; Rate: 125 ml/hr; Site: right antecubital; vasquez 22:26 Follow up: IV Status: Completed infusion kd3 Disposition Summary: 10/16/21 20:18 Hospitalization Ordered Hospitalization Status: Inpatient Admission ms3 Provider: Mark Anthony Rosen ms3 Condition: Stable ms3 Problem: new ms3 Symptoms: are unchanged ms3 Bed/Room Type: Standard ms3 Location: Telemetry/MedSurg (Inpatient)(10/16/21 20:32) 5 Room Assignment: [facility](10/16/21 21:14) Diagnosis - Anemia, unspecified ms3 - Hypokalemia ms3 - Elevated troponin ms3 - Congestive heart failure ms3 - Hypothyroidism, unspecified ms3 - Asymptomatic Bacteruria ms3 Discharge Instructions: - Discharge Summary Sheet bd Forms: - SBAR form bd - Medication Reconciliation Form ms3 Signatures: Dispatcher [employer] EDMS Cherelle Butts RN RN mw Anderson, Corey, MD MD cha Sims, Marcus, DO DO ms3 MiltonDanielle tw5 Annie Wheat RN RN ha Brown, Sophia, PA PA sb3 Beth Macias RN kd3 Corrections: (The following items were deleted from the chart) 20:31 20:18 ms3 tw5 20:32 20:18 Telemetry/MedSurg (Inpatient) ms3 tw5 20:32 20:31 207 tw5 tw5 20:40 20:18 UTI/ Urinary tract infection, site not specified ms3 ms3 21:14 20:32 tw5 mw
--- NOTE | 2021-10-16 21:00 | RAD REPORT ---
EXAM DESCRIPTION: Rebeca Single View10/16/2021 8:24 pm CLINICAL HISTORY: Cough COMPARISON: September 2021 FINDINGS: Mild bilateral interstitial lung opacities. The heart is mildly to moderately enlarged. Moderate hiatal hernia. . Postsurgical changes involve the chest. IMPRESSION: Mild CHF
[2021-10-16] MEDS ORDERED: ONDANSETRON 4 MG/2 ML VIAL IV PRN (22:01)
[2021-10-16] MEDS ORDERED: HEPARIN 5000 UNIT/ML 1 ML VIAL IV SCH (22:01)
[2021-10-16] MEDS ORDERED: ACETAMINOPHEN 500 MG TAB PO PRN (22:01)
[2021-10-16] MEDS ORDERED: HALOPERIDOL LACT 5 MG/ML INJ IV PRN (22:01)
[2021-10-16] MEDS ORDERED: HEPARIN/D5W 25,000 UNIT/500 ML BAG IV SCH (22:01)
--- NOTE | 2021-10-16 23:22 | P.HP ---
Certification for Inpatient Patient admitted to: Inpatient With expected LOS: >2 Midnights Patient will require the following post-hospital care: None Practitioner: I am a practitioner with admitting privileges, knowledge of patient current condition, hospital course, and medical plan of care. Services: Services provided to patient in accordance with Admission requirements found in Title 42 Section 412.3 of the Code of Federal Regulations Patient History Date of Service: 10/17/21 Reason for admission: AMS, Elevated Trop, GREGORY, UTI History of Present Illness: Patient is an 89-year-old female with history of chronic systolic CHF with EF of 19%, CKD 3, CVA, HTN, atrial fibrillation not on chronic anticoagulation, GERD, hypothyroidism who presented to the ED with her son who states that she has not been eating for the past 5 days and wishes for her to be evaluated. Labs significant for potassium 3.3, creatinine 3.19, BNP 2000, troponin HS 194, Pro- Joel 0.07, TSH 130, urine positive for UTI, CXR noted mild CHF. Patient also noted to be in sinus bradycardia with first-degree block with rate between 35 and 50. She was bradycardic during previous admission and was instructed to stop taking beta blockers upon discharge. She was also prescribed levothyroxine. It does not appear that patient has been taking her medications as prescribed. Patient noted to be screaming anytime nurses tried to touch her. She does not know why she is in the hospital has no complaints. Patient will be admitted for further evaluation and treatment. Allergies cephalexin monohydrate [From Keflex] Allergy (Mild, Verified 10/17/21 00:04) UNKNOWN famotidine [From Pepcid] Allergy (Mild, Verified 10/17/21 00:04) Itching/Hives/Rash Penicillins Allergy (Mild, Verified 10/17/21 00:04) Itching Sulfa (Sulfonamide Antibiotics) Allergy (Mild, Verified 10/17/21 00:04) Itching acetaminophen [From Tylox] Allergy (Unknown, Verified 10/17/21 00:04) UNKNOWN codeine [Codeine] Allergy (Unknown, Verified 10/17/21 00:04) UNKNOWN hydrocodone bitartrate [From Vicodin] Allergy (Unknown, Verified 10/17/21 00:04) UNKNOWN oxycodone HCl [From Tylox] Allergy (Unknown, Verified 10/17/21 00:04) UNKNOWN pentazocine lactate [From Talwin] Allergy (Unknown, Verified 10/17/21 00:04) UNKNOWN ranitidine HCl [From Zantac] Allergy (Unknown, Verified 10/17/21 00:04) UNKNOWN alprazolam [From Xanax] Allergy (Verified 10/17/21 00:04) Unknown nizatidine [From Axid] Allergy (Verified 10/17/21 00:04) Unknown Home medications list reviewed: Yes Home Medications: Montelukast [Singulair*] 10 mg PO DAILY 04/20/21 Pantoprazole [Protonix Tab*] 40 mg PO DAILY 04/20/21 Aspirin [Aspirin EC 81 MG] 81 mg PO DAILY #90 tablet. 04/21/21 Clopidogrel Bisulfate [Plavix*] 75 mg PO DAILY #30 tablet 04/21/21 Furosemide 40 mg PO BID 06/23/21 Melatonin 10 mg PO BEDTIME 06/23/21 Isosorbide Mononitrate [Ismo] 20 mg PO DAILY #30 tablet 08/06/21 Midodrine HCl [Proamatine*] 5 mg PO BID PRN #60 tab 08/06/21 Atorvastatin Calcium [Lipitor] 40 mg PO BEDTIME 09/15/21 Cefdinir [Omnicef] 300 mg PO BID #14 capsule 09/17/21 Metoprolol Tartrate [Lopressor] 25 mg PO BID 10/16/21 Spironolactone 25 mg PO BID 10/16/21 carvediloL [Carvedilol] 12.5 mg PO BID 10/16/21 - Past Medical/Surgical History Has patient received pneumonia vaccine in the past: Yes Diabetic: No -: Anxiety -: HTN -: Hypothyroidism -: Chronic systolic CHF -: COPD -: NSTEMI -: CKD 3 -: CVA -: Aortic stenosis -: Coronary artery bypass grafting Psychosocial/ Personal History: Patient currently resides at [facility] - Social History Smoking Status: Never smoker Alcohol use: No CD- Drugs: No Caffeine use: Yes Place of Res[facility] Review of Systems is unable to be obtained Physical Examination - Vital Signs Temperature: 97.8 F Blood Pressure: 134/42 Pulse: 35 Respirations: 12 - Physical Exam General: Alert, Confused, Other (uncooperative, combative) HEENT: Atraumatic, PERRLA, EOMI, Sclerae nonicteric Neck: 2+ carotid pulse no bruit, No LAD, Without JVD or thyroid abnormality Respiratory: Clear to auscultation bilaterally, Normal air movement Cardiovascular: Normal S1 S2, Other (bradycardic) Gastrointestinal: Normal bowel sounds, No tenderness Musculoskeletal: No tenderness Integumentary: No rashes Neurological: Normal speech, Sensation intact, Dementia Urinary: Arteaga catheter - Studies Laboratory Data (last 24 hrs) 10/16/21 18:44: PT 12.6 H, INR 1.14 10/16/21 18:44: WBC 5.7, Hgb 10.3 L, Hct 30.4 L, Plt Count 178 10/16/21 18:44: Sodium 136, Potassium 3.3 L, BUN 79 H, Creatinine 3.19 H, Glucose 113 H, Magnesium 1.8, Total Bilirubin 1.0, AST 40 H, ALT 16, Alkaline Phosphatase 67 Assessment and Plan - Problems (Diagnosis) (1) Metabolic encephalopathy Current Visit: Yes Status: Acute (2) NSTEMI (non-ST elevated myocardial infarction) Current Visit: Yes Status: Acute (3) Acute renal failure Current Visit: Yes Status: Acute Qualifiers: Acute renal failure type: unspecified Qualified Code(s): N17.9 - Acute kidney failure, unspecified (4) Hypokalemia Current Visit: Yes Status: Acute (5) Atrial fibrillation Current Visit: No Status: Chronic Qualifiers: Atrial fibrillation type: unspecified Qualified Code(s): I48.91 - Unspecified atrial fibrillation (6) UTI (urinary tract infection) Current Visit: Yes Status: Acute Qualifiers: Urinary tract infection type: acute cystitis Hematuria presence: without hematuria Qualified Code(s): N30.00 - Acute cystitis without hematuria (7) CAD (coronary artery disease) Current Visit: Yes Status: Chronic Qualifiers: Coronary Disease-Associated Artery/Lesion type: unspecified vessel or lesion type [place] vs. transplanted heart: [place] heart Associated angina: without angina Qualified Code(s): I25.10 - Atherosclerotic heart disease of [place] coronary artery without angina pectoris (8) COPD (chronic obstructive pulmonary disease) Current Visit: No Status: Chronic Qualifiers: COPD type: unspecified COPD Qualified Code(s): J44.9 - Chronic obstructive pulmonary disease, unspecified (9) Hypertension Current Visit: No Status: Chronic Qualifiers: Hypertension type: primary hypertension Qualified Code(s): I10 - Essential (primary) hypertension (10) Hypothyroidism Current Visit: Yes Status: Acute Qualifiers: Hypothyroidism type: unspecified Qualified Code(s): E03.9 - Hypothyroidism, unspecified (11) Bradycardia Current Visit: Yes Status: Acute (12) Systolic CHF Current Visit: Yes Status: Chronic Qualifiers: Heart failure chronicity: chronic Qualified Code(s): I50.22 - Chronic systolic (congestive) heart failure - Plan NSTEMI: Per chart review, troponin is typically elevated on admission with cardiology aware. Heparin drip could not be done as patient is too combative for lab to obtain PT/INR every 4 hours. Renally dosed lovenox ordered. Trend troponin. Cardiology consulted. Patient takes aspirin, atorvastatin, plavix daily. Metabolic encephalopathy secondary to UTI: Urine culture obtained. Started zoysn after reviewing previous culture report. Haldol PRN. GREGORY superimposed on CKD 3: Likely secondary to dehydration as patient's son states she has not been eating for the past 5 days. Encourage diet. Will give small amount IVF. Nephrology consulted. Appreciate further input. Bradycardia: Patient was bradycardic during previous admission and was instructed to stop taking beta blockers upon discharge. Patient does not know exactly what medications she has been taking. Hold all beta blockers. Acute on chronic systolic congestive heart failure: Recent stress test with 19% EF and + stress induced ischemia. CXR today showed mild CHF. Fluid restriction, low sodium diet, monitor I&Os, daily weights. No pitting edema noted at this time. A. fib not on chronic anticoagulation: Currently with marked sinus bradycardia, monitor on telemetry, hold beta blockers. Heparin for anticoagulation. Hypertension: Restart home meds and adjust for bradycardia/ARF. Hypothyroidism: TSH very elevated at 130 and T4 0.21. Levothyroxine ordered daily. Patient was prescribed levothyroxine upon last discharge 1 month ago. Unclear what medications patient has been taking. Hypokalemia: Monitor and replete per protocol. Heparin for VTE ppx Full Code Discharge Plan: [facility] Plan to discharge in: Greater than 2 days - Advance Directives Does patient have a Living Will: Yes Does patient have a Durable POA for Healthcare: Yes - Code Status/Comfort Care Code Status Assessed: Yes (Full) Critical Care: No Time Spent Managing Pts Care (In Minutes): 70
[2021-10-16] MEDS: PIPER TAZO 3.375 GM in NA CHLORIDE 0.9% 100 ML IV SCH (23:31)
[2021-10-17] MEDS ORDERED: NA CHLORIDE 0.9% 1,000 ML IV SCH (03:00)
[2021-10-17] MEDS: LEVOTHYROXINE SOD 0.1 MG TAB PO SCH (05:14)
[2021-10-17] MEDS: ENOXAPARIN 60 MG/0.6 ML SQ SCH (09:00)
[2021-10-17] MEDS ORDERED: ENOXAPARIN 60 MG/0.6 ML SQ SCH ×2 (09:00)
[2021-10-17] MEDS: PIPER TAZO 3.375 GM in NA CHLORIDE 0.9% 100 ML IV SCH (10:23)
--- NOTE | 2021-10-17 11:19 | P.CNS ---
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 She had poor po intake for the past several days. Noted to have GREGORY. Started on IVF & abx. Allergies cephalexin monohydrate [From Keflex] Allergy (Mild, Verified 10/17/21 00:04) UNKNOWN famotidine [From Pepcid] Allergy (Mild, Verified 10/17/21 00:04) Itching/Hives/Rash Penicillins Allergy (Mild, Verified 10/17/21 00:04) Itching Sulfa (Sulfonamide Antibiotics) Allergy (Mild, Verified 10/17/21 00:04) Itching acetaminophen [From Tylox] Allergy (Unknown, Verified 10/17/21 00:04) UNKNOWN codeine [Codeine] Allergy (Unknown, Verified 10/17/21 00:04) UNKNOWN hydrocodone bitartrate [From Vicodin] Allergy (Unknown, Verified 10/17/21 00:04) UNKNOWN oxycodone HCl [From Tylox] Allergy (Unknown, Verified 10/17/21 00:04) UNKNOWN pentazocine lactate [From Talwin] Allergy (Unknown, Verified 10/17/21 00:04) UNKNOWN ranitidine HCl [From Zantac] Allergy (Unknown, Verified 10/17/21 00:04) UNKNOWN alprazolam [From Xanax] Allergy (Verified 10/17/21 00:04) Unknown nizatidine [From Axid] Allergy (Verified 10/17/21 00:04) Unknown Home Medications: Montelukast [Singulair*] 10 mg PO DAILY 04/20/21 Pantoprazole [Protonix Tab*] 40 mg PO DAILY 04/20/21 Aspirin [Aspirin EC 81 MG] 81 mg PO DAILY #90 tablet. 04/21/21 Clopidogrel Bisulfate [Plavix*] 75 mg PO DAILY #30 tablet 04/21/21 Furosemide 40 mg PO BID 06/23/21 Melatonin 10 mg PO BEDTIME 06/23/21 Isosorbide Mononitrate [Ismo] 20 mg PO DAILY #30 tablet 08/06/21 Midodrine HCl [Proamatine*] 5 mg PO BID PRN #60 tab 08/06/21 Atorvastatin Calcium [Lipitor] 40 mg PO BEDTIME 09/15/21 Cefdinir [Omnicef] 300 mg PO BID #14 capsule 09/17/21 Metoprolol Tartrate [Lopressor] 25 mg PO BID 10/16/21 Spironolactone 25 mg PO BID 10/16/21 carvediloL [Carvedilol] 12.5 mg PO BID 10/16/21 - Past Medical/Surgical History Diabetic: No -: Anxiety -: HTN -: Hypothyroidism -: Chronic systolic CHF -: COPD -: NSTEMI -: CKD 3 -: CVA -: Aortic stenosis -: Coronary artery bypass grafting Psychosocial/ Personal History: Patient currently resides at [facility] - Social History Smoking Status: Unknown if ever smoked Alcohol use: No CD- Drugs: No Caffeine use: Yes Place of Residence: [place] Review of Systems General: Weakness Eyes: Unremarkable ENT: Unremarkable Respiratory: Unremarkable Cardiovascular: Unremarkable Gastrointestinal: Unremarkable Genitourinary: Unremarkable Musculoskeletal: Unremarkable Integumentary: Unremarkable Neurological: Unremarkable Lymphatics: Unremarkable Physical Examination Temp Pulse Resp BP Pulse Ox 97.1 F 45 L 16 111/48 L 96 10/17/21 08:00 10/17/21 08:00 10/17/21 08:00 10/17/21 08:00 10/17/21 08:00 General: Other (Appears chronically ill) HEENT: Atraumatic, Normocephalic Neck: Supple, JVD not distended Respiratory: Clear to auscultation bilaterally Cardiovascular: No rubs, No murmurs Gastrointestinal: Soft and benign, No rebound Musculoskeletal: No clubbing Integumentary: No warmth Neurological: Other (+lethargy) Lymphatics: No axilla or inguinal lymphadenopathy Urinary: Other (no bladder distention) External genitalia: Deferred Rectal: Deferred Laboratory Data (last 24 hrs) 10/16/21 18:44: PT 12.6 H, INR 1.14 10/16/21 18:44: WBC 5.7, Hgb 10.3 L, Hct 30.4 L, Plt Count 178 10/16/21 18:44: Sodium 136, Potassium 3.3 L, BUN 79 H, Creatinine 3.19 H, Glucose 113 H, Magnesium 1.8, Total Bilirubin 1.0, AST 40 H, ALT 16, Alkaline Phosphatase 67 Conclusions/Impression: # GREGORY 2/2 prerenal state +/- ATN from prolonged prerenal Give thiamine IV, then switch NS t D5W gtt at 75 cc/hr Urinalysis unremarkable F/u renal US, urine chem, upcr, cpk, PTH Cont rees Monitor renal panel # CHF LVEF 19%, no aicd in place BNP elevated Dc NS. Switch Zosyn carrier fluid to D5W. Avoid Na-containing IV or carrier fluid. Strictly low Na diet # Chronic afib Not on AC Per other services # Sinus bradycardia BB on hold # FTT IVF as above Per primary team # HypoK Monitor/replete prn # Hypothyroidism Levothyroxine # Anemia Monitor H/H # Debility, hx of CVA PT/OT
[2021-10-17] MEDS ORDERED: THIAMINE 200 MG/2 ML INJ IVP STA (12:07)
[2021-10-17] MEDS: D5W 1,000 ML IV SCH (12:21)
--- NOTE | 2021-10-17 12:50 | P.PN ---
Subjective Date of Service: 10/17/21 Chief Complaint: AMS, Elevated Trop, GREGORY, UTI Patient uncooperative and not forthcoming. She refused blood draw. She stated she does not want to be here. Physical Examination - Vital Signs Temperature: 97 F Blood Pressure: 129/67 Pulse: 43 Respirations: 16 Pulse Ox (%): 99 - Physical Exam General: In no apparent distress, Other (Awake, uncooperative with exams.) Neck: JVD not distended Respiratory: Other (Nonlabored breathing) Cardiovascular: No edema Gastrointestinal: Non-distended Musculoskeletal: No swelling Integumentary: No rashes Neurological: Other (No focal motor deficit. She moves all extremities.) - Studies Laboratory Data (last 24 hrs) 10/16/21 18:44: PT 12.6 H, INR 1.14 10/16/21 18:44: WBC 5.7, Hgb 10.3 L, Hct 30.4 L, Plt Count 178 10/16/21 18:44: Sodium 136, Potassium 3.3 L, BUN 79 H, Creatinine 3.19 H, Glucose 113 H, Magnesium 1.8, Total Bilirubin 1.0, AST 40 H, ALT 16, Alkaline Phosphatase 67 Assessment And Plan - Current Problems (Diagnosis) (1) Acute worsening of stage 3 chronic kidney disease Current Visit: Yes Status: Acute (2) Chronic systolic heart failure Current Visit: Yes Status: Acute (3) Hypothyroidism Current Visit: Yes Status: Acute Qualifiers: Hypothyroidism type: unspecified Qualified Code(s): E03.9 - Hypothyroidism, unspecified (4) Atrial fibrillation Current Visit: No Status: Chronic Qualifiers: Atrial fibrillation type: unspecified Qualified Code(s): I48.91 - Unspecified atrial fibrillation (5) COPD (chronic obstructive pulmonary disease) Current Visit: No Status: Chronic Qualifiers: COPD type: unspecified COPD Qualified Code(s): J44.9 - Chronic obstructive pulmonary disease, unspecified - Plan Continue gentle hydration with IV fluid. Monitor renal function. Hold diuretics. Patient with significant hypothyroidism. She is started on oral Synthroid. Continue antibiotics for UTI. Follow cultures. Midodrine as needed for hypotension. COPD is stable. Bronchodilators as needed.
[2021-10-17] MEDS ORDERED: ALBUTEROL 2.5 MG/3 ML NEB SOL NEB PRN ×2 (12:53→14:00)
[2021-10-17 13:18] LABS: UR PROTEIN 15.4 mg/dL (<11.9); Urine Protein/Creatinine Ratio 0.18 ratio (<0.15)
[2021-10-17] MEDS ORDERED: IPRATROPIUM BROM 0.5MG/2.5ML NEB SCH (14:00)
[2021-10-17] MEDS ORDERED: IPRATROPIUM BROM 0.5MG/2.5ML NEB PRN ×2 (14:00)
--- NOTE | 2021-10-17 16:56 | RAD REPORT ---
EXAM DESCRIPTION: US - Renal Ultrasound-Complete - 10/17/2021 4:44 pm CLINICAL HISTORY: derrick, assess for hydronephrosis, ckd changes COMPARISON: Renal Ultrasound-Complete dated 09/15/2021 FINDINGS: The left kidney could not be imaged due to combative patient. The right kidney measures 7.5 x 4.8 x 3.8 cm. No hydronephrosis, focal mass or perinephric fluid. The right kidney is echogenic. The urinary bladder is incompletely distended due to Arteaga catheter. IMPRESSION: Echogenic right kidney likely indicating medical renal disease. Left kidney could not be imaged due to combative patient.
[2021-10-17] MEDS ORDERED: PIPERACIL/TAZO 3.375 GM VIAL IV ONE (20:17)
[2021-10-17] MEDS ORDERED: D5W 100 ML IV ONE (20:32)
[2021-10-17] MEDS: ENSURE ENLIVE 237 ML CAN PO SCH (21:00)
[2021-10-17] MEDS ORDERED: PIPER TAZO IV SCH (21:00)
[2021-10-17] MEDS ORDERED: D5W IV SCH (21:00)
[2021-10-17] MEDS: JUVEN PACKET PO SCH (21:00)
[2021-10-18] MEDS: D5W 1,000 ML IV SCH ×2 (00:37→14:06)
[2021-10-18 01:00] VITALS: BMI 24.8
[2021-10-18] MEDS: LEVOTHYROXINE SOD 0.1 MG TAB PO SCH (05:36)
[2021-10-18] MEDS ORDERED: PIPERACIL/TAZO 3.375 GM VIAL IV ONE (08:06)
[2021-10-18] MEDS: ENOXAPARIN 60 MG/0.6 ML SQ SCH (09:00)
[2021-10-18] MEDS: ENSURE ENLIVE 237 ML CAN PO SCH ×2 (09:00→22:00)
[2021-10-18] MEDS ORDERED: CEFTRIAXONE 1,000 MG in NA CHLORIDE 0.9% 50 ML IVPB SCH (09:00)
[2021-10-18] MEDS: JUVEN PACKET PO SCH ×2 (09:00→21:00)
[2021-10-18] MEDS: D5W IVPB SCH (10:09)
[2021-10-18] MEDS: CEFTRIAXONE IVPB SCH (10:09)
--- NOTE | 2021-10-18 12:53 | P.PN ---
Subjective Date of Service: 10/18/21 Chief Complaint: AMS, Elevated Trop, GREGORY, UTI Patient uncooperative. She has been awake She continues to refuse blood draws. Arteaga catheter is in place, urine output has been good. Physical Examination - Vital Signs Temperature: 96.7 F Blood Pressure: 134/64 Pulse: 33 Respirations: 16 Pulse Ox (%): 92 - Physical Exam General: In no apparent distress, Other (Awake, uncooperative with exams.) HEENT: Mucous membr. moist/pink Neck: JVD not distended Respiratory: Other (Nonlabored breathing) Cardiovascular: No edema Gastrointestinal: Non-distended Musculoskeletal: No swelling Integumentary: No rashes Neurological: Other (Moves all extremities, no noticeable facial weakness or limb weakness.) Assessment And Plan - Current Problems (Diagnosis) (1) Acute worsening of stage 3 chronic kidney disease Current Visit: Yes Status: Acute (2) Chronic systolic heart failure Current Visit: Yes Status: Acute (3) Hypothyroidism Current Visit: Yes Status: Acute Qualifiers: Hypothyroidism type: unspecified Qualified Code(s): E03.9 - Hypothyroidism, unspecified (4) Atrial fibrillation Current Visit: No Status: Chronic Qualifiers: Atrial fibrillation type: unspecified Qualified Code(s): I48.91 - Unspecified atrial fibrillation (5) COPD (chronic obstructive pulmonary disease) Current Visit: No Status: Chronic Qualifiers: COPD type: unspecified COPD Qualified Code(s): J44.9 - Chronic obstructive pulmonary disease, unspecified (6) Bradycardia Current Visit: Yes Status: Acute - Plan Urine output has been within normal range. Continue gentle hydration with IV fluid. Patient has been refusing blood draws. Monitor renal function if possible Continue to hold diuretics. Patient with significant hypothyroidism. Continue oral Synthroid. Urine culture growing gram-negative rods. Continue antibiotics. Patient has been normotensive. COPD is stable. Bronchodilators as needed. Patient has bradycardia but asymptomatic. Continue telemetry.
--- NOTE | 2021-10-18 14:32 | EKG ---
Test Date: 2021-10-16 Test Time: 18:45:23 Founder President And Ceo: BRIGITTE MEASUREMENT RESULTS: Intervals: Rate: 35 VA: 272 QRSD: 174 QT: 622 QTc: 474 Struthers: P: 56 VA: 272 QRS: 261 T: 46 INTERPRETIVE STATEMENTS: Sinus with second degree A-V block type 2 Right bundle branch block Septal infarct, age undetermined Abnormal ECG Compared to ECG 09/15/2021 02:18:54 Ventricular premature complex(es) now present Right bundle-branch block now present Myocardial infarct finding still present Electronically Signed On 10-18-21 14:31:40 CDT by Tremaine Pitts
--- NOTE | 2021-10-18 14:54 | P.PN ---
Subjective Date of Service: 10/18/21 Chief Complaint: AMS, Elevated Trop, GREGORY, UTI Subjective pt with Afib, CHF EF 20%, CKD III baseline Cr 1.0 pt was admitted for AMS And GREGORY today refuse to do labs cont IVF for now , will reduce rate General: Awake, confused HEENT: Atraumatic, Normocephalic Neck: Supple, no elevated JVD Respiratory: Other CTAB. No rales or wheezes Cardiovascular: No rubs, No murmurs Gastrointestinal: Soft and benign, Non-distended Musculoskeletal: No clubbing Integumentary: No warmth Neurological: Normal tone, Sensation intact Lymphatics: No axilla or inguinal lymphadenopathy Urinary: Other (no bladder distention) A/P # GREGORY 2/2 prerenal state +/- ATN from prolonged prerenal baseline Cr 1.0 Urinalysis unremarkable US: rt kidney no hydronephrosis , lt kidney non visualized due to pt combative behaviour Cont rees Monitor renal panel # CHF LVEF 19%, no aicd in place BNP elevated will reduce IVF rate Strictly low Na diet # Chronic afib Not on AC Per other services # FTT IVF as above Per primary team # HypoK Monitor/replete prn # Hypothyroidism Levothyroxine # Anemia Monitor H/H # Debility, hx of CVA PT/OT Physical Examination - Vital Signs Temperature: 96.7 F Blood Pressure: 134/64 Pulse: 33 Respirations: 16 Pulse Ox (%): 92
--- NOTE | 2021-10-18 16:12 | CON ---
Date of Consultation: 10/17/2021 Reason For Consultation: Elevated troponin. History Of Present Illness: This is an 89-year-old female with history of chronic systolic heart miranda lure, ejection fraction is severely depressed below 20%, history of CVA, chronic atrial fibrillation on anticoagulation, hypertension, acid reflux, hypothyroidism, presented to the emergency room, not e ating and drinking very well, generalized weakness and lethargy, found to have urinary tract infectio n. Troponin was slightly elevated, hence I was consulted. The patient denies having any chest pain. Past Medical History: As outlined above in HPI. Medications: Refer to reconciliation sheet for detailed list. Allergies: LONG LIST OF ALLERGIES WAS REVIEWED. Social History: Does not smoke or drink. Does not use any drugs. Family History: No premature coronary artery disease or cancer. Review of Systems: All systems reviewed and they were negative except for what mentioned in HPI. Physical Examination: Vital Signs: Temperature is 97.3, pulse is 41, breathing at 18, blood pressure 130/50, saturating 95 %. General: Pleasant elderly female, in no apparent distress; however, she is confused. Head and Neck: Pupils are equal, reactive to light. Intact eye movements. No JVD. No cervical lym phadenopathy. Neck: Supple. Thyroid is not enlarged. Lungs: Clear to auscultation bilaterally. No rhonchi, rales, or crackles. No accessory muscle use. Heart: Irregular with aortic systolic murmur. Abdomen: Soft, nontender. Bowel sounds positive. No organomegaly. No masses or hernia. No rigidi ty or rebound. Extremities: No edema, clubbing, or cyanosis. Intact pulses. Skin: No rash noted. Neurologic: Alert, awake, oriented x3. No acute focal deficits appreciated. Investigations: The troponin was 194. Creatinine is 3.1, NT-proBNP is 2110. Assessment And Recommendations: 1.Elevated troponin, borderline elevation. The patient has no chest pain. This is likely demand an d there was a significant aortic systolic murmur. The patient is being followed by Dr. Chavez. In the office, we would evaluate the recent workup that was done on her and further recommendations base d on that. At this point, trend at least 1 more set of troponin to assure stability and make sure th e patient is on baby aspirin. 2.Bradycardia with an electrocardiogram that showed a second-degree AV block type 2. The patient wi ll need a pacemaker evaluation. Again, I will look at the records first and determine the course of action accordingly. Of note, the patient has significant dementia, which is probably going to limit her workup and interventions. We will discuss further with family and Dr. Chavez. /BENJY Voice ID: [id number] Report ID: [id number]
--- NOTE | 2021-10-18 17:24 | PN ---
Date of Progress Note: 10/18/2021 Subjective: The patient was seen by bedside. No chest pain or shortness of breath. Blood pressure is holding and she seems to be bradycardic. Review of Systems: No chest pain or shortness of breath, orthopnea, cough. No nausea, vomiting, diarrhea. She is confu sed. All other systems reviewed are negative. Physical Examination: Vital Signs: Reviewed. Head and Neck: Pupils are equal, reactive to light. Intact eye movements. No JVD. No cervical lym phadenopathy. Neck: Supple. Thyroid is not enlarged. Lungs: Clear to auscultation bilaterally. No rhonchi, rales, or crackles. No accessory muscle use. Heart: Regular. No extra sounds. Abdomen: Soft, nontender. Bowel sounds positive. No organomegaly. No masses or hernia. No rigidi ty or rebound. Extremities: No clubbing or cyanosis. Intact pulses. Skin: No rash noted. Neurologic: Alert, awake, oriented x3. No acute focal deficits appreciated. Lymph Nodes: No cervical or axillary lymphadenopathy. Investigations: Her TSH is 130. Assessment And Recommendations: 1.Elevated troponin as outlined in yesterday's note. We will recommend to do another troponin to as sure stability and evaluate her echocardiogram which was done recently in the office and make recomme ndations accordingly. 2.Bradycardia with second degree type 2 AV block. Reviewing her labs, her TSH is extremely high and this tissue needs to be addressed first before proceeding further with any cardiac workup. 3.Hypothyroidism. Her TSH is 130 suggestive of significant hypothyroidism state. Recommend being a ggressive in replacing thyroid hormone until TSH is therapeutic and we will re-evaluate her heart sta tus and heart rhythm once the thyroid is under better control. SR/MODL Voice ID: [id number] Report ID: [id number]
[2021-10-19] MEDS: D5W 1,000 ML IV SCH ×3 (03:07→18:20)
[2021-10-19] MEDS: LEVOTHYROXINE SOD 0.1 MG TAB PO SCH (05:46)
--- NOTE | 2021-10-19 09:28 | P.PN ---
Subjective Date of Service: 10/19/21 Chief Complaint: AMS, Elevated Trop, GREGORY, UTI Subjective pt with Afib, CHF EF 20%, CKD III baseline Cr 1.0 pt was admitted for AMS And GREGORY Today Cont to refuse labs plan to discharge pt need to repeat labs within one week General: Awake, NAD , mildly agitated HEENT: Atraumatic, Normocephalic Neck: Supple, no elevated JVD Respiratory: Other CTAB. No rales or wheezes Cardiovascular: No rubs, No murmurs Gastrointestinal: Soft and benign, Non-distended Musculoskeletal: No clubbing Integumentary: No warmth Neurological: Normal tone, Sensation intact Lymphatics: No axilla or inguinal lymphadenopathy A/P # GREGORY 2/2 prerenal state +/- ATN from prolonged prerenal baseline Cr 1.0 Urinalysis unremarkable US: rt kidney no hydronephrosis , lt kidney non visualized due to pt combative behaviour Cont rees Monitor renal panel # CHF LVEF 19%, no aicd in place BNP elevated will reduce IVF rate Strictly low Na diet # Chronic afib Not on AC Per other services # FTT IVF as above Per primary team # HypoK Monitor/replete prn # Hypothyroidism Levothyroxine # Anemia Monitor H/H # Debility, hx of CVA PT/OT Physical Examination - Vital Signs Temperature: 97 F Blood Pressure: 140/58 Pulse: 37 Respirations: 18 Pulse Ox (%): 95 - Studies Refused Microbiology Data (last 24 hrs): 10/16/21 18:55 Catheterized Urine [place] Count - Final >100,000 CFU/ML. 10/16/21 18:55 Catheterized Urine - Final Escherichia Coli Gram Neg Jamil
[2021-10-19] MEDS: D5W IVPB SCH (09:32)
[2021-10-19] MEDS: CEFTRIAXONE IVPB SCH (09:32)
[2021-10-19] MEDS: ENSURE ENLIVE 237 ML CAN PO SCH ×2 (09:33→19:53)
[2021-10-19] MEDS: JUVEN PACKET PO SCH ×2 (09:33→19:53)
[2021-10-19] MEDS: ENOXAPARIN 60 MG/0.6 ML SQ SCH (09:33)
--- NOTE | 2021-10-19 14:31 | PN ---
Date of Progress Note: 10/19/2021 Subjective: Seen at bedside. No changes in condition. She appears to be lying comfortably. The pa tient is confused, unable to offer any complaints. Review of Systems: Again, the patient is with confusion, not complaining of any chest pain or shortness of breath or raymond sea, vomiting, diarrhea, and blood pressure is stable. All systems reviewed and they are negative ex cept for what mentioned in the HPI. Physical Examination: Vital Signs: Reviewed. Her heart rate is in the high 30s now. General: This is a pleasant elderly female, no apparent distress. Head and Neck: Pupils are equal, reactive to light. Intact eye movements. No JVD. No cervical lym phadenopathy. Neck is supple. Thyroid is not enlarged. Lungs: Clear to auscultation bilaterally. No rhonchi, rales, or crackles. No accessory muscle use. Heart: Irregular. No extra sounds. Abdomen: Soft, nontender. Bowel sounds positive. No organomegaly. No masses or hernia. No rigidi ty or rebound. Extremities: No clubbing or cyanosis. Intact pulses. Skin: No rash noted. Neurologic: Alert, awake, oriented x3. No acute focal deficits appreciated, but she is with confusi on. Assessment And Recommendations: 1.Bradycardia with second-degree AV block. The patient has extremely high TSH, so the hypothyroid c ondition needs to be corrected first and then we will revisit with this issue. If she continues to b e in heart block, then a pacemaker might be indicated. 2.Elevated troponin. No chest pain. This is likely demand. /BENJY Voice ID: [id number] Report ID: [id number]
[2021-10-19 16:15] LABS: Absolute Lymphocytes (CBC) 1.6 K/uL (0.7-4.9); Hematocrit 31.3 % (36.0-45.0); Lymphocytes % 22.4 % (15.3-44.8); MPV 8.8 fL (7.6-11.3); RBC Red Blood Cell Count 3.62 M/uL (3.86-4.86)
--- NOTE | 2021-10-19 16:18 | P.PN ---
Subjective Date of Service: 10/19/21 Chief Complaint: AMS, Elevated Trop, GREGORY, UTI No issues overnight She has been awake and laying comfortably in bed. Son reports poor oral intake. Patient still refusing blood work. Physical Examination - Vital Signs Temperature: 97.3 F Blood Pressure: 122/59 Pulse: 95 Respirations: 18 Pulse Ox (%): 95 - Physical Exam General: In no apparent distress, Other (Awake) HEENT: Mucous membr. moist/pink Neck: JVD not distended Respiratory: Clear to auscultation bilaterally Cardiovascular: No edema, Normal S1 S2, Other (Bradycardia) Gastrointestinal: Normal bowel sounds, Soft and benign, Non-distended Musculoskeletal: No swelling Integumentary: No cyanosis Neurological: Normal strength at 5/5 x4 extr - Studies Microbiology Data (last 24 hrs): 10/16/21 18:55 Catheterized Urine [place] Count - Final >100,000 CFU/ML. 10/16/21 18:55 Catheterized Urine - Final Escherichia Coli Gram Neg Jamil Assessment And Plan - Current Problems (Diagnosis) (1) Acute worsening of stage 3 chronic kidney disease Current Visit: Yes Status: Acute (2) Chronic systolic heart failure Current Visit: Yes Status: Acute (3) Hypothyroidism Current Visit: Yes Status: Acute Qualifiers: Hypothyroidism type: unspecified Qualified Code(s): E03.9 - Hypothyroidism, unspecified (4) Atrial fibrillation Current Visit: No Status: Chronic Qualifiers: Atrial fibrillation type: unspecified Qualified Code(s): I48.91 - Unspecified atrial fibrillation (5) COPD (chronic obstructive pulmonary disease) Current Visit: No Status: Chronic Qualifiers: COPD type: unspecified COPD Qualified Code(s): J44.9 - Chronic obstructive pulmonary disease, unspecified (6) Bradycardia Current Visit: Yes Status: Acute - Plan Urine output has been within normal range. Continue gentle hydration with IV fluid. Patient has been refusing blood draws so it is difficult to assess renal function response to IV fluid. Check blood work while her son is present. Continue to hold diuretics. Patient with significant hypothyroidism. Continue oral Synthroid. Urine culture growing E. coli. Continue antibiotics. Patient has been normotensive. COPD is stable. Bronchodilators as needed. Patient has bradycardia but asymptomatic. EKG demonstrates sinus rhythm with second-degree type II AV block. Patient was previously evaluated for pacemaker but was put on hold. Not sure if hypothyroidism is contributing to the bradycardia. Will discuss with cardiology. Continue telemetry. Son wants to proceed the option of long-term care placement. Social service consulted.
[2021-10-19 16:34] LABS: Albumin 2.7 g/dL (3.4-5.0); Bilirubin Total 0.5 mg/dL (0.2-1.0); Protein, Total 6.2 g/dL (6.4-8.2)
[2021-10-19] MEDS: KCL 20 MEQ/100 mL IVPB 20 MEQ/100 ML BAG IV SCH ×2 (19:52→22:06)
[2021-10-20] MEDS: LEVOTHYROXINE SOD 0.1 MG TAB PO SCH (05:44)
[2021-10-20] MEDS: D5W 1,000 ML IV SCH ×3 (05:45→21:00)
[2021-10-20] MEDS: ENOXAPARIN 60 MG/0.6 ML SQ SCH (09:00)
[2021-10-20] MEDS: ENSURE ENLIVE 237 ML CAN PO SCH ×2 (10:21→21:00)
[2021-10-20] MEDS: D5W IVPB SCH (10:21)
[2021-10-20] MEDS: CEFTRIAXONE IVPB SCH (10:21)
[2021-10-20] MEDS: JUVEN PACKET PO SCH ×2 (10:22→21:00)
--- NOTE | 2021-10-20 12:56 | PN ---
Date of Progress Note: 10/20/2021 Ms. Alonzo was admitted with non-STEMI, renal failure, congestive heart failure. She has a known eje ction fraction of 20%. She has atrial fibrillation, hypertension, hypothyroidism, and history of CVA . She remained in second-degree AV block with a low heart rate. I think her thyroid needs to be inc reased. Her troponin is elevated because of demand ischemia. I would prefer not to do a pacemaker o n Ms. Alonzo. We will continue to observe her. I discussed the case with Dr. Rosen. IVANA/BENJY Voice ID: [id number] Report ID: [id number]
[2021-10-20 18:14] LABS: Absolute Lymphocytes (CBC) 1.2 K/uL (0.7-4.9); Hematocrit 31.7 % (36.0-45.0); Lymphocytes % 17.3 % (15.3-44.8); RBC Red Blood Cell Count 3.67 M/uL (3.86-4.86)
[2021-10-20 18:22] LABS: Albumin 2.6 g/dL (3.4-5.0); Bilirubin Total 0.4 mg/dL (0.2-1.0); Potassium 3.2 mmol/L (3.5-5.1); Protein, Total 6.2 g/dL (6.4-8.2)
[2021-10-20 18:24] LABS: CKMB Creatine Kinase MB 2.6 ng/mL (1.0-3.6)
--- NOTE | 2021-10-20 18:47 | P.PN ---
Subjective Date of Service: 10/20/21 Chief Complaint: AMS, Elevated Trop, GREGORY, UTI No issues overnight She has no complaints. Physical Examination - Vital Signs Temperature: 97.6 F Blood Pressure: 154/67 Pulse: 45 Respirations: 14 Pulse Ox (%): 95 - Physical Exam General: In no apparent distress, Other (Awake) HEENT: Mucous membr. moist/pink Neck: JVD not distended Respiratory: Clear to auscultation bilaterally Cardiovascular: No edema, Normal S1 S2, Irregular heart rate/rhythm Gastrointestinal: Soft and benign, Non-distended Musculoskeletal: No swelling Integumentary: No cyanosis Neurological: Normal strength at 5/5 x4 extr Assessment And Plan - Current Problems (Diagnosis) (1) Acute worsening of stage 3 chronic kidney disease Current Visit: Yes Status: Acute (2) Chronic systolic heart failure Current Visit: Yes Status: Acute (3) Hypothyroidism Current Visit: Yes Status: Acute Qualifiers: Hypothyroidism type: unspecified Qualified Code(s): E03.9 - Hypothyroidism, unspecified (4) Atrial fibrillation Current Visit: No Status: Chronic Qualifiers: Atrial fibrillation type: unspecified Qualified Code(s): I48.91 - Unspecified atrial fibrillation (5) COPD (chronic obstructive pulmonary disease) Current Visit: No Status: Chronic Qualifiers: COPD type: unspecified COPD Qualified Code(s): J44.9 - Chronic obstructive pulmonary disease, unspecified (6) Bradycardia Current Visit: Yes Status: Acute - Plan Serum creatinine has improved Continue gentle hydration with IV fluid. Continue to hold diuretics. Patient with significant hypothyroidism. Continue oral Synthroid. Urine culture growing E. coli. Continue antibiotics. She may have to complete 10 days of treatment given history of recurrent UTI. Patient has been normotensive. COPD is stable. Bronchodilators as needed. Patient has bradycardia but asymptomatic. EKG demonstrates sinus rhythm with second-degree type II AV block. Patient was previously evaluated for pacemaker but was put on hold. Not sure if hypothyroidism is contributing to the bradycardia. Case discussed with cardiology-Dr. Chavez. No pacemaker insertion this hospitalization. Dr. Chavez recommend to continue Synthroid and follow-up as outpatient. NSTEMI deemed secondary to demand ischemia. Continue telemetry. Patient will disposition back to [facility]. Possible discharge in a.m.
[2021-10-20 19:31] LABS: Magnesium 1.5 mg/dL (1.8-2.4); Phosphorus 2.1 mg/dL (2.5-4.9)
[2021-10-20] MEDS: KCL 20 MEQ/100 mL IVPB 20 MEQ/100 ML BAG IV SCH ×2 (20:59→23:01)
--- NOTE | 2021-10-21 01:23 | PN ---
Date of Progress Note: 10/20/2021 Chief Complaint: Acute kidney injury, urinary tract infection, altered mental status. Subjective: Patient was found to have elevated troponin. She has atrial fibrillation and congestive heart failure with systolic dysfunction. She was admitted for altered mental status and she was fou nd to have acute kidney injury. Previously baseline creatinine level was 1.0. The patient has chron ic kidney disease stage 3. Review of Systems: The patient denies complaints. Physical Examination: Lungs: Clear to auscultation bilaterally. Heart: S1, S2. Abdomen: Soft. Extremities: No edema. Impression And Plan: 1.Acute kidney injury secondary to prerenal azotemia, nonoliguric, acute tubular necrosis due to fritz al hypoperfusion. Patient previously had a baseline creatinine of 1.0. Continue to monitor electrol ytes and renal panel. Ultrasound showed right kidney without hydronephrosis, left kidney was not vis ualized due to combative patient behavior and lack of cooperation with admission. Continue Arteaga cat heter. Monitor urine output. 2.Congestive heart failure, ejection fraction 19%. BNP is elevated. Continue fluid balance, monito r electrolytes. Continue low-sodium diet. 3.Chronic atrial fibrillation per primary team. 4.Hypokalemia. Monitor electrolytes. Continue to replete as needed. Monitor magnesium level. 5.Hypothyroidism, on levothyroxine. SEDRICK/BENJY Voice ID: [id number] Report ID: [id number]
[2021-10-21] MEDS: LEVOTHYROXINE SOD 0.1 MG TAB PO SCH (04:49)
[2021-10-21] MEDS: D5W 1,000 ML IV SCH ×2 (06:09→10:20)
--- NOTE | 2021-10-21 06:16 | P.PN ---
Date of Service: 10/21/21 Subjective: Improving, appetite improved more energy, continues with confusion, likely close to baseline Son at bedside ROS: 10 point ROS as noted above, otherwise negative Physical exam GEN: Alert, NADx1 HEENT: Noral conjunctiva, sclera anicteric CV: sinus carolyn, no edema Pulm: Nonlabored respirations on room air Integumentary: No rashes Neuro: Normal speech, normal affect Problem List acute metabolic encephalopathy, secondary to UTI acute worsening of CKD 3 NSTEMI, demand ischemia S-CHF, chronic Hypothyroidism, uncontrolled Paroxysmal atrial fibrillation COPD Bradycardia Cr improved, Na improved appetite improving, dc IVF dc rees BP ok COPD seems stable increase synthroid - 125 -> 175mcg - could be contributing to AMS / bradycardia Urine Cx: e. coli. transitioned to cefdinir on 10/20; treat 10 days total, repeat UA/Cx at that time Patient has bradycardia but asymptomatic. EKG demonstrated sinus rhythm with second-degree type II AV block. Patient was previously evaluated for pacemaker but was put on hold. Not sure if hypothyroidism is contributing to the bradycardia. Case discussed with Cardiology-Dr. Chavez. No pacemaker insertion this hospitalization. Dr. Chavez recommend to continue Synthroid and follow-up as outpatient. NSTEMI deemed secondary to demand ischemia. Continue telemetry. Patient will disposition back to [facility] / assisted living per son; he will review nursing homes for possible placement in future VTE: [facility] Dispo: [facility], likely tomorrow
[2021-10-21 08:03] LABS: Magnesium 1.7 mg/dL (1.8-2.4); Potassium 4.4 mmol/L (3.5-5.1)
[2021-10-21] MEDS: ENSURE ENLIVE 237 ML CAN PO SCH ×2 (10:11→21:00)
[2021-10-21] MEDS: JUVEN PACKET PO SCH ×2 (10:11→21:00)
[2021-10-21] MEDS: ENOXAPARIN 60 MG/0.6 ML SQ SCH (10:11)
[2021-10-21] MEDS: CEFDINIR 300 MG CAP PO SCH (10:11)
--- NOTE | 2021-10-21 13:27 | P.PN ---
Subjective Date of Service: 10/21/21 Chief Complaint: AMS, Elevated Trop, GREGORY, UTI Subjective: No new changes Physical Examination - Vital Signs Temperature: 97.8 F Blood Pressure: 122/61 Pulse: 72 Respirations: 12 Pulse Ox (%): 98 - Physical Exam General: In no apparent distress HEENT: Atraumatic, Normocephalic Neck: Supple, JVD not distended Respiratory: Other (symmetric chest expansion) Cardiovascular: No rubs, No murmurs Gastrointestinal: Soft and benign, No rebound Musculoskeletal: No clubbing Integumentary: No warmth Neurological: Normal speech, Normal tone Urinary: Other (no bladder distention) External genitalia: Deferred Rectal: Deferred Assessment And Plan - Plan # GREGORY 2/2 prerenal state +/- ATN from prolonged prerenal Improved/resolved Urinalysis unremarkable [place] po fluid intake Monitor renal panel # CHF LVEF 19%, no aicd in place BNP elevated Avoid Na-containing IV or carrier fluid Strictly low Na diet # Chronic afib Not on therapeutic AC Per other services # Sinus bradycardia BB on hold # FTT Per primary team # HypoMg Monitor/replete prn # Acidosis Improving, monitor # Hypothyroidism Levothyroxine # Anemia Monitor H/H # Debility, hx of CVA PT/OT # Dispo Dc plan to [facility] ongoing
[2021-10-22] MEDS ORDERED: LEVOTHYROXINE SOD 0.075 MG TAB PO SCH (06:30)
[2021-10-22] MEDS ORDERED: LEVOTHYROXINE SOD 0.1 MG TAB PO SCH (06:30)
[2021-10-22 08:12] LABS: Magnesium 1.6 mg/dL (1.8-2.4); Potassium 4.2 mmol/L (3.5-5.1)
[2021-10-22 08:49] VITALS: O2SAT 96
[2021-10-22] MEDS: JUVEN PACKET PO SCH (09:00)
[2021-10-22] MEDS: ENOXAPARIN 60 MG/0.6 ML SQ SCH (09:45)
[2021-10-22] MEDS: CEFDINIR 300 MG CAP PO SCH (09:45)
[2021-10-22] MEDS: ENSURE ENLIVE 237 ML CAN PO SCH (09:45)
--- NOTE | 2021-10-22 11:09 | RAD REPORT ---
EXAM DESCRIPTION: US - Urinary Bladder - 10/22/2021 10:34 am CLINICAL HISTORY: eval Ur volume; incontinent, minimal void s/pfoley COMPARISON: No comparisons TECHNIQUE: Real-time sonographic evaluation of the urinary bladder was performed. FINDINGS: Patient cooperation issues limits the examination. No gross mass or ureterocele. Bladder v olume was 40 mL.
--- NOTE | 2021-10-22 14:51 | P.DS ---
Admission Date: 10/16/21 Discharge Date: 10/22/21 Disposition: DC HOME/HOME HEALTH CARE Discharge Condition: FAIR Reason for Admission: AMS, Elevated Trop, GREGORY, UTI Consultations: Nephrology - Dr. Earl Cardiology - Dr. Pitts Brief History of Present Illness: 89yo F, PMH: chronic systolic CHF with EF of 19%, CKD 3, CVA, HTN, atrial fibrillation not on chronic anticoagulation, GERD, hypothyroidism Presented to ED after not eating for ~5 days. Found to have UTI, elevated creatinine, BNP, and TSH of 130. CXR noted mild CHF. Patient also noted to be in sinus bradycardia with first-degree block with rate between 35 and 50. She was bradycardic during previous admission and was instructed to stop taking beta blockers upon discharge. She was also prescribed levothyroxine. It does not appear that patient has been taking her medications as prescribed. Patient noted to be screaming anytime nurses tried to touch her. She does not know why she is in the hospital has no complaints. Patient will be admitted for further evaluation and treatment. Hospital Course: Problem List acute metabolic encephalopathy, secondary to UTI; resolved acute worsening of CKD 3; resolved NSTEMI, demand ischemia S-CHF, chronic Hypothyroidism, uncontrolled Paroxysmal atrial fibrillation COPD Bradycardia moderate-severe alzheimer dementia Patient was found to be in acute renal failure secondary to dehydration / intravascular depletion. She was also noted to have elevated troponin levels and bradycardia (30-40s) with 2nd degree heart block. Nephrology was consulted, lasix and spironolactone were held during hospitalization, patient improved with IV hydration. Cardiology was consulted regarding bradycardia and troponin elevation. Troponin elevation was felt to be secondary to demand ischemia in setting of bradycardia and dehydration. Her thyroid levels were noted to be significantly off. TSH: 100, low T4. Her synthroid was increased to 175mcg daily She was treated empirically for UTI. Urine culture grew e.coli, sensitivities reviewed and patient was transitioned to oral cefdinir which she tolerated well - renally dosed. Discharged back to [facility], with prescriptions for cefdinir and higher dose of synthroid. Her bradycardia began to slowly improve. Recommend continue to hold beta edmundo on discharge. Monitor fluid status and restart diuretics as needed - once eating more and notice swelling with / 2lb weight gain. She was taking spironolactone and lasix prior to admission. Follow up with Cardiology in 1-2 weeks. Follow up with Nephrology in ~1 week. Follow up with PCP within 1 week, recheck thyroid levels in ~1 month Vital Signs/Physical Exam: Temp Pulse Resp BP Pulse Ox 98.4 F 65 18 116/55 L 96 10/22/21 12:00 10/22/21 12:00 10/22/21 12:00 10/22/21 12:00 10/22/21 12:00 Physical exam GEN: Alert, NAD HEENT: Normal conjunctiva, sclera anicteric CV: normal sinus rhythm, no edema Pulm: Nonlabored respirations on room air Integumentary: No rashes Neuro: Normal speech, normal affect Laboratory Data at Discharge: WBC 6.9 K/uL (4.3-10.9) 10/20/21 17:18 Hgb 11.0 g/dL (12.0-15.0) L 10/20/21 17:18 Hct 31.7 % (36.0-45.0) L 10/20/21 17:18 Plt Count 189 K/uL (152-406) 10/20/21 17:18 PT 12.6 SECONDS (9.5-12.5) H 10/16/21 18:44 INR 1.14 10/16/21 18:44 Sodium 135 mmol/L (136-145) L 10/22/21 07:43 Potassium 4.2 mmol/L (3.5-5.1) 10/22/21 07:43 BUN 19 mg/dL (7-18) H 10/22/21 07:43 Creatinine 1.17 mg/dL (0.55-1.3) 10/22/21 07:43 Glucose 119 mg/dL (74-106) H 10/22/21 07:43 Phosphorus 2.1 mg/dL (2.5-4.9) L 10/20/21 17:18 Magnesium 1.6 mg/dL (1.8-2.4) L 10/22/21 07:43 Total Bilirubin 0.4 mg/dL (0.2-1.0) 10/20/21 17:18 Total Bilirubin Cancelled 10/20/21 17:18 AST 40 U/L (15-37) H 10/20/21 17:18 AST Cancelled 10/20/21 17:18 ALT 17 U/L (12-78) 10/20/21 17:18 ALT Cancelled 10/20/21 17:18 Alkaline Phosphatase 74 U/L (45-117) 10/20/21 17:18 Alkaline Phosphatase Cancelled 10/20/21 17:18 Triglycerides 247 mg/dL (<150) H 10/20/21 17:18 Cholesterol 155 mg/dL (<200) 10/20/21 17:18 HDL Cholesterol 50 mg/dL (40-60) 10/20/21 17:18 Cholesterol/HDL Ratio 3.10 10/20/21 17:18 Home Medications: Montelukast [Singulair*] 10 mg PO DAILY 04/20/21 Pantoprazole [Protonix Tab*] 40 mg PO DAILY 04/20/21 Aspirin [Aspirin EC 81 MG] 81 mg PO DAILY #90 tablet.dr 04/21/21 Clopidogrel Bisulfate [Plavix*] 75 mg PO DAILY #30 tablet 04/21/21 Melatonin 10 mg PO BEDTIME 06/23/21 Isosorbide Mononitrate [Ismo] 20 mg PO DAILY #30 tablet 08/06/21 Midodrine HCl [Proamatine*] 5 mg PO BID PRN #60 tab 08/06/21 Atorvastatin Calcium [Lipitor] 40 mg PO BEDTIME 09/15/21 Spironolactone 25 mg PO BID 10/16/21 Cefdinir [Cefdinir*] 300 mg PO DAILY 8 Days #8 cap 10/22/21 Levothyroxine Sodium [Synthroid] 175 mcg PO DAILY 30 Days #30 tablet 10/22/21 New Medications: Cefdinir [Cefdinir*] 300 mg PO DAILY 8 Days #8 cap Levothyroxine Sodium [Synthroid] 175 mcg PO DAILY 30 Days #30 tablet Followup: Rustam Pool FNP [Primary Care Provider] - Time spent managing pt's care (in minutes): 45
[2021-10-22 16:28] VITALS: BP 103/59; TEMP 98
--- NOTE | 2021-10-23 04:20 | P.PN ---
Subjective Date of Service: 10/22/21 Chief Complaint: AMS, Elevated Trop, GREGORY, UTI Subjective: No new changes Physical Examination - Vital Signs Temperature: 98.0 F Blood Pressure: 103/59 Pulse: 72 Respirations: 18 Pulse Ox (%): 97 - Physical Exam General: In no apparent distress HEENT: Atraumatic, Normocephalic Neck: Supple, JVD not distended Respiratory: Other (symmetric chest expansion) Cardiovascular: No rubs, No murmurs Gastrointestinal: Soft and benign, No rebound Musculoskeletal: No clubbing Integumentary: No warmth Neurological: Normal tone Urinary: Other (no bladder distention) External genitalia: Deferred Rectal: Deferred Assessment And Plan - Plan # GREGORY 2/2 prerenal state +/- ATN from prolonged prerenal Improved Urinalysis unremarkable [place] po fluid intake Monitor renal panel # CHF LVEF 19%, no aicd in place BNP elevated Avoid Na-containing IV or carrier fluid Strictly low Na diet # Chronic afib Not on therapeutic AC Per other services # Sinus bradycardia BB on hold # FTT Per primary team # HypoMg Monitor/replete prn # Acidosis Improving, monitor # Hypothyroidism Levothyroxine # Anemia Monitor H/H # Debility, hx of CVA PT/OT # Dispo Dc plan to [facility] ongoing
--- NOTE | 2021-10-23 06:30 | EKG ---
Test Date: 2021-10-22 Test Time: 08:34:24 Regional Business Manager: RITCHIE MEASUREMENT RESULTS: Intervals: Rate: 59 AL: 288 QRSD: 158 QT: 530 QTc: 524 [place]: P: 70 AL: 288 QRS: -72 T: 122 INTERPRETIVE STATEMENTS: Sinus bradycardia with marked sinus arrhythmia with 1st degree AV block with fusion complexes Right bundle branch block Left anterior fascicular block Bifascicular block Left ventricular hypertrophy with repolarization abnormality Abnormal ECG Compared to ECG 10/16/2021 18:45:23 Fusion complex(es) now present First degree AV block now present Left anterior fascicular block now present Bifascicular block now present Left ventricular hypertrophy now present Early repolarization now present Myocardial infarct finding no longer present Electronically Signed On 10-23-21 06:27:45 CDT by Manuel Chavez
== END 2021-10-22 17:58 | disposition home health service (06) | DRG 689 ==
LOC: ER 18:22 → ERHOLD 20:46 → 2ND 21:26
PROVIDERS: ADMIT Internal Medicine; ATTEND Internal Medicine
DX: N30.00 Acute cystitis without hematuria (principal); G93.41 Metabolic encephalopathy; I50.23 Acute on chronic systolic (congestive) heart failure; N17.0 Acute kidney failure with tubular necrosis; I21.A1 Myocardial infarction type 2; I13.0 Hypertensive heart and chronic kidney disease with heart failure and stage 1 through stage 4 chronic kidney disease, or unspecified chronic kidney disease; E87.2 Acidosis; E03.9 Hypothyroidism, unspecified; J44.9 Chronic obstructive pulmonary disease, unspecified; E87.6 Hypokalemia; I25.10 Atherosclerotic heart disease of native coronary artery without angina pectoris; N18.31 Chronic kidney disease, stage 3a; D64.9 Anemia, unspecified; R53.81 Other malaise; I35.8 Other nonrheumatic aortic valve disorders; I44.1 Atrioventricular block, second degree; B96.20 Unspecified Escherichia coli [E. coli] as the cause of diseases classified elsewhere; I48.0 Paroxysmal atrial fibrillation; R00.1 Bradycardia, unspecified; G30.9 Alzheimer's disease, unspecified; F02.80 Dementia in other diseases classified elsewhere, unspecified severity, without behavioral disturbance, psychotic disturbance, mood disturbance, and anxiety; Z95.1 Presence of aortocoronary bypass graft; Z86.73 Personal history of transient ischemic attack (TIA), and cerebral infarction without residual deficits; Z20.822 Contact with and (suspected) exposure to COVID-19
CPT/HCPCS: 36415; 71045; 76770; 76857; 80048; 80053; 80061; 80076; 81003; 81015; 82550; 82553; 82570; 83605; 83735; 83880; 83935; 83970; 84100; 84132; 84145; 84156; 84300; 84439; 84443; 84484; 85025; 85610; 87040; 87077; 87086; 87088; 87186; 93005; 96360; 96361; 99285; J1650; J2543; J3411; J3480; J7030; J7040; U0003